=== PATIENT | female | born 1965 | race Caucasian/White ===

== ENCOUNTER 2023-01-30 15:54 | Outpatient (OUT) | payer OTHER, SELFPAY ==
[2023-01-30 17:09] LABS: Thyroid Stimulating Hormone 3.535 uIU/mL (0.358-3.740)
== END 2023-01-30 15:55 | disposition home or self-care (01) ==
PROVIDERS: PCP Family Medicine; Visit Provider Family Medicine
DX: Z00.00 Encounter for general adult medical examination without abnormal findings (principal); R53.82 Chronic fatigue, unspecified
CPT/HCPCS: 36415; 84439; 84443

== ENCOUNTER 2023-03-12 15:55 | Outpatient (OUT) | payer OTHER, SELFPAY ==
--- NOTE | 2023-03-12 15:57 | MM_ITS ---
Patient Name: WILLIAM GAMBINO MR#: [id number] : 1965 Exam Date: 03/12/2023 Ordering Doctor: DR Johanna Gupta M.D. RADIOLOGY REPORT PROCEDURE: MM TOMOSYNTHESIS SCREENING BI COMPARISON: MG MAMM SCREEN 3D AVERY CAD, 02/28/2021. MG MAMM SCREEN 3D AVERY CAD, 03/01/2022. INDICATIONS: Screening Calculator Name NCI Breast Cancer Risk Assessment Tool 5 Year Breast Cancer Risk 1.30% Lifetime Breast Cancer Risk 9.10% Personal Breast Cancer No Personal Ovarian Cancer No Treatments None Family Cancers Mother with liver cancer at age 84; Aunt-maternal with colon cancer at age 67; Grandmother-maternal with colon cancer at age ~50; Grandfather-maternal with colon cancer at age 86. LOCATION: [facility] BREAST COMPOSITION: Scattered areas fibroglandular density. FINDINGS: DIAGNOSTIC CATEGORY 1--NEGATIVE. NO CHANGE FROM COMPARISON ASSESSMENT. Scattered benign-appearing calcifications are present. RIGHT BREAST: No significant suspicious finding. LEFT BREAST: No significant suspicious finding. RECOMMENDATIONS: ROUTINE MAMMOGRAM AND CLINICAL EVALUATION IN 12 MONTHS. PLEASE NOTE: A NORMAL MAMMOGRAM DOES NOT EXCLUDE THE POSSIBILITY OF BREAST CANCER. A CLINICALLY SUSPICIOUS PALPABLE LUMP SHOULD BE BIOPSIED. Dictated by: Nic Vanessa MD on 03/13/2023 at 08:03 Approved by: Nic Vanessa MD on 03/13/2023 at 08:04
== END 2023-03-12 15:56 | disposition home or self-care (01) ==
LOC: MAMMO 15:55
PROVIDERS: PCP Family Medicine; Visit Provider Family Medicine
DX: Z12.31 Encounter for screening mammogram for malignant neoplasm of breast (principal); Z80.8 Family history of malignant neoplasm of other organs or systems; Z80.0 Family history of malignant neoplasm of digestive organs
CPT/HCPCS: 77063; 77067

== ENCOUNTER 2023-06-08 09:00 | Outpatient (OUT) | payer OTHER, SELFPAY ==
--- OUTSIDE RECORDS SUMMARY | 2023-06-08 09:05 | XMS_ITS | CCD ---
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 Name Role Phone Art Chu MD Primary Care Provider [phone] Vj Hernandez Unavailable Torie Lee Unavailable KIMBERLEY, DR ART Alba Admitting Unavailable CHU, DR ART Alba Attending Unavailable CHU, DR ART Alba Primary Care Unavailable CHU, DR ART Alba Consulting Unavailable VJ HERNANDEZ Admitting Unavailable VJ HERNANDEZ Attending Unavailable CHU, DR ART Alba Primary Care Unavailable [facility] [place] DAO Consulting Unavailable CHU, DR ART Alba Admitting Unavailable CHU, DR ART Alba Attending Unavailable CHU, DR ART Alba Primary Care Unavailable LEHIGH, DR MEGHNA Blackmon Consulting Unavailable CHU, DR ART Alba Consulting Unavailable CHU, DR ART Alba Admitting Unavailable CHU, DR ART Alba Attending Unavailable CHU, DR ART Alba Primary Care Unavailable LEHIGH, DR MEGHNA Blackmon Consulting Unavailable CHU, DR ART Alba Consulting Unavailable CHU, DR ART Alba Admitting Unavailable CHU, DR ART Alba Attending Unavailable CHU, DR ART Alba Primary Care Unavailable CHU, DR ART Alba Consulting Unavailable Chu Art CHAMBERS Primary Care Provider [phone] Vj Hernandez Unavailable Vj Hernandez(Historical) Unavailable Unavail able Tr Dalal Unavailable Meghna Butler Unavailable MD Art Chu Primary Care Provider MD Meghna Butler Attending Provider MD Don Boudreaux V Referring Provider SALAM, Zabala Attending Unavailable SALAM, Zabala Referring Unavailable RONY, BILLIE E Attending Unavailable RONY, BILLIE E Attending Unavailable RONY, BILLIE E Attending Unavailable RONY, BILLIE E Attending Unavailable RONY, BILLIE E Attending Unavailable SALAM, Zabala Admitting Unavailable SALAM, Zabala Attending Unavailable RONY, BILLIE E Admitting Unavailable RONY, BILLIE E Attending Unavailable SALAM, Zabala Attending Unavailable SALAM, Zabala Attending Unavailable Chu, Art Unavailable Cindi Pleitez Unavailable MARC Pleitez Attending Provider MD Art Chu Primary Care Provider MD Meghna Butler Attending Provider MD Don Boudreaux V Referring Provider MARC Pleitez Attending Provider HYMAYRA JRMEGHNA L Referring Unavailable CHU, ART E Primary Care Unavailable HYKES JR, MEGHNA L Referring Unavailable CHU, ART E Primary Care Unavailable HYKES JR, MEGHNA L Referring Unavailable CHU, ART E Primary Care Unavailable ABHYANKAR, DON Referring Unavailable ABHYANKAR, DON Attending Unavailable CHU, ART E Primary Care Unavailable CHU, ART E Primary Care Unavailable HYKES JR, MEGHNA L Referring Unavailable CHU, ART E Primary Care Unavailable HYKES JRMEGHNA L Attending Unavailable HYKES JR, MEGHNA L Referring Unavailable CHU, ART E Primary Care Unavailable HYKES JR, MEGHNA L Referring Unavailable CHU, ART E Primary Care Unavailable HYKES JR, MEGHNA L Referring Unavailable CHU, ART E Primary Care Unavailable ABHYANKAR, DON Referring Unavailable ABHYANKAR, DON Attending Unavailable CHU, ART E Primary Care Unavailable CHU, ART E Primary Care Unavailable HYKES JR, MEGHNA L Referring Unavailable CHU, ART E Primary Care Unavailable ABHYANKAR, DON Referring Unavailable ABHYANKAR, DON Attending Unavailable CHU, ART E Primary Care Unavailable Hakan Maguire Unavailable [phone] PATRICK SIMMS Attending Unavailable CUTPATRICK ROTH L Referring Unavailable CUTLER, PATRICK L Referring Unavailable CUTLERRADHAPATRICK L Attending Unavailable RADHA SIMMSOTHY L Referring Unavailable MAGALIE MAGDALENO Attending Unavailable Art Chu Primary Care Unavailable Meghna Butler Admitting Unavailable Meghna Butler Attending Unavailable Art Chu Primary Care Unavailable [facility] Attending Unavailable Art Chu Primary Care Unavailable Don Boudreaux V Referring Unavailable Meghna Butler Admitting Unavailable Meghna Butler Attending Unavailable Art Chu Primary Care Unavailable Cindi Pleitez Admitting Unavailable Cindi Pleitez R Attending Unavailable Patrick Simms DO Primary Care Provider Allergies Allergy Classification Reported Allergen(s) Allergy Type Date of Onset Reaction(s) Facility (8 sources) patient allergy list reviewed by nurse or physicia Propensity to adverse reactions Comment:Done 50 Cubes Other (8 sources) Allergies Reconciled Propensity to adverse reactions Unknown 50 Cubes Other Medications Current Medications Medication Drug Class(es) Dates Sig (Normalized) Sig (Original) [id number] 200 actuat albuterol 0.09 mg/actuat metered dose inhaler (6 sources) beta2-Adrenergic Agonist Start: 07-24-2022 take 2 puff(s) by mouth every four hours as needed for cough albuterol HFA 90 mcg/act inhaler INHALE 2 PUFFS BY MOUTH EVERY 4 HOURS NEEDED FOR COUGH AND SHORTNESS OF BREATH 0 07/24/2022 Active Start: 07-24-2022 take 2 puff(s) by in halation every four hours as needed for cough Albuterol Sulfate HFA 108 (90 Base) MCG/ACT 2 puffs Inhalation every 4 hrs as needed for cough and SOB for 30 days Jun, Active Start: 07-24-2022 take 2 puff(s) by in halation every four hours as needed for cough Albuterol Sulfate HFA 108 (90 Base) MCG/ACT 2 puffs Inhalation every 4 hrs as needed for cough and SOB for 30 days Jun, Not-Taking amLODIPine 5 mg / olmesartan medoxomil 40 mg oral tablet (1 source) Dihydropyridine Calcium Channel Surendra, Angiotensin 2 Receptor Surendra Start: 04-30-2023 End: 04-29-2024 take 1 tablet by mouth in the morning amLODIPine-olmesartan (Lucio) 5-40 MG tablet Indications: Primary hypertension (CMS/HCC) Take 1 tablet by mouth in the morning. 90 tablet 3 04/30/2023 04/29/2024 Active amoxicillin 875 mg / clavulanate 125 mg oral tablet (2 sources) Penicillin-class Antibacterial Start: 02-28-2022 take 1 tablet by mouth every twelve hours Amoxicillin-Pot Clavulanate 875-125 MG 1 tablet Orally every 12 hrs for 10 day(s) Feb, Active azithromycin 250 mg oral tablet (1 source) Macrolide Antimicrobial Start: 07-24-2022 Azithromycin 250 MG as directed Orally daily for 5 days Jun, Active benzonatate 200 mg oral capsule (3 sources) Non-narcotic Antitussive Start: 07-24-2022 take 1 capsule by mouth every eight hours Benzonatate 200 MG 1 capsule Orally Three times a day for 10 days Jun, Active take 1 capsule by mouth every ei ght hours Tessalon Perles 100 MG 1 capsule as needed Orally Three times a day for 10 day(s) Active budesonide 3 mg delayed release oral capsule (3 sources) Corticosteroid Start: 05-29-2022 End: 06-28-2022 take 1 capsule by mouth three times daily budesonide, enteric coated (ENTOCORT EC) 3 mg 24 hr capsule Indications: Ulcerative colitis with rectal bleeding, unspecified location (HCC) Take 1 capsule by mouth three times daily. 90 capsule 2 05/29/2022 06/28/2022 Active Comment on above: Take 1 capsule by cox branson three times daily. ertugliflozin 5 mg oral tablet (1 source) Start: 04-25-2023 take 1 tablet by mouth in the morning ertugliflozin (Steglatro) Indications: Type 2 diabetes mellitus without complication, without long-term current use of insulin (CMS/HCC) Take 1 tablet (5 mg) by mouth in the morning. 30 tablet 3 04/25/2023 Active fluticasone propionate 0.05 mg/actuat metered dose nasal spray (2 sources) Corticosteroid Start: 02-28-2022 take 2 spray(s) nasal route once daily Fluticasone Propionate 50 MCG/ACT 2 sprays Nasally Once a day for 14 day(s) Feb, Active hydrocortisone 10 mg/ml / neomycin 3.5 mg/ml / polymyxin b [id number] unt/ml otic solution (7 sources) Aminoglycoside Antibacterial, Polymyxin-class Antibacterial, Corticosteroid Neomycin-Polymyxin -HC 1 % 4 drops into affected ear Otic Three times a day for 7 days Active Lyumjev (2 sources) Lyumjev Active predniSONE 10 mg oral tablet (15 sources) Start: 03-27-2022 End: 05-16-2022 predniSONE (DELTASONE) 10 mg tablet Indications: Left sided ulcerative colitis with rectal bleeding (HCC) Take by mouth: 40 mg X 7 days; 30 mg X 7 days; 20 mg X 7 days; 10 mg X 7 days 70 tablet 0 04/11/2022 05/16/2022 Active Start: 02-28-2022 take 1 tablet by lexa every twelve hours predniSONE 20 MG 1 tablet Orally 2 times a day for 5 day(s) Feb, Active Comment on above: Take by mouth: 40 mg X 7 days; 30 mg X 7 days; 20 mg X 7 days; 10 mg X 7 days solifenacin succinate 10 mg oral tablet (20 sources) Cholinergic Muscarinic Antagonist take 1 tablet by mouth in the morning solifenacin (VESIcare) 10 MG tablet Take 10 mg by mouth in the morning. Swallow tablet whole; do not crush, chew, or split.. 0 Active Comment on above: Take 10 mg by mouth once daily. vancomycin 125 mg oral capsule (1 source) Glycopeptide Antibacterial Start: take 1 capsule by mouth every twenty-four hours Vancomycin HCl 125 MG 1 capsule Orally Once a day for 5 days Jun, Active Completed/Discontinued Medications Medication Drug Class(es) Dates Sig (Normalized) Sig (Original) Acetaminophen / HYDROcodone (2 sources) Opioid Agonist Start: 10-08-2013 take 1 tablet by mouth every six hours as needed for pain Hudson 5-325 MG 1 tablet as needed Orally every 6 hrs for take as needed for severe pain, avoid driving, alcohol use and machinery use with taking this medication, may cause fatigue, this medication as a potential for addiction and dependence Sep, Not-Taking atenolol 50 mg / chlorthalidone 25 mg oral tablet (2 sources) Thiazide-like Diuretic, beta-Adrenergic Surendra take 1 tablet by mouth every twenty-four hours Atenolol-Chlortha lidone 50-25 MG 1 tablet Orally Once a day for 30 day(s) Not-Taking Augmentin Tablets 875 MG (2 sources) Start: 05-09-2014 take 1 tablet by mouth every twelve hours at mealtime Augmentin Tablets 875 MG 1 by mouth every 12 hours with food and probiotics for 10 days Apr, Not-Taking cephalexin 500 mg oral capsule (2 sources) Cephalosporin Antibacterial Start: 10-08-2013 take 1 capsule by mouth three times daily Cephalexin 500 MG 1 capsule Orally 3 times daily for 10 day(s) Sep, Not-Taking L gasseri/B bifidum/B longum (Close.io ORAL) (16 sources) End: 06-21-2022 L gasseri/B bifidum/B longum (Close.io ORAL) Take by mouth. 0 06/21/2022 Discontinued L gasseri/B bifi dum/B longum (Close.io ORAL) Take by mouth. 0 Active Comment on above: Take by mouth. losartan potassium 25 mg oral tablet (20 sources) Angiotensin 2 Receptor Surendra Start: 12-19-2021 take 1 tablet by mouth once daily losartan (COZAAR) 25 mg tablet Take 25 mg by mouth once daily. 0 12/19/2021 [facility] Comment on above: Take 25 mg by mouth once daily. 24 hr mesalamine 375 mg extended release oral capsule (20 sources) Aminosalicylate Start: 12-26-19 End: 05-09-19 take 4 capsules by mouth once daily in the morning mesalamine ER (APRISO) 0.375 gram capsule TAKE 4 CAPSULES BY MOUTH EVERY MORNING 0 12/25/2021 05/09/2022 Discontinued (Discontinued by Patient) End: 06-21-2022 take 4 g rectal route once daily in the evening MESALAMINE RECTAL 4 g by RECTAL route every evening. 0 06/21/2022 Discontinued (Changing Therapy/Dosage Form) take 4 g rectal rout e once daily in the evening MESALAMINE RECTAL 4 g by RECTAL route every evening. 0 Active MESALAMINE RECTA L by RECTAL route. 0 Active Apriso Active Mesalamine Activ e Comment on above: TAKE 4 CAPSULES BY M OUTH EVERY MORNING by RECTAL route. 4 g by RECTAL route every evening. metFORMIN hydrochloride 500 mg oral tablet (2 sources) Biguanide take 1 tablet by mouth every twelve hours metFORMIN HCl 500 MG 1 tablet with meals Orally Twice a day Not-Taking Oxybutinin XL 5mg (2 sources) Oxybutinin XL 5m g as directed Not-Taking 24 hr tolterodine tartrate 4 mg extended release oral capsule (20 sources) Cholinergic Muscarinic Antagonist End: 11-23-19 take 1 capsule by mouth once daily tolterodine ER (DETROL LA) 4 mg 24 hr capsule Take 4 mg by mouth once daily. 0 11/22/2022 Discontinued Tolterodine Tart rate Active Comment on above: Take 4 mg by mouth o nce daily. Tylenol Arthritis Pain (2 sources) Tylenol Arthriti s Pain Not-Taking vedolizumab 300 mg injection (20 sources) Integrin Receptor Antagonist Start: 03-01-2023 vedolizumab (ENTYVIO) 300 mg injection Inject 300 mg intravenously every 8 weeks. Repeating every 8 weeks 1 Each 5 03/01/2023 Active Start: 10-10-2022 End: 03-01-2023 inject 300 mg intravenously once vedolizumab (ENTYVIO) 300 mg injection Inject 300 mg intravenously one time only for 1 dose. 1 Each 6 10/10/2022 03/01/2023 Discontinued Start: 05-04-2022 Vedolizumab (E NTYVIO IV) Start: 05-04-2022 End: 10-10-2022 vedolizumab (ENTYVIO INTRAVE NOUS) Start: 05-04-2022 vedolizumab (E NTYVIO INTRAVENOUS) Comment on above: Inject 300 mg intrav enously one time only for 1 dose. Inject 300 mg intrav enously every 8 weeks. Repeating every 8 weeks Problems Active Problems Problem Classification Problem Date Documented Da te Episodic/Chronic Abdominal pain (6 sources) Right upper quadrant pain; Translations: [Right upper quadrant pain] Onset: 2 Episodic Acute bronchitis (1 source) Acute bronchitis due to other specified organisms Episodic Anxiety disorders (1 source) Anxiety disorder; Translations: [Other specified anxiety disorders] Onset: 6 Chronic Coma; stupor; and brain damage (3 sources) Daytime somnolence; Translations: [Somnolence] Episodic Deficiency and other anemia (4 sources) Iron deficiency anemia due to blood loss; Translations: [Iron deficiency anemia secondary to blood loss (chronic)] Chronic Deficiency and other anemia (5 sources) Iron deficiency anemia, unspecified; Translations: [IRON DEFICIENCY ANEMIA UNSPECIFIED] Onset: 2 Episodic Diabetes mellitus with complications (9 sources) Hyperglycemia due to type 2 diabetes mellitus; Translations: [Type 2 diabetes mellitus with hyperglycemia] Chronic Diabetes mellitus without complication (2 sources) Type 2 diabetes mellitus without complication; Translations: [Type 2 diabetes mellitus without complications] Onset: 5 Resolved: 3 09-11-2022 Chronic Esophageal disorders (10 sources) Gastroesophageal reflux disease without esophagitis; Translations: [Gastro-esophageal reflux disease without esophagitis] Onset: 3 Chronic Essential hypertension (10 sources) Essential hypertension; Translations: [Essential (primary) hypertension] Onset: 4 Chronic Genitourinary symptoms and ill-defined conditions (2 sources) Mixed urinary incontinence; Translations: [Mixed incontinence] Onset: 8 10-02-2022 Chronic Genitourinary symptoms and ill-defined conditions (1 source) Dysuria; Translations: [Dysuria] Episodic Intestinal infection (1 source) Clostridial gastroenteritis; Translations: [Enterocolitis due to Clostridium difficile, not specified as recurrent] Episodic Malaise and fatigue (7 sources) Fatigue; Translations: [Chronic fatigue, unspecified] Chronic Nausea and vomiting (1 source) Vomiting; Translations: [Vomiting, unspecified] Episodic Noninfectious gastroenteritis (5 sources) Colitis; Translations: [Noninfective gastroenteritis and colitis, unspecified] Onset: 2 Episodic Other circulatory disease (1 source) Elevated blood-pressure reading without diagnosis of hypertension; Translations: [Elevated blood-pressure reading, without diagnosis of hypertension] Episodic Other circulatory disease (2 sources) Nevus, non-neoplastic Episodic Other connective tissue disease (1 source) Acquired trigger finger; Translations: [Trigger finger, unspecified finger] Episodic Other connective tissue disease (1 source) Pain in left leg Episodic Other diseases of bladder and urethra (1 source) Overactive bladder; Translations: [Overactive bladder] Chronic Other diseases of veins and lymphatics (2 sources) Vascular insufficiency; Translations: [Venous insufficiency (chronic) (peripheral)] Episodic Other diseases of veins and lymphatics (1 source) Venous insufficiency (chronic) (peripheral) Episodic Other female genital disorders (1 source) Abnormal uterine bleeding; Translations: [Abnormal uterine and vaginal bleeding, unspecified] Onset: 6 Chronic Other gastrointestinal disorders (4 sources) Diarrhea, unspecified; Translations: [DIARRHEA UNSPECIFIED] Onset: 2 Episodic Other hematologic conditions (3 sources) Secondary polycythemia; Translations: [Secondary polycythemia] Episodic Other hematologic conditions (1 source) Secondary polycythemia Episodic Other infections; including parasitic (1 source) Personal history of other infectious and parasitic diseases Episodic Other liver diseases (1 source) Fatty (change of) liver, not elsewhere classified; Translations: [Other chronic nonalcoholic liver disease] Onset: 3 09-11-2022 Chronic Other lower respiratory disease (1 source) Cough; Translations: [Subacute cough] Episodic Other lower respiratory disease (3 sources) Snoring; Translations: [Snoring] Episodic Other nutritional; endocrine; and metabolic disorders (1 source) Morbid obesity; Translations: [Morbid (severe) obesity due to excess calories] Onset: 7 Chronic Other nutritional; endocrine; and metabolic disorders (3 sources) Obese class II; Translations: [Body mass index 37.0-37.9, adult] Onset: 6 Chronic Other nutritional; endocrine; and metabolic disorders (2 sources) Obese class I; Translations: [Body mass index (BMI) 34.0-34.9, adult] Onset: 6 Chronic Other nutritional; endocrine; and metabolic disorders (8 sources) Body mass index 30+ - obesity; Translations: [Body mass index (BMI) 36.0-36.9, adult] Onset: 6 Chronic Other nutritional; endocrine; and metabolic disorders (1 source) Obesity; Translations: [Obesity, unspecified] Onset: 6 Chronic Other nutritional; endocrine; and metabolic disorders (1 source) Body mass index (BMI) 36.0-36.9, adult Chronic Other nutritional; endocrine; and metabolic disorders (1 source) Severe obesity; Translations: [Morbid (severe) obesity due to excess calories] Onset: 3 04-09-2023 Chronic Other screening for suspected conditions (not mental disorders or infectious disease) (15 sources) Elevated liver enzymes level; Translations: [Other specified abnormal findings of blood chemistry] Onset: 2 Episodic Other upper respiratory infections (1 source) Chronic sinusitis; Translations: [Chronic sinusitis, unspecified] Chronic Regional enteritis and ulcerative colitis (20 sources) Ulcerative colitis; Translations: [Ulcerative colitis, unspecified, without complications] Onset: 3 Chronic Residual codes; unclassified (8 sources) Sleep apnea; Translations: [Sleep apnea, unspecified] Chronic Residual codes; unclassified (2 sources) Sleep apnea, unspecified; Translations: [Sleep apnea, unspecified] Onset: 3 Chronic Residual codes; unclassified (1 source) Obstructive sleep apnea (adult)(pediatric); Translations: [Obstructive sleep apnea (adult) (pediatric)] Onset: 3 Chronic Residual codes; unclassified (1 source) Asymptomatic menopausal state; Translations: [ASYMPTOMATIC MENOPAUSAL STATE] Onset: 2 Episodic Residual codes; unclassified (1 source) Family history of malignant neoplasm of other organs or systems; Translations: [FAM HX MALIG NEOPLASM OTH ORGN/SYS] Onset: 2 Episodic Residual codes; unclassified (1 source) Family history of malignant neoplasm of digestive organs; Translations: [FAM HX MALIG NEOPLASM DIGESTIV ORGN] Onset: 2 Episodic Residual codes; unclassified (2 sources) Postmenopausal state; Translations: [Asymptomatic postmenopausal status] Onset: 9 Episodic Unclassified (20 sources) Type 2 diabetes mellitus without complication; Translations: [Diabetes mellitus type 2, uncontrolled, without complications] Onset: 5 07-08-2014 Unclassified (1 source) Vaccine product containing only acellular Bordetella pertussis and Clostridium tetani and Corynebacterium diphtheriae antigens (medicinal product); Translations: [Rvuiluhjur-zjhhgmf-wm rtussis, combined [DTP] [DtaP]] Onset: 9 Unclassified (1 source) Long-term current use of drug therapy; Translations: [Long-term (current) use of other medications] Onset: 7 Unclassified (1 source) Contact with and (suspected) exposure to potentially hazardous body fluids; Translations: [Contact with and (suspected) exposure to potentially hazardous body fluids] Onset: 4 Unclassified (1 source) Varicose veins of bilateral lower extremities with pain; Translations: [Varicose veins of bilateral lower extremities with pain] Onset: 3 Varicose veins of lower extremity (14 sources) Varicose veins of lower limb co-occurrent with edema; Translations: [Varicose veins of left lower extremity with other complications] Episodic Viral infection (1 source) Herpesviral vesicular dermatitis; Translations: [Herpesviral vesicular dermatitis] Episodic Past or Other Problems Problem Classification Problem Date Documented Da te Episodic/Chronic Deficiency and other anemia (20 sources) Iron deficiency anemia; Translations: [Iron deficiency anemia, unspecified] Onset: 03-04-2022 Episodic Deficiency and other anemia (20 sources) Anemia; Translations: [Anemia, unspecified] Onset: 12-24-2012 02-02-2013 Episodic Diabetes mellitus without complication (1 source) Hyperglycemia; Translations: [Hyperglycemia, unspecified] Onset: 04-24-2014 Episodic Nutritional deficiencies (20 sources) Iron deficiency; Translations: [Iron deficiency] Onset: 05-27-2014 05-27-2014 Episodic Other liver diseases (20 sources) Enzyme level - finding; Translations: [Transaminitis] Onset: 02-02-2013 02-02-2013 Episodic Other skin disorders (1 source) Atrophoderma; Translations: [Unspecified hypertrophic and atrophic condition of skin] Onset: 08-11-2018 Episodic Other upper respiratory infections (2 sources) Acute sinusitis, unspecified; Translations: [Acute sinusitis] Onset: 06-22-2013 Episodic Results Test Name Value Interpretation Reference Range Facil ity XR LUMBAR SPINE 2-3 VIEWSon 06-05-2023 XR LUMBAR SPINE 2-3 VIEWS EXAM: XR LUMBAR SPINE 2-3 VIEWS DATE: 06/05/2023 5:15 PM CLINICAL HISTORY: lumbar radic. COMPARISON: None available. TECHNIQUE: AP, lateral and coned-down AP radiographs of the lumbar spine were obtained. FINDINGS: Mild to moderate disc space narrowing and hypertrophic facet changes are present at L4-5, with approximately 5 to 6 mm of anterolisthesis. Milder changes are present at L3-4, with approximately 1 to 2 mm of anterolisthesis. Mild to moderate hypertrophic facet changes are present of the L5-S1 level, with minimal degenerative changes elsewhere.. There is no compression, fracture, worrisome bone destruction, or other findings of concern identified. The sacroiliac joints are unremarkable. IMPRESSION: LUMBAR SPONDYLOSIS, PREDOMINANTLY OF THE LOWER LEVELS DESCRIBED. ELECTRONICALLY SIGNED BY: Samir Green MD Normal Not Available [facility] 05[facility]-2023 [facility] HNO ID: [id number] Author: TRACI CHANDLER Art Therapist Service: ? Author Type: Art Therapist Type: Allied Health Filed: 05/31/2023 15:11 Note Text: ART THERAPY NOTE SERVICE DATE: 05/31/2023 SERVICE TIME: 1:30 Referred By: self Reason for Referral: Introductory Session Type: Initial Time Spent (minutes): 30 Goals: Coping Through Diversion Interventions: Insight Oriented Response Before After Mood Anxiety Pain Scale: 0 = No pain/anxiety 10 = Worst possible pain/anxiety Response: Patient's Verbal Response: Positive Family Present: No Outcome: Goals: Met Follow Up: Will Follow Up as Able COMMENTS: Patient was introduced to art therapy services and given mandala sheets for mindfulness at home. Patient was finishing treatment but indicated interest at a follow up appointment. SIGNATURE: Konrad Myles Therapist PATIENT NAME: Ludivina Lomas DATE: May 31, 2023 TIME: 3:10 PM PAGER/CONTACT #: Normal [facility] HIV Screen ([facility])on HIV Screen ([facility]) Non-Reactive Normal Nonreactive [facility] Comment on above: Order Comment: Which is this, the Source or the Person with the Exposure?: SOURCE Source Medical Record: [id number] Exposed Result Comment: PERF ORMED BY: [facility] [address] [place] [address] PATHOLOGIST ASSEMBLYMAN OR WOMAN BISHOP BROWN M.D. Performed By: #### H IV12 #### [facility] [address] [place] [address] #### HBSAG, HBSAB, HCV RX PCR #### [facility] , Hep C Ab wRfx to Qnt PCRon 0 05-29-2023 Hepatitis C Virus Antibody Non-Reactive Normal Non Reactive [facility] Comment on above: Order Comment: Which is this, the Source or the Person with the Exposure?: SOURCE Source Medical Record: [id number] Exposed Performed By: #### H IV12 #### [address] #### HBSAG, HBSAB, HCV RX PCR #### [facility] , Interpretation Hepatitis C Normal . [facility] Comment on above: Order Comment: Which is this, the Source or the Person with the Exposure?: SOURCE Source Medical Record: [id number] Exposed Result Comment: Not infected with HCV unless early or acute infection is suspected (which may be delayed in an immunocompromised individual), or other evidence exists to indicate HCV infection. Performed By: #### H IV12 #### [address] #### HBSAG, HBSAB, HCV RX PCR #### [facility] , Hepatitis B Surface Antibody on 05-29-2023 Hepatitis B Surface Antibody Non-Reactive Normal . [facility] Comment on above: Order Comment: Which is this, the Source or the Person with the Exposure?: SOURCE Source Medical Record: [id number] Exposed Result Comment: Non Reactive: Inconsistent with immunity, less than 10 mIU/mL Reactive: Consistent with immunity, greater than 9.9 mIU/mL Performed By: #### H IV12 #### [facility] [address] [place] [address] [place] #### HBSAG, HBSAB, HCV RX PCR #### [facility] , Hepatitis B Surface Antigeno n 05-29-2023 HBsAg Screen Negative Normal Negative [facility] Comment on above: Order Comment: Which is this, the Source or the Person with the Exposure?: SOURCE Source Medical Record: [id number] Exposed Result Comment: Perf ormed at: CB - [facility] [address] [id number] Urban Design Consultant: Ignacio Robles PhD, Phone: [phone] PERFORMED BY: [place] [address] PATHOLOGIST ASSEMBLYMAN OR WOMAN BISHOP BROWN M.D. Performed By: #### H IV12 #### [place] [address] [place] #### HBSAG, HBSAB, HCV RX PCR #### [facility] , US LIVERon 04-30-2023 LIVER US LIVER : 05/13/2023 9:00 AM CLINICAL HISTORY: transaminitis. COMPARISON: None available. TECHNIQUE: ROUTINE FINDINGS: Within the gallbladder hyperechogenic focus is seen that measures 1.6 x 1.5 x 1.3 cm. It moves position with change in position and also exhibits posterior shadowing. The liver is increased in echogenicity. Within the liver in the left lobe an anechoic area is seen that measures 0.7 x 0.6 x 1 cm. An second anicteric area seen left lobe measures 0.9 x 0.9 x 1 cm. No other focal mass is visualized. No pericholecystic edema or gallbladder wall thickening is seen. The visualized portion of the pancreas is unremarkable. The visualized portion of the spleen also is unremarkable The common bile duct measures 1.4 mm.. IMPRESSION: CHOLELITHIASIS WITHOUT EVIDENCE FOR ACUTE CHOLECYSTITIS. Cysts are seen in the liver. Also findings are suggestive of hepatocellular disease which includes hepatic steatosis. ELECTRONICALLY SIGNED BY: Tobias Cooney, DO Normal Not Available CNOVSPon 04-25-2023 CNOVS Visit (SP) Office (HEMASA) LUDIVINA LOMAS ([id number]) 1965 F Date Time Provider Department 04/25/23 9:30 AM DON BOUDREAUX During your visit today, we recorded the following information about you: Temperature Pulse Respiration Blood pressure 97.7 degrees 83/minute 18/minute 174/102 Weight Height 96.7 kg 1.6 m Don Boudreaux MD 04/26/2023 8:31 AM Signed NAME: Ludivina Lomas CLINIC NO.: [id number] DATE OF SERVICE: April 25, 2023 (Sandra) Some elements in this clinic note that are critical to medical decision making have been carefully reviewed and included from a prior clinic note dated: December 14, 2022 (Sandra) Referring Provider: Art Chu Additional Clinicians involved in Ludivina Lomas's care: Art Chu DIAGNOSIS: 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 ASSESSMENT: 57 year old woman with a history of colitis and chronic GI blood loss. Improved after iron replacement. Sweats and alopecia are better. Sleep study was consistent with severe obstructive sleep apnea. PLAN: Get on CPAP therapy as prescribed. Try increasing losartan to 50 mg daily. Follow up with Dr. Chu RTC in 4 months. Labs 1 week ahead. - HPI: CASE HISTORY: Reverse chronological disorder. 06/14/2022 - Hgb 15.2, Ferritin 40, iron sat 14.9% 05/11/2022 - CXR mild bronchial wall thickening ? bronchitis 05/09/2021 - Hgb 12.4, Ferritin 23. 11/2021 - C-Diff colitis. 11/2021 - started Moujarno - stopped due to intolerance 09/2021 persisting colitis following a round of diarrhea and emesis. 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 She has been doing well lately. We reviewed her labs, most everything is satisfactory other than some slightly elevated liver enzymes. Her mildly elevated RBC count is stable. She had her sleep study, dx with CARLOS and plan is to start on CPAP therapy in the new year. Reports experiencing more frequent hypertension, I suggested she increase her losartan dose. She is considering starting either Mounjaro or Ozempic for her DM and weight loss. Updated Visit, December 14, 2022: Sleep eval scheduled for 12/20/2022 - study is not scheduled yet. Otherwise is now polycythemic. Leg pain - left leg worse at night - sitting and standing - off and on since March - does not feel like a clot. Easily reproducible. Updated Visit, June 21, 2022: Mounjaro - caused her to be sick so she is still frustrated with weight gain. Needs sleep study. Significant daytime somnolence. Witnessed snoring. Hgb is much improved but may be concerning for secondary polycytemia associated with possible CARLOS. Updated Visit, May 10, 2022: Anemia improved after getting iron infusion x 5 total since March 14, 2022 Continues to have an irritating bronchial cough with mild phlegm but now is hoarse. Hair is falling out but will monitor. Now is having sweats for unclear etiolgy - again will monitor. Initial Visit, March 02, 2022: Ludivina Elizabeth Lomas presents today Hematology and Oncology evaluation. She is a 56 year old female who has a long history of colitis and GI blood loss. She's not able t tolerate oral iron. Feels exhausted and is very frustrated with the bleeding. Mesalamine is often in the stools. - REVIEW OF SYSTEMS Per HPI and otherwise negative by full review of organ systems. - ECOG PERFORMANCE STATUS: 0 PHYSICAL EXAMINATION: Vitals: BP 174/102 Pulse 83 Temp (Src) 97.7 (Temporal) Resp 18 Ht 5' 2.992 (1.60m) Wt 213 lb 3 oz (96.7kg) SpO2 100% BMI 37.77 kg/(m2). Body surface area is 2.07 meters squared. Exam limited to gross visualization where appropriate. Gen.: This is an age-appropriate patient in no acute distress. Head: Appears atraumatic with no visible lesions. Eyes: Pupils equally round and reactive to light, extraocular muscles are intact. Neck: Supple. Respiratory: Appears to be respiring comfortably. Neurologic: Nonfocal to gross visualization. Alert and oriented ?3. Psychiatric: No evidence of inappropriate anxiety or depression. Skin: Visible areas of skin without rash, lesions, wounds or petechiae. - ALLERGIES: ALLERGIES No Known Allergies MEDICATIONS: vedolizumab (ENTYVIO) 300 mg injection Inject 300 mg intravenously every 8 weeks. Repeating every 8 weeks solifenacin 10 mg tablet Take 10 mg by mouth once daily. losartan (COZAAR) 25 mg tablet Take 25 mg by mouth (more content not included)... [facility] Telephone (JOSE CRUZ) LUDIVINA LOMAS ([id number]) 1965 F Date Time Provider Department 04/23/23 DON BOUDREAUX During your visit today, we recorded the following information about you: Afia Elizabeth 04/23/2023 11:10 AM Signed [facility] paperwork completed and placed in folder to be signed. Summer Montoya Ma 04/25/2023 2:26 PM Signed [facility]ER[facility] SIGNED. FAXED TO TIFFANIE @ [phone]. PLACED IN SCANNING. Summer Richmond Ma Allergies As of Date: 04/23/2023 (No Known Allergies) Date Reviewed: 02/08/2023 Reviewed by: Izabella Henderson RN - Fully Assessed Reason for Visit: [facility] Paperwork [1794] Prescriptions as of 04/25/2023 - vedolizumab (ENTYVIO) 300 mg injection Inject 300 mg intravenously every 8 weeks. Repeating every 8 weeks - solifenacin 10 mg tablet Take 10 mg by mouth once daily. - losartan (COZAAR) 25 mg tablet Take 25 mg by mouth once daily. Problem List As Of Date 04/23/2023 Noted Resolved Anemia [D64.9] 02/02/2013 Transaminitis [R74.01] 02/02/2013 Iron deficiency [E61.1] 05/27/2014 Diabetes mellitus type 2, uncontrolled, without*07/08/2014 Iron deficiency anemia [D50.9] 03/04/2022 Other ulcerative colitis with rectal bleeding (*03/27/2022 Encounter Status:Closed by SUMMER RICHMOND MA on 04/25/23 Normal [facility] CBC W Auto Differential pane l (Bld)on 04-05-2023 Basophils (Bld) [#/Vol] 0.05 10*3/uL Normal <0.11 [facility] Comment on above: Order Comment: Speci men Type: BLOOD SPECIMENOrdering Facility: [facility] Address: [place] [address] Performed By: #### 5 7021-8 ####[facility] LABCLIA [id number] [place] [address] Basophils/100 WBC (Bld) 0.8 % Normal [facility] Comment on above: Order Comment: Speci men Type: BLOOD SPECIMENOrdering Facility: [facility] Address: [address] [place] [address] Performed By: #### 5 7021-8 ####[facility] LABCLIA [id number] [place] [address] Differential cell count method Nom (Bld) Auto Normal [facility] Comment on above: Order Comment: Speci men Type: BLOOD SPECIMENOrdering Facility: [facility] Address: [address] [place] [address] Performed By: #### 5 7021-8 ####[facility] LABCLIA [id number] [place] [address] Eosinophils (Bld) [#/Vol] 0.21 10*3/uL Normal <0.46 [facility] Comment on above: Order Comment: Speci men Type: BLOOD SPECIMENOrdering Facility: [facility] Address: [address] [place] [address] Performed By: #### 5 7021-8 ####[facility] LABCLIA [id number] [place] [address] Eosinophils/100 WBC (Bld) 3.3 % Normal [facility] Comment on above: Order Comment: Speci men Type: BLOOD SPECIMENOrdering Facility: [facility] Address: [address] [place] [address] Performed By: #### 5 7021-8 ####[facility] LABCLIA [id number] [place] [address] Erythrocyte distribution width (RBC) [Ratio] 12.8 % Normal 11.5-15.0 [facility] Comment on above: Order Comment: Speci men Type: BLOOD SPECIMENOrdering Facility: [facility] Address: [address] [place] [address] Performed By: #### 5 7021-8 ####[facility] LABCLIA [id number] [place] [address] Hematocrit (Bld) [Volume fraction] 47.7 % High 36.0-46.0 [facility] Comment on above: Order Comment: Speci men Type: BLOOD SPECIMENOrdering Facility: [facility] Address: [address] [place] [address] Performed By: #### 5 7021-8 ####[facility] LABCLIA [id number] [place] [address] Hemoglobin (Bld) [Mass/Vol] 16.2 g/dL High 11.5-15.5 [facility] Comment on above: Order Comment: Speci men Type: BLOOD SPECIMENOrdering Facility: [facility] Address: [address] [place] [address] Performed By: #### 5 7021-8 ####[facility] LABCLIA [id number] [place] [address] Immature granulocytes (Bld) [#/Vol] 10*3/uL Normal <0.10 [facility] Comment on above: Order Comment: Speci men Type: BLOOD SPECIMENOrdering Facility: [facility] Address: [address] [place] [address] Performed By: #### 5 7021-8 ####[facility] LABCLIA [id number] [place] [address] Immature granulocytes/100 WBC (Bld) 0.3 % Normal [facility] Comment on above: Order Comment: Speci men Type: BLOOD SPECIMENOrdering Facility: [facility] Address: [address] [place] [address] Performed By: #### 5 7021-8 ####[facility] LABCLIA [id number] [place] [address] Lymphocytes (Bld) [#/Vol] 1.80 10*3/uL Normal 1.00-4.00 [facility] Comment on above: Order Comment: Speci men Type: BLOOD SPECIMENOrdering Facility: [facility] Address: [address] [place] [address] Performed By: #### 5 7021-8 ####[facility] LABCLIA [id number] [place] [address] Lymphocytes/100 WBC (Bld) 28.5 % Normal [facility] Comment on above: Order Comment: Speci men Type: BLOOD SPECIMENOrdering Facility: [facility] Address: [address] [place] [address] Performed By: #### 5 7021-8 ####[facility] LABCLIA [id number] [place] [address] MCH (RBC) [Entitic mass] 29.8 pg Normal 26.0-34.0 [facility] Comment on above: Order Comment: Speci men Type: BLOOD SPECIMENOrdering Facility: [facility] Address: [address] [place] [address] Performed By: #### 5 7021-8 ####[facility] LABCLIA [id number] [place] [address] MCHC (RBC) [Mass/Vol] 34.0 g/dL Normal 30.5-36.0 [facility] Comment on above: Order Comment: Speci men Type: BLOOD SPECIMENOrdering Facility: [facility] Address: [address] [place] [address] Performed By: #### 5 7021-8 ####[facility] LABCLIA [id number] [place] [address] MCV (RBC) [Entitic vol] 87.7 fL Normal 80.0-100.0 [facility] Comment on above: Order Comment: Speci men Type: BLOOD SPECIMENOrdering Facility: [facility] Address: [address] [place] [address] Performed By: #### 5 7021-8 ####[facility] LABCLIA [id number] [place] [address] Monocytes (Bld) [#/Vol] 0.70 10*3/uL Normal <0.87 [facility] Comment on above: Order Comment: Speci men Type: BLOOD SPECIMENOrdering Facility: [facility] Address: [address] [place] [address] Performed By: #### 5 7021-8 ####[facility] LABCLIA [id number] [place] [address] Monocytes/100 WBC (Bld) 11.1 % Normal [facility] Comment on above: Order Comment: Speci men Type: BLOOD SPECIMENOrdering Facility: [facility] Address: [address] [place] [address] Performed By: #### 5 7021-8 ####[facility] LABCLIA [id number] [place] [address] Neutrophils (Bld) [#/Vol] 3.54 10*3/uL Normal 1.45-7.50 [facility] Comment on above: Order Comment: Speci men Type: BLOOD SPECIMENOrdering Facility: [facility] Address: [address] [place] [address] Performed By: #### 5 7021-8 ####[facility] LABCLIA [id number] [place] [address] Neutrophils/100 WBC (Bld) 56.0 % Normal [facility] Comment on above: Order Comment: Speci men Type: BLOOD SPECIMENOrdering Facility: [facility] Address: [address] [place] [address] Performed By: #### 5 7021-8 ####[facility] LABCLIA [id number] [place] [address] Nucleated RBC (Bld) [#/Vol] 10*3/uL Normal <0.01 [facility] Comment on above: Order Comment: Speci men Type: BLOOD SPECIMENOrdering Facility: [facility] Address: [address] [place] [address] Performed By: #### 5 7021-8 ####[facility] LABCLIA [id number] [place] [address] Nucleated RBC/100 WBC (Bld) [Ratio] 0.0 /100 WBC Normal [facility] Comment on above: Order Comment: Speci men Type: BLOOD SPECIMENOrdering Facility: [facility] Address: [address] [place] [address] Performed By: #### 5 7021-8 ####[facility] LABCLIA [id number] [place] [address] Platelet mean volume (Bld) [Entitic vol] 9.7 fL Normal 9.0-12.7 [facility] Comment on above: Order Comment: Speci men Type: BLOOD SPECIMENOrdering Facility: [facility] Address: [address] [place] [address] Performed By: #### 5 7021-8 ####[facility] LABCLIA [id number] [place] [address] Platelets (Bld) [#/Vol] 168 10*3/uL Normal 150-400 [facility] Comment on above: Order Comment: Speci men Type: BLOOD SPECIMENOrdering Facility: [facility] Address: [address] [place] [address] Performed By: #### 5 7021-8 ####[facility] LABCLIA [id number] [place] [address] RBC (Bld) [#/Vol] 5.44 10*6/uL High 3.90-5.20 [facility] Comment on above: Order Comment: Speci men Type: BLOOD SPECIMENOrdering Facility: [facility] Address: [address] [place] [address] Performed By: #### 5 7021-8 ####[facility] LABCLIA [id number] [place] [address] WBC (Bld) [#/Vol] 6.32 10*3/uL Normal 3.70-11.00 [facility] Comment on above: Order Comment: Speci men Type: BLOOD SPECIMENOrdering Facility: [facility] Address: [address] [place], [place] [address], [place] [address] Performed By: #### 5 7021-8 ####[facility] LABCLIA [id number] [place] [address] Basophils (Bld) [#/Vol] 0.05 10*3/uL <0.11 k/uL [facility] Basophils/100 WBC (Bld) 0.8 % [facility] Differential cell count method Nom (Bld) Auto [facility] Eosinophils (Bld) [#/Vol] 0.21 10*3/uL <0.46 k/uL [facility] Eosinophils/100 WBC (Bld) 3.3 % [facility] Erythrocyte distribution width (RBC) [Ratio] 12.8 % 11.5 - 15.0 % [facility] Hematocrit (Bld) [Volume fraction] 47.7 % High 36.0 - 46.0 % [facility] Hemoglobin (Bld) [Mass/Vol] 16.2 g/dL High 11.5 - 15.5 g/dL [facility] Immature granulocytes (Bld) [#/Vol] <0.10 k/uL [facility] Immature granulocytes/100 WBC (Bld) 0.3 % [facility] Lymphocytes (Bld) [#/Vol] 1.80 10*3/uL 1.00 - 4.00 k/uL [facility] Lymphocytes/100 WBC (Bld) 28.5 % [facility] MCH (RBC) [Entitic mass] 29.8 pg 26.0 - 34.0 pg [facility] MCHC (RBC) [Mass/Vol] 34.0 g/dL 30.5 - 36.0 g/dL [facility] MCV (RBC) [Entitic vol] 87.7 fL 80.0 - 100.0 fL [facility] Monocytes (Bld) [#/Vol] 0.70 10*3/uL <0.87 k/uL [facility] Monocytes/100 WBC (Bld) 11.1 % [facility] Neutrophils (Bld) [#/Vol] 3.54 10*3/uL 1.45 - 7.50 k/uL [facility] Neutrophils/100 WBC (Bld) 56.0 % [facility] Nucleated RBC (Bld) [#/Vol] <0.01 k/uL [facility] Nucleated RBC/100 WBC (Bld) [Ratio] 0.0 /100 WBC [facility] Platelet mean volume (Bld) [Entitic vol] 9.7 fL 9.0 - 12.7 fL [facility] Platelets (Bld) [#/Vol] 168 10*3/uL 150 - 400 k/uL [facility] RBC (Bld) [#/Vol] 5.44 10*6/uL High 3.90 - 5.20 m/uL [facility] WBC (Bld) [#/Vol] 6.32 10*3/uL 3.70 - 11. 00 k/uL [facility] CNPNon 04-05-2023 CNPN Telephone (HEMTSA) LUDIVINA LOMAS ([id number]) 1965 F Date Time Provider Department 04/05/23 BILLIE KENNEDY During your visit today, we recorded the following information about you: Billie Kennedy RN 04/05/2023 1:11 PM Signed Patient in for treatment of Entyvio at the [facility]. After treatment BP elevated. 181/102 then manually 170/118. Patient asked to call her PCP to notify of elevated BP. Called while in the treatment room and notified nurse who planned to notifiy PCP and call her back. Patient asymptomatic and informed to go straight to ED with any symptoms. Patient verbalized understanding. Billie Kennedy RN Allergies As of Date: 04/05/2023 (No Known Allergies) Date Reviewed: 02/08/2023 Reviewed by: Izabella Henderson RN - Fully Assessed Reason for Visit: FYI-No Action Needed [265] Prescriptions as of 04/05/2023 - vedolizumab (ENTYVIO) 300 mg injection Inject 300 mg intravenously every 8 weeks. Repeating every 8 weeks - solifenacin 10 mg tablet Take 10 mg by mouth once daily. - losartan (COZAAR) 25 mg tablet Take 25 mg by mouth once daily. Facility-Administere d Medications as of 04/05/2023 - acetaminophen 650 mg tab(s) (TYLENOL) - diphenhydrAMINE 25 mg (BENADRYL) - NaCl 0.9% iv infusion - diphenhydrAMINE 50 mg injection (BENADRYL) - EPINEPHrine 1 mg/mL (1 mL) 0.3 mg injection Problem List As Of Date 04/05/2023 Noted Resolved Anemia [D64.9] 02/02/2013 Transaminitis [R74.01] 02/02/2013 Iron deficiency [E61.1] 05/27/2014 Diabetes mellitus type 2, uncontrolled, without*07/08/2014 Iron deficiency anemia [D50.9] 03/04/2022 Other ulcerative colitis with rectal bleeding (*03/27/2022 Encounter Status:Closed by BILLIE KENNEDY on 04/05/23 Normal [facility] Comprehensive metabolic 2000 panelon 04-05-2023 Albumin [Mass/Vol] 4.2 g/dL Normal 3.9-4.9 [facility] Comment on above: Order Comment: Speci men Type: BLOOD SPECIMENOrdering Facility: [facility] Address: [address] [place] [address] Performed By: #### 2 4323-8 ####[facility] LABCLIA [id number] [place] [address] ALP [Catalytic activity/Vol] 97 U/L Normal 34-123 [facility] Comment on above: Order Comment: Speci men Type: BLOOD SPECIMENOrdering Facility: [facility] Address: [address] [place] [address] Performed By: #### 2 4323-8 ####[facility] LABCLIA [id number] [place] [address] ALT [Catalytic activity/Vol] 55 U/L High 7-38 [facility] Comment on above: Order Comment: Speci men Type: BLOOD SPECIMENOrdering Facility: [facility] Address: [address] [place] [address] Performed By: #### 2 4323-8 ####[facility] LABCLIA [id number] [place] [address] Anion gap [Moles/Vol] 11 mmol/L Normal 9-18 [facility] Comment on above: Order Comment: Speci men Type: BLOOD SPECIMENOrdering Facility: [facility] Address: [address] [place] [address] Performed By: #### 2 4323-8 ####[facility] LABCLIA [id number] [place] [address] AST [Catalytic activity/Vol] 37 U/L High 13-35 [facility] Comment on above: Order Comment: Speci men Type: BLOOD SPECIMENOrdering Facility: [facility] Address: [address] [place] [address] Performed By: #### 2 4323-8 ####[facility] LABCLIA [id number] [place] [address] Bilirubin [Mass/Vol] 0.5 mg/dL Normal 0.2-1.3 [facility] Comment on above: Order Comment: Speci men Type: BLOOD SPECIMENOrdering Facility: [facility] Address: [address] [place] [address] Performed By: #### 2 4323-8 ####[facility] LABCLIA [id number] [place] [address] Calcium [Mass/Vol] 9.5 mg/dL Normal 8.5-10.2 [facility] Comment on above: Order Comment: Speci men Type: BLOOD SPECIMENOrdering Facility: [facility] Address: [address] [place] [address] Performed By: #### 2 4323-8 ####[facility] LABCLIA [id number] [place] [address] Chloride [Moles/Vol] 108 mmol/L High 97-105 [facility] Comment on above: Order Comment: Speci men Type: BLOOD SPECIMENOrdering Facility: [facility] Address: [address] [place] [address] Performed By: #### 2 4323-8 ####[facility] LABCLIA [id number] [place] [address] CO2 [Moles/Vol] 25 mmol/L Normal 22-30 [facility] Comment on above: Order Comment: Speci men Type: BLOOD SPECIMENOrdering Facility: [facility] Address: [address] [place] [address] Performed By: #### 2 4323-8 ####[facility] LABCLIA [id number] [place] [address] Creatinine [Mass/Vol] 0.55 mg/dL Low 0.58-0.96 [facility] Comment on above: Order Comment: Speci men Type: BLOOD SPECIMENOrdering Facility: [facility] Address: [address] [place] [address] Performed By: #### 2 4323-8 ####[facility] LABCLIA [id number] [place] [address] Creatinine and Glomerular filtration rate.predicted panel (S/P/Bld) 108 mL/min/1.73m??? Normal >=60 [facility] Comment on above: Order Comment: Speci men Type: BLOOD SPECIMENOrdering Facility: [facility] Address: [address] [place] [address] Result Comment: Ellen mated Glomerular Filtration Rate (eGFR) is calculated using the 2020 CKD-EPI creatinine equation. This equation utilizes serum creatinine, sex, and age as parameters. The creatinine assay has traceable calibration to isotope dilution-mass spectrometry. Refer to KDIGO guidelines for clinical interpretation. In patients with unstable renal function, e.g. those with acute kidney injury, the eGFR may not accurately reflect actual GFR. Performed By: #### 2 4323-8 ####[facility] LABCLIA [id number] [place] [address] Glucose [Mass/Vol] 148 mg/dL High 74-99 [facility] Comment on above: Order Comment: Speci men Type: BLOOD SPECIMENOrdering Facility: [facility] Address: [address] [place], [place] [address] Result Comment: The [place] Diabetes Association (ADA) provides guidance for cutoff values for fasting glucose and random glucose. The ADA defines fasting as no caloric intake for at least 8 hours. Fasting plasma glucose results between 100 to 125 mg/dL indicate increased risk for diabetes (prediabetes). Fasting plasma glucose results greater than or equal to 126 mg/dL meet the criteria for diagnosis of diabetes. In the absence of unequivocal hyperglycemia, results should be confirmed by repeat testing. In a patient with classic symptoms of hyperglycemia or hyperglycemic crisis, random plasma glucose results greater than or equal to 200 mg/dL meet the criteria for diagnosis of diabetes. Reference: Standards of Medical Care in Diabetes 2016, [place] Diabetes Association. Diabetes Care. 2016.39(Suppl 1). Performed By: #### 2 4323-8 ####[facility] LABCLIA [id number] [place] [address] Potassium [Moles/Vol] 4.5 mmol/L Normal 3.7-5.1 [facility] Comment on above: Order Comment: Speci men Type: BLOOD SPECIMENOrdering Facility: [facility] Address: [address] [place] [address] Performed By: #### 2 4323-8 ####[facility] LABCLIA [id number] [place] [address] Protein [Mass/Vol] 6.6 g/dL Normal 6.3-8.0 [facility] Comment on above: Order Comment: Speci men Type: BLOOD SPECIMENOrdering Facility: [facility] Address: [address] [id number] Performed By: #### 2 4323-8 ####[facility] LABCLIA [id number] [place] [address] Sodium [Moles/Vol] 144 mmol/L Normal 136-144 [facility] Comment on above: Order Comment: Speci men Type: BLOOD SPECIMENOrdering Facility: [facility] Address: [address] [place], [place] [address] Performed By: #### 2 4323-8 ####[facility] LABCLIA [id number] [place] [address] Urea nitrogen [Mass/Vol] 15 mg/dL Normal 7-21 [facility] Comment on above: Order Comment: Speci men Type: BLOOD SPECIMENOrdering Facility: [facility] Address: [address] [address] Performed By: #### 2 4323-8 ####[facility] LABCLIA [id number] [place] [address] Albumin [Mass/Vol] 4.2 g/dL 3.9 - 4.9 g/dL [facility] ALP [Catalytic activity/Vol] 97 U/L 34 - 123 U/L [facility] ALT [Catalytic activity/Vol] 55 U/L High 7 - 38 U/L [facility] Anion gap [Moles/Vol] 11 mmol/L 9 - 18 mmol/L [facility] AST [Catalytic activity/Vol] 37 U/L High 13 - 35 U/L [facility] Bilirubin [Mass/Vol] 0.5 mg/dL 0.2 - 1.3 mg/dL [facility] Calcium [Mass/Vol] 9.5 mg/dL 8.5 - 10.2 mg/dL [facility] Chloride [Moles/Vol] 108 mmol/L High 97 - 105 mmol/L [facility] CO2 [Moles/Vol] 25 mmol/L 22 - 30 mmol/L [facility] Creatinine [Mass/Vol] 0.55 mg/dL Low 0.58 - 0.96 mg/dL [facility] Estimated Glomerular Filtration Rate 108 mL/min/1.73m >=60 mL/min/1.73m [facility] Glucose [Mass/Vol] 148 mg/dL High 74 - 99 mg/dL [facility] Potassium [Moles/Vol] 4.5 mmol/L 3.7 - 5.1 mmol/L [facility] Protein [Mass/Vol] 6.6 g/dL 6.3 - 8.0 g/dL [facility] Sodium [Moles/Vol] 144 mmol/L 136 - 144 mmol/L [facility] Urea nitrogen [Mass/Vol] 15 mg/dL 7 - 21 mg/dL [facility] EPO SerPl-aCncon 04-05-2023 Erythropoietin (EPO) Qn 11.2 mIU/mL Normal 2.6-18.5 [facility] Comment on above: Order Comment: Speci men Type: BLOOD SPECIMENOrdering Facility: [facility] Address: [address] [place] [address] Performed By: #### 1 5061-5 ####[facility] LABCLIA [id number] [place] [id number] [place] Ferritin [facility] Ferritin [Mass/Vol] 123.0 ng/mL Normal 14.7-205.1 [facility] Comment on above: Order Comment: Speci men Type: BLOOD SPECIMENOrdering Facility: [facility] Address: [address] [place] [address] Performed By: #### 5 0190-8, 2131-9, 6-4, 2283-8 ####[facility] LABIA [id number] [place] [id number] [place] Folate SerPl-ncon 04-05-20 Folate [Mass/Vol] 11.3 ng/mL Normal >4.7 [facility] Comment on above: Order Comment: Speci men Type: BLOOD SPECIMENOrdering Facility: [facility] Address: [address] [place] [address] Performed By: #### 5 0190-8, 2131-9, 6-4, 2284-8 ####[facility] LABIA [id number] [place] [address] [place] Iron and Iron binding capaci ty panelon 04-05-2023 Iron [Mass/Vol] 109 ug/dL Normal 41-186 [facility] Comment on above: Order Comment: Speci men Type: BLOOD SPECIMENOrdering Facility: [facility] Address: [address] [place] [address] Performed By: #### 5 0190-8, 9, 2275-07, 2283-11 ####[facility] LABCLIA [id number] [place] [address] [place] Iron binding capacity [Mass/Vol] 313 ug/dL Normal 232-386 [facility] Comment on above: Order Comment: Speci men Type: BLOOD SPECIMENOrdering Facility: [facility] Address: [address] [place] [address] Performed By: #### 5 0190-8, 9, 2275-07, 2283-11 ####[facility] LABIA [id number] [place] [address] [place] Iron/TIBC [Molar ratio] 34.8 % Normal 15.0-57.0 [facility] Comment on above: Order Comment: Speci men Type: BLOOD SPECIMENOrdering Facility: [facility] Address: [address] [place] [address] Performed By: #### 5 0190-8, 9, 2275-07, 2283-11 ####[facility] LABIA [id number] [address] [place] Vit [facility] -[facility]-2 023 Cobalamin (Vitamin B12) [Mass/Vol] 465 pg/mL Normal 232-1245 [facility] Comment on above: Order Comment: Speci men Type: BLOOD SPECIMENOrdering Facility: [facility] Address: [address] [place] [address] Performed By: #### 5 0190-8, 9, 2275-07, 8 ####[facility] LABIA [id number] [place] [address] [place] Ana 02-28-2023 MICKN Telephone ([facility]) LUDIVINA LOMAS ([id number]) 1965 F Date Time Provider Department 02/28/23 MEGHNA FARAH JR [facility] During your visit today, we recorded the following information about you: Jing Haque 02/28/2023 4:12 PM Signed Insurance calling. States Entyvio has been authorized. They will be faxing information stating this to [phone]. Insurance states prescription will need to be sent to [facility] to get processed. Their phone is [phone] Their fax is [phone] Shilpi Medeiros MA 03/01/2023 10:43 AM Signed Fax received and scanned into patients chart. AIDA Yan Jennifer RN 03/04/2023 3:16 PM Signed Thank you Billie Andrade RN Allergies As of Date: 02/28/2023 (No Known Allergies) Date Reviewed: 02/08/2023 Reviewed by: Izabella Henderson, RN - Fully Assessed Prescriptions as of 03/04/2023 - vedolizumab (ENTYVIO) 300 mg injection Inject 300 mg intravenously every 8 weeks. Repeating every 8 weeks - solifenacin 10 mg tablet Take 10 mg by mouth once daily. - losartan (COZAAR) 25 mg tablet Take 25 mg by mouth once daily. Problem List As Of Date 02/28/2023 Noted Resolved Anemia [D64.9] 02/02/2013 Transaminitis [R74.01] 02/02/2013 Iron deficiency [E61.1] 05/27/2014 Diabetes mellitus type 2, uncontrolled, without*07/08/2014 Iron deficiency anemia [D50.9] 03/04/2022 Other ulcerative colitis with rectal bleeding (*03/27/2022 Encounter Status:Closed by BILLIE ANDRADE RN on 03/04/23 Normal [facility] US venous duplex LE BIomargie venous duplex LE [facility] [place] [address] Ultrasound Report Signed Patient: Ludivina Lomas MR#: [id number] : 1965 Acct:[id number] Age/Sex: 57 / F ADM Date: 02/26/23 Loc: Room: Type: [facility] Attending Dr: Cindi Pleitez NP-C Ordering Provider: Cindi Pleitez APRN Date of Service: 02/26/23 US/US venous duplex LE BI: I83.813 Copies to: Cindi Pleitez APRN Bilateral lower extremity full functional venous duplex examination Indication for study: Painful varicose veins PROCEDURE: Color-flow duplex scanning is used to interrogate the deep venous and superficial venous system of both lower extremities. There is no evidence for deep vein thrombosis. Bilaterally the common femoral veins, femoral veins, and popliteal veins show good compressibility, color-flow, and augmentation. In the patient's right leg there is reflux for greater than 5 seconds in the greater saphenous vein. This results in massive dilation of the right greater saphenous vein which is 11 mm in largest diameter below the saphenofemoral junction. The greater saphenous vein remains dilated at almost 8 mm down to level of the calf. Extensive varicose veins arise from that saphenous vein in measure 3 to 4 mm in diameter. There is moderate densitometrist incompetence. The right lesser saphenous vein is competent although slightly larger at just under 5 mm in diameter. In the left leg there is no significant venous valvular incompetence with Valsalva at the saphenofemoral junction. The left greater saphenous vein is 6 mm and then is normal size throughout the rest of the thigh. It does however give rise to varicosities that are 3 mm in diameter. No significant densitometrist incompetence is noted. The lesser saphenous vein on the left is competent and normal in size. US/US venous duplex LE BI IMPRESSION: No evidence for deep vein thrombosis in either lower extremity. There is severe venous valvular reflux in the right greater saphenous vein with reflux for greater than 5 seconds which results in massive dilation of the greater saphenous vein at 11 mm. This also gives rise to extensive secondary varicosities. The right leg is moderate densitometrist incompetence. In the left leg no significant venous valvular incompetence was noted although there are scattered varicose veins. Impression dictated by: Guerrero Snell M.D.02/28/2023 11:34 AM Dictation Location: [place] [address] Tech: Afia Temple Transcribed By: PERLA 02/28/23 1134 Dictated By: Guerrero Snell MD 02/28/231131 Signed By: 02/28/23 1134 [facility] Auth for Release of Medical Recordson 01-23-2023 Auth for Release of Medical Records [id number] #1.00CD:127 [facility] Auth for Release of Medical Recordson 12-26-2022 Auth for Release of Medical Records [id number] #1.00CD:127 [facility] CNOVSPon 12-14-2022 CNOVSP Visit (SP) Office ([place]) LUDIVINA LOMAS ([id number]) 1965 F Date Time Provider Department 12/14/22 1:45 PM DON BOUDREAUX During your visit today, we recorded the following information about you: Temperature Pulse Respiration Blood pressure 97.6 degrees 93/minute 16/minute 142/100 Weight Height 95.1 kg 1.6 Don Pearce MD 12/14/2022 2:06 PM Signed NAME: Ludivina Lomas CLINIC NO.: [id number] DATE OF SERVICE: December 14, 2022 (Sandra) Some elements in this clinic note that are critical to medical decision making have been carefully reviewed and included from a prior clinic note dated: June 21, 2022 (Sandra) Referring Provider: Art Chu Additional Clinicians involved in Ludivina Lomas's care: Art Chu DIAGNOSIS: 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 ASSESSMENT: 57 year old woman with a history of colitis and chronic gi blood loss. Improved after iron replacement. Sweats and alopecia are better. Needs sleep evaluation PLAN: RTC in 4 months. Labs 1 week ahead. - HPI: CASE HISTORY: Reverse chronological disorder. 06/14/2022 - Hgb 15.2, Ferritin 40, iron sat 14.9% 05/11/2022 - CXR mild bronchial wall thickening ? bronchitis 05/09/2021 - Hgb 12.4, Ferritin 23. 11/2021 - C-Diff colitis. 11/2021 - started Moujarno - stopped due to intolerance September 2021 persisting colitis following a round of diarrhea and emesis. 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 Otherwise is now polycythemic. Leg pain - left leg worse at night - sitting and standing - off and on since March - does not feel like a clot. Easily reproducible. Updated Visit, June 21, 2022: Mounjaro - caused her to be sick so she is still frustrated with weight gain. Needs sleep study. Significant daytime somnolence. Witnessed snoring. Hgb is much improved but may be concerning for secondary polycytemia associated with possible CARLOS. Updated Visit, May 10, 2022: Anemia improved after getting iron infusion x 5 total since March 14, 2022 Continues to have an irritating bronchial cough with mild phlegm but now is hoarse. Hair is falling out but will monitor. Now is having sweats for unclear etiolgy - again will monitor. Initial Visit, March 02, 2022: Ludivina Lomas presents today Hematology and Oncology evaluation. She is a 56 year old female who has a long history of colitis and GI blood loss. She's not able t tolerate oral iron. Feels exhausted and is very frustrated with the bleeding. Mesalamine is often in the stools. - REVIEW OF SYSTEMS Per HPI and otherwise negative by full review of organ systems. - ECOG PERFORMANCE STATUS: 0 PHYSICAL EXAMINATION: Vitals: BP 142/100 Pulse 93 Temp (Src) 97.6 (Temporal) Resp 16 Ht 5' 3 (1.60m) Wt 209 lb 9.6 oz (95.1kg) SpO2 97% BMI 37.14 kg/(m2). Body surface area is 2.06 meters squared. Exam limited to gross visualization where appropriate. Gen.: This is an age-appropriate patient in no acute distress. Head: Appears atraumatic with no visible lesions. Eyes: Pupils equally round and reactive to light, extraocular muscles are intact. Neck: Supple. Respiratory: Appears to be respiring comfortably. Neurologic: Nonfocal to gross visualization. Alert and oriented ?3. Psychiatric: No evidence of inappropriate anxiety or depression. Skin: Visible areas of skin without rash, lesions, wounds or petechiae. - ALLERGIES: ALLERGIES No Known Allergies MEDICATIONS: solifenacin 10 mg tablet Take 10 mg by mouth once daily. vedolizumab (ENTYVIO) 300 mg injection Inject 300 mg intravenously one time only for 1 dose. losartan (COZAAR) 25 mg tablet Take 25 mg by mouth once daily. - LABORATORY VALUES: WBC (k/uL) Date Value 12/06/2022 5.78 RBC (m/uL) Date Value 12/06/2022 5.33 (H) Hemoglobin (g/dL) Date Value 12/06/2022 16.2 (H) Hematocrit (%) Date Value 12/06/2022 47.7 (H) MCV (fL) Date Value 12/06/2022 89.5 MCH (pg) Date Value 12/06/2022 30.4 MCHC (g/dL) Date Value 12/06/2022 34.0 RDW-CV (%) Date Value 12/06/2022 13.3 Platelet Count (k/uL) Date Value 12/06/2022 182 MPV (fL) Date Value 12/06/2022 8.8 (L) Glucose (mg/dL) Date Value 12/06/2022 161 (H) BUN (mg/dL) Date Value 12/06/2022 1 (more content not included)... Normal [facility] Patient Letter FTon 2022 Patient Letter [facility] December 10, 2022 LUDIVINA LOMAS [address] [place] [phone] : 1965 Dear Ludivina, This is a SECOND ATTEMPT to remind you that you are due for an appointment with [facility]. Please contact our office at [phone] to schedule an appointment at your earliest convenience. Thank you, [facility] [employer] [facility] CBC W Auto Differential pane l (Bld)on 12-06-2022 Basophils (Bld) [#/Vol] 0.05 10*3/uL Normal <0.11 [facility] Comment on above: Order Comment: Speci men Type: BLOOD SPECIMENOrdering Facility: [facility] Address: [address] [address] Performed By: #### 5 7021-8 ####[facility] LABCLIA [id number] [place] [address] Basophils/100 WBC (Bld) 0.9 % Normal [facility] Comment on above: Order Comment: Speci men Type: BLOOD SPECIMENOrdering Facility: [facility] Address: [address] [place] [address] Performed By: #### 5 7021-8 ####[facility] LABCLIA [id number] [place] [address] Differential cell count method Nom (Bld) Auto Normal [facility] Comment on above: Order Comment: Speci men Type: BLOOD SPECIMENOrdering Facility: [facility] Address: [address] [address] Performed By: #### 5 7021-8 ####[facility] LABCLIA [id number] [place] [address] Eosinophils (Bld) [#/Vol] 0.19 10*3/uL Normal <0.46 [facility] Comment on above: Order Comment: Speci men Type: BLOOD SPECIMENOrdering Facility: [facility] Address: [address] [address] Performed By: #### 5 7021-8 ####[facility] LABCLIA [id number] [place] [address] Eosinophils/100 WBC (Bld) 3.3 % Normal [facility] Comment on above: Order Comment: Speci men Type: BLOOD SPECIMENOrdering Facility: [facility] Address: [address] [place] [address] Performed By: #### 5 7021-8 ####[facility] LABCLIA [id number] [place] [address] Erythrocyte distribution width (RBC) [Ratio] 13.3 % Normal 11.5-15.0 [facility] Comment on above: Order Comment: Speci men Type: BLOOD SPECIMENOrdering Facility: [facility] Address: [address] [place] [address] Performed By: #### 5 7021-8 ####[facility] LABCLIA [id number] [place] [address] Hematocrit (Bld) [Volume fraction] 47.7 % High 36.0-46.0 [facility] Comment on above: Order Comment: Speci men Type: BLOOD SPECIMENOrdering Facility: [facility] Address: [address] [place] [address] Performed By: #### 5 7021-8 ####[facility] LABIA [id number] [place] [address] Hemoglobin (Bld) [Mass/Vol] 16.2 g/dL High 11.5-15.5 [facility] Comment on above: Order Comment: Speci men Type: BLOOD SPECIMENOrdering Facility: [facility] Address: [address] [place] [address] Performed By: #### 5 7021-8 ####[facility] LABCLIA [id number] [place] [address] Immature granulocytes (Bld) [#/Vol] 10*3/uL Normal <0.10 [facility] Comment on above: Order Comment: Speci men Type: BLOOD SPECIMENOrdering Facility: [facility] Address: [address] [place] [address] Performed By: #### 5 7021-8 ####[facility] LABIA [id number] [place] [address] Immature granulocytes/100 WBC (Bld) 0.3 % Normal [facility] Comment on above: Order Comment: Speci men Type: BLOOD SPECIMENOrdering Facility: [facility] Address: [address] [address] Performed By: #### 5 7021-8 ####[facility] LABCLIA [id number] [place] [address] Lymphocytes (Bld) [#/Vol] 1.96 10*3/uL Normal 1.00-4.00 [facility] Comment on above: Order Comment: Speci men Type: BLOOD SPECIMENOrdering Facility: [facility] Address: [address] [address] Performed By: #### 5 7021-8 ####[facility] LABCLIA [id number] [place] [address] Lymphocytes/100 WBC (Bld) 33.9 % Normal [facility] Comment on above: Order Comment: Speci men Type: BLOOD SPECIMENOrdering Facility: [facility] Address: [address] [place] [address] Performed By: #### 5 7021-8 ####[facility] LABCLIA [id number] [place] [address] MCH (RBC) [Entitic mass] 30.4 pg Normal 26.0-34.0 [facility] Comment on above: Order Comment: Speci men Type: BLOOD SPECIMENOrdering Facility: [facility] Address: [address] [place] [address] Performed By: #### 5 7021-8 ####[facility] LABCLIA [id number] [place] [address] MCHC (RBC) [Mass/Vol] 34.0 g/dL Normal 30.5-36.0 [facility] Comment on above: Order Comment: Speci men Type: BLOOD SPECIMENOrdering Facility: [facility] Address: [address] [place] [address] Performed By: #### 5 7021-8 ####[facility] LABCLIA [id number] [place] [address] MCV (RBC) [Entitic vol] 89.5 fL Normal 80.0-100.0 [facility] Comment on above: Order Comment: Speci men Type: BLOOD SPECIMENOrdering Facility: [facility] Address: [address] [place] [address] Performed By: #### 5 7021-8 ####[facility] LABCLIA [id number] [place] [address] Monocytes (Bld) [#/Vol] 0.58 10*3/uL Normal <0.87 [facility] Comment on above: Order Comment: Speci men Type: BLOOD SPECIMENOrdering Facility: [facility] Address: [address] [place] [address] Performed By: #### 5 7021-8 ####[facility] LABIA [id number] [place] [address] Monocytes/100 WBC (Bld) 10.0 % Normal [facility] Comment on above: Order Comment: Speci men Type: BLOOD SPECIMENOrdering Facility: [facility] Address: [address] [place] [address] Performed By: #### 5 7021-8 ####[facility] LABCLIA [id number] [place] [address] Neutrophils (Bld) [#/Vol] 2.98 10*3/uL Normal 1.45-7.50 [facility] Comment on above: Order Comment: Speci men Type: BLOOD SPECIMENOrdering Facility: [facility] Address: [address] [place] [address] Performed By: #### 5 7021-8 ####[facility] LABIA [id number] [place] [address] Neutrophils/100 WBC (Bld) 51.6 % Normal [facility] Comment on above: Order Comment: Speci men Type: BLOOD SPECIMENOrdering Facility: [facility] Address: [facility] [place] [address] Performed By: #### 5 7021-8 ####[facility] LABCLIA [id number] [place] [address] Nucleated RBC (Bld) [#/Vol] 10*3/uL Normal <0.01 [facility] Comment on above: Order Comment: Speci men Type: BLOOD SPECIMENOrdering Facility: [facility] Address: [address] [address] Performed By: #### 5 7021-8 ####[facility] LABCLIA [id number] [place] [address] Nucleated RBC/100 WBC (Bld) [Ratio] 0.0 /100 WBC Normal [facility] Comment on above: Order Comment: Speci men Type: BLOOD SPECIMENOrdering Facility: [facility] Address: [address] [place] [address] Performed By: #### 5 7021-8 ####[facility] LABIA [id number] [place] [address] Platelet mean volume (Bld) [Entitic vol] 8.8 fL Low 9.0-12.7 [facility] Comment on above: Order Comment: Speci men Type: BLOOD SPECIMENOrdering Facility: [facility] Address: [address] [address] Performed By: #### 5 7021-8 ####[facility] LABCLIA [id number] [place] [address] Platelets (Bld) [#/Vol] 182 10*3/uL Normal 150-400 [facility] Comment on above: Order Comment: Speci men Type: BLOOD SPECIMENOrdering Facility: [facility] Address: [address] [place] [address] Performed By: #### 5 7021-8 ####[facility] LABCLIA [id number] [place] [address] RBC (Bld) [#/Vol] 5.33 10*6/uL High 3.90-5.20 [facility] Comment on above: Order Comment: Speci men Type: BLOOD SPECIMENOrdering Facility: [facility] Address: [address] [place] [address] Performed By: #### 5 7021-8 ####[facility] LABCLIA [id number] [place] [address] WBC (Bld) [#/Vol] 5.78 10*3/uL Normal 3.70-11.00 [facility] Comment on above: Order Comment: Speci men Type: BLOOD SPECIMENOrdering Facility: [facility] Address: [address] [place] [address] Performed By: #### 5 7021-8 ####[facility] LABCLIA [id number] [place] [address] Comprehensive metabolic 2000 panelon 12-06-2022 Albumin [Mass/Vol] 4.4 g/dL Normal 3.9-4.9 [facility] Comment on above: Order Comment: Speci men Type: BLOOD SPECIMENOrdering Facility: CITY [facility] Address: [address] [place] [address] Performed By: #### 2 4323-8 ####[facility] LABCLIA [id number] [place] [address] ALP [Catalytic activity/Vol] 115 U/L Normal 34-123 [facility] Comment on above: Order Comment: Speci men Type: BLOOD SPECIMENOrdering Facility: [facility] Address: [address] [place] [address] Performed By: #### 2 4323-8 ####[facility] LABCLIA [id number] [place] [address] ALT [Catalytic activity/Vol] 44 U/L High 7-38 [facility] Comment on above: Order Comment: Speci men Type: BLOOD SPECIMENOrdering Facility: [facility] Address: [address] [address] Performed By: #### 2 4323-8 ####[facility] LABCLIA [id number] [place] [address] Anion gap [Moles/Vol] 9 mmol/L Normal 9-18 [facility] Comment on above: Order Comment: Speci men Type: BLOOD SPECIMENOrdering Facility: [facility] Address: [address] [address] Performed By: #### 2 4323-8 ####[facility] LABCLIA [id number] [place] [address] AST [Catalytic activity/Vol] 23 U/L Normal 13-35 [facility] Comment on above: Order Comment: Speci men Type: BLOOD SPECIMENOrdering Facility: [facility] Address: [address] [address] Performed By: #### 2 4323-8 ####[facility] LABCLIA [id number] [place] [address] Bilirubin [Mass/Vol] 0.6 mg/dL Normal 0.2-1.3 [facility] Comment on above: Order Comment: Speci men Type: BLOOD SPECIMENOrdering Facility: [facility] Address: [address] [address] Performed By: #### 2 4323-8 ####[facility] LABCLIA [id number] [place] [address] Calcium [Mass/Vol] 9.9 mg/dL Normal 8.5-10.2 [facility] Comment on above: Order Comment: Speci men Type: BLOOD SPECIMENOrdering Facility: [facility] Address: [address] [place] [address] Performed By: #### 2 4323-8 ####[facility] LABCLIA [id number] [place] [address] Chloride [Moles/Vol] 106 mmol/L High 97-105 [facility] Comment on above: Order Comment: Speci men Type: BLOOD SPECIMENOrdering Facility: [facility] Address: [address] [place] [address] Performed By: #### 2 4323-8 ####[facility] LABCLIA [id number] [place] [address] CO2 [Moles/Vol] 28 mmol/L Normal 22-30 [facility] Comment on above: Order Comment: Speci men Type: BLOOD SPECIMENOrdering Facility: [facility] Address: [address] [place] [address] Performed By: #### 2 4323-8 ####[facility] LABCLIA [id number] [place] [address] Creatinine [Mass/Vol] 0.73 mg/dL Normal 0.58-0.96 [facility] Comment on above: Order Comment: Speci men Type: BLOOD SPECIMENOrdering Facility: [facility] Address: [address] [place] [address] Performed By: #### 2 4323-8 ####[facility] LABCLIA [id number] [place] [address] ESTIMATED GLOMERULAR FILTRATION RATE 97 mL/min/1.73m??? Normal >=60 [facility] Comment on above: Order Comment: Speci men Type: BLOOD SPECIMENOrdering Facility: [facility] Address: [address] [place] [address] Result Comment: Ellen mated Glomerular Filtration Rate (eGFR) is calculated using the 2020 CKD-EPI creatinine equation. This equation utilizes serum creatinine, sex, and age as parameters. The creatinine assay has traceable calibration to isotope dilution-mass spectrometry. Refer to KDIGO guidelines for clinical interpretation. In patients with unstable renal function, e.g. those with acute kidney injury, the eGFR may not accurately reflect actual GFR. Performed By: #### 2 4323-8 ####[facility] LABCLIA [id number] [place] [address] Glucose [Mass/Vol] 161 mg/dL High 74-99 [facility] Comment on above: Order Comment: Speci men Type: BLOOD SPECIMENOrdering Facility: [facility] Address: [address] [place] [address] Result Comment: The [place] Diabetes Association (ADA) provides guidance for cutoff values for fasting glucose and random glucose. The ADA defines fasting as no caloric intake for at least 8 hours. Fasting plasma glucose results between 100 to 125 mg/dL indicate increased risk for diabetes (prediabetes). Fasting plasma glucose results greater than or equal to 126 mg/dL meet the criteria for diagnosis of diabetes. In the absence of unequivocal hyperglycemia, results should be confirmed by repeat testing. In a patient with classic symptoms of hyperglycemia or hyperglycemic crisis, random plasma glucose results greater than or equal to 200 mg/dL meet the criteria for diagnosis of diabetes. Reference: Standards of Medical Care in Diabetes 2016, [place] Diabetes Association. Diabetes Care. 2016.39(Suppl 1). Performed By: #### 2 4323-8 ####[facility] LABCLIA [id number] [place] [address] Potassium [Moles/Vol] 4.7 mmol/L Normal 3.7-5.1 [facility] Comment on above: Order Comment: Speci men Type: BLOOD SPECIMENOrdering Facility: [facility] Address: [address] [place] [address] Performed By: #### 2 4323-8 ####[facility] LABCLIA [id number] [place] [address] Protein [Mass/Vol] 6.7 g/dL Normal 6.3-8.0 [facility] Comment on above: Order Comment: Speci men Type: BLOOD SPECIMENOrdering Facility: [facility] Address: [address] [place] [address] Performed By: #### 2 4323-8 ####[facility] LABCLIA [id number] [place] [address] Sodium [Moles/Vol] 143 mmol/L Normal 136-144 [facility] Comment on above: Order Comment: Speci men Type: BLOOD SPECIMENOrdering Facility: [facility] Address: [address] [place] [address] Performed By: #### 2 4323-8 ####[facility] LABCLIA [id number] [place] [address] Urea nitrogen [Mass/Vol] 11 mg/dL Normal 7-21 [facility] Comment on above: Order Comment: Speci men Type: BLOOD SPECIMENOrdering Facility: [facility] Address: [address] [place] [address] Performed By: #### 2 4323-8 ####[facility] LABIA [id number] [place] [address] EPO SerPl-aCncon 12-06-2022 Erythropoietin (EPO) Qn 10.4 mIU/mL Normal 2.6-18.5 [facility] Comment on above: Order Comment: Speci men Type: BLOOD SPECIMENOrdering Facility: [facility] Address: [address] [place] [address] Performed By: #### 1 5061-5 ####[facility] [id number] [place] [address] [place] Ferritin SerPl-mCncon 2022 Ferritin [Mass/Vol] 61.2 ng/mL Normal 14.7-205.1 [facility] Comment on above: Order Comment: Speci men Type: BLOOD SPECIMENOrdering Facility: [facility] Address: [address] [place] [address] Performed By: #### 5 0190-8, 2132-9, 2276-4, 2284-8 ####[facility] LABIA [id number] [place] [address] [place] Folate SerPl-mCncon 12-07-19 Folate [Mass/Vol] 15.0 ng/mL Normal >4.7 [facility] Comment on above: Order Comment: Speci men Type: BLOOD SPECIMENOrdering Facility: [facility] Address: [address] [place] [address] Performed By: #### 5 0190-8, 2131-12, 2275-07, 2283-11 ####[facility] LABCLIA [id number] [place] [address] [place] Iron and Iron binding capaci ty panelon 12-06-2022 Iron [Mass/Vol] 103 ug/dL Normal 41-186 [facility] Comment on above: Order Comment: Speci men Type: BLOOD SPECIMENOrdering Facility: [facility] Address: [address] [place] [address] Performed By: #### 5 0190-8, 2131-12, 2275-07, 2283-11 ####[facility] LABCLIA [id number] [place] [address] [place] Iron binding capacity [Mass/Vol] 331 ug/dL Normal 232-386 [facility] Comment on above: Order Comment: Speci men Type: BLOOD SPECIMENOrdering Facility: [facility] Address: [address] [place] [address] Performed By: #### 5 0190-8, 2131-12, 2275-07, 2283-11 ####[facility] LABCLIA [id number] [place] [address] [place] Iron/TIBC [Molar ratio] 31.1 % Normal 15.0-57.0 [facility] Comment on above: Order Comment: Speci men Type: BLOOD SPECIMENOrdering Facility: [facility] Address: [address] [place] [address] Performed By: #### 5 0190-8, 2131-12, 2275-07, 2283-11 ####[facility] LABCLIA [id number] [place] [address] [place] Vit B12 SerPl-mCncon 023 Cobalamin (Vitamin B12) [Mass/Vol] 391 pg/mL Normal 232-1245 [facility] Comment on above: Order Comment: Speci men Type: BLOOD SPECIMENOrdering Facility: [facility] Address: [address] [place] [address] Performed By: #### 5 0190-8, 2132-9, 2276-4, 2284-8 ####[facility] LABCLIA [id number] [place] [facility] [address] [address] [place] Patient Letter FTMCon 2022 Patient Letter FT October 31, 2022 LUDIVINA LOMAS [address] [place] [id number] : 1965 Dear Ludivina, This is a reminder that you are due for an appointment with [facility]. Please contact our office at [phone] to schedule an appointment at your earliest convenience. [facility] you, [facility] CNPN Telephone (HEMASA) LUDIVINA LOMAS ([id number]) 1965 F Date Time Provider Department 10/18/22 DON BOUDREAUX During your visit today, we recorded the following information about you: Afia Elizabeth 10/18/2022 10:54 AM Signed [place] paperwork completed and placed in folder to be signed. Afia Mehta 10/29/2022 3:53 PM Signed FMLA PAPERWORK SIGNED. FAXED TO [facility] @ . PLACED IN SCANNING. Surjit Mehta Allergies As of Date: 10/18/2022 (No Known Allergies) Date Reviewed: 08/24/2022 Reviewed by: Izabella Henderson RN - Fully Assessed Reason for Visit: [facility] Paperwork [9098] Prescriptions as of 10/29/2022 - solifenacin 10 mg tablet Take 10 mg by mouth once daily. - vedolizumab (ENTYVIO) 300 mg injection Inject 300 mg intravenously one time only for 1 dose. - losartan (COZAAR) 25 mg tablet Take 25 mg by mouth once daily. - tolterodine ER (DETROL LA) 4 mg 24 hr capsule Take 4 mg by mouth once daily. Problem List As Of Date 10/18/2022 Noted Resolved Anemia [D64.9] 02/02/2013 Transaminitis [R74.01] 02/02/2013 Iron deficiency [E61.1] 05/27/2014 Diabetes mellitus type 2, uncontrolled, without*07/08/2014 Iron deficiency anemia [D50.9] 03/04/2022 Other ulcerative colitis with rectal bleeding (*03/27/2022 Encounter Status:Closed by SURJIT MEHTA on 10/29/22 Normal [facility] CNCOon 10-04-2022 CNCO Letter Text Normal [facility] Patient Educationon 10-04-19 Patient Education Obstetrics and Gynecology Overactive Bladder, Adult Overactive bladder is a condition in which a person has a sudden and frequent need to urinate. A person might also leak urine if he or she cannot get to the bathroom fast enough (urinary incontinence). Sometimes, symptoms can interfere with work or social activities. What are the causes? Overactive bladder is associated with poor nerve signals between your bladder and your brain. Your bladder may get the signal to empty before it is full. You may also have very sensitive muscles that make your bladder squeeze too soon. This condition may also be caused by other factors, such as: ? Medical conditions: ? Urinary tract infection. ? Infection of nearby tissues. ? Prostate enlargement. ? Bladder stones, inflammation, or tumors. ? Diabetes. ? Muscle or nerve weakness, especially from these conditions: ? A spinal cord injury. ? Stroke. ? Multiple sclerosis. ? Parkinson's disease. ? Other causes: ? Surgery on the uterus or urethra. ? Drinking too much caffeine or alcohol. ? Certain medicines, especially those that eliminate extra fluid in the body (diuretics). ? Constipation. What increases the risk? You may be at greater risk for overactive bladder if you: ? Are an older adult. ? Smoke. ? Are going through menopause. ? Have prostate problems. ? Have a neurological disease, such as stroke, dementia, Parkinson's disease, or multiple sclerosis (MS). ? Eat or drink alcohol, spicy food, caffeine, and other things that irritate the bladder. ? Are overweight or obese. What are the signs or symptoms? Symptoms of this condition include a sudden, strong urge to urinate. Other symptoms include: ? Leaking urine. ? Urinating 8 or more times a day. ? Waking up to urinate 2 or more times overnight. How is this diagnosed? This condition may be diagnosed based on: ? Your symptoms and medical history. ? A physical exam. ? Blood or urine tests to check for possible causes, such as infection. You may also need to see a health care provider who specializes in urinary tract problems. This is called a urologist. How is this treated? Treatment for overactive bladder depends on the cause of your condition and whether it is mild or severe. Treatment may include: ? Bladder training, such as: ? Learning to control the urge to urinate by following a schedule to urinate at regular intervals. ? Doing Kegel exercises to strengthen the pelvic floor muscles that support your bladder. ? Special devices, such as: ? Biofeedback. This uses sensors to help you become aware of your body's signals. ? Electrical stimulation. This uses electrodes placed inside the body (implanted) or outside the body. These electrodes send gentle pulses of electricity to strengthen the nerves or muscles that control the bladder. ? Women may use a plastic device, called a pessary, that fits into the vagina and supports the bladder. ? Medicines, such as: ? Antibiotics to treat bladder infection. ? Antispasmodics to stop the bladder from releasing urine at the wrong time. ? Tricyclic antidepressants to relax bladder muscles. ? Injections of botulinum toxin type A directly into the bladder tissue to relax bladder muscles. ? Surgery, such as: ? A device may be implanted to help manage the nerve signals that control urination. ? An electrode may be implanted to stimulate electrical signals in the bladder. ? A procedure may be done to change the shape of the bladder. This is done only in very severe cases. Follow these instructions at home: Eating and drinking ? Make diet or lifestyle changes recommended by your health care provider. These may include: ? Drinking fluids throughout the day and not only with meals. ? Cutting down on caffeine or alcohol. ? Eating a healthy and balanced diet to prevent constipation. This may include: ? Choosing foods that are high in fiber, such as beans, whole grains, and fresh fruits and vegetables. ? Limiting foods that are high in fat and processed sugars, such as fried and sweet foods. Lifestyle ? Lose weight if needed. ? Do not use any products that contain nicotine or tobacco. These include cigarettes, chewing tobacco, and vaping devices, such as e-cigarettes. If you need help quitting, ask your health care provider. General instructions ? Take ikuj-sgw-qvwaoto and prescription medicines only as told by your health care provider. ? If you were prescribed an antibiotic medicine, take it as told by your health care provider. Do not stop taking the antibiotic even if you start to feel better. ? Use any implants or pessary as told by your health care provider. ? If needed, wear pads to absorb urine leakage. ? Keep a log to track how much and when you drink, and when you need to urinate. This will help your health care provider monitor yo (more content not included)... Normal [facility] Urology Office/Clinic Noteon 10-03-2022 Urology Office/Clinic Note Chief Complaint Follow up HPI Staff Former DLS pt here today for 2m follow up to starting VESIcare 10mg QD therapy for TX of Incontinence. Pt was previously taking Tolterodine 4mg QD therapy. Additional DX:Abnormal UA, Urethral Stricture & C Diff diarrhea. Pt states VESIcare is working perfectly for her, pt states she does have dry mouth. PVR 0ml NEG C&S done at time of last encounter. Dysuria: denies pain or burning Incomplete bladder emptying: denies Hematuria: denies visible blood, urine is little darker Frequency: denies Urgency: moderate Nocturia: 2x a night Stream: pt states stream has gotten better, once her stream starts she can't stop stream Leaking: denies Post void dripping: denies Wearing pads/ Depends: yes wears pads daily, changes once or twice a day Urge incontinence: denies Stress incontinence: yes sometimes Incontinence without Sensory Awareness: denies Abdominal pain: denies Flank pain: denies Sexual complaints: denies History of Present Illness staff HPI reviewed and agree. Tests Reviewed: Reviewed UA. Review of Systems PHQ Score Initial Depression Screen Score: 0 no fever, chills, malaise, myalgia. no rash/lesions. no chest pain, palpitations, or SOB. no abdominal pain, nausea, vomiting. no unilateral calf swelling, redness, pain Physical Exam Vitals & Measurements HR: 100(Peripheral) BP: 127/83 HT: 63 in HT: 160 cm WT: 92.6 kg WT: 203.72 lb BMI: 36.17 General: nontoxic, NAD Mouth: moist mucosa Lungs: normal respiratory effort Cardio: regular rate, good distal perfusion Abdomen: nondistended, no suprapubic distention or tenderness, no CVA tenderness Neurologic: Grossly normal Skin: No rashes or suspicious lesions Assessment/Plan No sample provided for UA today. 1. Urge incontinence (N39.41: Urge incontinence) Previously failed Oxybutynin due to dry mouth. Pt switched from Tolterodine 4 mg qd to Vesicare 10 mg qd at prior OV. Incontinence greatly improved. Does have SE of dry mouth. Recommended Biotene mouthwash. Will cont Vesicare since SE tolerable. Follow up already schedule for 02/13 or sooner if needed. Pt understands and agrees with plan. Pt will keep this appt but will cancel if she is doing well. Will also schedule 1 yr. 2. Abnormal urinalysis (R82.90: Unspecified abnormal findings in urine) UA 08/22/22 +blood/leuks, neg nit. Was sent for cx, neg. 3. Other urethral stricture, female (N35.82: Other urethral stricture, female) S/P Cysto/UD 07/10/21. reports good strong/steady stream. Follow-up With When Contact Information BILLIE LAWRENCE PA-C, URL [address] [place] [address] Additional Instructions: Follow up already scheduled for 02/13. pt will cancel it if she's doing well and f/u in 1 yr. if any issues she will come as scheduled in january. Patient Education Overactive Bladder, Adult Documentation recorded by the scribe Darlene Mcguire accurately reflects the services(s) I performed and decisions made by me. Authenticated by Billie Lawrence PA-C on 10/03/2022 16:06:01. I, Darlene Mcguire, personally scribed for JOE Moses on 10/03/2022 15:52:28. . Problem List/Past Medical History Ongoing Abnormal urinalysis Acute diarrhea Acute nausea with nonbilious vomiting Anemia Anemia due to GI blood loss Cholelithiasis Clostridium difficile diarrhea Colitis Diabetes Fatty liver GERD (gastroesophageal reflux disease) Left sided ulcerative colitis Liver cyst Liver lesion Nausea and vomiting Obesity due to excess calories Other urethral stricture, female Proctitis Rectal bleed Stress incontinence Ulcerative colitis Urge incontinence Historical No qualifying data Procedure/Surgical History Colonoscopy (11/29/2021), Cystourethroscopy with dilation of urethral stricture (07/10/2021), Cystourethroscopy with dilation of urethral stricture (04/10/2019), Colonoscopy, Hysterectomy, Oophorectomy. Medications Entyvio 300 mg intravenous injection, IV losartan 25 mg Tab, 25 mg= 1 tab(s), Oral, Daily Vesicare 10 mg Tab, 10 mg= 1 tab(s), Oral, Daily, 3 refills Zofran 4 mg Tab, 4 mg= 1 tab(s), Oral, q8hr, 1 refills Allergies No Known Allergies Social History Alcohol Current, Wine, 1-2 times per month, 03/07/2022 Tobacco Never (less than 100 in lifetime) Tobacco Use:. Never Smokeless Tobacco Use:., 10/03/2022 Family History Cancer: Mother. Diabetes clinic: Mother. Drug dependence: Father. Heart disease: Mother. High cholesterol: Mother. Hypertension: Mother. Immunizations Vaccine Date Status Comments influenza virus vaccine, inactivated - Not Given Postpone due to refusal influenza virus vaccine, inactivated - Not Given Patient Refuses influenza virus vaccine, inactivated - Not Given Patient Refuses SARS-CoV-2 (COVID-19) Ad26 vaccine 04/03/2021 Recorded SARS-CoV-2 (COVID-19) mRNA BNT-162b2 vax 04/01/ (more content not included)... Normal [facility] Comment on above: Result Comment: Elec tronically Signed By: RONY THAKKAR, BILLIE Alba\.br\Date and Time Signed: 10/03/22 16:06 EDT\.br\Electronically Co-Signed By: Darlene Mcguire\.br\Date and Time Co-Signed: 10/03/22 15:53 EDT MICKNon 08-30-2022 CNPN Telephone (GREGORIONO) LUDIVINA LOMAS ([id number]) 1965 F Date Time Provider Department 08/30/22 MEGHNA FARAH JR During your visit today, we recorded the following information about you: Billie Andrade RN 08/30/2022 4:08 PM Signed Spoke to pt's insurance PA dept again, have main multiple attempts to do PA over the phone and the company does not allow for it. Faxed a form I was told would begin the process and even had confirmation of fax going through but am told it's not documented. I spoke to a rep today who gave me the email address and may send all information there. Britany will email to the email address provided. Billie Delcid Ma 09/25/2022 12:59 PM Signed Hetal with [facility] calling requesting provider resubmit for PA for the [employer] Hetal can be reached at [phone] Lynn Shafer 10/01/2022 1:58 PM Signed Hetal calling back again with [facility] calling requesting provider resubmit for PA for the Entivyo She can be reached at [phone] Billie Andrade RN 10/04/2022 1:12 PM Signed Called pt and LVM advising another appeal has been sent with additional appeal letter and all clinical information. Will follow up again on Saturday by calling [employer]. Called and left message for [employer] rep Hetal to update her on this process. Billie Andrade RN Allergies As of Date: 08/30/2022 (No Known Allergies) Date Reviewed: 08/24/2022 Reviewed by: Izabella Henderson RN - Fully Assessed Reason for Visit: Medication Problem [65] Prescriptions as of 10/04/2022 - vedolizumab (ENTYVIO INTRAVENOUS) - losartan (COZAAR) 25 mg tablet Take 25 mg by mouth once daily. - tolterodine ER (DETROL LA) 4 mg 24 hr capsule Take 4 mg by mouth once daily. Problem List As Of Date 08/30/2022 Noted Resolved Anemia [D64.9] 02/02/2013 Transaminitis [R74.01] 02/02/2013 Iron deficiency [E61.1] 05/27/2014 Diabetes mellitus type 2, uncontrolled, without*07/08/2014 Iron deficiency anemia [D50.9] 03/04/2022 Other ulcerative colitis with rectal bleeding (*03/27/2022 Encounter Status:Closed by BILLIE ANDRADE RN on 10/04/22 [facility] CNOVon 08-28-2022 CN Office Visit ([facility]) LUDIVINA LOMAS ([id number]) 1965 F Date Time Provider Department 08/28/22 2:30 PM MEGHNA FARAH JR [facility] During your visit today, we recorded the following information about you: Weight Height 93 kg 1.6 m Meghna Farah Jr., DO 08/28/2022 2:42 PM Signed Patient presents with: F/U 3 Month HPI: Ludivina Lomas, 56 year old female, presents in the office today for follow up of left sided ulcerative colitis. Diagnosed with ulcerative colitis in the . Controlled with mesalamine for a number of years but over the past few years she has recurrent bleeding and diarrhea requiring several courses of prednisone. Her symptoms increased undergoing a colonoscopy in November [address] Hernandez showing severe left sided ulcerative colitis. Despite prednisone and Apriso, she has never become controlled. Entyvio started and symptoms have remain controlled and disease in remission. Some insurance issues but so far Entyvio approved and remains controlled. Family history of colon cancer (grandmother and Aunt). Last CT scan was November 2021. Past GI workup Last Entyvio infusion was 08/24/22 per [facility] covering this infusion. Will need to reach out again to [employer] who handles pt's prior authorizations. An appeal was faxed to the insurance with no noted response. Will call again Saturday for update 03/27/22 Last OV notes as follows: 56 y/o female with severe left sided ulcerative colitis with rectal bleeding. Her symptoms are severe and even develop iron deficiency anemia. She requires more aggressive therapy. Discussed options including biologics and immunomodulators. After discussion we have elected to pursue biologic therapies. Start workup, currently plan Left sided ulcerative colitis with rectal bleeding - CBC + DIFF - COMP METABOLIC PANEL - HEP ACUTE PANEL/RNA - BLOOD TB SCREEN - PREDNISONE 10 MG TABLET 2. Iron deficiency anemia, unspecified iron deficiency anemia type - - Continue followup with hematology for iron infusions 12/18 colonoscopy: severe left sided ulcerative colitis 12/03/14 EGD/colonoscopy were done per Dr. Hernandez for ROSALINDA and h/o UC: Raised antral ulcers were found, duodenal biopsies were taken Random colon bx taken Internal hemorrhoids were found Biopsies as follows: (-) random biopsies of colon (-) stomach and duodenal biopsies also Last labs as follows: Component Latest Ref Rng AND Units 03/02/2022 03/27/2022 03/29/2022 04/13/2022 05/04/2022 06/14/2022 WBC 3.70 - 11.00 k/uL 6.75 6.13 5.47 8.99 7.83 9.10 RBC 3.90 - 5.20 m/uL 4.70 4.90 4.82 4.77 5.18 5.47 (H) Hemoglobin 11.5 - 15.5 g/dL 11.9 12.6 12.3 12.6 14.0 15.2 Hematocrit 36.0 - 46.0 % 38.7 40.5 39.8 40.1 43.9 46.6 (H) MCV 80.0 - 100.0 fL 82.3 82.7 82.6 84.1 84.7 85.2 MCH 26.0 - 34.0 pg 25.3 (L) 25.7 (L) 25.5 (L) 26.4 27.0 27.8 MCHC 30.5 - 36.0 g/dL 30.7 31.1 30.9 31.4 31.9 32.6 RDW-CV 11.5 - 15.0 % 15.5 (H) 16.1 (H) 16.0 (H) 17.5 (H) 18.6 (H) 16.6 (H) Platelet Count 150 - 400 k/uL 311 270 275 214 262 237 MPV 9.0 - 12.7 fL 8.8 (L) 8.7 (L) 8.6 (L) 8.5 (L) 8.6 (L) 8.6 (L) Neut% % 67.9 50.3 79.9 70.7 75.4 68.3 Abs Neut (ANC) 1.45 - 7.50 k/uL 4.58 3.08 4.37 6.35 5.90 6.21 Lymph% % 16.9 31.3 12.1 17.6 13.4 20.3 Abs Lymph 1.00 - 4.00 k/uL 1.14 1.92 0.66 (L) 1.58 1.05 1.85 Edmunds% % 14.2 12.2 6.9 8.9 9.7 8.9 Abs Edmunds <0.87 k/uL 0.96 (H) 0.75 0.38 0.80 0.76 0.81 Eosin% % 0.1 5.1 0.2 2.0 0.1 1.4 Abs Eosin <0.46 k/uL <0.03 0.31 <0.03 0.18 <0.03 0.13 Baso% % 0.6 0.8 0.5 0.4 0.5 0.7 Abs Baso <0.11 k/uL 0.04 0.05 0.03 0.04 0.04 0.06 Immature Gran % % 0.3 0.3 0.4 0.4 0.9 0.4 IMMATURE GRANS (ABS) <0.10 k/uL <0.03 <0.03 <0.03 0.04 0.07 0.04 NRBC /100 WBC 0.0 0.0 0.0 0.0 0.0 0.0 Absolute nRBC <0.01 k/uL <0.01 <0.01 <0.01 <0.01 <0.01 <0.01 DTYPE Auto Auto Auto Auto Auto Auto Protein, Total 6.3 - 8.0 g/dL 7.0 7.1 6.8 6.4 7.0 Albumin 3.9 - 4.9 g/dL 4.2 4.2 4.1 4.2 4.4 Calcium 8.5 - 10.2 mg/dL 9.8 9.8 9.3 9.6 9.8 Bilirubin, Total 0.2 - 1.3 mg/dL 0.3 0.3 0.3 0.2 0.4 Alkaline Phosphatase 34 - 123 U/L 80 90 90 72 99 AST 13 - 35 U/L 23 20 20 20 18 ALT 7 - 38 U/L 30 20 22 43 (H) 26 Glucose 74 - 99 mg/dL 113 (H) 132 (H) 253 (H) 175 (H) 100 (H) BUN 7 - 21 mg/dL 20 17 22 (H) 18 21 Creatinine 0.58 - 0.96 mg/dL 0.61 0.65 0.51 (L) 0.52 (L) 0.63 Sodium 136 - 144 mmol/L 140 141 139 138 140 Potassium 3.7 - 5.1 mmol/L 3.9 4.4 4.1 4.1 4.5 Chloride 97 - 105 mmol/L 103 103 104 106 (H) 104 CO2 22 - 30 mmol/L 28 28 24 26 28 Anion Gap 9 - 18 mmol/L 9 10 11 6 (L) 8 (L) eGFR >=60 mL/min/1.73mA? 106 105 111 111 106 Iron 41 - 186 ug/dL 22 (L) 26 (L) 45 58 TIBC 232 - 386 ug/dL 380 379 299 389 (H) Transferrin Saturation 15.0 - 57.0 % 5.8 (L) 6.9 (L) 15.1 14.9 (L) Ferritin 14.7 - 205.1 ng/mL 24.6 60.2 204.0 40.0 Vitamin B12 232 - 1,245 pg/mL 614 565 581 421 Folate >4.7 ng/mL 15.6 >20.0 15.7 17.7 PAST MED (more content not included)... Normal [facility] Coding Summary.on 08-25-2022 Coding Summary. CD:[id number] Ww+PGhlYWQ+QW4EHOKaP 05hgHRvsP2kM2TEBFaED ywgQVBQTElOSyIgbmFtZ X1krKJqJFXc IC8+TK8rYQKrHkklbGSs t8D9qYU4F49nyv3vQLaq pFL8IZRrWbTvggekk7vh iIi9EQtuXbufMjWo PNMkuJ05CET0pA16Qv34 eALytFJif0psjLd9PyLy VJNyFGM6uZgvESogv9Bl UWEqE99zxXUns3M9 IGNvbGxhcHNlOyBlbXB0 jA8zKKxyuixsu6vfoszh Udi2lv17iZWfs9G2pAG5 O1EogoF5YDIjkFPv VvhklHZTwF1gczoha5rp zmueMiVsNHRvUFo6IHs4 BEDkwFxvYrWuBW28OGK4 SNCklvHbO4QfKSQb eWcdHhQ8b0U6Pz6IO9FR UbkuD8QJRFEMJKubvOZ+ YW29sf46R4XdTuezQst3 YZGyPQP4hPE3yO5l BROsVHhny4X9hVH3O0Kr liUsvq6gy5ilFELwTAer Y53gbOTqj3G8TWOmfSG0 GZArtVukVtVcqN32 Oyc+DTMetIahz5AyRjnv g5uxc8agbEb9TuufDCSo eqJlrDyaPUX4a5DlTv0o QFIqgAT9hHY7fP0q NdUxYqL5CUihG855ZxZo wCIoZlzfK89qL4StpAA+ ROWrHju1KFPpmHhrCD4s I7CbZOVkkqzimOEw sHswUQ9wOMGfdrybAQNw jA4gFIMlD4n0FnPoIdK1 VEsjB9OuRICkqvpmQf91 mQ5pZlYpOmL6LIaj N1YdluM3IGWpqTAnXKkv YGW6G04ii9Y4NUPfZEBu RUT7oSV2mT1hdClupjlv bGVmdDsgdmVydGlj VHkmGSgpF906VBYilDha PkNvZGluZyBEYXRlOiAg MDQvMjkvMjAyMzwvdGQ+ KECtFAN6eElhOGDp sYAlJIthAh0ltOvwhYob SP9xKXCtowayGEMbvW0j PWRiiZShmMulCW0aGCHw wuoqp535JcZmRMI5 ESSubTDvK6DqxF0wGgSn IBJnGJGfG0UcsVEoKAdi S116DEieYiT0UZMbuhQc U4KhNAMqhGerIqR2 v8Z5Su2Ld1NxnuhpL2Zg cHBxYiDmEmqdTQr5K0Fd PjwvdHI+BA34ALCqNC66 BMo4PMF0nFvjZKme ZUSeI2KicN1bEyVsEKOg ZGRkOyc+PHRhYmxlIHdp ZHRoPScxMDAlJyBzdHls GQ1aWh0gSYAhNWYe pGonxMGsZjHhb6myOKZr HHchRE8atCvnH6BonWU8 PEIrx8l0Ps15A77vK4Dj dXA+MISonSV5hMT8 sD2fSoLsWwB0LOveV585 TeFaeYEnGxvac8hvv6bf xLs1RiQ9JLZmrxLntWgz WXB3g0WtEb36L76i IHdpZHRoPSIxNSUiIHZh dQbwvk0vmG8kYt9+PGNv gEU8hIQ8vV7dKiXxWgX2 CCrpH467MkPgtBNz Pjuak0jwu1ibrRv2HlIw YFOigiXkmNeeNIT7i7Sw Ap14R1LujKmol9UyTnu7 ow29eJZch2V2aZW4 S5VvDJXqpgacoSFvgFdq DX4nQWLcugbkPLTkpC1t OTZrR2t4GzSfUsB5HZdq F9TthoG4TCWvgIFb XHMneMEQaB3dxxjdq7vm iitkDuQtYLHcVMg3NQe7 QIPnfNfzCbIpLIS0SgW1 ZTA6lEQgeQ0gtXuj urrkoI3sYgg+LIO5tNEa jJTGEH6kOwtctOQ+PHRk VCP3kRflGKmySTEeoA6y JRIkF0n6HtLzNpH2 JXnqY8DxbnR1TTQymEBq ULWvjSMIdZ5izbuoh3bs qhlfMyDuNZQpUGj6OQb1 LWFsaWduOiBsZWZ0 GgB7HUW7bLWknC8ocFzz bnauyU1mIuk+QmlydGgg THV4YOz4B7ErNkj6WOGg vLzrEJ1qcGSrJJgf Jz9mzZgvgApeMX5xVZTz szxbg073ZoWlb1mpYWWb zEWtHYxzNRW4W53bz6B6 OJPbQMAzJQB0kGF6 tP3vnKfjdidsmPJjkJgq mdNhyEtpZJinXPgxH337 KIRgiBkdEuNsVOn0L6Ba Jhu0CYWhhZnxBJ5f bAPdHKqnSp7uiUjfkOon HX0pIBGxxchmm657GvRb v8xfIPCdnZLoPOmeZBB6 D66fo9B2DTVlEVVe IBH9nMR3rP3tuBrypvpp bGVmdDsgdmVydGljYWwt SUpnK287NBPjuHsqUrRy nQd0R1NhMhr0KJXu uIwxNP1cuCCxPYlxJo2f rVgfqSajCO1vAZCeywgt a324KuUnm7bvMVEaoNWw AGwnMMD5N86lu3K1 OUTfDULkWGM2fWV6mH7v bGlnbjogbGVmdDsgdmVy zGjfCHyrKHaeK913XSSh cDsnPlBhdGllbnQg XEqbOOw4I1RxHypiqDC+ NA38URUiER53lRJxdCPh e9allRp8JuOiHUNoKLL0 jNjhEPnno5MjVUEw P25cuOJep5I9TECeqWrh fWWuYfUrfNT2gJ6tXOnf dqjgm1cnpztePvsgh2eb js49fP23I09zLJmc ZHRoPSIzMCUiIHZhbGln dl8dxP2sJk5+PGNvbCB3 vTD9rO5dCCWlTtC4UTkk M979QcBwnMKaNetu e6vxq7oxgYe9JwC1RLBl fgKdfJliIGW6i9OhWo98 F42dJCoiNIMuCSMiCJBa MEZzmDtxxv9suC6o Ii8+TMMxhXE7gEE3jC9j PtSzClB2UEmeY260YaDw bDSiFskmQ11gL8YazBK+ ZXAjVom2FUSihTfu MG1poWKnTQntVs8qHCM4 RtViVnNbWEhqB2VrCELh gkdjeyyvdEN5MYPeQUGd bS81Kd3idZgaPMWo qGUJdA6sdpfze1otelig DuUuSHWzHLz1SUd2BYLo sQoyFwAwQUQ4WwD7FTF6 eXJrpI9ndLwkguxw cF6uW6CiSEFannxkSr51 wQ1zLwAqSiO2UZwaXho+ UVIFX1FJXikaGIuRAGJq TTwvdGQ+PHRkIHN0 uSeuGXgqOGPckO5iMYBw R2l1WyWzFaZ1WTswN2Tv WYYggdyrWu62zG8dBcRz DzO4WDxmI5HownV3 ZQJwqAEdRIlpICT6H92x i0M2MWPdDLHxAQE4vSA5 rJ4snDylsmgncOKxzPew dmVydGljYWwtYWxp I581XTHzcQfdTfK5AlY2 TqF0Jzt9T1JiAgv3KDFn rYvyCH0fsYUvLBhfRf0z yAugqXzyOS2xYEWy pmngKJFleP5xOVVmeSQu pYpkAI5qLRHckeukr848 GbDrRFS2OEExoKAvE7Ij xY6hToTiPSRyMDEj M5YcwOZtSEemY946MQpr HfJ7XXYhuvIwT1OyIXLn gBnfTzR1g3F2Xe86GIIH ZWFyczwvdGQ+PHRk RSZ6yMveJHesDCWdgC6j EZAgK4x4YvHkBqT3HVpx V6TzBOFpmjzrRb53vA5x ReWaWmH8WMawW0Hw xmC9GMNyePGiPDqzJBC7 A42te3D5YQEyAOVwGWV3 mPD9cM4qkGkqvikkoURi dDsgdmVydGljYWwt BFsqY249HNDopYrqFuAn bWFsZTwvdGQ+PHRkIHN0 yHtcPStaWZWszU2iQWNb Z6n3XsYnHnM9ZJxz R0DsTOUrpitvQg45xA1i GeDaTiA8NXssA2CvjvV4 EUZazBUvJQlmPFC0O83c c0T4QKGqBCBvKUO6 vQC9zP6evJtmeipstCWv dDsgdmVydGljYWwtYWxp E193DDWggXebQxmkEtNQ ul5tZX1sFxpaxLF+ PI82dp69N1QqKdguDir0 ERImMUM1qUM9kM4gDCPg TIevy1D4mJJ3U9MejzAn bl5wl7nkHUEoBMah C72abSIox9I7MIAfuXL7 VPNfqAsbWtVgtT59Ruf+ YKJxlNejt6UvOtidk4uc f8qtdTm6EcYwJMYg zbElbZlvVIL6r1QlVl36 L51yVGlmJJQpAAVtMVRh MTIwwTmbhy7poK2jLv6+ RJYvqMT8xRX3xN2b FdOiBzV6JRhgG637VjZg yUFrAnzes0puk7xoiIr3 IjIwJSIgdmFsaWduPSJ0 z2IgZo71I0PveZkp y1RpHoj1zt22pUEic7L8 xPI9B0WkDHCierzhoYIv lJflNL3jNJDloukmCBZk eB1oATNbP4d9ToZl RhW1XUfjX1XozsK4WEOz yFPgIQHvyQHYhP7yheis f3cmrcpbJjMyGNBwYBl3 LKl4NKXljPxuKdFu PEJ2TwC3MBK8lUOusB9d hImgmcvdgT0kCdy+UGh5 e3cktGJtXA6jvBT2FT24 CS40sFBuk1N9vUD8 B0NrOENaxtcthczmrTO6 URAoDPZnzW51Xw9ksQze Yo5lPWVnFCZ3VKKeoHUh B4IkhQ5lRwThCOKy FMXlC2UcjYVwAKuzW490 FFghCbQ9XCVdysQqN8Gx SOQvrTtoIpK5n1X4Uw3T RH95WW69ZY21iJMq n0U9kJO7U0PbCSZpikyg zxhuxKH0ZHYkHJUtrB68 Bj9raSkzMl7gLMJfNYG8 SADtxNYlT5PpyJ1o FbNbAXBsTXHcB9LaxHBh IRduO100KJflPwG7WZWg lzXmK1TaZDKtkZnnNjD6 g1W9Tz6TLv36OI53 DV06uBYli7S5aGP7V6Fo CEXxxytdqxzrdGM2QQZr LRRdqV61Wv4pkUmzVt4y OVVpQDQ4DZDqlADz V9CjdX2lVfUyQVAsRQVx D9PwzWJgXZwxK999CNrj WvB6NGEowbCgW0OcIYQc mUvmNrY5c9V3De4J ATxlzwp5U1DyAzrurQT+ JG00MKOdNU42cRFgeDHw r7ketDf6BeMoHHHoZXD9 xPpcTVnyq7IfJHJx B77jiTPn (more content not included)... Normal [facility] C Urineon 08-24-2022 Bacteria identified Cx Nom (U) Microbiology PROCEDURE: Urine Culture [R1] SOURCE: U Random BODY SITE: COLLECTED DATE/TIME: 08/22/2022 15:12 EDT RECEIVED DATE/TIME: 08/22/2022 17:53 EDT START DATE/TIME: 08/22/2022 17:53 EDT FREE TEXT SOURCE: BILLIE LAWRENCE PA-C, PA-C, BILLIE Alba FINAL REPORTS Final Report [] Verified Date/Time: 08/24/2022 08:39 EDT 1,000 cfu/ml Mixed skin contaminants Performing Locations R1: This test was performed at: [facility], [address] [place] [address], [facility]- , , [facility] Comment on above: Performed By: #### [id number] ####[facility] [address] [place] [address] Patient Educationon 08-23-19 23 Patient Education Obstetrics and Gynecology Overactive Bladder, Adult Overactive bladder is a condition in which a person has a sudden and frequent need to urinate. A person might also leak urine if he or she cannot get to the bathroom fast enough (urinary incontinence). Sometimes, symptoms can interfere with work or social activities. What are the causes? Overactive bladder is associated with poor nerve signals between your bladder and your brain. Your bladder may get the signal to empty before it is full. You may also have very sensitive muscles that make your bladder squeeze too soon. This condition may also be caused by other factors, such as: ? Medical conditions: ? Urinary tract infection. ? Infection of nearby tissues. ? Prostate enlargement. ? Bladder stones, inflammation, or tumors. ? Diabetes. ? Muscle or nerve weakness, especially from these conditions: ? A spinal cord injury. ? Stroke. ? Multiple sclerosis. ? Parkinson's disease. ? Other causes: ? Surgery on the uterus or urethra. ? Drinking too much caffeine or alcohol. ? Certain medicines, especially those that eliminate extra fluid in the body (diuretics). ? Constipation. What increases the risk? You may be at greater risk for overactive bladder if you: ? Are an older adult. ? Smoke. ? Are going through menopause. ? Have prostate problems. ? Have a neurological disease, such as stroke, dementia, Parkinson's disease, or multiple sclerosis (MS). ? Eat or drink alcohol, spicy food, caffeine, and other things that irritate the bladder. ? Are overweight or obese. What are the signs or symptoms? Symptoms of this condition include a sudden, strong urge to urinate. Other symptoms include: ? Leaking urine. ? Urinating 8 or more times a day. ? Waking up to urinate 2 or more times overnight. How is this diagnosed? This condition may be diagnosed based on: ? Your symptoms and medical history. ? A physical exam. ? Blood or urine tests to check for possible causes, such as infection. You may also need to see a health care provider who specializes in urinary tract problems. This is called a urologist. How is this treated? Treatment for overactive bladder depends on the cause of your condition and whether it is mild or severe. Treatment may include: ? Bladder training, such as: ? Learning to control the urge to urinate by following a schedule to urinate at regular intervals. ? Doing Kegel exercises to strengthen the pelvic floor muscles that support your bladder. ? Special devices, such as: ? Biofeedback. This uses sensors to help you become aware of your body's signals. ? Electrical stimulation. This uses electrodes placed inside the body (implanted) or outside the body. These electrodes send gentle pulses of electricity to strengthen the nerves or muscles that control the bladder. ? Women may use a plastic device, called a pessary, that fits into the vagina and supports the bladder. ? Medicines, such as: ? Antibiotics to treat bladder infection. ? Antispasmodics to stop the bladder from releasing urine at the wrong time. ? Tricyclic antidepressants to relax bladder muscles. ? Injections of botulinum toxin type A directly into the bladder tissue to relax bladder muscles. ? Surgery, such as: ? A device may be implanted to help manage the nerve signals that control urination. ? An electrode may be implanted to stimulate electrical signals in the bladder. ? A procedure may be done to change the shape of the bladder. This is done only in very severe cases. Follow these instructions at home: Eating and drinking ? Make diet or lifestyle changes recommended by your health care provider. These may include: ? Drinking fluids throughout the day and not only with meals. ? Cutting down on caffeine or alcohol. ? Eating a healthy and balanced diet to prevent constipation. This may include: ? Choosing foods that are high in fiber, such as beans, whole grains, and fresh fruits and vegetables. ? Limiting foods that are high in fat and processed sugars, such as fried and sweet foods. Lifestyle ? Lose weight if needed. ? Do not use any products that contain nicotine or tobacco. These include cigarettes, chewing tobacco, and vaping devices, such as e-cigarettes. If you need help quitting, ask your health care provider. General instructions ? Take fhjg-rbk-eoezepa and prescription medicines only as told by your health care provider. ? If you were prescribed an antibiotic medicine, take it as told by your health care provider. Do not stop taking the antibiotic even if you start to feel better. ? Use any implants or pessary as told by your health care provider. ? If needed, wear pads to absorb urine leakage. ? Keep a log to track how much and when you drink, and when you need to urinate. This will help your health care provider monitor yo (more content not included)... Normal [facility] Urology Office/Clinic Noteon 08-22-2022 Urology Office/Clinic Note HPI Staff 1 year follow up to re evaluate bladder medication, incontinence. Previous DX: stress incontinence, urge incontinence. Pt is currently taking Tolterodine 4mg qd. S/P Cysto/UD done 07/10/21. Pt gets iron infusion the last one was March 2022. Dysuria: denies pain or burning Incomplete bladder emptying: denies Hematuria: denies visible blood Frequency: 10x a day Urgency: severe Nocturia: 2-3x a night Stream: denies hesitancy, denies weak stream Leaking: yes Post void dripping: denies Wearing pads/ Depends: yes wears pads daily, changes 3-4x a day, wears depends to bed sometimes Urge incontinence: yes Stress incontinence: yes Incontinence without Sensory Awareness: denies Abdominal pain: denies Flank pain: yes right sided pain sometimes, not all the time Sexual complaints: denies History of Present Illness staff HPI reviewed and agree. Review of Systems PHQ Score Initial Depression Screen Score: 0 no fever, chills, malaise, myalgia. no rash/lesions. no chest pain, palpitations, or SOB. no abdominal pain, nausea, vomiting. no unilateral calf swelling, redness, pain Physical Exam Vitals & Measurements HR: 96(Peripheral) BP: 147/90 HT: 63 in HT: 160 cm WT: 92.6 kg WT: 203.72 lb BMI: 36.17 General: nontoxic, NAD Mouth: moist mucosa Lungs: normal respiratory effort Cardio: regular rate, good distal perfusion Abdomen: nondistended, no suprapubic distention or tenderness, no CVA tenderness Neurologic: Grossly normal Skin: No rashes or suspicious lesions Assessment/Plan 1. Abnormal urinalysis (R82.90: Unspecified abnormal findings in urine) UA +blood/leuks, neg nit. will send for cx. pt had c-diff last fall, if cx+ will want to treat as short of course as possible. already discussed kombucha/yogurt/prob iotics w pt. pt to call 2-3 wks after finishes abx and if urinary sx not back to baseline then will switch her tolterodine to a different anticholinergic. if cx- then switch tolterodine now. Ordered: E&M of Est. Patient Moderate 30-39 Min 80481 2. Urge incontinence (N39.41: Urge incontinence) Pt is currently taking Tolterodine 4mg. Didn't tolerate Oxybutynin previously (dry mouth). Was working well at last f/u 6 mos ago. Over the past few mos sx have drastically worsened - frequency, urgency, mixed incontinence. Actually has had to start wearing Depends. PVR IO Today 0cc if fails a third anticholinergic we could try to see if Myrbetriq is covered/affordable or discuss Botox vs SNM. Ordered: E&M of Est. Patient Moderate 30-39 Min 08233 Urnls Dip Stick Auto w/o Microscopy POC 44371 3. Other urethral stricture, female (N35.82: Other urethral stricture, female) S/P Cysto/UD done on 07/10/21 Ordered: Body Mass Index (BMI) documented 3008F Current tobacco non-user 1036F Depression Screening Negative 3352F E&M of Est. Patient Moderate 30-39 Min 73927 Falls plan of care documented 0518F Influenza immunization status assessed 1030F Measure Post Void residual urine and/or bladder capacity by US- non-imaging 85105 Most recent diastolic blood pressure 80-89 mm Hg 3079F Most recent systolic blood pressure >= 140 mm Hg 3077F Urine Culture Urnls Dip Stick Auto w/o Microscopy POC 06898 4. Clostridium difficile diarrhea (A04.72: Enterocolitis due to Clostridium difficile, not specified as recurrent) last fall following colonoscopy. does have hx colitis so it got very bad. Ordered: E&M of Est. Patient Moderate 30-39 Min 05211 Follow-up With When Contact Information BILLIE LAWRENCE PA-C, URL [address] [place] [address] [phone] Additional Instructions: F/u 6-8 weeks Patient Education Overactive Bladder, Adult Maria Esther David personally scribed for Billie Lawrence PA-C on 08/22/2022 15:20:04. . Documentation recorded by the jailyn Jackson accurately reflects the services(s) I performed and decisions made by me. Authenticated by Billie Lawrence PA-C on 08/22/2022 15:40:18. Problem List/Past Medical History Ongoing Acute diarrhea Acute nausea with nonbilious vomiting Anemia Anemia due to GI blood loss Cholelithiasis Clostridium difficile diarrhea Colitis Diabetes Fatty liver GERD (gastroesophageal reflux disease) Left sided ulcerative colitis Liver cyst Liver lesion Nausea and vomiting Obesity due to excess calories Other urethral stricture, female Proctitis Rectal bleed Stress incontinence Ulcerative colitis Urge incontinence Historical No qualifying data Procedure/Surgical History Colonoscopy (11/29/2021), Cystourethroscopy with dilation of urethral stricture (07/10/2021), Cystourethroscopy with dilation of urethral stricture (04/10/2019), Colonoscopy, Hysterectomy, Oophorectomy. Medications Apriso 0.375 g oral capsule, extended release, 1.5 gm= 4 cap(s), Oral, qAM, 11 refills, Not taking Entyvio 300 mg intravenous inj (more content not included)... Normal [facility] Comment on above: Result Comment: Elec tronically Signed By: BILLIE LAWRENCE PA-C\.br\Date and Time Signed: 08/22/22 15:40 EDT\.br\Electronically Co-Signed By: Maria Esther Jackson MA\.br\Date and Time Co-Signed: 08/22/22 15:22 EDT\.br\Electronically Co-Signed By: Maria Esther Jackson MA\.br\Date and Time Co-Signed: 08/22/22 15:23 EDT\.br\Electronically Co-Signed By: Maria Esther Jackson MA\.br\Date and Time Co-Signed: 08/22/22 15:25 EDT CNPNon 08-08-2022 CNPN Telephone ([facility]) LUDIVINA LOMAS ([id number]) 1965 F Date Time Provider Department 08/08/22 RICKY KOO During your visit today, we recorded the following information about you: Ricky Koo formerly [facility] 08/08/2022 9:55 AM Signed [employer] rep called for the status of the Entyvio appeal. I recommended she call Dr. Farah' office for the status. Billie Andrade RN 08/08/2022 1:22 PM Signed Spoke to [employer] which is the company through pt's insurance carrier who handles specialty med PA's. Requested urgent request turn around time Faxed updated clinicals, labs to [facility] at . I will keep you guys updated but I was told a peer to peer was not needed that a new PA is submitted through this company. I provided updated notes reflecting documented symptom improvement within first several doses and overall great response. I'll be calling the company again tomorrow. Thank you for your help Billie Koo formerly [facility] 08/08/2022 1:29 PM Signed Thanks for the update. Let me know if you get an approval. Her next dose is scheduled 08/24/22. Ricky Koo formerly [facility] Billie Andrade RN 08/15/2022 2:04 PM Signed As an update, I sent a request for peer to peer or appeal yesterday since we ended up getting a denial due to insurance stating pt did not try Remicade for 3 months first. I tried to set up a phone call for Dr. Farah and the company stated we could only send in faxed request. I am at another facility today and back in main office tomorrow. I will see what the next step is but this is more than unacceptable the insurance would not continue a drug pt is doing well on. Hoping we can do a phone appeal or similar. [employer] is aware we're still having issues and will provide next dose for the pt. Dr. Farah, I will keep you updated as to when we can get a peer to peer or appeal Thank you Billie Koo formerly [facility] 08/16/2022 12:13 PM Signed Thank you for the update. Are you able to fax in the appeal letter? Once the appeal is pending, the company will send her next dose due 08/24. Thanks, Ricky Koo formerly [facility] Allergies As of Date: 08/08/2022 (No Known Allergies) Date Reviewed: 06/21/2022 Reviewed by: Summer Richmond Ma - Fully Assessed Reason for Visit: Medication Follow-up [270] Cmt: Entyvio appeal status Prescriptions as of 08/16/2022 - vedolizumab (ENTYVIO INTRAVENOUS) - losartan (COZAAR) 25 mg tablet Take 25 mg by mouth once daily. - tolterodine ER (DETROL LA) 4 mg 24 hr capsule Take 4 mg by mouth once daily. Problem List As Of Date 08/08/2022 Noted Resolved Anemia [D64.9] 02/02/2013 Transaminitis [R74.01] 02/02/2013 Iron deficiency [E61.1] 05/27/2014 Diabetes mellitus type 2, uncontrolled, without*07/08/2014 Iron deficiency anemia [D50.9] 03/04/2022 Other ulcerative colitis with rectal bleeding (*03/27/2022 Encounter Status:Closed by RICKY KOO on 08/10/22 [facility] CNOVSPon 06-21-2022 CNOVSP Visit (SP) Office ([place]) LUDIVINA LOMAS ([id number]) 1965 F Date Time Provider Department 06/21/22 4:00 PM DON BOUDREAUX During your visit today, we recorded the following information about you: Temperature Pulse Respiration Blood pressure 97.6 degrees 76/minute 16/minute 158/95 Weight Height 90.6 kg 1.526 m Don Boudreaux MD 06/21/2022 4:26 PM Signed NAME: Ludivina Lomas CLINIC NO.: [id number] DATE OF SERVICE: June 21, 2022 (Sandra) Some elements in this clinic note that are critical to medical decision making have been carefully reviewed and included from a prior clinic note dated: May 10, 2022 (Sandra) Referring Provider: Art Chu Additional Clinicians involved in Ludivina Lomas's care: Art Chu DIAGNOSIS: 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 ASSESSMENT: 56 year old woman with a history of colitis and chronic gi blood loss. Improved after iron replacement. Sweats and alopecia unlikely to be related to her heme issues. Needs sleep evaluation PLAN: RTC in 6 months. Labs 1 week ahead. Referral for sleep study. - HPI: CASE HISTORY: Reverse chronological disorder. 06/14/2022 - Hgb 15.2, Ferritin 40, iron sat 14.9% 05/11/2022 - CXR mild bronchial wall thickening ? bronchitis 05/09/2021 - Hgb 12.4, Ferritin 23. 11/2021 - C-Diff colitis. 11/2021 - started M[place]o September 2021 persisting colitis following a round of diarrhea and emesis. 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 Needs sleep study. Significant daytime somnolence. Witnessed snoring. Hgb is much improved but may be concerning for secondary polycytemia associated with possible CARLOS. Updated Visit, May 10, 2022: Anemia improved after getting iron infusion x 5 total since March 14, 2022 Continues to have an irritating bronchial cough with mild phlegm but now is hoarse. Hair is falling out but will monitor. Now is having sweats for unclear etiolgy - again will monitor. Initial Visit, March 02, 2022: Ludivina Elizabeth Lomas presents today Hematology and Oncology evaluation. She is a 56 year old female who has a long history of colitis and GI blood loss. She's not able t tolerate oral iron. Feels exhausted and is very frustrated with the bleeding. Mesalamine is often in the stools. - REVIEW OF SYSTEMS Per HPI and otherwise negative by full review of organ systems. - ECOG PERFORMANCE STATUS: 0 PHYSICAL EXAMINATION: Vitals: BP 158/95 Pulse 76 Temp (Src) 97.6 (Temporal) Resp 16 Ht 5' .079 (1.53m) Wt 199 lb 12.8 oz (90.6kg) SpO2 96% BMI 38.92 kg/(m2). Body surface area is 1.96 meters squared. Exam limited to gross visualization where appropriate due to COVID-19. Gen.: This is an age-appropriate patient in no acute distress. Head: Appears atraumatic with no visible lesions. Eyes: Pupils equally round and reactive to light, extraocular muscles are intact. Neck: Supple. Mouth: Masked. Respiratory: Appears to be respiring comfortably. Neurologic: Nonfocal to gross visualization. Alert and oriented ?3. Psychiatric: No evidence of inappropriate anxiety or depression. Skin: Visible areas of skin without rash, lesions, wounds or petechiae. - ALLERGIES: ALLERGIES No Known Allergies MEDICATIONS: vedolizumab (ENTYVIO INTRAVENOUS) budesonide, enteric coated (ENTOCORT EC) 3 mg 24 hr capsule Take 1 capsule by mouth three times daily. losartan (COZAAR) 25 mg tablet Take 25 mg by mouth once daily. tolterodine ER (DETROL LA) 4 mg 24 hr capsule Take 4 mg by mouth once daily. L gasseri/B bifidum/B longum (TILLMAN [employer] ORAL) Take by mouth. - LABORATORY VALUES: WBC (k/uL) Date Value 06/14/2022 9.10 RBC (m/uL) Date Value 06/14/2022 5.47 (H) Hemoglobin (g/dL) Date Value 06/14/2022 15.2 Hematocrit (%) Date Value 06/14/2022 46.6 (H) MCV (fL) Date Value 06/14/2022 85.2 MCH (pg) Date Value 06/14/2022 27.8 MCHC (g/dL) Date Value 06/14/2022 32.6 RDW-CV (%) Date Value 06/14/2022 16.6 (H) Platelet Count (k/uL) Date Value 06/14/2022 237 MPV (fL) Date Value 06/14/2022 8.6 (L) Glucose (mg/dL) Date Value 06/14/2022 100 (H) BUN (mg/dL) Date Value 06/14/2022 21 Creatinine (mg/dL) Date Value 06/14/2022 0.63 Sodium (mmo (more content not included)... Normal [facility] CBC W Auto Differential pane l (Bld)on 06-14-2022 Basophils (Bld) [#/Vol] 0.06 10*3/uL Normal <0.11 [facility] Comment on above: Order Comment: Speci men Type: BLOOD SPECIMENOrdering Facility: [facility] Address: [address] [place], [place] [address] [address] Performed By: #### 5 7021-8 ####[facility] LABCLIA [id number] [place] [address] Basophils/100 WBC (Bld) 0.7 % Normal [facility] Comment on above: Order Comment: Speci men Type: BLOOD SPECIMENOrdering Facility: [facility] Address: [address] [place] [address] Performed By: #### 5 7021-8 ####[facility] LABCLIA [id number] [place] [address] Differential cell count method Nom (Bld) Auto Normal [facility] Comment on above: Order Comment: Speci men Type: BLOOD SPECIMENOrdering Facility: [facility] Address: [address] [place] [address] Performed By: #### 5 7021-8 ####[facility] LABCLIA [id number] [place] [address] Eosinophils (Bld) [#/Vol] 0.13 10*3/uL Normal <0.46 [facility] Comment on above: Order Comment: Speci men Type: BLOOD SPECIMENOrdering Facility: [facility] Address: [address] [place] [address] Performed By: #### 5 7021-8 ####[facility] LABCLIA [id number] [place] [address] Eosinophils/100 WBC (Bld) 1.4 % Normal [facility] Comment on above: Order Comment: Speci men Type: BLOOD SPECIMENOrdering Facility: [facility] Address: [address] [place] [address] Performed By: #### 5 7021-8 ####[facility] LABCLIA [id number] [place] [address] Erythrocyte distribution width (RBC) [Ratio] 16.6 % High 11.5-15.0 [facility] Comment on above: Order Comment: Speci men Type: BLOOD SPECIMENOrdering Facility: [facility] Address: [address] [place] [address] Performed By: #### 5 7021-8 ####[facility] LABCLIA [id number] [place] [address] Hematocrit (Bld) [Volume fraction] 46.6 % High 36.0-46.0 [facility] Comment on above: Order Comment: Speci men Type: BLOOD SPECIMENOrdering Facility: [facility] Address: [address] [place] [address] Performed By: #### 5 7021-8 ####[facility] LABCLIA [id number] [place] [address] Hemoglobin (Bld) [Mass/Vol] 15.2 g/dL Normal 11.5-15.5 [facility] Comment on above: Order Comment: Speci men Type: BLOOD SPECIMENOrdering Facility: [facility] Address: [address] [place] [address] Performed By: #### 5 7021-8 ####[facility] LABCLIA [id number] [place] [address] Immature granulocytes (Bld) [#/Vol] 0.04 10*3/uL Normal <0.10 [facility] Comment on above: Order Comment: Speci men Type: BLOOD SPECIMENOrdering Facility: [facility] Address: [address] [place] [address] Performed By: #### 5 7021-8 ####[facility] LABIA [id number] [place] [address] Immature granulocytes/100 WBC (Bld) 0.4 % Normal [facility] Comment on above: Order Comment: Speci men Type: BLOOD SPECIMENOrdering Facility: [facility] Address: [address] [place] [address] Performed By: #### 5 7021-8 ####[facility] LABIA [id number] [place] [address] Lymphocytes (Bld) [#/Vol] 1.85 10*3/uL Normal 1.00-4.00 [facility] Comment on above: Order Comment: Speci men Type: BLOOD SPECIMENOrdering Facility: [facility] Address: [address] [place] [address] Performed By: #### 5 7021-8 ####[facility] LABCLIA [id number] [place] [address] Lymphocytes/100 WBC (Bld) 20.3 % Normal [facility] Comment on above: Order Comment: Speci men Type: BLOOD SPECIMENOrdering Facility: [facility] Address: [address] [place] [address] Performed By: #### 5 7021-8 ####[facility] LABCLIA [id number] [place] [address] MCH (RBC) [Entitic mass] 27.8 pg Normal 26.0-34.0 [facility] Comment on above: Order Comment: Speci men Type: BLOOD SPECIMENOrdering Facility: [facility] Address: [address] [place] [address] Performed By: #### 5 7021-8 ####[facility] LABIA [id number] [place] [address] MCHC (RBC) [Mass/Vol] 32.6 g/dL Normal 30.5-36.0 [facility] Comment on above: Order Comment: Speci men Type: BLOOD SPECIMENOrdering Facility: [facility] Address: [address] [place] [address] Performed By: #### 5 7021-8 ####[facility] LABCLIA [id number] [place] [address] MCV (RBC) [Entitic vol] 85.2 fL Normal 80.0-100.0 [facility] Comment on above: Order Comment: Speci men Type: BLOOD SPECIMENOrdering Facility: [facility] Address: [address] [place] [address] Performed By: #### 5 7021-8 ####[facility] LABCLIA [id number] [place] [address] Monocytes (Bld) [#/Vol] 0.81 10*3/uL Normal <0.87 [facility] Comment on above: Order Comment: Speci men Type: BLOOD SPECIMENOrdering Facility: [facility] Address: [address] [address] Performed By: #### 5 7021-8 ####[facility] LABCLIA [id number] [place] [address] Monocytes/100 WBC (Bld) 8.9 % Normal [facility] Comment on above: Order Comment: Speci men Type: BLOOD SPECIMENOrdering Facility: [facility] Address: [address] [address] Performed By: #### 5 7021-8 ####[facility] LABCLIA [id number] [place] [address] Neutrophils (Bld) [#/Vol] 6.21 10*3/uL Normal 1.45-7.50 [facility] Comment on above: Order Comment: Speci men Type: BLOOD SPECIMENOrdering Facility: [facility] Address: [address] [address] Performed By: #### 5 7021-8 ####[facility] LABCLIA [id number] [place] [address] Neutrophils/100 WBC (Bld) 68.3 % Normal [facility] Comment on above: Order Comment: Speci men Type: BLOOD SPECIMENOrdering Facility: [facility] Address: [address] Performed By: #### 5 7021-8 ####[facility] LABCLIA [id number] [place] [address] Nucleated RBC (Bld) [#/Vol] 10*3/uL Normal <0.01 [facility] Comment on above: Order Comment: Speci men Type: BLOOD SPECIMENOrdering Facility: [facility] Address: [address] [address] Performed By: #### 5 7021-8 ####[facility] LABCLIA [id number] [place] [address] Nucleated RBC/100 WBC (Bld) [Ratio] 0.0 /100 WBC Normal [facility] Comment on above: Order Comment: Speci men Type: BLOOD SPECIMENOrdering Facility: [facility] Address: [address] [place] [address] Performed By: #### 5 7021-8 ####[facility] LABIA [id number] [place] [address] Platelet mean volume (Bld) [Entitic vol] 8.6 fL Low 9.0-12.7 [facility] Comment on above: Order Comment: Speci men Type: BLOOD SPECIMENOrdering Facility: [facility] Address: [address] [place] [address] Performed By: #### 5 7021-8 ####[facility] LABIA [id number] [place] [address] Platelets (Bld) [#/Vol] 237 10*3/uL Normal 150-400 [facility] Comment on above: Order Comment: Speci men Type: BLOOD SPECIMENOrdering Facility: [facility] Address: [address] [place] [address] Performed By: #### 5 7021-8 ####[facility] LABIA [id number] [place] [address] RBC (Bld) [#/Vol] 5.47 10*6/uL High 3.90-5.20 [facility] Comment on above: Order Comment: Speci men Type: BLOOD SPECIMENOrdering Facility: [facility] Address: [address] [place] [address] Performed By: #### 5 7021-8 ####[facility] LABIA [id number] [place] [address] WBC (Bld) [#/Vol] 9.10 10*3/uL Normal 3.70-11.00 [facility] Comment on above: Order Comment: Speci men Type: BLOOD SPECIMENOrdering Facility: [facility] Address: [address] [place] [address] Performed By: #### 5 7021-8 ####[facility] LABCLIA [id number] [place] [address] Comprehensive metabolic 2000 panelon 06-14-2022 Albumin [Mass/Vol] 4.4 g/dL Normal 3.9-4.9 [facility] Comment on above: Order Comment: Speci men Type: BLOOD SPECIMENOrdering Facility: [facility] Address: [address] [place] [address] Performed By: #### 2 4323-8 ####[facility] LABCLIA [id number] [place] [address] ALP [Catalytic activity/Vol] 99 U/L Normal 34-123 [facility] Comment on above: Order Comment: Speci men Type: BLOOD SPECIMENOrdering Facility: [facility] Address: [address] [address] Performed By: #### 2 4323-8 ####[facility] LABCLIA [id number] [place] [address] ALT [Catalytic activity/Vol] 26 U/L Normal 7-38 [facility] Comment on above: Order Comment: Speci men Type: BLOOD SPECIMENOrdering Facility: [facility] Address: [address] [place] [address] Performed By: #### 2 4323-8 ####[facility] LABCLIA [id number] [place] [address] Anion gap [Moles/Vol] 8 mmol/L Low 9-18 [facility] Comment on above: Order Comment: Speci men Type: BLOOD SPECIMENOrdering Facility: [facility] Address: [address] [place] [address] Performed By: #### 2 4323-8 ####[facility] LABCLIA [id number] [place] [address] AST [Catalytic activity/Vol] 18 U/L Normal 13-35 [facility] Comment on above: Order Comment: Speci men Type: BLOOD SPECIMENOrdering Facility: [facility] Address: [address] [place] [address] Performed By: #### 2 4323-8 ####[facility] LABCLIA [id number] [place] [address] Bilirubin [Mass/Vol] 0.4 mg/dL Normal 0.2-1.3 [facility] Comment on above: Order Comment: Speci men Type: BLOOD SPECIMENOrdering Facility: [facility] Address: [address] [place] [address] Performed By: #### 2 4323-8 ####[facility] LABCLIA [id number] [place] [address] Calcium [Mass/Vol] 9.8 mg/dL Normal 8.5-10.2 [facility] Comment on above: Order Comment: Speci men Type: BLOOD SPECIMENOrdering Facility: [facility] Address: [address] [place] [address] Performed By: #### 2 4323-8 ####[facility] LABCLIA [id number] [place] [address] Chloride [Moles/Vol] 104 mmol/L Normal 97-105 [facility] Comment on above: Order Comment: Speci men Type: BLOOD SPECIMENOrdering Facility: [facility] Address: [address] [place] [address] Performed By: #### 2 4323-8 ####[facility] LABCLIA [id number] [place] [address] CO2 [Moles/Vol] 28 mmol/L Normal 22-30 [facility] Comment on above: Order Comment: Speci men Type: BLOOD SPECIMENOrdering Facility: [facility] Address: [address] [place] [address] Performed By: #### 2 4323-8 ####[facility] LABCLIA [id number] [place] [address] Creatinine [Mass/Vol] 0.63 mg/dL Normal 0.58-0.96 [facility] Comment on above: Order Comment: Speci men Type: BLOOD SPECIMENOrdering Facility: [facility] Address: [address] [address] Performed By: #### 2 4323-8 ####[facility] LABCLIA [id number] [place] [address] ESTIMATED GLOMERULAR FILTRATION RATE 106 mL/min/1.73m??? Normal >=60 [facility] Comment on above: Order Comment: Speci men Type: BLOOD SPECIMENOrdering Facility: [facility] Address: [address] [address] Result Comment: Ellen mated Glomerular Filtration Rate (eGFR) is calculated using the 2020 CKD-EPI creatinine equation. This equation utilizes serum creatinine, sex, and age as parameters. The creatinine assay has traceable calibration to isotope dilution-mass spectrometry. Refer to KDIGO guidelines for clinical interpretation. In patients with unstable renal function, e.g. those with acute kidney injury, the eGFR may not accurately reflect actual GFR. Performed By: #### 2 4323-8 ####[facility] LABCLIA [id number] [place] [address] Glucose [Mass/Vol] 100 mg/dL High 74-99 [facility] Comment on above: Order Comment: Speci men Type: BLOOD SPECIMENOrdering Facility: [facility] Address: [address] [address] Result Comment: The [place] Diabetes Association (ADA) provides guidance for cutoff values for fasting glucose and random glucose. The ADA defines fasting as no caloric intake for at least 8 hours. Fasting plasma glucose results between 100 to 125 mg/dL indicate increased risk for diabetes (prediabetes). Fasting plasma glucose results greater than or equal to 126 mg/dL meet the criteria for diagnosis of diabetes. In the absence of unequivocal hyperglycemia, results should be confirmed by repeat testing. In a patient with classic symptoms of hyperglycemia or hyperglycemic crisis, random plasma glucose results greater than or equal to 200 mg/dL meet the criteria for diagnosis of diabetes. Reference: Standards of Medical Care in Diabetes 2016, [place] Diabetes Association. Diabetes Care. 2016.39(Suppl 1). Performed By: #### 2 4323-8 ####[facility] LABCLIA [id number] [place] [address] Potassium [Moles/Vol] 4.5 mmol/L Normal 3.7-5.1 [facility] Comment on above: Order Comment: Speci men Type: BLOOD SPECIMENOrdering Facility: [facility] Address: [address] [place] [address] Performed By: #### 2 4323-8 ####[facility] LABCLIA [id number] [place] [address] Protein [Mass/Vol] 7.0 g/dL Normal 6.3-8.0 [facility] Comment on above: Order Comment: Speci men Type: BLOOD SPECIMENOrdering Facility: [facility] Address: [address] [address] Performed By: #### 2 4323-8 ####[facility] LABCLIA [id number] [place] [address] Sodium [Moles/Vol] 140 mmol/L Normal 136-144 [facility] Comment on above: Order Comment: Speci men Type: BLOOD SPECIMENOrdering Facility: [facility] Address: [address] [address] Performed By: #### 2 4323-8 ####[facility] LABCLIA [id number] [place] [address] Urea nitrogen [Mass/Vol] 21 mg/dL Normal 7-21 [facility] Comment on above: Order Comment: Speci men Type: BLOOD SPECIMENOrdering Facility: [facility] Address: [address] [address] Performed By: #### 2 4323-8 ####[facility] LABCLIA [id number] [place] [address] Ferritin SerPl-mCncon 2022 Ferritin [Mass/Vol] 40.0 ng/mL Normal 14.7-205.1 [facility] Comment on above: Order Comment: Speci men Type: BLOOD SPECIMENOrdering Facility: [facility] Address: [address] [place], [place] [address] Performed By: #### 5 0190-8, 9, 2275-07, 8 ####[facility] LABCLIA [id number] [place] [address] [place] Folate SerPl-mCncon 06-14-19 Folate [Mass/Vol] 17.7 ng/mL Normal >4.7 [facility] Comment on above: Order Comment: Speci men Type: BLOOD SPECIMENOrdering Facility: [facility] Address: [address] [place], [place] [address] Performed By: #### 5 0190-8, 9, 2275-07, 8 ####[facility] LABCLIA [id number] [place] [address] [place] Iron and Iron binding capaci ty panelon 06-14-2022 Iron [Mass/Vol] 58 ug/dL Normal 41-186 [facility] Comment on above: Order Comment: Speci men Type: BLOOD SPECIMENOrdering Facility: [facility] Address: [address] [place], [place] [address] Performed By: #### 5 0190-8, 9, 2275-07, 2283-11 ####[facility] LABCLIA [id number] [place] [address] [place] Iron binding capacity [Mass/Vol] 389 ug/dL High 232-386 [facility] Comment on above: Order Comment: Speci men Type: BLOOD SPECIMENOrdering Facility: [facility] Address: [place] [address] Performed By: #### 5 0190-8, 2131-12, 2275-07, 2283-11 ####[facility] LABCLIA [id number] [address] [place] [id number] [place] Iron/TIBC [Molar ratio] 14.9 % Low 15.0-57.0 [facility] Comment on above: Order Comment: Speci men Type: BLOOD SPECIMENOrdering Facility: [facility] Address: [address] Performed By: #### 5 0190-8, 2131-12, 2275-07, 2283-11 ####[facility] LABIA [id number] [address] [id number] [place] Vit B12 [facility] 023 Cobalamin (Vitamin B12) [Mass/Vol] 421 pg/mL Normal 232-1245 [facility] Comment on above: Order Comment: Speci men Type: BLOOD SPECIMENOrdering Facility: [facility] Address: [address] [address] Performed By: #### 5 0190-8, 2131-12, 2275-07, 2283-11 ####[facility] LABIA [id number] [place] [address] [place] XR CHEST 2V FRONTAL/LATon [facility] CBC W Auto Differential pane l (Bld)on 05-04-2022 Basophils (Bld) [#/Vol] 0.04 10*3/uL <0.11 k/uL [facility] Basophils/100 WBC (Bld) 0.5 % [facility] Differential cell count method Nom (Bld) Auto [facility] Eosinophils (Bld) [#/Vol] <0.46 k/uL [facility] Eosinophils/100 WBC (Bld) 0.1 % [facility] Erythrocyte distribution width (RBC) [Ratio] 18.6 % High 11.5 - 15.0 % [facility] Hematocrit (Bld) [Volume fraction] 43.9 % 36.0 - 46.0 % [facility] Hemoglobin (Bld) [Mass/Vol] 14.0 g/dL 11.5 - 15.5 g/dL [facility] Immature granulocytes (Bld) [#/Vol] 0.07 10*3/uL <0.10 k/uL [facility] Immature granulocytes/100 WBC (Bld) 0.9 % [facility] Lymphocytes (Bld) [#/Vol] 1.05 10*3/uL 1.00 - 4.00 k/uL [facility] Lymphocytes/100 WBC (Bld) 13.4 % [facility] MCH (RBC) [Entitic mass] 27.0 pg 26.0 - 34.0 pg [facility] MCHC (RBC) [Mass/Vol] 31.9 g/dL 30.5 - 36.0 g/dL [facility] MCV (RBC) [Entitic vol] 84.7 fL 80.0 - 100.0 fL [facility] Monocytes (Bld) [#/Vol] 0.76 10*3/uL <0.87 k/uL [facility] Monocytes/100 WBC (Bld) 9.7 % [facility] Neutrophils (Bld) [#/Vol] 5.90 10*3/uL 1.45 - 7.50 k/uL [facility] Neutrophils/100 WBC (Bld) 75.4 % [facility] Nucleated RBC (Bld) [#/Vol] <0.01 k/uL [facility] Nucleated RBC/100 WBC (Bld) [Ratio] 0.0 /100 WBC [facility] Platelet mean volume (Bld) [Entitic vol] 8.6 fL Low 9.0 - 12.7 fL [facility] Platelets (Bld) [#/Vol] 262 10*3/uL 150 - 400 k/uL [facility] RBC (Bld) [#/Vol] 5.18 10*6/uL 3.90 - 5.20 m/uL [facility] WBC (Bld) [#/Vol] 7.83 10*3/uL 3.70 - 11. 00 k/uL [facility] Comprehensive metabolic 2000 panelon 05-04-2022 Albumin [Mass/Vol] 4.2 g/dL 3.9 - 4.9 g/dL [facility] ALP [Catalytic activity/Vol] 72 U/L 34 - 123 U/L [facility] ALT [Catalytic activity/Vol] 43 U/L High 7 - 38 U/L [facility] Anion gap [Moles/Vol] 6 mmol/L Low 9 - 18 mmol/L [facility] AST [Catalytic activity/Vol] 20 U/L 13 - 35 U/L [facility] Bilirubin [Mass/Vol] 0.2 mg/dL 0.2 - 1.3 mg/dL [facility] Calcium [Mass/Vol] 9.6 mg/dL 8.5 - 10.2 mg/dL [facility] Chloride [Moles/Vol] 106 mmol/L High 97 - 105 mmol/L [facility] CO2 [Moles/Vol] 26 mmol/L 22 - 30 mmol/L [facility] Creatinine [Mass/Vol] 0.52 mg/dL Low 0.58 - 0.96 mg/dL [facility] Estimated Glomerular Filtration Rate 111 mL/min/1.73m >=60 mL/min/1.73m [facility] Glucose [Mass/Vol] 175 mg/dL High 74 - 99 mg/dL [facility] Potassium [Moles/Vol] 4.1 mmol/L 3.7 - 5.1 mmol/L [facility] Protein [Mass/Vol] 6.4 g/dL 6.3 - 8.0 g/dL [facility] Sodium [Moles/Vol] 138 mmol/L 136 - 144 mmol/L [facility] Urea nitrogen [Mass/Vol] 18 mg/dL 7 - 21 mg/dL [facility] CBC W Auto Differential pane l (Bld)on 04-13-2022 Basophils (Bld) [#/Vol] 0.04 10*3/uL <0.11 k/uL [facility] Basophils/100 WBC (Bld) 0.4 % [facility] Differential cell count method Nom (Bld) Auto [facility] Eosinophils (Bld) [#/Vol] 0.18 10*3/uL <0.46 k/uL [facility] Eosinophils/100 WBC (Bld) 2.0 % [facility] Erythrocyte distribution width (RBC) [Ratio] 17.5 % High 11.5 - 15.0 % [facility] Hematocrit (Bld) [Volume fraction] 40.1 % 36.0 - 46.0 % [facility] Hemoglobin (Bld) [Mass/Vol] 12.6 g/dL 11.5 - 15.5 g/dL [facility] Immature granulocytes (Bld) [#/Vol] 0.04 10*3/uL <0.10 k/uL [facility] Immature granulocytes/100 WBC (Bld) 0.4 % [facility] Lymphocytes (Bld) [#/Vol] 1.58 10*3/uL 1.00 - 4.00 k/uL [facility] Lymphocytes/100 WBC (Bld) 17.6 % [facility] MCH (RBC) [Entitic mass] 26.4 pg 26.0 - 34.0 pg [facility] MCHC (RBC) [Mass/Vol] 31.4 g/dL 30.5 - 36.0 g/dL [facility] MCV (RBC) [Entitic vol] 84.1 fL 80.0 - 100.0 fL [facility] Monocytes (Bld) [#/Vol] 0.80 10*3/uL <0.87 k/uL [facility] Monocytes/100 WBC (Bld) 8.9 % [facility] Neutrophils (Bld) [#/Vol] 6.35 10*3/uL 1.45 - 7.50 k/uL [facility] Neutrophils/100 WBC (Bld) 70.7 % [facility] Nucleated RBC (Bld) [#/Vol] <0.01 k/uL [facility] Nucleated RBC/100 WBC (Bld) [Ratio] 0.0 /100 WBC [facility] Platelet mean volume (Bld) [Entitic vol] 8.5 fL Low 9.0 - 12.7 fL [facility] Platelets (Bld) [#/Vol] 214 10*3/uL 150 - 400 k/uL [facility] RBC (Bld) [#/Vol] 4.77 10*6/uL 3.90 - 5.20 m/uL [facility] WBC (Bld) [#/Vol] 8.99 10*3/uL 3.70 - 11. 00 k/uL [facility] CBC W Auto Differential pane l (Bld)on 03-29-2022 Basophils (Bld) [#/Vol] 0.03 10*3/uL <0.11 k/uL [facility] Basophils/100 WBC (Bld) 0.5 % [facility] Differential cell count method Nom (Bld) Auto [facility] Eosinophils (Bld) [#/Vol] <0.46 k/uL [facility] Eosinophils/100 WBC (Bld) 0.2 % [facility] Erythrocyte distribution width (RBC) [Ratio] 16.0 % High 11.5 - 15.0 % [facility] Hematocrit (Bld) [Volume fraction] 39.8 % 36.0 - 46.0 % [facility] Hemoglobin (Bld) [Mass/Vol] 12.3 g/dL 11.5 - 15.5 g/dL [facility] Immature granulocytes (Bld) [#/Vol] <0.10 k/uL [facility] Immature granulocytes/100 WBC (Bld) 0.4 % [facility] Lymphocytes (Bld) [#/Vol] 0.66 10*3/uL Low 1.00 - 4.00 k/uL [facility] Lymphocytes/100 WBC (Bld) 12.1 % [facility] MCH (RBC) [Entitic mass] 25.5 pg Low 26.0 - 34.0 pg [facility] MCHC (RBC) [Mass/Vol] 30.9 g/dL 30.5 - 36.0 g/dL [facility] MCV (RBC) [Entitic vol] 82.6 fL 80.0 - 100.0 fL [facility] Monocytes (Bld) [#/Vol] 0.38 10*3/uL <0.87 k/uL [facility] Monocytes/100 WBC (Bld) 6.9 % [facility] Neutrophils (Bld) [#/Vol] 4.37 10*3/uL 1.45 - 7.50 k/uL [facility] Neutrophils/100 WBC (Bld) 79.9 % [facility] Nucleated RBC (Bld) [#/Vol] <0.01 k/uL [facility] Nucleated RBC/100 WBC (Bld) [Ratio] 0.0 /100 WBC [facility] Platelet mean volume (Bld) [Entitic vol] 8.6 fL Low 9.0 - 12.7 fL [facility] Platelets (Bld) [#/Vol] 275 10*3/uL 150 - 400 k/uL [facility] RBC (Bld) [#/Vol] 4.82 10*6/uL 3.90 - 5.20 m/uL [facility] WBC (Bld) [#/Vol] 5.47 10*3/uL 3.70 - 11. 00 k/uL [facility] Comprehensive metabolic 2000 panelon 03-29-2022 Albumin [Mass/Vol] 4.1 g/dL 3.9 - 4.9 g/dL [facility] ALP [Catalytic activity/Vol] 90 U/L 34 - 123 U/L [facility] ALT [Catalytic activity/Vol] 22 U/L 7 - 38 U/L [facility] Anion gap [Moles/Vol] 11 mmol/L 9 - 18 mmol/L [facility] AST [Catalytic activity/Vol] 20 U/L 13 - 35 U/L [facility] Bilirubin [Mass/Vol] 0.3 mg/dL 0.2 - 1.3 mg/dL [facility] Calcium [Mass/Vol] 9.3 mg/dL 8.5 - 10.2 mg/dL [facility] Chloride [Moles/Vol] 104 mmol/L 97 - 105 mmol/L [facility] CO2 [Moles/Vol] 24 mmol/L 22 - 30 mmol/L [facility] Creatinine [Mass/Vol] 0.51 mg/dL Low 0.58 - 0.96 mg/dL [facility] Estimated Glomerular Filtration Rate 111 mL/min/1.73m >=60 mL/min/1.73m [facility] Glucose [Mass/Vol] 253 mg/dL High 74 - 99 mg/dL [facility] Potassium [Moles/Vol] 4.1 mmol/L 3.7 - 5.1 mmol/L [facility] Protein [Mass/Vol] 6.8 g/dL 6.3 - 8.0 g/dL [facility] Sodium [Moles/Vol] 139 mmol/L 136 - 144 mmol/L [facility] Urea nitrogen [Mass/Vol] 22 mg/dL High 7 - 21 mg/dL [facility] CBC W Auto Differential pane l (Bld)on 03-27-2022 Basophils (Bld) [#/Vol] 0.05 10*3/uL <0.11 k/uL [facility] Basophils/100 WBC (Bld) 0.8 % [facility] Differential cell count method Nom (Bld) Auto [facility] Eosinophils (Bld) [#/Vol] 0.31 10*3/uL <0.46 k/uL [facility] Eosinophils/100 WBC (Bld) 5.1 % [facility] Erythrocyte distribution width (RBC) [Ratio] 16.1 % High 11.5 - 15.0 % [facility] Hematocrit (Bld) [Volume fraction] 40.5 % 36.0 - 46.0 % [facility] Hemoglobin (Bld) [Mass/Vol] 12.6 g/dL 11.5 - 15.5 g/dL [facility] Immature granulocytes (Bld) [#/Vol] <0.10 k/uL [facility] Immature granulocytes/100 WBC (Bld) 0.3 % [facility] Lymphocytes (Bld) [#/Vol] 1.92 10*3/uL 1.00 - 4.00 k/uL [facility] Lymphocytes/100 WBC (Bld) 31.3 % [facility] MCH (RBC) [Entitic mass] 25.7 pg Low 26.0 - 34.0 pg [facility] MCHC (RBC) [Mass/Vol] 31.1 g/dL 30.5 - 36.0 g/dL [facility] MCV (RBC) [Entitic vol] 82.7 fL 80.0 - 100.0 fL [facility] Monocytes (Bld) [#/Vol] 0.75 10*3/uL <0.87 k/uL [facility] Monocytes/100 WBC (Bld) 12.2 % [facility] Neutrophils (Bld) [#/Vol] 3.08 10*3/uL 1.45 - 7.50 k/uL [facility] Neutrophils/100 WBC (Bld) 50.3 % [facility] Nucleated RBC (Bld) [#/Vol] <0.01 k/uL [facility] Nucleated RBC/100 WBC (Bld) [Ratio] 0.0 /100 WBC [facility] Platelet mean volume (Bld) [Entitic vol] 8.7 fL Low 9.0 - 12.7 fL [facility] Platelets (Bld) [#/Vol] 270 10*3/uL 150 - 400 k/uL [facility] RBC (Bld) [#/Vol] 4.90 10*6/uL 3.90 - 5.20 m/uL [facility] WBC (Bld) [#/Vol] 6.13 10*3/uL 3.70 - 11. 00 k/uL [facility] Comprehensive metabolic 2000 panelon 03-27-2022 Albumin [Mass/Vol] 4.2 g/dL 3.9 - 4.9 g/dL [facility] ALP [Catalytic activity/Vol] 90 U/L 34 - 123 U/L [facility] ALT [Catalytic activity/Vol] 20 U/L 7 - 38 U/L [facility] Anion gap [Moles/Vol] 10 mmol/L 9 - 18 mmol/L [facility] AST [Catalytic activity/Vol] 20 U/L 13 - 35 U/L [facility] Bilirubin [Mass/Vol] 0.3 mg/dL 0.2 - 1.3 mg/dL [facility] Calcium [Mass/Vol] 9.8 mg/dL 8.5 - 10.2 mg/dL [facility] Chloride [Moles/Vol] 103 mmol/L 97 - 105 mmol/L [facility] CO2 [Moles/Vol] 28 mmol/L 22 - 30 mmol/L [facility] Creatinine [Mass/Vol] 0.65 mg/dL 0.58 - 0.96 mg/dL [facility] Estimated Glomerular Filtration Rate 105 mL/min/1.73m >=60 mL/min/1.73m [facility] Glucose [Mass/Vol] 132 mg/dL High 74 - 99 mg/dL [facility] Potassium [Moles/Vol] 4.4 mmol/L 3.7 - 5.1 mmol/L [facility] Protein [Mass/Vol] 7.1 g/dL 6.3 - 8.0 g/dL [facility] Sodium [Moles/Vol] 141 mmol/L 136 - 144 mmol/L [facility] Urea nitrogen [Mass/Vol] 17 mg/dL 7 - 21 mg/dL [facility] Auth for Release of Medical Recordson 03-08-2022 [facility] for Release of Medical Records [id number] #[id number]:127 Normal [facility] Gastroenterology Office/Clin ic Noteon 03-08-2022 Gastroenterology Office/Clinic Note Chief Complaint c/o severe rectal bleeding and medication not breaking down correctly HPI Staff This is a 56 year old female who presents today for a sick call for complaints of nausea & vomiting and c. diff. Needs a medication consult for UC medications (Apriso). She feels they are not working and thinks the capsules are not breaking down; causing rectal bleeding (bright red and clotting) and will be doing an iron infusion soon. History of Present Illness Ludivina Lomas is a 56-year-old white female who presents today for a sick visit for nausea, vomiting, and diarrhea. She has a history of left-sided ulcerative colitis for which she is taking aprazo. She also has a history of recurrent C. difficile colitis treated in 11/2021 with a course of vancomycin, then with a course of Dificid. The patient reports that she has not had any diarrhea in approximately 6 weeks because she was taking Mounjaro injection. She believes that she was having a side effect from the injection. She has not taken Mounjaro since the first weekend in 12/2021. She states that her symptoms improved after she stopped taking the Mounjaro. She reports that her stool is formed. She still has a small amount of blood in her stool 4 to 5 times a day. Her last colonoscopy was done in 11/2021 and it did show left-sided ulcerative colitis with severe inflammation. She has been taking mesalamine enema and aprazo. She has noticed improvement regarding the number of bowel movements and the amount of blood she has been experiencing. She was diagnosed with ulcerative colitis in the when she had her first colonoscopy. She was not on any treatment since 2011 until 11/2021. The patient complains of persistent fatigue. She is starting iron infusions next week because her iron is low. In 11/2021, her hemoglobin was 11.7. She had blood work done at [facility] because that is where she will receive the infusion. She denies any history of cancer. Her iron is 20, ferritin is 24, and TIBC is on the higher to normal range. Her recent upper scope was normal and her anemia should gradually improve. Review of Systems PHQ Score Initial Depression Screen Score: 0 Constitutional: no fever, no chills, no sweats, no weakness Skin: no Jaundice, no rash, no lesions, no petechiae ENMT: no ear pain, no sore throat, no congestion, no hoarseness Respiratory: no shortness of breath, no cough, no orthopnea, no wheezing Cardiovascular: no chest pain, no palpitations, no edema Gastrointestinal: no nausea, no vomiting, no diarrhea, no constipation, no GI bleeding, no abdominal pain, no dysphagia, no bloating, no heartburn. Positive for rectal bleeding and diarrhea. Genitourinary: no dysuria, no hematuria, no discharge, no pain Musculoskeletal: no back pain, no trauma Neurologic: no numbness, no sleeping problems Additional ROS info: Except as noted in the above Review of Systems and in the History of Present Illness all other systems have been reviewed and are negative or noncontributory. Physical Exam Vitals & Measurements HR: 87(Peripheral) RR: 16 BP: 138/80 HT: 63 in HT: 160 cm WT: 85.3 kg WT: 187.66 lb BMI: 33.32 Constitutional: Appearance: well developed Skin: Inspection: no rashes, ulcers, icterus, or telangiectasias. Eyes: Conjunctivae/lids: normal conjunctivae and lids. ENMT: Hearing: within normal limits. Lips/Teeth/Gums: normal oral mucosa Neck: Neck: normal motion, central trachea Respiratory: Percussion: thorax normoresonant. Auscultation: normal breath sounds; no rubs, wheezes, rale or ronchi. Cardiovascular: Auscultation: normal rhythm, S1 and S2; no rubs, murmurs or gallop. Peripheral: no edema Gastrointestinal/Abd omen: Abdomen: normal consistency and bowel sounds; no tenderness or masses. Liver/Spleen: normal size and consistency, not palpable. Rectal: deferred Musculoskeletal: Gait/station: normal gait Assessment/Plan 1. Acute diarrhea (R19.7: Diarrhea, unspecified) The patient has a history of ulcerative colitis and recurrent C. difficile. Her diarrhea improved last in 11/2021 when she was treated for C. difficile, but remained and recurred again 2 months ago when she was started on new diabetes medication. Her diarrhea resolved back again when she stopped that diabetes medication. She reports no further diarrhea with solid stool at this point. 2. Rectal bleed (K62.5: Hemorrhage of anus and rectum) The patient continues to report sporadic rectal bleeding. I believe it is likely related to her left-sided ulcerative colitis based on the severity of ulceration noted in 11/2021 on colonoscopy. She was started on mesalamine enema and aprazo. She was advised to continue with both and to reassess for mucosal healing in 6 more months. 3. Nausea and vomiting (R11.2: Nausea with vomiting, unspecified) This resolved after she stopped her new diabetes medication. I believe her symptoms could be related to the medication side effects, especially in the light of her recent norm (more content not included)... Normal [facility] Comment on above: Result Comment: Elec tronically Signed By: Joan Stephenson\.br\Date and Time Signed: 03/07/22 12:14 EST\.br\Electronically Co-Signed By: Vj HERNANDEZ MD\.br\Date and Time Co-Signed: 03/08/22 12:07 EST Ambulatory Visit Summaryon 1 05-07-2021 Ambulatory Visit Summary LUDIVINA LOMAS :1965 Visit Date:03/07/2022 Ambulatory Visit Instructions Your Diagnosis Acute diarrhea Rectal bleed Nausea and vomiting Left sided ulcerative colitis Anemia due to GI blood loss Your Care Team Attending Physician - Vj HERNANDEZ MD Primary Care Physician - ART CHU MD This Is Your Medications List Contact prescribing physician if questions or concerns bifidobacterium-lact obacillus ([employer]) losartan (losartan 25 mg Tab) mesalamine (Apriso 0.375 g oral capsule, extended release) mesalamine (mesalamine 4 g/60 mL rectal enema) ondansetron (Zofran 4 mg Tab) tolterodine (tolterodine 4 mg Cap-ER) Procedures Performed Colonoscopy (11/29/2021), Cystourethroscopy with dilation of urethral stricture (07/10/2021), Cystourethroscopy with dilation of urethral stricture (04/10/2019), Colonoscopy, Hysterectomy, Oophorectomy. Discharge Vitals Heart Rate (Peripheral) 87 Respiratory Rate 16 Blood Pressure 138/80 Height 160 cm Height 63 in Weight 85.3 kg Weight 187.66 lb BMI 33.32 What to do next Scheduled Follow-Up Appointments Jun. 2022 1:15 PM EST With: Vj HERNANDEZ MD Where: [facility] Normal [address] [place] [address]- \.br\ You Need to Schedule the Following Appointments\.br \ Follow Up with MARY CHAMBERS, SALAS Zabala, MED When: Within 6 months\.br\ Where:\.br\ [facility] [address]\.br\ [place] [address]-\.br\ \.br\ Medications\.br\ What How Much When Why Instructions\.br \ Unchanged bifidobacterium- lactobacillus ([employer]) Contact prescribing physician if questions or concerns \.br\ Unchanged losartan (losartan 25 mg Tab) 1 Tablets By Mouth Every day Contact prescribing physician if questions or concerns \.br\ Unchanged mesalamine (Apriso 0.375 g oral capsule, extended release) 4 Capsules By Mouth Once a day (in the morning) Left sided ulcerative colitis Contact prescribing physician if questions or concerns \.br\ Unchanged mesalamine (mesalamine 4 g/ 60 mL rectal enema) 1 Each By rectum Once a day (at bedtime) Left sided ulcerative colitis Contact prescribing physician if questions or concerns \.br\ Unchanged ondansetron (Zofran 4 mg Tab) 1 Tablets By Mouth Every 8 hours Acute nausea with nonbilious vomiting Contact prescribing physician if questions or concerns \.br\ Unchanged tolterodine (tolterodine 4 mg Cap-ER) 1 Capsules By Mouth Every day Contact prescribing physician if questions or concerns \.br\ Medications and Immunizations Administered\.br \ Not Given\.br\ influenza virus vaccine, inactivated, Postpone due to refusal\.br\ Allergies\.br\ No Known Allergies\.br\ Problems\.br\ Ongoing - Any problem that you are currently receiving treatment for.\.br\ Acute diarrhea\.br\ Acute nausea with nonbilious vomiting\.br\ Anemia\.br\ Anemia due to GI blood loss\.br\ Cholelithiasis\. br\ Clostridium difficile diarrhea\.br\ Colitis\.br\ Diabetes\.br\ Fatty liver\.br\ GERD (gastroesophagea l reflux disease)\.br\ Left sided ulcerative colitis\.br\ Liver cyst\.br\ Liver lesion\.br\ Nausea and vomiting\.br\ Obesity due to excess calories\.br\ Other urethral stricture, female\.br\ Proctitis\.br\ Rectal bleed\.br\ Stress incontinence\.br \ Ulcerative colitis\.br\ Urge incontinence\.br \ \.br\ [facility] MG MAMM SCREEN 3D AVERY CADon 03-01-2022 MG MAMM SCREEN 3D AVERY CAD Patient: LUDIVINA LOMAS Exam Date: 03/01/2022 : 1965 Gender:F Ordering : DR ART CHU M.D. Admission #: [id number] Family : Order #: [id number] CLICK HERE TO VIEW EXAM RADIOLOGY REPORT PROCEDURE: MAMMOGRAM SCREENING 3D BILATERAL CAD COMPARISON: MG MAMM SCREEN AVERY W CAD, 01/19/2020. MG MAMM SCREEN 3D AVERY CAD, 02/28/2021. INDICATIONS: Screening mammography Calculator Name NCI Breast Cancer Risk Assessment Tool 5 Year Breast Cancer Risk 1.30% Lifetime Breast Cancer Risk 9.30% Personal Breast Cancer No Personal Ovarian Cancer No Treatments None Family Cancers Mother with liver cancer at age 84; Aunt-maternal with colon cancer at age 67; Grandmother-maternal with colon cancer at age 50; Grandfather-maternal with colon cancer at age 86. LOCATION: [facility] BREAST COMPOSITION: Scattered areas fibroglandular density. FINDINGS: DIAGNOSTIC CATEGORY 1--NEGATIVE. NO CHANGE FROM COMPARISON ASSESSMENT. Scattered benign-appearing nodules are present. Scattered benign-appearing calcifications are present. RIGHT BREAST: No significant suspicious finding. LEFT BREAST: No significant suspicious finding. RECOMMENDATIONS: ROUTINE MAMMOGRAM AND CLINICAL EVALUATION IN 12 MONTHS. PLEASE NOTE: A NORMAL MAMMOGRAM DOES NOT EXCLUDE THE POSSIBILITY OF BREAST CANCER. A CLINICALLY SUSPICIOUS PALPABLE LUMP SHOULD BE BIOPSIED. Dictated by: Meghna Vanessa MD on 03/02/2022 at 07:08 Approved by: Meghna Vanessa MD on 03/02/2022 at 07:10 Normal [facility] XR DEXA BONE DENSITYon 03-01 XR DEXA BONE DENSITY EXAMINATION: XR DEX A BONE DENSITY, 03/01/2022 3:32 PM EDT HISTORY: Menopause present COMPARISON: 2018 TECHNIQUE: Dual-energy X-ray absorptiometry (DEXA) bone density study performed for the axial skeleton. FINDINGS: Bone mineral density lumbar spine L1-L4 measures 1.299 g/sq cm. T score 1.0. 6.5% reduction prior exam. WHO classification: Normal. Lowest bone mineral density right femoral neck measures 1.031 g/sq cm. T score -0.1. WHO classification: Normal IMPRESSION: Physiologic reduction in bone mineral density. Low fracture risk Electronically authenticated by: MEGHNA VANESSA Date: 2022-03-01 18:00 Normal [facility] Ambulatory Visit Summaryon 1 Ambulatory Visit Summary LUDIVINA LOMAS :1965 Visit Date:02/14/2022 Ambulatory Visit Instructions Your Diagnosis Other urethral stricture, female Urge incontinence Renal cyst Tests Performed Urnls Dip Stick Auto w/o Microscopy POC [id number] Your Care Team Attending Physician - BILLIE LAWRENCE PA-C Primary Care Physician - ART CHU MD This Is Your Medications List tolterodine (tolterodine 4 mg Cap-ER) Contact prescribing physician if questions or concerns bifidobacterium-lact obacillus ([employer]) insulin lispro (Lyumjev) losartan (losartan 25 mg Tab) mesalamine (Apriso 0.375 g oral capsule, extended release) mesalamine (mesalamine 4 g/60 mL rectal enema) ondansetron (Zofran 4 mg Tab) predniSONE (predniSONE 10 mg Tab) predniSONE (predniSONE 10 mg Tab) tirzepatide (Mounjaro) Procedures Performed Colonoscopy (11/29/2021), Cystourethroscopy with dilation of urethral stricture (07/10/2021), Cystourethroscopy with dilation of urethral stricture (04/10/2019), Colonoscopy, Hysterectomy, Oophorectomy. Discharge Vitals Height 160 cm Height 63 in Weight 87.2 kg Weight 191.84 lb BMI 34.06 What to do next Scheduled Follow-Up Appointments Saturday 8:00 AM EST With: Vj HERNANDEZ MD Where: [facility] Invalid Interpretation Code [address] [place] [phone]- \.br\ Saturday 3:25 PM EDT \.br\ With: BILLIE LAWRENCE PA-C\.br\ Where: [facility] Operative Reporton 2 Operative Report [id number]:[address] [facility] Patient Educationon 02-15-20 22 Patient Education Obstetrics and Gynecology Overactive Bladder, Adult Overactive bladder refers to a condition in which a person has a sudden need to pass urine. The person may leak urine if he or she cannot get to the bathroom fast enough (urinary incontinence). A person with this condition may also wake up several times in the night to go to the bathroom. Overactive bladder is associated with poor nerve signals between your bladder and your brain. Your bladder may get the signal to empty before it is full. You may also have very sensitive muscles that make your bladder squeeze too soon. These symptoms might interfere with daily work or social activities. What are the causes? This condition may be associated with or caused by: ? Urinary tract infection. ? Infection of nearby tissues, such as the prostate. ? Prostate enlargement. ? Surgery on the uterus or urethra. ? Bladder stones, inflammation, or tumors. ? Drinking too much caffeine or alcohol. ? Certain medicines, especially medicines that get rid of extra fluid in the body (diuretics). ? Muscle or nerve weakness, especially from: ? A spinal cord injury. ? Stroke. ? Multiple sclerosis. ? Parkinson's disease. ? Diabetes. ? Constipation. What increases the risk? You may be at greater risk for overactive bladder if you: ? Are an older adult. ? Smoke. ? Are going through menopause. ? Have prostate problems. ? Have a neurological disease, such as stroke, dementia, Parkinson's disease, or multiple sclerosis (MS). ? Eat or drink things that irritate the bladder. These include alcohol, spicy food, and caffeine. ? Are overweight or obese. What are the signs or symptoms? Symptoms of this condition include: ? Sudden, strong urge to urinate. ? Leaking urine. ? Urinating 8 or more times a day. ? Waking up to urinate 2 or more times a night. How is this diagnosed? Your health care provider may suspect overactive bladder based on your symptoms. He or she will diagnose this condition by: ? A physical exam and medical history. ? Blood or urine tests. You might need bladder or urine tests to help determine what is causing your overactive bladder. You might also need to see a health care provider who specializes in urinary tract problems (urologist). How is this treated? Treatment for overactive bladder depends on the cause of your condition and whether it is mild or severe. You can also make lifestyle changes at home. Options include: ? Bladder training. This may include: ? Learning to control the urge to urinate by following a schedule that directs you to urinate at regular intervals (timed voiding). ? Doing Kegel exercises to strengthen your pelvic floor muscles, which support your bladder. Toning these muscles can help you control urination, even if your bladder muscles are overactive. ? Special devices. This may include: ? Biofeedback, which uses sensors to help you become aware of your body's signals. ? Electrical stimulation, which uses electrodes placed inside the body (implanted) or outside the body. These electrodes send gentle pulses of electricity to strengthen the nerves or muscles that control the bladder. ? Women may use a plastic device that fits into the vagina and supports the bladder (pessary). ? Medicines. ? Antibiotics to treat bladder infection. ? Antispasmodics to stop the bladder from releasing urine at the wrong time. ? Tricyclic antidepressants to relax bladder muscles. ? Injections of botulinum toxin type A directly into the bladder tissue to relax bladder muscles. ? Lifestyle changes. This may include: ? Weight loss. Talk to your health care provider about weight loss methods that would work best for you. ? Diet changes. This may include reducing how much alcohol and caffeine you consume, or drinking fluids at different times of the day. ? Not smoking. Do not use any products that contain nicotine or tobacco, such as cigarettes and e-cigarettes. If you need help quitting, ask your health care provider. ? Surgery. ? A device may be implanted to help manage the nerve signals that control urination. ? An electrode may be implanted to stimulate electrical signals in the bladder. ? A procedure may be done to change the shape of the bladder. This is done only in very severe cases. Follow these instructions at home: Lifestyle ? Make any diet or lifestyle changes that are recommended by your health care provider. These may include: ? Drinking less fluid or drinking fluids at different times of the day. ? Cutting down on caffeine or alcohol. ? Doing Kegel exercises. ? Losing weight if needed. ? Eating a healthy and balanced diet to prevent constipation. This may include: ? Eating foods that are high in fiber, such as fresh fruits and vegetables, whole grains, and beans. ? Limiting foods that are high in fat and processed sugars, such as fried and sweet foods. General instructions ? Take ove (more content not included)... Normal [facility] Urology Office/Clinic Noteon 02-14-2022 Urology Office/Clinic Note Chief Complaint 6 month follow up HPI Staff Ludivina is here today for a 6 month follow up. Previous DX: Other urethral stricture female, urge incontinence. S/P Cysto/UD done on 07/10/21. Pt is currently taking Tolterodine 4mg. Dysuria: _Denies Incomplete bladder emptying: _Denies Hematuria: _Denies Frequency: _Denies Urgency: _moderate Nocturia: _2-3x Stream: _steady Leaking: _Denies Post void dripping: _Denies Wearing pads/ Depends: _yes wear pads Urge incontinence: _yes but only at night Stress incontinence: _yes with a cough Incontinence without Sensory Awareness: _Denies Abdominal pain: _Denies Flank pain: _on occasion right flank pain Sexual complaints: _ History of Present Illness staff HPI reviewed and agree. Review of Systems PHQ Score Initial Depression Screen Score: 0 no fever, chills, malaise, myalgia. no rash/lesions. no chest pain, palpitations, or SOB. no abdominal pain, nausea, vomiting. no unilateral calf swelling, redness, pain Physical Exam Vitals & Measurements HT: 63 in HT: 160 cm WT: 87.2 kg WT: 191.84 lb BMI: 34.06 General: nontoxic, NAD Mouth: moist mucosa Lungs: normal respiratory effort Cardio: regular rate, good distal perfusion Abdomen: nondistended, no suprapubic distention or tenderness, no CVA tenderness Neurologic: Grossly normal Skin: No rashes or suspicious lesions Assessment/Plan UA completed in office today shows no microhematuria or signs of infection. 1. Other urethral stricture, female (N35.82: Other urethral stricture, female) S/P Cysto/UD done on 07/10/21 stream steady. good strong flow. hasn't noticed major change in other sx. 2. Urge incontinence (N39.41: Urge incontinence) Pt is currently taking Tolterodine 4mg. continues to do well and is mostly satisfiedwith overall symptom control. Pt is experiencing noside effects. We discussed current dose and optional changes: decrease Tolterodine, switch to alternative. Pt prefers to continue current regimen with no changes at this time. 3. Renal cyst (N28.1: Cyst of kidney, acquired) CT done 12/17/2021 showed bilateral simple cyst. no additional follow up indicated. Follow-up With When Contact Information RONY THAKKAR, BILLIE Alba, URL In 1 year 02/14/2023 EDT [address] [facility] [place] [id number] Additional Instructions: Patient Education Overactive Bladder, Adult I, Maria Esther Jackson personally scribed for Billie Lawrence PA-C on 02/14/2022 16:18:30. . Documentation recorded by the jailyn Jackson accurately reflects the services(s) I performed and decisions made by me. Authenticated by Billie Lawrence PA-C on 02/14/2022 16:49:59. Problem List/Past Medical History Ongoing Acute diarrhea Acute nausea with nonbilious vomiting Anemia Cholelithiasis Clostridium difficile diarrhea Colitis Diabetes Fatty liver GERD (gastroesophageal reflux disease) Left sided ulcerative colitis Liver cyst Liver lesion Nausea and vomiting Obesity due to excess calories Other urethral stricture, female Proctitis Stress incontinence Ulcerative colitis Urge incontinence Historical No qualifying data Procedure/Surgical History Colonoscopy (11/29/2021), Cystourethroscopy with dilation of urethral stricture (07/10/2021), Cystourethroscopy with dilation of urethral stricture (04/10/2019), Colonoscopy, Hysterectomy, Oophorectomy. Medications Apriso 0.375 g oral capsule, extended release, 1.5 gm= 4 cap(s), Oral, qAM, 11 refills losartan 25 mg Tab, 25 mg= 1 tab(s), Oral, Daily Lyumjev, SubCutaneous, Once mesalamine 4 g/60 mL rectal enema, 1 EA, Rectal, Once a day (at bedtime), 3 refills Mounjaro, SubCutaneous, qWeek, Not taking [employer] predniSONE 10 mg Tab, See Instructions, Not taking predniSONE 10 mg Tab, See Instructions, Not taking tolterodine 4 mg Cap-ER, 4 mg= 1 cap(s), Oral, Daily, 3 refills Zofran 4 mg Tab, 4 mg= 1 tab(s), Oral, q8hr, 1 refills Allergies No Known Allergies Social History Tobacco Never (less than 100 in lifetime) Tobacco Use:. Never Smokeless Tobacco Use:., 02/14/2022 Family History Cancer: Mother. Diabetes clinic: Mother. Drug dependence: Father. Heart disease: Mother. High cholesterol: Mother. Hypertension: Mother. Immunizations Vaccine Date Status Comments influenza virus vaccine, inactivated - Not Given Patient Refuses influenza virus vaccine, inactivated - Not Given Patient Refuses SARS-CoV-2 (COVID-19) Ad26 vaccine 04/03/2021 Recorded SARS-CoV-2 (COVID-19) mRNA BNT-162b2 vax 04/01/2021 Recorded 2021-12-15: TPV50 influenza virus vaccine, inactivated 02/01/2021 Recorded SARS-CoV-2 (COVID-19) mRNA BNT-162b2 vax 08/02/2020 Recorded SARS-CoV-2 (COVID-19) Ad26 vaccine 07/29/2020 Recorded SARS-CoV-2 (COVID-19) Ad26 vaccine 07/11/2020 Recorded zoster vaccine, inactivated 05/21/2019 Recorded zoster vaccine, inactivated 1 (more content not included)... Normal [facility] Comment on above: Result Comment: Elec tronically Signed By: BILLIE LAWRENCE PA-C\.br\Date and Time Signed: 02/14/22 16:50 EDT\.br\Electronically Co-Signed By: Maria Esther Jackson MA\.br\Date and Time Co-Signed: 02/14/22 16:18 EDT Coding Summary.on 02-11-2022 Coding Summary. [id number]+PGhlYWQ+PE1FV TRwC62tlSWxwL5DH5gAA Q2GTHGHXPLQTI6XXC6mu QC5WKhbB1RzwuVa SoghlAMnVX19BXw5QQN0 uLcqXNtukZ9qpWWiH4o5 BzDiUY18zO82NAdfLFHa FtN5VePlyduawXDt M2tpUzOlpZRwAes+PHRh YmxlIHdpZHRoPScxMDAl PdOgmTbqTW7nJb0nGABc LWNvbGxhcHNlOiBj t5hnKFHcNAieRP0rjLex L9SqoIR2FNNhr2n2Zj49 dHI+OPOvVAX9yAgpAMtx o319RuKxw1qwNDQ7 bSJqVFxlVSH5D62lu0N2 THYwUTQuKZQ9lTK1uA2b zFunajvdJ2DcwGTpElD2 AMS3yGDhiV7zsWph fmmugV6dGgj+F08VHZ0N JNYBHT7DXfa7O6LjWlqw dHI+CX44LLLxUJ72pKId mYYob8utsUh6XfRn YCGkSDU3wEfzCXdsd9Uw OJOvH09dwIFql9R6QJAb vQyvpZZcQjTfmHL6fI4w ARjfquelj3dqeykj Apdnk4ceug17mK01Y83m OEzqTRIeARV4PEVxBPNm aUknjq9sbX3qGc3+IDxj i6jcw2vywTs5JoDf HWFjoaTwbVlbTOS3a8Vf Kb52R7PdpDyhp2BiLin8 sz39dBPfa0Q2yKC4PTup RCIpeA4rZBfzXrA6 JEPiLhNyjZ38xRJxNHhb Ab3zuNixiUnbNI6hUUNg blmpCIIgfL8dMSMvdDZe kRxoKQ7qMJEyfuyk q011NbCrJCP9UGPjhDGu T5TbhJ6zClVgFPGqCDZy O4XzfMUvPTfdR522RAkt DuL9ABTxuhTzT7Qh WNRhvUoxQiC5o2Q9Ht6M b1YvjloiCIO6SVlvQAJt ZqC9UrIeYhW1D6MmPpe3 SEJtpXcdOS8xU8Bh TTHajadawcllgGL5GZKk AIUhyT49nCUyHWtmEi4n k6U9f410EZWgDAZwbX28 Wn9vmEvqFVApjFAH fO7pbzjcu1amzyyrJvBm YIJeGYe9CMu0ZVJvqKjd IiHqBLV8PgP1OCD0mZHb qX3frNfxnbyllU0n Oyc+X22acO4zQRV0MIR2 kduuSOUeusGbNV23TR54 Y9JgMlhuiXKviET+PGRp hfOxvGnqOO6uGlHu t3gan2BtZLvaK1PcCAJn MAzzQun0QVSdPOQ2lFD8 kY8jPMBaIYbjf1U2yGT2 F3AdwaUoaa5zw8wb NUXuHQblQ82tiCZuh5F6 ROFvrQU3EAAebXluArBy nC93Kws+KMLwyNoxz6Ta Waito0zsh4kgqXy7 IjMwJSIgdmFsaWduPSJ0 r8HpYg05D37lJRkoZKMl RKYqXGNeQEZpiXcgmd8u hR9qEz9+PGNvbCB3 yIG8dL6gCSVvXjJ5QAvo U753QbCxsBXgBqqzc3ny x6zmwYc6LlYnRPJevkNl lQrfRHO4t6ZbVo57 D66sNKwxEFQhOACoBEFx NYVibAbngu0ymG0zIw6+ IX7gx1toum90mY03fNH+ KWKsZVU5kEihASdl FAJgtD5aFUasHdX8RLKj UmMpxC58tVXoTOozCj0z yCchvUreCX2kTNOwfyro k661PfOtc2nzAWNe iAIjVZjsOFH2Y03ll0X4 JRVbRXHmENA4aBS0xP0n bGlnbjogbGVmdDsgdmVy mXxiEAjfXXndW857 IHRvcDsnPlBhdGllbnQg XaUjXLf6T4IqCbs6BLHp eLlsDD9gmDTtWHwuYr8w dYalmZcxWR9bGMYt unhgc343ByOtg4nsDGXa eWHcSBoaPCL4Z26ny8H1 STFtUJPwXHC8fUK2lN8s bGlnbjogbGVmdDsg yqNajHgeYQffCBxtR856 IHRvcDsnPkJpcnRoIERh qEW5KD48QH34jZQjb6R5 nNW3Z1JfTUBejikd dketiWX3KOIsWJPrqN16 Cw4pyLyqLs4fTQVbOAY4 UREtxFAoK8SscU5zIyJd CQQjTMUkM3OiqLNy RGwtI013EJlgGxA3QYEx mrGgI6MtEGIhnFhoAxH1 y6I1Ox4XH7U5JV96UE18 uOFji6D1wRQ0W9Ff KSAcllunwytgyEM0KXKp JPRvuB75Tz0wnKgtIu4i KYMvCKR1HUNxzAQqH1Rg mS2zPkDdTBYuCFOu M0JlmWKzXEabV513CPic DqC8TQMpwkGkV1CfQSVs qNwnFfZ3a5A6Pl9SJBv5 GX86UG15fBCvc7A5 vFN1A6RuAKYbpzeqsayi wUJ3VFByKRSoeI35Hx5y tBfkQb6hADMlCDU2ZLKi rBXrD5ZrmO1pJvBk ZIDrVGPtG6LlzLJlFThy S327EJlsSxD7UATbtmEm E5TbNDWdmSvrPcW1x0N8 Xu7SAMEjUL66VCM6 jFY6NS05NO33E3UgKaoi dGFibGU+PHRhYmxlIHdp ZHRoPScxMDAlJyBzdHls KR7zWb9zGZTgUBPy sBcmyLWtTuNuy2jhASBq KFilAU2ntJzkS1LkyHN2 SVJrh8c7Rc44S22cZ1Xh dXA+WPNdiKJ0ePU2 oJ5oFaXzLdI2RAfyG296 TaJxhYEsUesjc3dlk5ln nIu1HcG5HAOvnsNfkYsx TKE1j7ToNq15F93d IHdpZHRoPSIxNSUiIHZh kEvmsu5qbA4aJi2+PGNv wLH3oTC4jH2xGyViXhA4 YGzjH314QaEieNSv Obhew6pnf3pheWc0ZlXr TJMakpCyxTmbYGN9t7Ir Oj71W7NpjOptm6GdPoy9 ep18sPYxn8T5aUE0 J8VoASRjfpxkfEIwtAwy UF1jMCTnhaarGDZuhU4i XHNrR7v1YcZbYkP7JKcp C5WwnhZ0YHJiqWQo BUuyCQI0Q83fw5L6TZBq BCMhSIL8xRU4aM8vvAly bjogbGVmdDsgdmVydGlj CPwyOTflS966VPFu aCfkSOMpiW1oGDCgsGLc lWydKM9hEOCivafsKnIN K1UXFRZiQKmQVsKVVG13 D2WxTyb1HFFlsLbv AF4uoAKhGVkcGf9amQgd iYdpRM2dQUUjlppzNIRa zO6lFHRmqUWnwAvgDB7l XXUxwvvhe813HdLw ZFJ4JVHtxQUpJ4VodY8p YkPlTENyMIRbQ3PspZDl AUjuY898IFoaTdR3YBYg svKmQ6LqGZOwsCxu LtO9o1F9Hb0bPU6wYb5y DIK9IW42XS30vMMcn4E7 fMD8O4FdIHJjctpatjve zQY1UJBuLMUogA50 yVCzFZcsTy5xn2M6n817 TWArRHYizZ37Wq8jvRvs IFXgdQEEiL2pkldnf1ed cjogIzAwMDAwMDt0 MXo7KXEtsVgcZiCsJFO8 NzT6XRY4pGKbbZ9alSer tzmwbJ5cUut+NTQgWWVh klR2V3LmSkj9FAPa oBjcAD0ciTJwCAnySd6a nZhpxNyeWB1bGBLwazdt GYLyaH5dPRKggANefIgl KW8tEVVuaspte838 JuOhNZM4WNAvfCObG7Dl uU3gZbKbXUCbDZKxS7Vg rHRpFVebM975TOowPfR0 ZOOejzYqK9WgBMWl rWcpMrQ8w3W4Af9HBK1g wAL1B7BpMaa2CXHctNip ZW1vdWPiLEzhJf0rmKbm mHthXN3vHJTwdxjd WPHyfN8mAVJzgKAdfZmf TB8zAFIbhxrsw122QbOz ITY5QCHqiTIsJ3YkvO7r ZwMtMQBjRFOmX2Kd sIGqKXcnU354IYvdQwE9 UIIavuFwN0UaTAWamRza BbV7e3Y1Te8RJZJnVKFe eRJxJiF3J5KxQkfg dHI+DZ22DISnAI55fNNz gAOkh4cpyEi6YoCwXWPk UCB0yAjcFZkpm9YqKJIk O78bcFRwf1R6SGPl qWmkiMVvLyDqpYC7iK0c YCvyjfknh5rlvelnBmax l5lluk98tM70R41aGWxi ZHRoPSIzMCUiIHZh oSinzb6rdC1lDz0+PGNv oBA0vYP8bS7aGtIwPdJ9 NIhiW530RyVyzCFcYsta x3eeg3gacMw8SsLb RBUajzXokBqnWGJ0g0Vi Sp34J37yGPknZAMxIQVv REEjNTOcvOicqi8pkD3v Ii8+EG0jn4sjys82 nK77vIQ+RDCqVGA7rCir BCdnOXUdaB2aUSxbRmN7 PACnWoGdvS04qZFaYCmq We1tfAgybCfaOL0z YDLmhydom489SwQhp5ln NVBurNNvBDysOEE3Y65i m9X0SKRvIYSbSOG7xTS5 pA6lwNazcsgkiXHn dDsgdmVydGljYWwtYWxp E543AXThdRvtBaZcpBGj G0mhunEJNO0dThdnuBQ+ AJKiRJS7nJtnTWim AOVkdS1kKSImY4v7VyAr AnL6VMssL5SlgbE7NZEf bEIcDKKooPZGbT0dvjtb s9qxduxuSiXxQWYz DFf5KYq9JXSbeNzsWdAq ARE4MvY8FUN7rYHuuP7h dJrbqgtefF8xZaw+RklO OjwvdGQ+PHRkIHN0 qPwbWCfbIRMqvM8pBDVq W2q2YoSwVuK1ILdqJ8Yp dqP3PMYrpYTgWJCpgRYL rT7lneqzt3ssvbsx YuFqLDDyGRr5CDa8OMDu vCxnOqGsMUH1FlG3BBE3 mAQngL5kaTqikinkpC7u Oyc+TVJOOjwvdGQ+ DYXxPFI4qGgcPQaiQOPa oG2xVQCuD9y8PdYwLpD2 NFbmH7JwlcQ2QHHumJSn EEUooEYSvH6fwwra l4svlhpfVoWbXYVdUUx1 FIn8AQXueMwlKfGiJES4 FnQ9HSL5yJXzhY9buAsl fphxcX6iDqr+UGF5 HDM1MV77EP28F9OxSrqy dGFibGU+PHRhYmxlIHdp ZHRoPScxMDAlJyBzdHls EG5fJr9mVMDzSLDr bGxh (more content not included)... [facility] AUTO DIFFon 02-06-2022 BASO # 0.1 103/ul Normal 0.0-0.1 [facility] Comment on above: Performed By: #### C BC #### [facility] [address] [address] [address] Han Roy Basophils/100 WBC (Bld) 1.1 % Normal 0.2-2.0 [facility] Comment on above: Performed By: #### C BC #### [facility] [address] [place] [address] Dr. Han Roy EO # 0.4 103/ul Normal 0.0-0.7 [facility] Comment on above: Performed By: #### C BC #### [facility] [address] [place] [address] Dr. Han Roy Eosinophils/100 WBC (Bld) 6.6 % Normal 0.9-7.0 [facility] Comment on above: Performed By: #### C BC #### [facility] [address] [place] [address] Dr. Han Roy Erythrocyte distribution width (RBC) [Ratio] 16.3 % Critically high 11.0-15.0 [facility] Comment on above: Performed By: #### C BC #### [facility] [address] [place] [address] Dr. Han Roy Hematocrit (Bld) [Volume fraction] 39.8 % Normal 36.0-48.0 [facility] Comment on above: Performed By: #### C BC #### [facility] [address] [place] [address] Dr. Han Roy Hemoglobin (Bld) [Mass/Vol] 12.5 g/dL Normal 12.0-16.0 [facility] Comment on above: Performed By: #### C BC #### [facility] [address] [place] [address] Dr. Han Roy IG # 0.03 10e3/ul Normal 0.00-0.03 [facility] Comment on above: Performed By: #### C BC #### [facility] [address] [place] [address] Dr. Han Roy IG % 0.5 % Normal 0.0-0.5 [facility] Comment on above: Performed By: #### C BC #### [facility] [address] [place] [address] Dr. Han Roy LYMPH # 1.6 103/ul Normal 1.2-3.8 [facility] Comment on above: Performed By: #### C BC #### [facility] [address] [place] [address] Dr. Han Roy Lymphocytes/100 WBC (Bld) 25.3 % Normal 20.5-60.0 [facility] Comment on above: Performed By: #### C BC #### [facility] [address] [place] [address] Dr. Han Roy MANUAL DIFF REQ NO Normal [facility] Comment on above: Performed By: #### C BC #### [facility] [address] [place] [address] Dr. Han Roy MCH (RBC) [Entitic mass] 26.2 pg Critically low 26.7-34.0 [facility] Comment on above: Performed By: #### C BC #### [facility] [address] [place] [address] Dr. Han Roy MCHC (RBC) [Mass/Vol] 31.4 g/dL Normal 29.9-35.2 [facility] Comment on above: Performed By: #### C BC #### [facility] [address] [place] [address] Dr. Han Roy MCV (RBC) [Entitic vol] 83.3 fL Normal 81.0-99.0 [facility] Comment on above: Performed By: #### C BC #### [facility] [address] [place] [address] Dr. Han Roy MONO # 0.7 103/ul Normal 0.3-0.8 [facility] Comment on above: Performed By: #### C BC #### [facility] [address] [place] [address] Dr. Han Roy Monocytes/100 WBC (Bld) 11.5 % Normal 1.7-12.0 [facility] Comment on above: Performed By: #### C BC #### [facility] [address] [place] [address] Dr. Han Roy NEUT # 3.4 103/ul Normal 1.4-6.5 [facility] Comment on above: Performed By: #### C BC #### [facility] [address] [place] [address] Dr. Han Roy Neutrophils/100 WBC (Bld) 55.0 % Normal 43.0-75.0 [facility] Comment on above: Performed By: #### C BC #### [facility] [address] [place] [address] Dr. Han Roy Platelet mean volume (Bld) [Entitic vol] 8.7 fL Critically low 9.5-13.5 [facility] Comment on above: Performed By: #### C BC #### [facility] [address] [place] [address] Dr. Han Roy PLT 263 103/ul Normal 150-450 [facility] Comment on above: Performed By: #### C BC #### [facility] [address] [place] [address] Dr. Han Roy RBC 4.78 106/ul Normal 4.20-5.40 [facility] Comment on above: Performed By: #### C BC #### [facility] [address] [place] [address] Dr. Han Roy WBC 6.2 103/ul Normal 4.0-11.0 [facility] Comment on above: Performed By: #### C BC #### [facility] [address] [place] [address] Dr. Han Roy FERRITINon 02-06-2022 Ferritin [Mass/Vol] 23.0 ng/mL Normal 8.0-252.0 [facility] Comment on above: Performed By: #### F ERR #### [facility] [address] [place] [address] Dr. Han Roy Physician Orderon 02-06-2022 Physician Order [id number] 0#[id number]:127 Normal [facility] NM HEPATOBILIARY SCAN W EFon 01-26-2022 NM HEPATOBILIARY SCAN W EF EXAMINATION: NM HEPATOBILIARY SCAN W EF HISTORY: Right upper quadrant pain COMPARISON: No relevant comparison available. TECHNIQUE: Radionuclide hepatobiliary imaging was performed after intravenous injection of 5 mCi Tc-99m ROSALINDA derivative with sequential acquisitions every 1 minute for one hour. Hepatobiliary imaging with gallbladder ejection fraction analysis was then performed with sequential imaging every 1 minute for 60 minutes. The patient drank 8 ounces of by mouth ensure. FINDINGS: LIVER: Normal, prompt and uniform radiotracer uptake and clearing. BILIARY DUCTS: Normal radioisotopic biliary excretion. GALLBLADDER: Normal with no evidence of cystic duct obstruction. INTESTINE: Normal with no evidence of common biliary ductal obstruction. EJECTION FRACTION: 97 % within 60 minutes. (Normal EF > 38%). OTHER: Negative. IMPRESSION: Normal hepatobiliary scan and pharmacologic ejection fraction Electronically authenticated by: MEGHNA VANESSA Date: 2022-01-26 17:51 Normal [facility] C. DIFF PCRon 01-17-2022 C. DIFFICILE PCR Negative Normal NEGATIVE [facility] Comment on above: Performed By: #### C DIFPOC #### [facility] [address] [place] [address] Dr. Han Roy CBC AUTO DIFFon 10-31-2021 BASO # 0.0 103/ul Normal 0.0-0.1 [facility] Comment on above: Performed By: #### C BC #### [facility] [address] [place] [address] Dr. Han Roy Basophils/100 WBC (Bld) 0.4 % Normal 0.2-2.0 [facility] Comment on above: Performed By: #### C BC #### [facility] [address] [place] [address] Dr. Han Roy EO # 0.4 103/ul Normal 0.0-0.7 [facility] Comment on above: Performed By: #### C BC #### [facility] [address] [place] [address] Dr. Han Roy Eosinophils/100 WBC (Bld) 3.3 % Normal 0.9-7.0 [facility] Comment on above: Performed By: #### C BC #### [facility] [address] [place] [address] Dr. Han Roy Erythrocyte distribution width (RBC) [Ratio] 19.3 % Critically high 11.0-15.0 [facility] Comment on above: Performed By: #### C BC #### [facility] [address] [place] [address] Dr. Han Roy Hematocrit (Bld) [Volume fraction] 47.0 % Normal 36.0-48.0 [facility] Comment on above: Performed By: #### C BC #### [facility] [address] [place] [address] Dr. Han Roy Hemoglobin (Bld) [Mass/Vol] 14.3 g/dL Normal 12.0-16.0 [facility] Comment on above: Performed By: #### C BC #### [facility] [address] [place] [address] Dr. Han Roy IG # 0.04 10e3/ul Critically high 0.00-0.03 [facility] Comment on above: Performed By: #### C BC #### [facility] [address] [place] [address] Dr. Han Roy IG % 0.4 % Normal 0.0-0.5 [facility] Comment on above: Performed By: #### C BC #### [facility] [address] [place] [address] Dr. Han Roy LYMPH # 1.4 103/ul Normal 1.2-3.8 [facility] Comment on above: Performed By: #### C BC #### [facility] [address] [place] [address] Dr. Han Roy Lymphocytes/100 WBC (Bld) 13.0 % Critically low 20.5-60.0 [facility] Comment on above: Performed By: #### C BC #### [facility] [address] [place] [address] Dr. Han Roy MANUAL DIFF REQ NO Normal [facility] Comment on above: Performed By: #### C BC #### [facility] [address] [place] [address] Dr. Han Roy MCH (RBC) [Entitic mass] 23.9 pg Critically low 26.7-34.0 [facility] Comment on above: Performed By: #### C BC #### [facility] [address] [place] [address] Dr. Han Roy MCHC (RBC) [Mass/Vol] 30.4 g/dL Normal 29.9-35.2 [facility] Comment on above: Performed By: #### C BC #### [facility] [address] [place] [address] Dr. Han Roy MCV (RBC) [Entitic vol] 78.6 fL Critically low 81.0-99.0 [facility] Comment on above: Performed By: #### C BC #### [facility] [address] [place] [address] Dr. Han Roy MONO # 1.3 103/ul Critically high 0.3-0.8 [facility] Comment on above: Performed By: #### C BC #### [facility] [address] [place] [address] Dr. Han Roy Monocytes/100 WBC (Bld) 12.4 % Critically high 1.7-12.0 [facility] Comment on above: Performed By: #### C BC #### [facility] [address] [place] [address] Dr. Han Roy NEUT # 7.4 103/ul Critically high 1.4-6.5 [facility] Comment on above: Performed By: #### C BC #### [facility] [address] [place] [address] Dr. Han Roy Neutrophils/100 WBC (Bld) 70.5 % Normal 43.0-75.0 [facility] Comment on above: Performed By: #### C BC #### [facility] [address] [place] [address] Dr. Han Roy Platelet mean volume (Bld) [Entitic vol] 8.8 fL Critically low 9.5-13.5 [facility] Comment on above: Performed By: #### C BC #### [facility] [address] [place] [address] Dr. Han Roy PLT 243 103/ul Normal 150-450 [facility] Comment on above: Performed By: #### C BC #### [facility] [address] [place] [address] Dr. Han Roy RBC 5.98 106/ul Critically high 4.20-5.40 [facility] Comment on above: Performed By: #### C BC #### [facility] [address] [place] [address] Dr. Han Roy WBC 10.6 103/ul Normal 4.0-11.0 [facility] Comment on above: Performed By: #### C BC #### [facility] [address] [place] [address] Dr. Han Roy FERRITINon 10-31-2021 Ferritin [Mass/Vol] 23.0 ng/mL Normal 8.0-252.0 [facility] Comment on above: Performed By: #### F ERR #### [facility] [address] [place] [address] Dr. Han Roy PROF 14(COMP METB)on 022 Albumin [Mass/Vol] 3.4 g/dL Normal 3.4-5.0 [facility] Comment on above: Performed By: #### C MP #### [facility] [address] [place] [address] Dr. Han Roy Albumin/Globulin [Mass ratio] 0.9 {ratio} Normal [facility] Comment on above: Performed By: #### C MP #### [facility] [address] [place] [address] Dr. Han Roy ALP [Catalytic activity/Vol] 84 U/L Normal 46-116 [facility] Comment on above: Performed By: #### C MP #### [facility] [address] [place] [address] Dr. Han Roy ALT [Catalytic activity/Vol] 61 U/L Critically high 14-59 [facility] Comment on above: Performed By: #### C MP #### [facility] [address] [place] [address] Dr. Han Roy Anion gap [Moles/Vol] 14.1 mmol/L Normal [facility] Comment on above: Performed By: #### C MP #### [facility] [address] [address] [address] Han Roy AST [Catalytic activity/Vol] 20 U/L Normal 15-37 [facility] Comment on above: Performed By: #### C MP #### [facility] [address] [address] [address] Han Roy Bilirubin [Mass/Vol] 0.8 mg/dL Normal 0.2-1.0 [facility] Comment on above: Performed By: #### C MP #### [facility] [address] [place] [address] Dr. Han Ryo Calcium [Mass/Vol] 9.4 mg/dL Normal 8.5-10.1 [facility] Comment on above: Performed By: #### C MP #### [facility] [address] [place] [address] Dr. Han Roy Chloride [Moles/Vol] 106 mmol/L Normal 98-107 [facility] Comment on above: Performed By: #### C MP #### [facility] [address] [address] [address] Han Roy CO2 [Moles/Vol] 26.0 mmol/L Normal 21.0-32.0 [facility] Comment on above: Performed By: #### C MP #### [facility] [address] [address] [address] Han Roy Creatinine [Mass/Vol] 0.88 mg/dL Normal 0.55-1.02 [facility] Comment on above: Performed By: #### C MP #### [facility] [address] [address] [address] Han Roy EGFR-AF NIGERIAN >60 Normal >=60 [facility] Comment on above: Performed By: #### C MP #### [facility] [address] [address] [address] Han Roy EGFR-NON AF NIGERIAN >60 Normal >=60 [facility] Comment on above: Performed By: #### C MP #### [facility] [address] [address] [address] Han Roy Globulin (S) [Mass/Vol] 3.9 g/dL Normal [facility] Comment on above: Performed By: #### C MP #### [facility] [address] [address] [address] Han Roy Glucose [Mass/Vol] 129 mg/dL Critically high 74-106 [facility] Comment on above: Performed By: #### C MP #### [facility] [address] [address] [address] Han Roy Potassium [Moles/Vol] 4.1 mmol/L Normal 3.5-5.1 [facility] Comment on above: Performed By: #### C MP #### [facility] [address] [address] [address] Han Roy Protein [Mass/Vol] 7.3 g/dL Normal 6.4-8.2 [facility] Comment on above: Performed By: #### C MP #### [facility] [address] [address] [address] Han Roy Sodium [Moles/Vol] 142 mmol/L Normal 136-145 [facility] Comment on above: Performed By: #### C MP #### [facility] [address] [address] [address] Han Roy Urea nitrogen [Mass/Vol] 17.0 mg/dL Normal 7.0-18.0 [facility] Comment on above: Performed By: #### C MP #### [facility] [address] [address] [address] Han Roy Urea nitrogen/Creatinine [Mass ratio] 19.3 mg/mg Normal [facility] Comment on above: Performed By: #### C MP #### [facility] [address] [place] [address] Dr. Han Roy Vital Signs Date Time Vital Sign Value Performing Clinician Facility 05-31-2023 14:00-0500 Body temperature 98.1 [degF] Chair Jung Work Phone: [facility] 05-31-2023 14:00-0500 Diastolic blood pressure 73 mm[Hg] Chair Jung Work Phone: [facility] 05-31-2023 14:00-0500 Heart rate 83 /min Chair Vancouver Work Phone: [facility] 05-31-2023 14:00-0500 Respiratory rate 16 /min Chair Vancouver Work Phone: [facility] 05-31-2023 14:00-0500 SaO2% (BldA) [Mass fraction] 96 % Chair Jung Work Phone: [facility] 05-31-2023 14:00-0500 Systolic blood pressure 105 mm[Hg] Chair Vancouver Work Phone: [facility] 04-05-2023 11:43-0500 Diastolic blood pressure 118 mm[Hg] Chair Jung Work Phone: [facility] 04-05-2023 11:43-0500 Systolic blood pressure 170 mm[Hg] Chair Vancouver Work Phone: [facility] 04-05-2023 11:40-0500 Body temperature 97.39 [degF] Chair Vancouver Work Phone: [facility] 04-05-2023 11:40-0500 Heart rate 65 /min Chair Vancouver Work Phone: [facility] 04-05-2023 11:40-0500 Respiratory rate 18 /min Chair Vancouver Work Phone: [facility] 04-05-2023 11:40-0500 SaO2% (BldA) [Mass fraction] 97 % Chair Vancouver Work Phone: [facility] 03-07-2023 09:15-0500 Body height 160.02 cm Cindi Bailonparish Other [facility] Other 03-07-2023 09:15-0500 Body mass index (BMI) [Ratio] 37.2 kg/m2 Cindi Bailonpepitoo Other [facility] Other 03-07-2023 09:15-0500 Body temperature 97.8 [degF] Cindi Bailonpepitoo Other [facility] Other 03-07-2023 09:15-0500 Body weight 95.26 kg Cindi Bailonparish Other [facility] Other 03-07-2023 09:15-0500 Diastolic blood pressure 86 mm[Hg] Cindi Pleitez Other [facility] Other 03-07-2023 09:15-0500 SaO2% (BldA) [Mass fraction] 93 % Cindi Bailonparish Other [facility] Other 03-07-2023 09:15-0500 Systolic blood pressure 132 mm[Hg] Cindi Bailonparish Other [facility] Other 02-14-2023 08:30-0400 Body height 160.02 cm Cindi Bailonparish Other [facility] Other 02-14-2023 08:30-0400 Body mass index (BMI) [Ratio] 37.2 kg/m2 Cindi Bailonpepitoo Other [facility] Other 02-14-2023 08:30-0400 Body temperature 97.3 [degF] Cindi Adityao Other [facility] Other 02-14-2023 08:30-0400 Body weight 95.26 kg Cindi Pleitez Other [facility] Other 02-14-2023 08:30-0400 Diastolic blood pressure 72 mm[Hg] Cindi Pleitez Other [facility] Other 02-14-2023 08:30-0400 SaO2% (BldA) [Mass fraction] 97 % Cindi Pleitez Other [facility] Other 02-14-2023 08:30-0400 Systolic blood pressure 118 mm[Hg] Cindi Pleitez Other [facility] Other 02-08-2023 13:59-0400 Body temperature 98.29 [degF] Chair Jung Work Phone: [facility] 02-08-2023 13:59-0400 Diastolic blood pressure 93 mm[Hg] Chair Vancouver Work Phone: [facility] 02-08-2023 13:59-0400 Heart rate 89 /min Chair Vancouver Work Phone: [facility] 02-08-2023 13:59-0400 Respiratory rate 18 /min Chair Vancouver Work Phone: [facility] 02-08-2023 13:59-0400 SaO2% (BldA) [Mass fraction] 97 % Chair Vancouver Work Phone: [facility] 02-08-2023 13:59-0400 Systolic blood pressure 160 mm[Hg] Chair Vancouver Work Phone: [facility] 01-14-2023 10:00-0400 Body height 160.02 cm Meghna Butler Other [facility] Other 01-14-2023 10:00-0400 Body mass index (BMI) [Ratio] 36.84 kg/m2 Meghna Butler Other [facility] Other 01-14-2023 10:00-0400 Body weight 94.35 kg Meghna Luke Other [facility] Other 01-14-2023 10:00-0400 Diastolic blood pressure 95 mm[Hg] Meghna Luke Other [facility] Other 01-14-2023 10:00-0400 SaO2% (BldA) [Mass fraction] 94 % Meghna Butler Other [facility] Other 01-14-2023 10:00-0400 Systolic blood pressure 159 mm[Hg] Meghna Butler Other [facility] Other 12-14-2022 13:37-0400 Body height 160 cm Don Boudreaux MD Work Phone: [facility] 12-14-2022 13:37-0400 Body temperature 97.59 [degF] Don Boudreaux MD Work Phone: [facility] 12-14-2022 13:37-0400 Body weight 95.07 kg Don Boudreaux MD Work Phone: [facility] 12-14-2022 13:37-0400 Diastolic blood pressure 100 mm[Hg] Don Boudreaux MD Work Phone: [facility] 12-14-2022 13:37-0400 Heart rate 93 /min Don Boudreaux MD Work Phone: [facility] 12-14-2022 13:37-0400 Respiratory rate 16 /min Don Boudreaux MD Work Phone: [facility] 12-14-2022 13:37-0400 SaO2% (BldA) [Mass fraction] 97 % Don Boudreaux MD Work Phone: [facility] 12-14-2022 13:37-0400 Systolic blood pressure 142 mm[Hg] Don Boudreaux MD Work Phone: [facility] 10-19-2022 14:32-0400 Body temperature 98.29 [degF] Chair Vancouver Work Phone: [facility] 10-19-2022 14:32-0400 Diastolic blood pressure 90 mm[Hg] Chair Jung Work Phone: [facility] 10-19-2022 14:32-0400 Heart rate 79 /min Chair Jung Work Phone: [facility] 10-19-2022 14:32-0400 Respiratory rate 16 /min Chair Jung Work Phone: [facility] 10-19-2022 14:32-0400 SaO2% (BldA) [Mass fraction] 95 % Chair Jung Work Phone: [facility] 10-19-2022 14:32-0400 Systolic blood pressure 133 mm[Hg] Chair Jung Work Phone: [facility] 08-28-2022 14:15-0400 Body height 160 cm Meghna Farah Jr., DO Work Phone: [facility] 08-28-2022 14:15-0400 Body weight 92.99 kg Meghna Farah Jr., DO Work Phone: [facility] 08-24-2022 14:01-0400 Body temperature 98.1 [degF] Chair Vancouver Work Phone: [facility] 08-24-2022 14:01-0400 Diastolic blood pressure 92 mm[Hg] Chair Vancouver Work Phone: [facility] 08-24-2022 14:01-0400 Heart rate 87 /min Chair Vancouver Work Phone: [facility] 08-24-2022 14:01-0400 Respiratory rate 18 /min Chair Vancouver Work Phone: [facility] 08-24-2022 14:01-0400 SaO2% (BldA) [Mass fraction] 96 % Chair Jung Work Phone: [facility] 08-24-2022 14:01-0400 Systolic blood pressure 129 mm[Hg] Chair Vancouver Work Phone: [facility] 06-29-2022 13:55-0500 Body temperature 98.2 [degF] Chair Vancouver Work Phone: [facility] 06-29-2022 13:55-0500 Diastolic blood pressure 94 mm[Hg] Chair Jung Work Phone: [facility] 06-29-2022 13:55-0500 Heart rate 89 /min Chair Vancouver Work Phone: [facility] 06-29-2022 13:55-0500 Respiratory rate 16 /min Chair Vancouver Work Phone: [facility] 06-29-2022 13:55-0500 SaO2% (BldA) [Mass fraction] 98 % Chair Jung Work Phone: [facility] 06-29-2022 13:55-0500 Systolic blood pressure 142 mm[Hg] Chair Jung Work Phone: [facility] 06-21-2022 15:46-0500 Body height 152.6 cm Don Boudreaux MD Work Phone: [facility] 06-21-2022 15:46-0500 Body temperature 97.59 [degF] Don Boudreaux MD Work Phone: [facility] 06-21-2022 15:46-0500 Body weight 90.63 kg Don Boudreaux MD Work Phone: [facility] 06-21-2022 15:46-0500 Diastolic blood pressure 95 mm[Hg] Don Boudreaux MD Work Phone: [facility] 06-21-2022 15:46-0500 Heart rate 76 /min Don Boudreaux MD Work Phone: [facility] 06-21-2022 15:46-0500 Respiratory rate 16 /min Don Boudreaux MD Work Phone: [facility] 06-21-2022 15:46-0500 SaO2% (BldA) [Mass fraction] 96 % Don Boudreaux MD Work Phone: [facility] 06-21-2022 15:46-0500 Systolic blood pressure 158 mm[Hg] Don Boudreaux MD Work Phone: [facility] 05-29-2022 13:49-0500 Body height 152.6 cm Meghna Farah Jr., DO Work Phone: [facility] 05-29-2022 13:49-0500 Body weight 88 kg Meghna Farah Jr., DO Work Phone: [facility] 05-18-2022 14:05-0500 Diastolic blood pressure 85 mm[Hg] Chair Jung Work Phone: [facility] 05-18-2022 14:05-0500 Heart rate 85 /min Chair Vancouver Work Phone: [facility] 05-18-2022 14:05-0500 Respiratory rate 18 /min Chair Vancouver Work Phone: [facility] 05-18-2022 14:05-0500 SaO2% (BldA) [Mass fraction] 96 % Chair Vancouver Work Phone: [facility] 05-18-2022 14:05-0500 Systolic blood pressure 127 mm[Hg] Chair Vancouver Work Phone: [facility] 05-10-2022 15:31-0500 Body height 154.9 cm Don Boudreaux MD Work Phone: [facility] 05-10-2022 15:31-0500 Body temperature 97.59 [degF] Don Boudreaux MD Work Phone: [facility] 05-10-2022 15:31-0500 Body weight 88.27 kg Don Boudreaux MD Work Phone: [facility] 05-10-2022 15:31-0500 Diastolic blood pressure 98 mm[Hg] Don Boudreaux MD Work Phone: [facility] 05-10-2022 15:31-0500 Heart rate 105 /min Don Boudreaux MD Work Phone: [facility] 05-10-2022 15:31-0500 Respiratory rate 16 /min Don Boudreaux MD Work Phone: [facility] 05-10-2022 15:31-0500 SaO2% (BldA) [Mass fraction] 97 % Don Boudreaux MD Work Phone: [facility] 05-10-2022 15:31-0500 Systolic blood pressure 167 mm[Hg] Don Boudreaux MD Work Phone: [facility] 05-04-2022 15:10-0500 Body temperature 97.9 [degF] Chair Jung Work Phone: [facility] 05-04-2022 15:10-0500 Diastolic blood pressure 100 mm[Hg] Chair Vancouver Work Phone: [facility] 05-04-2022 15:10-0500 Heart rate 83 /min Chair Jung Work Phone: [facility] 05-04-2022 15:10-0500 Respiratory rate 18 /min Chair Vancouver Work Phone: [facility] 05-04-2022 15:10-0500 SaO2% (BldA) [Mass fraction] 96 % Chair Jung Work Phone: [facility] 05-04-2022 15:10-0500 Systolic blood pressure 144 mm[Hg] Chair Jung Work Phone: [facility] 04-13-2022 10:00-0500 Diastolic blood pressure 90 mm[Hg] Chair Vancouver Work Phone: [facility] 04-13-2022 10:00-0500 Heart rate 91 /min Chair Vancouver Work Phone: [facility] 04-13-2022 10:00-0500 Respiratory rate 18 /min Chair Vancouver Work Phone: [facility] 04-13-2022 10:00-0500 SaO2% (BldA) [Mass fraction] 98 % Chair Vancouver Work Phone: [facility] 04-13-2022 10:00-0500 Systolic blood pressure 133 mm[Hg] Chair Jung Work Phone: [facility] 03-29-2022 16:03-0500 Body temperature 97.59 [degF] Chair Jung Work Phone: [facility] 03-29-2022 16:03-0500 Diastolic blood pressure 82 mm[Hg] Chair Vancouver Work Phone: [facility] 03-29-2022 16:03-0500 Heart rate 82 /min Chair Vancouver Work Phone: [facility] 03-29-2022 16:03-0500 Respiratory rate 16 /min Chair Vancouver Work Phone: [facility] 03-29-2022 16:03-0500 SaO2% (BldA) [Mass fraction] 98 % Chair Vancouver Work Phone: [facility] 03-29-2022 16:03-0500 Systolic blood pressure 138 mm[Hg] Chair Jung Work Phone: [facility] 03-27-2022 14:45-0500 Body height 154.9 cm Meghna Farah Jr., DO Work Phone: [facility] 03-27-2022 14:45-0500 Body weight 86.18 kg Meghna Benmayra Davila, DO Work Phone: [facility] 03-14-2022 14:50-0500 SaO2% (BldA) [Mass fraction] 97 % Chair Vancouver Work Phone: [facility] 03-14-2022 13:20-0500 Body temperature 98.1 [degF] Chair Vancouver Work Phone: [facility] 03-14-2022 13:20-0500 Diastolic blood pressure 78 mm[Hg] Chair Jung Work Phone: [facility] 03-14-2022 13:20-0500 Heart rate 90 /min Chair Vancouver Work Phone: [facility] 03-14-2022 13:20-0500 Respiratory rate 18 /min Chair Vancouver Work Phone: [facility] 03-14-2022 13:20-0500 Systolic blood pressure 123 mm[Hg] Chair Vancouver Work Phone: [facility] 03-02-2022 15:36-0400 Body height 156.6 cm Don Boudreaux MD Work Phone: [facility] 03-02-2022 15:36-0400 Body temperature 97.59 [degF] Don Boudreaux MD Work Phone: [facility] 03-02-2022 15:36-0400 Body weight 89.81 kg Don Boudreaux MD Work Phone: [facility] 03-02-2022 15:36-0400 Diastolic blood pressure 93 mm[Hg] Don Boudreaux MD Work Phone: [facility] 03-02-2022 15:36-0400 Heart rate 99 /min Don Boudreaux MD Work Phone: [facility] 03-02-2022 15:36-0400 Respiratory rate 16 /min Don Boudreaux MD Work Phone: [facility] 03-02-2022 15:36-0400 SaO2% (BldA) [Mass fraction] 97 % Don Boudreaux MD Work Phone: [facility] 03-02-2022 15:36-0400 Systolic blood pressure 149 mm[Hg] Don Boudreaux MD Work Phone: [facility] 02-28-2022 16:15-0400 Body height 160.02 cm Torie Simmond Other [facility] Other 02-28-2022 16:15-0400 Body mass index (BMI) [Ratio] 33.65 kg/m2 Torie Simmond Other [facility] Other 02-28-2022 16:15-0400 Body temperature 97.5 [degF] Torie Simmond Other [facility] Other 02-28-2022 16:15-0400 Body weight 86.18 kg Torie Lee Other [facility] Other 02-28-2022 16:15-0400 Respiratory rate 18 /min Torie Lee Other [facility] Other 02-28-2022 16:15-0400 SaO2% (BldA) [Mass fraction] 97 % Torie Lee Other [facility] Other Encounters Encounter Date Encounter Type Care Provider Facility Start: 10-08-2023 ambulatory BILLIE Mckinney ty:ARTURO Javier Start: 06-05-2023 ambulatory PATRICK L CUTLER Not Av ailable Start: 06-05-2023 End: 06-05-2023 ambulatory PATRICK L CUTLER Not Available Start: 06-05-2023 Bamboo flowsheet Patrick L Cut ler DO Work Phone: [facility] [address] Start: 06-05-2023 Bamboo flowsheet Patrick L Cut ler DO Work Phone: [facility] [address] Start: 05-31-2023 End: 05-31-2023 ambulatory Traci Chandler [facility] [employer] [facility] Comment on above: Art Therapy 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) Start: 05-29-2023 (RFA1) Radiofrequenc y ablation Hakan Maguire [facility] Vascular Surgery Start: 05-29-2023 End: 05-29-2023 ambulatory Art Chu [facility] [employer] Other Start: 05-13-2023 End: 05-14-2023 ambulatory PATRICK L CUTLER Not Available Start: 04-30-2023 End: 04-30-2023 ambulatory PATRICK L CUTLER Not Available Start: 04-25-2023 End: 04-25-2023 ambulatory DON BOUDREAUX Facility:[facility] Start: 04-10-2023 End: 04-10-2023 ambulatory Art Chu Facility:[facility] Start: 04-10-2023 End: 04-10-2023 ambulatory MD Art Chu Work Phone: [facility] Work Phone: Start: 04-10-2023 End: 04-10-2023 Patient encounter procedure MD Art Chu Work Phone: [facility]-Sleep Lab Work Phone: Start: 04-09-2023 End: 04-09-2023 ambulatory MAGALIE MAGDALENO Not Available Start: 04-05-2023 Telephone encounter Billie Kennedy RN Hematology/Oncology Comment on above: FYI-No Action Needed Start: 04-05-2023 End: 04-05-2023 ambulatory Chair Tran Feng Work Phone: Hematology/Oncology Comment on above: Secondary polycythem ia (Primary Dx); Iron deficiency anemia, unspecified iron deficiency anemia type; Other ulcerative colitis with rectal bleeding (HCC); Daytime somnolence; Snoring Start: 03-07-2023 End: 03-07-2023 ambulatory Cindi Pleitez Other [facility] Other Start: 03-07-2023 Patient encounter procedure Cindi Pleitez [facility] Start: 03-01-2023 Refill Michaela SterlingChris k formerly [facility] Work Phone: Hematology/Oncology Comment on above: Refill Request; Refi ll Request Start: 02-28-2023 Telephone encounter Meghna nunez DO Work Phone: Gastgroenterology Start: 02-26-2023 End: 02-26-2023 ambulatory Art Chu Facility:[facility] Start: 02-26-2023 End: 02-26-2023 ambulatory MD Art Chu Work Phone: [facility] Work Phone: Start: 02-26-2023 End: 02-26-2023 Patient encounter procedure MD Art Chu Work Phone: [facility]-Ultrasound [facility] [place] Work Phone: Start: 02-14-2023 End: 02-14-2023 ambulatory Cindi Burgesscas Other [employer] [facility] Other Start: 02-14-2023 [facility] visit new patient Cindi cardozo [facility] Vascular Surgery Start: 02-14-2023 Telephone encounter Cindi Gastelum [facility] [place] Start: 02-13-2023 ambulatory BILLIE Mckinney ty:ARTURO Javier Start: 02-08-2023 End: 02-08-2023 ambulatory Chair Tran Feng Work Phone: Hematology/Oncology Comment on above: 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) Start: 02-06-2023 End: 02-06-2023 ambulatory Art Chu Other [facility] Other Start: 02-06-2023 Telephone encounter Art Chu [facility] Start: 02-05-2023 End: 02-05-2023 ambulatory Art Chu Other [facility] Other Start: 02-05-2023 Telephone encounter Art Chu [facility] Start: 01-14-2023 End: 01-14-2023 ambulatory Meghna Farah DO Work Phone: [employer] [facility] Other Comment on above: Entyvio Start: 01-14-2023 Office outpatient ne w 60 minutes Meghna Butler [facility] Start: 01-14-2023 End: 01-14-2023 Patient encounter procedure MD Art Chu Work Phone: [facility]-Sleep Lab Work Phone: Start: 12-14-2022 End: 12-17-2022 ambulatory MEGHNA FARAH JR Facility:[facility] Start: 12-14-2022 End: 12-14-2022 Office outpatient visit 25 minutes Don Boudreaux MD Work Phone: Hematology/Oncology Comment on above: Secondary polycythem ia (Primary Dx); Iron deficiency anemia, unspecified iron deficiency anemia type; Other ulcerative colitis with rectal bleeding (HCC); Daytime somnolence; Snoring Start: 12-06-2022 End: 12-06-2022 ambulatory ART CHU Facility:[facility] Start: 11-22-2022 Telephone encounter Michaela Nobles formerly [facility] Work Phone: [facility] Comment on above: Erroneous encounter- disregard Start: 10-19-2022 End: 10-19-2022 ambulatory Chair Tran Feng Work Phone: Hematology/Oncology Comment on above: 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) Start: 10-18-2022 Telephone encounter Don rowland MD Work Phone: Hematology/Oncology Comment on above: FMLA Paperwork Start: 10-10-2022 Refill Claire Sky formerly [facility] Work Phone: [facility] Comment on above: Refill Request Start: 10-03-2022 End: 10-04-2022 ambulatory BILLIEROBIN LAWRENCE Facility:[facility] Start: 08-28-2022 End: 08-28-2022 ambulatory MEGHNA FARAH JR Facility:[facility] Start: 08-28-2022 End: 08-28-2022 Patient encounter procedure Meghna Farah DO Work Phone: Gastgroenterology Comment on above: 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) Start: 08-24-2022 End: 08-24-2022 ambulatory Chair [address] [place] Work Phone: Hematology/Oncology Comment on above: 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) Start: 08-22-2022 End: 08-23-2022 ambulatory BILLIE GUSMANRY Facility[place] Start: 08-08-2022 ambulatory Meghna Farah DO Work Phone: Gastgroenterology Comment on above: Entyvio returning in formation to Billie Start: 08-08-2022 Telephone encounter Ricky hernandez formerly [facility] Work Phone: HOSPITAL PHARMACY HB-3 Comment on above: Medication Follow-up (Entyvio appeal status) Start: 07-24-2022 End: 07-24-2022 ambulatory Tr Dalal Other [address] Other Start: 07-24-2022 Office outpatient vi sit 15 minutes Tr [facility] Start: 07-02-2022 Telephone encounter Michaela Nobles formerly [facility] Work Phone: HOSPITAL PHARMACY HB-3 Comment on above: Erroneous encounter- disregard Start: 06-29-2022 End: 06-29-2022 ambulatory Chair [address] [place] Work Phone: Hematology/Oncology Comment on above: 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) Start: 06-28-2022 End: 06-29-2022 ambulatory V[facility]DE[facility] Start: 06-21-2022 End: 06-21-2022 ambulatory DON BOUDREAUX Facility:[facility] Start: 06-21-2022 End: 06-21-2022 Office outpatient visit 25 minutes Don Boudreaux MD Work Phone: Hematology/Oncology Comment on above: Iron deficiency anem ia, unspecified iron deficiency anemia type (Primary Dx); Snoring; Daytime somnolence; Secondary polycythemia; Other ulcerative colitis with rectal bleeding (HCC) Start: 06-14-2022 End: 06-14-2022 ambulatory ART CHU Facility:[facility] Start: 06-01-2022 Patient encounter procedure Michaela Mendoza formerly [facility] Work Phone: Hematology/Oncology Comment on above: 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) Start: 05-29-2022 End: 05-29-2022 Patient encounter procedure Meghna Farah DO Work Phone: Gastgroenterology Comment on above: Ulcerative colitis w ith rectal bleeding, unspecified location (HCC) (Primary Dx) Start: 05-18-2022 End: 05-18-2022 ambulatory Chair [address] [place] Work Phone: Hematology/Oncology Comment on above: 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) Start: 05-10-2022 End: 05-10-2022 Office outpatient visit 15 minutes Don Boudreaux MD Work Phone: Hematology/Oncology Comment on above: Iron deficiency anem ia, unspecified iron deficiency anemia type (Primary Dx); Subacute cough; Colitis Start: 05-08-2022 Telephone encounter Don rowland MD Work Phone: Hematology/Oncology Comment on above: FMLA Paperwork Start: 05-04-2022 End: 05-04-2022 ambulatory Chair [address] [place] Work Phone: Hematology/Oncology Comment on above: 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); Iron deficiency anemia, unspecified iron deficiency anemia type Start: 04-24-2022 Telephone encounter Lynnette Pizarro Hematology/Oncology Comment on above: Appointment Start: 04-18-2022 Telephone encounter Don rowland MD Work Phone: Laboratory Medicine Comment on above: Lab Orders Start: 04-13-2022 End: 04-13-2022 ambulatory Chair [address] [place] Work Phone: Hematology/Oncology Comment on above: Left sided ulcerativ e colitis with rectal bleeding (HCC) (Primary Dx); Iron deficiency anemia, unspecified iron deficiency anemia type; Iron deficiency anemia due to chronic blood loss Start: 04-11-2022 Telephone encounter Meghna nunez DO Work Phone: Gastroenterology Comment on above: Patient Update Start: 04-06-2022 End: 04-06-2022 ambulatory Chair [address] [place] Work Phone: Hematology/Oncology Comment on above: Iron deficiency anem ia, unspecified iron deficiency anemia type (Primary Dx); Iron deficiency anemia due to chronic blood loss Start: 03-29-2022 End: 03-29-2022 ambulatory Chair [address] [place] Work Phone: Hematology/Oncology Comment on above: Iron deficiency anem ia, unspecified iron deficiency anemia type (Primary Dx); Colitis; Iron deficiency anemia due to chronic blood loss Start: 03-27-2022 End: 03-27-2022 Patient encounter procedure Meghna Farah DO Work Phone: Gastgroenterology Comment on above: Left sided ulcerativ e colitis with rectal bleeding (HCC) (Primary Dx); Iron deficiency anemia, unspecified iron deficiency anemia type Start: 03-27-2022 Telephone encounter Meghna nunez DO Work Phone: Gastroenterology Comment on above: Patient Update (Need s Enytvio started) Start: 03-21-2022 Social Work Ilene CHATTERJEE Hematolo gy/Oncology Start: 03-14-2022 End: 03-14-2022 ambulatory Chair [address] [place] Work Phone: Hematology/Oncology Comment on above: Iron deficiency anem ia, unspecified iron deficiency anemia type (Primary Dx); Iron deficiency anemia due to chronic blood loss Start: 03-07-2022 End: 03-08-[address] [facility] Facility:[facility] Start: 03-02-2022 End: 03-02-2022 ambulatory Don Boudreaux MD Work Phone: Hematology/Oncology Comment on above: Iron deficiency anem ia, unspecified iron deficiency anemia type (Primary Dx); Colitis Start: 03-02-2022 End: 03-02-2022 Patient encounter procedure Don Boudreaux MD Work Phone: [place] Start: 03-02-2022 Telephone encounter Billie Kennedy RN Hematology/Oncology Comment on above: Results Start: 03-01-2022 End: 03-02-[address] ART CHU Facility: Start: 03-01-2022 Chart abstracting Don hernandez MD Work Phone: Hematology/Oncology Start: 02-28-2022 End: 02-28-2022 ambulatory Torie Lee Other [address] Other Start: 02-28-2022 Office outpatient vi sit 15 minutes Torie Lee [facility] Start: 02-27-2022 Telephone encounter Don rowland MD Work Phone: Hematology/Oncology Comment on above: Lab Orders Start: 02-22-2022 Adult health examination Meghna Luke Other [address] Other Start: 02-22-2022 Gynecological examination normal Meghna Butler Other [address] Other Start: 02-14-2022 End: 02-15-2022 ambulatory BILLIE LAWRENCE Facility: [facility] Start: 02-06-2022 End: 02-07-[address] [facility] Facility:[facility] Start: 02-06-2022 End: 02-07-[address] ART CHU Facility: Start: 01-26-2022 End: 01-27-[address] ART CHU Facility: Start: 01-17-2022 End: 01-17-2022 ambulatory ZABALA MARY Facility:[facility] Start: 10-31-2021 End: 11-01-[address] ART CHU Facility: Procedures Date Procedure Procedure Detail Performing Clinician Start: 04-05-2023 Blood count complete auto&auto difrntl wbc Don Boudreaux MD Work Phone: Start: 03-01-2023 Mammography Patrick Steinberg tleteresa DO Work Phone: Start: 02-26-2023 Duplex scan of lower limb veins MD Art Chu Work Phone: Start: 05-04-2022 Blood count complete auto&auto difrntl wbc Don Boudreaux MD Work Phone: Start: 04-13-2022 Blood count complete auto&auto difrntl wbc Meghna Melisa Farah DO Work Phone: Start: 03-29-2022 Blood count complete auto&auto difrntl wbc Don Boudreaux MD Work Phone: Start: 02-21-2016 Screening mammography D amita Butler Other Start: 10-10-2015 Pre-surgery evaluation Meghna Butler Other Start: 01-26-2013 Laboratory test resu lt abnormal Meghna Butler Other Start: 12-24-2012 General examination of patient Meghna Butler Other Screening for malign ant neoplasm of breast Meghna Butler Other Plan of Treatment Date Care Activity Detail Author Start: 07-08-2028 Urine microalbumin profile [facility] Start: 2027 HEPATITIS B (1 of 3 - Risk 3-dose series) HEPATITIS B (1 of 3 - Risk 3-dose series) [facility] Start: 2027 Hepatitis B Vaccine (1 of 3 - Risk 3-dose series) Hepatitis B Vaccine (1 of 3 - Risk 3-dose series) [facility] Start: 08-04-2027 Screening for malign ant neoplasm of cervix [facility] Start: 03-01-2024 Screening for malign ant neoplasm of breast Mammogram [facility] Start: 11-08-2023 Glaucoma screening Diabetes: R etinopathy Screening [facility] Start: 10-09-2023 Hemoglobin A1c measurement HbA1C [facility] Start: 09-12-2023 End: 09-12-2023 Patient encounter procedure 09/12/2023 4:00 PM EDT Office Visit [facility] [address] [place] [id number] Lazara Fitzgerald, DO [address] [place] [address] [facility] Start: 08-28-2023 Colonoscopy COLONOSCOPY [facility] Start: 08-28-2023 COLORECTAL CANCER SCREENING COLORECTAL CANCER SCREENING [facility] Start: 08-28-2023 Screening for malign ant neoplasm of colon [facility] Start: 07-30-2023 End: 07-30-2023 Patient encounter procedure 07/30/2023 3:45 PM EDT Office Visit [facility] [address] [place] [address] Magalie Magdaleno, DO [address] [place] [address] [facility] Start: 07-09-2023 Hemoglobin A1c measurement Diabetes: Hemoglobin A1C [facility] Start: 06-05-2023 End: 06-05-2023 Patient encounter procedure 06/05/2023 4:00 PM EST Office Visit [facility] [address] [place] [address] Patrick Simms, DO [address] [place] [address] Arrived [facility] Comment on above: Arrived Start: 04-29-2023 Depression Assessment Depression Ass essment [facility] Start: 04-15-2023 End: 12-15-2023 CBC W Auto Differential panel - Blood CBC + DIFF Lab Routine Secondary polycythemia Iron deficiency anemia, unspecified iron deficiency anemia type Other ulcerative colitis with rectal bleeding (HCC) Daytime somnolence Snoring Expected: 04/15/2023 (Approximate), Expires: 12/15/2023 [facility] Work Phone: Comment on above: Expected: 04/15/2023 (Approximate), Expires: 12/15/2023 Start: 04-15-2023 End: 12-15-2023 Cobalamin (Vitamin B12) [Mass/volume] in Serum or Plasma VITAMIN B12 BLOOD Lab Routine Secondary polycythemia Iron deficiency anemia, unspecified iron deficiency anemia type Other ulcerative colitis with rectal bleeding (HCC) Daytime somnolence Snoring Expected: 04/15/2023 (Approximate), Expires: 12/15/2023 [facility] Work Phone: Comment on above: Expected: 04/15/2023 (Approximate), Expires: 12/15/2023 Start: 04-15-2023 End: 12-15-2023 Comprehensive metabolic 2000 panel - Serum or Plasma COMP METABOLIC PANEL Lab Routine Secondary polycythemia Iron deficiency anemia, unspecified iron deficiency anemia type Other ulcerative colitis with rectal bleeding (HCC) Daytime somnolence Snoring Expected: 04/15/2023 (Approximate), Expires: 12/15/2023 [facility] Work Phone: Comment on above: Expected: 04/15/2023 (Approximate), Expires: 12/15/2023 Start: 04-15-2023 End: 06-15-2023 Erythropoietin (EPO) [Units/volume] in Serum or Plasma ERYTHROPOIETIN/EPO Lab Routine Secondary polycythemia Expected: 04/15/2023 (Approximate), Expires: 06/15/2023 [facility] Work Phone: Comment on above: Expected: 04/15/2023 (Approximate), Expires: 06/15/2023 Start: 04-15-2023 End: 12-15-2023 Ferritin [Mass/volume] in Serum or Plasma FERRITIN BLD Lab Routine Secondary polycythemia Iron deficiency anemia, unspecified iron deficiency anemia type Other ulcerative colitis with rectal bleeding (HCC) Daytime somnolence Snoring Expected: 04/15/2023 (Approximate), Expires: 12/15/2023 [facility] Work Phone: Comment on above: Expected: 04/15/2023 (Approximate), Expires: 12/15/2023 Start: 04-15-2023 End: 12-15-2023 Folate [Mass/volume] in Serum or Plasma FOLATE SERUM Lab Routine Secondary polycythemia Iron deficiency anemia, unspecified iron deficiency anemia type Other ulcerative colitis with rectal bleeding (HCC) Daytime somnolence Snoring Expected: 04/15/2023 (Approximate), Expires: 12/15/2023 [facility] Work Phone: Comment on above: Expected: 04/15/2023 (Approximate), Expires: 12/15/2023 Start: 04-15-2023 End: 12-15-2023 Iron and Iron binding capacity panel - Serum or Plasma IRON + TIBC Lab Routine Secondary polycythemia Iron deficiency anemia, unspecified iron deficiency anemia type Other ulcerative colitis with rectal bleeding (HCC) Daytime somnolence Snoring Expected: 04/15/2023 (Approximate), Expires: 12/15/2023 [facility] Work Phone: Comment on above: Expected: 04/15/2023 (Approximate), Expires: 12/15/2023 Start: 04-03-2023 Hemoglobin A1c/Hemoglobin.total in Blood HBA1C [facility] Start: 02-26-2023 Duplex scan of lower limb veins US venous duplex LE BI [facility] Start: 02-26-2023 US Lower extremity v ein - bilateral [facility] Start: 12-28-2022 Covid-19 Vaccine ( season) Covid-19 Vaccine () [facility] Start: 12-28-2022 Influenza vaccination C [facility] Start: 12-19-2022 End: 06-21-2023 CBC W Auto Differential panel - Blood CBC + DIFF Lab Routine Secondary polycythemia Iron deficiency anemia, unspecified iron deficiency anemia type Other ulcerative colitis with rectal bleeding (HCC) Expected: 12/19/2022 (Approximate), Expires: 06/21/2023 [facility] Work Phone: Comment on above: Expected: 12/19/2022 (Approximate), Expires: 06/21/2023 Start: 12-19-2022 End: 06-21-2023 Cobalamin (Vitamin B12) [Mass/volume] in Serum or Plasma VITAMIN B12 BLOOD Lab Routine Iron deficiency anemia, unspecified iron deficiency anemia type Other ulcerative colitis with rectal bleeding (HCC) Expected: 12/19/2022 (Approximate), Expires: 06/21/2023 [facility] Work Phone: Comment on above: Expected: 12/19/2022 (Approximate), Expires: 06/21/2023 Start: 12-19-2022 End: 06-21-2023 Comprehensive metabolic 2000 panel - Serum or Plasma COMP METABOLIC PANEL Lab Routine Iron deficiency anemia, unspecified iron deficiency anemia type Other ulcerative colitis with rectal bleeding (HCC) Expected: 12/19/2022 (Approximate), Expires: 06/21/2023 [facility] Work Phone: Comment on above: Expected: 12/19/2022 (Approximate), Expires: 06/21/2023 Start: 12-19-2022 End: 02-18-2023 Erythropoietin (EPO) [Units/volume] in Serum or Plasma ERYTHROPOIETIN/EPO Lab Routine Secondary polycythemia Expected: 12/19/2022 (Approximate), Expires: 02/18/2023 [facility] Work Phone: Comment on above: Expected: 12/19/2022 (Approximate), Expires: 02/18/2023 Start: 12-19-2022 End: 06-21-2023 Ferritin [Mass/volume] in Serum or Plasma FERRITIN BLD Lab Routine Iron deficiency anemia, unspecified iron deficiency anemia type Other ulcerative colitis with rectal bleeding (HCC) Expected: 12/19/2022 (Approximate), Expires: 06/21/2023 [facility] Work Phone: Comment on above: Expected: 12/19/2022 (Approximate), Expires: 06/21/2023 Start: 12-19-2022 End: 06-21-2023 Folate [Mass/volume] in Serum or Plasma FOLATE SERUM Lab Routine Iron deficiency anemia, unspecified iron deficiency anemia type Other ulcerative colitis with rectal bleeding (HCC) Expected: 12/19/2022 (Approximate), Expires: 06/21/2023 [facility] Work Phone: Comment on above: Expected: 12/19/2022 (Approximate), Expires: 06/21/2023 Start: 12-19-2022 End: 06-21-2023 Iron and Iron binding capacity panel - Serum or Plasma IRON + TIBC Lab Routine Iron deficiency anemia, unspecified iron deficiency anemia type Other ulcerative colitis with rectal bleeding (HCC) Expected: 12/19/2022 (Approximate), Expires: 06/21/2023 [facility] Work Phone: Comment on above: Expected: 12/19/2022 (Approximate), Expires: 06/21/2023 Start: 06-14-2022 End: 05-10-2023 CBC W Auto Differential panel - Blood CBC + DIFF Lab Routine Iron deficiency anemia, unspecified iron deficiency anemia type Expected: 06/14/2022 (Approximate), Expires: 05/10/2023 [facility] Work Phone: Comment on above: Expected: 06/14/2022 (Approximate), Expires: 05/10/2023 Start: 06-14-2022 End: 05-10-2023 Cobalamin (Vitamin B12) [Mass/volume] in Serum or Plasma VITAMIN B12 BLOOD Lab Routine Iron deficiency anemia, unspecified iron deficiency anemia type Expected: 06/14/2022 (Approximate), Expires: 05/10/2023 [facility] Work Phone: Comment on above: Expected: 06/14/2022 (Approximate), Expires: 05/10/2023 Start: 06-14-2022 End: 05-10-2023 Comprehensive metabolic 2000 panel - Serum or Plasma COMP METABOLIC PANEL Lab Routine Iron deficiency anemia, unspecified iron deficiency anemia type Expected: 06/14/2022 (Approximate), Expires: 05/10/2023 [facility] Work Phone: Comment on above: Expected: 06/14/2022 (Approximate), Expires: 05/10/2023 Start: 06-14-2022 End: 05-10-2023 Ferritin [Mass/volume] in Serum or Plasma FERRITIN BLD Lab Routine Iron deficiency anemia, unspecified iron deficiency anemia type Expected: 06/14/2022 (Approximate), Expires: 05/10/2023 [facility] Work Phone: Comment on above: Expected: 06/14/2022 (Approximate), Expires: 05/10/2023 Start: 06-14-2022 End: 05-10-2023 Folate [Mass/volume] in Serum or Plasma FOLATE SERUM Lab Routine Iron deficiency anemia, unspecified iron deficiency anemia type Expected: 06/14/2022 (Approximate), Expires: 05/10/2023 [facility] Work Phone: Comment on above: Expected: 06/14/2022 (Approximate), Expires: 05/10/2023 Start: 06-14-2022 End: 05-10-2023 Iron and Iron binding capacity panel - Serum or Plasma IRON + TIBC Lab Routine Iron deficiency anemia, unspecified iron deficiency anemia type Expected: 06/14/2022 (Approximate), Expires: 05/10/2023 [facility] Work Phone: Comment on above: Expected: 06/14/2022 (Approximate), Expires: 05/10/2023 Start: 04-29-2022 DEPRESSION ASSESSMENT DEPRESSION ASS ESSMENT [facility] Start: 04-11-2022 End: 06-11-2022 CBC W Auto Differential panel - Blood CBC + DIFF Lab Routine Left sided ulcerative colitis with rectal bleeding (HCC) Expected: 04/11/2022, Expires: 06/11/2022 [facility] Work Phone: Comment on above: Expected: 04/11/2022 , Expires: 06/11/2022 Start: 03-30-2022 End: 03-02-2023 CBC W Auto Differential panel - Blood CBC + DIFF Lab Routine Iron deficiency anemia, unspecified iron deficiency anemia type Colitis Expected: 03/30/2022 (Approximate), Expires: 03/02/2023 [facility] Work Phone: Comment on above: Expected: 03/30/2022 (Approximate), Expires: 03/02/2023 Start: 03-30-2022 End: 03-02-2023 Cobalamin (Vitamin B12) [Mass/volume] in Serum or Plasma VITAMIN B12 BLOOD Lab Routine Iron deficiency anemia, unspecified iron deficiency anemia type Colitis Expected: 03/30/2022 (Approximate), Expires: 03/02/2023 [facility] Work Phone: Comment on above: Expected: 03/30/2022 (Approximate), Expires: 03/02/2023 Start: 03-30-2022 End: 03-02-2023 Comprehensive metabolic 2000 panel - Serum or Plasma COMP METABOLIC PANEL Lab Routine Iron deficiency anemia, unspecified iron deficiency anemia type Colitis Expected: 03/30/2022 (Approximate), Expires: 03/02/2023 [facility] Work Phone: Comment on above: Expected: 03/30/2022 (Approximate), Expires: 03/02/2023 Start: 03-30-2022 End: 03-02-2023 Ferritin [Mass/volume] in Serum or Plasma FERRITIN BLD Lab Routine Iron deficiency anemia, unspecified iron deficiency anemia type Colitis Expected: 03/30/2022 (Approximate), Expires: 03/02/2023 [facility] Work Phone: Comment on above: Expected: 03/30/2022 (Approximate), Expires: 03/02/2023 Start: 03-30-2022 End: 03-02-2023 Folate [Mass/volume] in Serum or Plasma FOLATE SERUM Lab Routine Iron deficiency anemia, unspecified iron deficiency anemia type Colitis Expected: 03/30/2022 (Approximate), Expires: 03/02/2023 [facility] Work Phone: Comment on above: Expected: 03/30/2022 (Approximate), Expires: 03/02/2023 Start: 03-30-2022 End: 03-02-2023 Iron and Iron binding capacity panel - Serum or Plasma IRON + TIBC Lab Routine Iron deficiency anemia, unspecified iron deficiency anemia type Colitis Expected: 03/30/2022 (Approximate), Expires: 03/02/2023 [facility] Work Phone: Comment on above: Expected: 03/30/2022 (Approximate), Expires: 03/02/2023 Start: 03-27-2022 End: 05-27-2022 BLOOD TB SCREEN [facility] Work Phone: Comment on above: Expected: 03/27/2022 , Expires: 05/27/2022 Start: 03-27-2022 End: 05-27-2022 HEP ACUTE PANEL/RNA [facility] Work Phone: Comment on above: Expected: 03/27/2022 , Expires: 05/27/2022 Start: 02-27-2022 End: 02-27-2023 CBC W Auto Differential panel - Blood CBC + DIFF Lab Routine Iron deficiency anemia, unspecified iron deficiency anemia type Expected: 02/27/2022, Expires: 02/27/2023 [facility] Work Phone: Comment on above: Expected: 02/27/2022 , Expires: 02/27/2023 Start: 02-27-2022 End: 02-27-2023 Cobalamin (Vitamin B12) [Mass/volume] in Serum or Plasma VITAMIN B12 BLOOD Lab Routine Iron deficiency anemia, unspecified iron deficiency anemia type Expected: 02/27/2022, Expires: 02/27/2023 [facility] Work Phone: Comment on above: Expected: 02/27/2022 , Expires: 02/27/2023 Start: 02-27-2022 End: 02-27-2023 Comprehensive metabolic 2000 panel - Serum or Plasma COMP METABOLIC PANEL Lab Routine Iron deficiency anemia, unspecified iron deficiency anemia type Expected: 02/27/2022, Expires: 02/27/2023 [facility] Work Phone: Comment on above: Expected: 02/27/2022 , Expires: 02/27/2023 Start: 02-27-2022 End: 02-27-2023 Ferritin [Mass/volume] in Serum or Plasma FERRITIN BLD Lab Routine Iron deficiency anemia, unspecified iron deficiency anemia type Expected: 02/27/2022, Expires: 02/27/2023 [facility] Work Phone: Comment on above: Expected: 02/27/2022 , Expires: 02/27/2023 Start: 02-27-2022 End: 02-27-2023 Folate [Mass/volume] in Serum or Plasma FOLATE SERUM Lab Routine Iron deficiency anemia, unspecified iron deficiency anemia type Expected: 02/27/2022, Expires: 02/27/2023 [facility] Work Phone: Comment on above: Expected: 02/27/2022 , Expires: 02/27/2023 Start: 02-27-2022 End: 02-27-2023 Iron and Iron binding capacity panel - Serum or Plasma IRON + TIBC Lab Routine Iron deficiency anemia, unspecified iron deficiency anemia type Expected: 02/27/2022, Expires: 02/27/2023 [facility] Work Phone: Comment on above: Expected: 02/27/2022 , Expires: 02/27/2023 Start: 12-28-2021 Influenza vaccination INFLUENZA (#1) [facility] Start: 05-27-2021 COVID-19 VACCINE (4 - Booster for Pfizer series) COVID-19 VACCINE (4 - Booster for Pfizer series) [facility] Start: 05-27-2021 COVID-19 VACCINE (4 - Pfizer series) COVID-19 VACCINE (4 - Pfizer series) [facility] Start: 04-29-2021 DEPRESSION ASSESSMENT DEPRESSION ASS ESSMENT [facility] Start: 09-01-2017 SHINGRIX VACCINE (1 of 2) SHINGRIX VACCINE (1 of 2) [facility] Start: 01-08-2015 Hemoglobin A1c/Hemoglobin.total in Blood HBA1C [facility] Start: 09-01-2012 COLOGUARD (FIT-DNA) COLOGUARD (FIT-D NA) [facility] Start: 09-01-2012 Colonoscopy COLONOSCOPY [facility] Start: 09-01-2012 COLORECTAL CANCER SCREENING COLORECTAL CANCER SCREENING [facility] Start: 09-01-[address] COLONOGRAPHY [facility] Start: 09-01-2012 FECAL OCCULT BLOOD FECAL OCCULT BLOO D [facility] Start: 09-01-2012 Screening for malign ant neoplasm of colon [facility] Start: 09-01-2012 SIGMOIDOSCOPY SIGMOIDOSCOPY [facility] Start: 2007 Mammography [facility] Start: 2007 Screening for malign ant neoplasm of breast Mammogram Screening [facility] Start: 09-01-1997 HPV TESTING HPV TESTING [facility] Start: 09-01-1997 Screening for malign ant neoplasm of cervix HPV Testing [facility] Start: 09-01-1988 PAP TESTING PAP TESTING [facility] Start: 09-01-1988 Screening for malign ant neoplasm of cervix [facility] Start: 09-01-1986 HEPATITIS A (1 of 2 - Risk 2-dose series) HEPATITIS A (1 of 2 - Risk 2-dose series) [facility] Start: 09-01-1986 Hepatitis A Vaccine (1 of 2 - Risk 2-dose series) Hepatitis A Vaccine (1 of 2 - Risk 2-dose series) [facility] Start: 09-01-1986 Urine microalbumin profile DTAP,TDAP,TD (1 - Tdap) [facility] Start: 09-01-1986 Urine screening for protein Diabetes: Urine Protein Screening [facility] Start: 09-01-1985 ANNUAL PCP TEAM RN BSN TEJAS DISEASE VISIT ANNUAL PCP TEAM CHRONIC DISEASE VISIT [facility] Start: 09-01-1985 Hepatitis B surface antibody level LDL CHOLESTEROL [facility] Start: 09-01-1985 HEPATITIS C SCREENING HEPATITIS C SC REENING [facility] Start: 09-01-1985 HIV SCREENING HIV SCREENING [facility] Start: 09-01-1985 HIV screening HIV Screening [facility] Start: 09-01-1985 MMR (1 of 2 - Risk 2-dose series) MMR (1 of 2 - Risk 2-dose series) [facility] Start: 09-01-1985 MMR Vaccine (1 of 2 - Risk 2-dose series) MMR Vaccine (1 of 2 - Risk 2-dose series) [facility] Start: 09-01-1977 3 comp foot exam completed DIABETIC FOOT EXAM [facility] Start: 09-01-1977 Diabetic foot examination Diabetic Foot Exam [facility] Start: 09-01-1977 Glaucoma screening Dilated Retinal E xam [facility] Start: 09-01-1977 Hepatitis B screening URINE ALBUMIN:CREATININE RATIO [facility] Start: 09-01-1977 Hepatitis C antibody , confirmatory test DILATED RETINAL EXAM [facility] Start: 09-01-1977 Meningococcal B Vacc ine: Consider Based On Risk (1 of 4 - Increased Risk) Meningococcal B Vaccine: Consider Based On Risk (1 of 4 - Increased Risk) [facility] Start: 09-01-1977 MENINGOCOCCAL B: Consider based on risk (1 of 4 - Increased Risk Bexsero 2-dose series) MENINGOCOCCAL B: Consider based on risk (1 of 4 - Increased Risk Bexsero 2-dose series) [facility] Start: 09-01-1977 MENINGOCOCCAL B: Consider based on risk (1 of 4 - Increased Risk) MENINGOCOCCAL B: Consider based on risk (1 of 4 - Increased Risk) [facility] Start: 09-01-1973 PNEUMOCOCCAL (1 - PCV) PNEUMOCOCCAL (1 - PCV) [facility] Start: 09-01-1973 Pneumococcal vaccination [facility] Start: 09-01-1968 HEPATITIS A (1 of 2 - Risk 2-dose series) HEPATITIS A (1 of 2 - Risk 2-dose series) [facility] Start: 1967 HEPATITIS B (1 of 3 - 3-dose series) HEPATITIS B (1 of 3 - 3-dose series) [facility] Start: 1967 Screening for malign ant neoplasm of colon [facility] Cobalamin (Vitamin B 12) [Mass/volume] in Serum or Plasma VITAMIN B12 BLOOD Lab Routine Iron deficiency anemia, unspecified iron deficiency anemia type Colitis 03/29/2022 1:33 PM [facility] Work Phone: Cobalamin (Vitamin B 12) [Mass/volume] in Serum or Plasma VITAMIN B12 BLOOD Lab Routine Iron deficiency anemia, unspecified iron deficiency anemia type 05/04/2022 3:21 PM [facility] Work Phone: Cobalamin (Vitamin B 12) [Mass/volume] in Serum or Plasma VITAMIN B12 BLOOD Lab Routine Secondary polycythemia Iron deficiency anemia, unspecified iron deficiency anemia type Other ulcerative colitis with rectal bleeding (HCC) Daytime somnolence Snoring 04/05/2023 11:02 AM [facility] Work Phone: Erythropoietin (EPO) [Units/volume] in Serum or Plasma ERYTHROPOIETIN/EPO Lab Routine Secondary polycythemia 04/05/2023 11:02 AM [facility] Work Phone: Ferritin [Mass/volum e] in Serum or Plasma FERRITIN BLD Lab Routine Iron deficiency anemia, unspecified iron deficiency anemia type Colitis 03/29/2022 1:33 PM [facility] Work Phone: Ferritin [Mass/volum e] in Serum or Plasma FERRITIN BLD Lab Routine Iron deficiency anemia, unspecified iron deficiency anemia type 05/04/2022 3:21 PM [facility] Work Phone: Ferritin [Mass/volum e] in Serum or Plasma FERRITIN BLD Lab Routine Secondary polycythemia Iron deficiency anemia, unspecified iron deficiency anemia type Other ulcerative colitis with rectal bleeding (HCC) Daytime somnolence Snoring 04/05/2023 11:02 AM [facility] Work Phone: Folate [Mass/volume] in Serum or Plasma FOLATE SERUM Lab Routine Iron deficiency anemia, unspecified iron deficiency anemia type Colitis 03/29/2022 1:33 PM [facility] Work Phone: Folate [Mass/volume] in Serum or Plasma FOLATE SERUM Lab Routine Iron deficiency anemia, unspecified iron deficiency anemia type 05/04/2022 3:21 PM [facility] Work Phone: Folate [Mass/volume] in Serum or Plasma FOLATE SERUM Lab Routine Secondary polycythemia Iron deficiency anemia, unspecified iron deficiency anemia type Other ulcerative colitis with rectal bleeding (HCC) Daytime somnolence Snoring 04/05/2023 11:02 AM [facility] Work Phone: Iron and Iron bindin g capacity panel - Serum or Plasma IRON + TIBC Lab Routine Iron deficiency anemia, unspecified iron deficiency anemia type Colitis 03/29/2022 1:33 PM [facility] Work Phone: Iron and Iron bindin g capacity panel - Serum or Plasma IRON + TIBC Lab Routine Iron deficiency anemia, unspecified iron deficiency anemia type 05/04/2022 3:21 PM [facility] Work Phone: Iron and Iron bindin g capacity panel - Serum or Plasma IRON + TIBC Lab Routine Secondary polycythemia Iron deficiency anemia, unspecified iron deficiency anemia type Other ulcerative colitis with rectal bleeding (HCC) Daytime somnolence Snoring 04/05/2023 11:02 AM EST [facility] Work Phone: [facility] Immunizations Immunization Date Immunization Notes Care Provider [facility] 02-01-2021 influenza, seasonal, injectable Don Boudreaux MD Work Phone: [facility] 02-01-2021 influenza virus vaccine, unspecified formulation Meghna Farah Jr., DO Work Phone: [facility] 02-06-2020 influenza virus vaccine, split virus (incl. purified surface antigen) Meghna Butler Other [employer] [facility] [employer] Other 05-21-2019 zoster vaccine recombinant Don Boudreaux MD Work Phone: [facility] 03-10-2019 zoster vaccine recombinant Don Boudreaux MD Work Phone: [facility] 07-08-2018 diphtheria, tetanus toxoids and acellular pertussis vaccine, unspecified formulation Meghna Butler Other [employer] Other 07-08-2018 tetanus toxoid, reduced diphtheria toxoid, and acellular pertussis vaccine, adsorbed Don Boudreaux MD Work Phone: [facility] 02-27-2018 influenza, injectabl e, quadrivalent, preservative free Don Boudreaux MD Work Phone: [facility] Payers Date Payer Category Payer Unknown [id number] 2022 Self-pay [id number] 2022 Unknown [employer] [id number] 2022-Present [phone] [address] [address] [place] [address] [id number]. [id number] 2021 Unknown [id number] 2.16.840.1.460377.19 2020 Private Health Insurance [id number] .[id number]. 2.7.3.415059.315 1967 Unknown [id number] 2.16.840.1.545570.3.579. 2.593 1967 Unknown [id number] 2.16.840.1.029090.3.579. 2.593 1967 Unknown [id number] 2.16.840.1.491620.3.579. 2.593 1967 Unknown [id number] 2.16.840.1.459780.3.579. 2.593 1967 Unknown [id number] 2.16.840.1.065625.3.579. 2.593 1967 Unknown [id number] 2.16.840.1.037085.3.579. 2.727 1967 Unknown [id number] 2.16.840.1.132196.3.579. 2.727 1967 Unknown [id number] 2.16.840.1.902038.3.579. 2.727 1967 Unknown [id number] 2.16.840.1.836542.3.579. 2.727 1967 Unknown [id number] 2.16.840.1.248497.3.579. 2. 1967 Unknown [id number] 2.16.840.1.207448.3.579. 2. 1967 Unknown [id number] 2.16.840.1.595291.3.579. 2. 1967 Unknown [id number] 2.16.840.1.943626.3.579. 2. 1967 Unknown [id number] 2.16.840.1.011298.3.579. 2. 1967 Unknown [id number] 2.16.840.1.283025.3.579. 2. 1967 Unknown [id number] 2.16.840.1.031211.3.579. 2.1258 1967 Unknown [id number] 2.16.840.1.232604.3.579. 2.1258 1967 Unknown [id number] 2.16.840.1.831384.3.579. 2.1258 1967 Unknown [id number] 2.16.840.1.534445.3.579. 2.1258 1967 Unknown [id number] 2.16.840.1.238180.3.579. 2.1259 1959 Unknown [id number] 2..840.1.440070.19 Unknown [place]/ [id number] Unknown [id number] 2.16.840.1.851762.19 Unknown [id number] 2.16.840.1.565711.3.579. 2.531 Unknown [id number] 2.16.840.1.638484.3.579. 2.531 Unknown [id number] 2.16.840.1.799786.3.579. 2.531 Unknown [id number] 2.16.840.1.924024.3.579. 2.531 Social History Date Type Detail Facility Start: 02-02-2013 End: 10-02-2022 Tobacco smoking status NHIS Never smoked tobacco [facility] Start: 02-02-2013 End: 10-02-2022 Tobacco use and exposure Smokeless tobacco non-user [facility] Start: 07-04-2017 End: 04-30-2023 Alcohol intake Current drinker of alcohol (finding) [facility] Start: 02-02-2013 Alcohol Comment rarely [facility] Start: 1965 Sex Assigned At Not on file [facility] Start: 05-29-2022 End: 09-25-2022 Sex Assigned At [facility] Start: 03-01-2022 End: 04-23-2023 Alcohol intake Ex-drinker (finding) [facility] Start: 02-20-2022 End: 03-27-2022 Exposure to SARS-CoV-2 (event) Not sure [facility] Start: 05-29-2022 End: 09-25-2022 History of Social function [facility] Adult Depression Screening Assessment 0 [facility] Start: 1965 Sex Assigned At Female F [facility] Within the last year , have you been afraid of your partner or ex-partner? No [facility] Are you now , , , , never or living with a partner? [facility] How often to you hav e a drink containing alcohol? Never [facility] Do you feel stress - tense, restless, nervous, or anxious, or unable to sleep at night because your mind is troubled all the time - these days [OSQ] Only a little [facility] (I/We) worried wheth er (my/our) food would run out before (I/we) got money to buy more. Never true [facility] Start: 04-30-2023 Alcohol Comment Drinks socially. [facility] Start: 09-25-2022 Gender identity Identifies as female gender (finding) [facility] Medical Equipment Procedure Code Equipment Code Equipment Origin al Text Equipment Identifier Dates Fsbs daily [id number] Start: 04-09-2023 Clinical Notes 02-27-2022 to 05-31-2023 [facility] - Traci Chandler, Art Therapist - 05/31/2023 3:10 PM ESTTelephone Encounter - Billie Kennedy RN - 04/05/2023 12:22 PM EST Note Date & Type Note Facility 05-31-2023 Miscellaneous Notes Formattin g of this note is different from the original. ART THERAPY NOTE SERVICE DATE: 05/31/2023 SERVICE TIME: 1:30 Referred By: self Reason for Referral: Introductory Session Type: Initial Time Spent (minutes): 30 Goals: Coping Through Diversion Interventions: Insight Oriented Response Before After Mood Anxiety Pain Scale: 0 = No pain/anxiety 10 = Worst possible pain/anxiety Response: Patient's Verbal Response: Positive Family Present: No Outcome: Goals: Met Follow Up: Will Follow Up as Able COMMENTS: Patient was introduced to art therapy services and given mandala sheets for mindfulness at home. Patient was finishing treatment but indicated interest at a follow up appointment. SIGNATURE: Traci Chandler Art Therapist PATIENT NAME: Ludivina Lomas DATE: May 31, 2023 TIME: 3:10 PM PAGER/CONTACT #: documented in this encounter [facility] 04-25-2023 Note HNO ID: [id number] Author: Don Boudreaux MD Service: ? Author Type: Physician Type: Progress Notes Filed: 04/26/2023 8:31 AM Note Text: NAME: Ludivina Lomas [facility] NO.: [id number] DATE OF SERVICE: April 25, 2023 (Sandra) Some elements in this clinic note that are critical to medical decision making have been carefully reviewed and included from a prior clinic note dated: December 14, 2022 (Sandra) Referring Provider: Art Chu Additional Clinicians involved in Ludivina Lomas's care: Art Chu DIAGNOSIS: 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 ASSESSMENT: 57 year old woman with a history of colitis and chronic GI blood loss. Improved after iron replacement. Sweats and alopecia are better. Sleep study was consistent with severe obstructive sleep apnea. PLAN: Get on CPAP therapy as prescribed. Try increasing losartan to 50 mg daily. Follow up with Dr. Chu RTC in 4 months. Labs 1 week ahead. HPI: CASE HISTORY: Reverse chronological disorder. 06/14/2022 - Hgb 15.2, Ferritin 40, iron sat 14.9% 05/11/2022 - CXR mild bronchial wall thickening ? bronchitis 05/09/2021 - Hgb 12.4, Ferritin 23. 11/2021 - C-Diff colitis. 11/2021 - started Moujarno - stopped due to intolerance 09/2021 persisting colitis following a round of diarrhea and emesis. 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 She has been doing well lately. We reviewed her labs, most everything is satisfactory other than some slightly elevated liver enzymes. Her mildly elevated RBC count is stable. She had her sleep study, dx with CARLOS and plan is to start on CPAP therapy in the new year. Reports experiencing more frequent hypertension, I suggested she increase her losartan dose. She is considering starting either Mounjaro or Ozempic for her DM and weight loss. Updated Visit, December 14, 2022: Sleep eval scheduled for 12/20/2022 - study is not scheduled yet. Otherwise is now polycythemic. Leg pain - left leg worse at night - sitting and standing - off and on since March - does not feel like a clot. Easily reproducible. Updated Visit, June 21, 2022: Mounjaro - caused her to be sick so she is still frustrated with weight gain. Needs sleep study. Significant daytime somnolence. Witnessed snoring. Hgb is much improved but may be concerning for secondary polycytemia associated with possible CARLOS. Updated Visit, May 10, 2022: Anemia improved after getting iron infusion x 5 total since March 14, 2022 Continues to have an irritating bronchial cough with mild phlegm but now is hoarse. Hair is falling out but will monitor. Now is having sweats for unclear etiolgy - again will monitor. Initial Visit, March 02, 2022: Ludivina Lomas presents today Hematology and Oncology evaluation. She is a 56 year old female who has a long history of colitis and GI blood loss. She's not able t tolerate oral iron. Feels exhausted and is very frustrated with the bleeding. Mesalamine is often in the stools. REVIEW OF SYSTEMS Per HPI and otherwise negative by full review of organ systems. ECOG PERFORMANCE STATUS: 0 PHYSICAL EXAMINATION: Vitals: BP 174/102 Pulse 83 Temp (Src) 97.7 (Temporal) Resp 18 Ht 5' 2.992 (1.60m) Wt 213 lb 3 oz (96.7kg) SpO2 100% BMI 37.77 kg/(m2). Body surface area is 2.07 meters squared. Exam limited to gross visualization where appropriate. Gen.: This is an age-appropriate patient in no acute distress. Head: Appears atraumatic with no visible lesions. Eyes: Pupils equally round and reactive to light, extraocular muscles are intact. Neck: Supple. Respiratory: Appears to be respiring comfortably. Neurologic: Nonfocal to gross visualization. Alert and oriented ?3. Psychiatric: No evidence of inappropriate anxiety or depression. Skin: Visible areas of skin without rash, lesions, wounds or petechiae. ALLERGIES: ALLERGIES No Known Allergies MEDICATIONS: vedolizumab (ENTYVIO) 300 mg injection Inject 300 mg intravenously every 8 weeks. Repeating every 8 weeks solifenacin 10 mg tablet Take 10 mg by mouth once daily. losartan (COZAAR) 25 mg tablet Take 25 mg by mouth once daily. LABORATORY VALUES: WBC (k/uL) Date Value 04/05/2023 6.32 RBC (m/uL) Date Value 04/05/2023 5.44 (H) Hemoglobin (g/dL) Date Value 04/05/2023 16.2 (H) Hematocrit (%) Date Value 04/05/2023 (more content not included)... [facility] 04-05-2023 Miscellaneous Notes Formattin g of this note might be different from the original. Patient in for treatment of Entyvio at the [facility]. After treatment BP elevated. 181/102 then manually 170/118. Patient asked to call her PCP to notify of elevated BP. Called while in the treatment room and notified nurse who planned to notifiy PCP and call her back. Patient asymptomatic and informed to go straight to ED with any symptoms. Patient verbalized understanding. Billie Kennedy RN documented in this encounter [facility] 03-07-2023 Evaluation note Encounter Date Diagnosis Assessment Notes Feb, Venous insufficiency (ICD-10 - I87.2) Patient's bilateral full functional venous duplex results showed severe venous valvular reflux in the right greater saphenous vein of greater than 5 seconds which resulted in massive dilation of the greater saphenous vein to 11 mm. This also gives rise to extensive secondary varicosities. There is no venous valvular incompetence noted on the left although there are presence of scattered secondary varicosities and telangiectasia which are symptomatic with achiness, burning and itching. For this patient I would recommend VenaSeal closure of the right greater saphenous vein followed by sclerotherapy for the secondary varicosities and symptomatic telangiectasia. This should be done in a staged fashion starting with the right greater saphenous VenaSeal procedure. Procedure, risk, benefits were discussed with her at length and all questions were addressed. She understands the chronic and progressive nature of venous disease and the ongoing importance of her conservative therapy efforts with use of graded compression stockings, leg elevation, good skin care moisturizer therapy, weight management, and frequent activity. We will submit for insurance approval of the right greater saphenous vein closure and get her on the schedule in the near future. Feb, Symptomatic varicose veins of both lower extremities (ICD-10 - I83.893) Feb, Telangiectasia (ICD-10 - I78.1) [employer] Other [id number] Miscellaneous Notes* Telephone Encounter - Billie Andrade RN - 03/04/2023 3:13 PM EST Thank you Billie Andrade RN * Telephone Encounter - Shilpi Medeiros MA - 03/01/2023 10:42 AM EDT Fax received and scanned into patients chart. Shilpi Medeiros MA * Telephone Encounter - Jing Haque - 02/28/2023 4:10 PM EDT Insurance calling. [facility] has been authorized. They will be faxing information stating this to [phone]. Insurance states prescription will need to be sent to [facility] to get processed. Their phone is [phone] Their fax is [phone] [facility] Miscellaneous Notes* Telephone Encounter - Michaela Mendoza RPh - 03/01/2023 10:24 AM EDT Ludivina's Entyvio must now come from [facility]. Script pending for your review. Thank you Timothy Mendoza, PharmD, BCOP [facility] Evaluation note* Encounter Date Diagnosis Assessment Notes Treatment Notes Treatment Clinical Notes Jan, Symptomatic varicose veins of both lower extremities (ICD-10 - I83.893) This patient suffers from symptomatic varicose veins. She reports pain and achiness mostly to the left lateral calf region and an area of bulging varicosities and telangiectasia. She has struggled with the symptoms for over 6 months now. She has tried use of graded compression stockings and elevates her legs with mild relief in symptoms. We discussed venous disease at length and all of her questions were addressed. We will start by obtaining a full functional venous duplex to evaluate for any venous valvular incompetence and bring her back to discuss those results as well as any treatment recommendations based on those studies. She understands the chronic and progressive nature of venous disease and the ongoing importance of conservative therapy efforts with use of graded compression stockings, leg elevation, good skin care moisturizer therapy, weight management, and frequent activity. Jan, Pain in lateral left lower extremity (ICD-10 - M79.605) Jan, Telangiectasia (ICD-10 - I78.1) [employer] [facility] 10-10-2023 Evaluation note* Encounter Date Diagnosis Assessment Notes Treatment Notes Treatment Clinical Notes Jan, Varicose veins of left leg with edema (ICD-10 - I83.892) [employer] [facility] [facility] 09-22-2023 Miscellaneous Notes* Telephone Encounter - Britany Ham LPN - 01/18/2023 12:36 PM EDT I did fax over documentation, office note, lab results, pathology results and procedure notes to [employer] at [phone]. I did receive confirmation that the fax did go through. Britany Ham LPN * Telephone Encounter - Billie Andrade RN - 01/18/2023 11:[address] Farah, Jacklyn, 's insurance provider is requesting updated colonoscopy results or Martinez scoring. Last colonoscopy was 2014. Would you be agreeable to doing the updated procedure? Please review and advise. Thank you Billie Andrade RN * Telephone Encounter - Billie Andrade RN - 01/18/2023 11:33 AM EDT 10/09/22 letter in Epic under scanned documents 08/23/22 scanned documents 05/15/22 scanned document 08/28/22 office visit notes Britany, can you please print the above documents and fax to Member number [id number] is the insurance company. Please keep [facility] contact info on the cover sheet so there is no mix up going to Dr. Farah's old office. Thank you. Billie Andrade RN documented [facility] Evaluation note* Encounter Date Diagnosis Assessment Notes Treatment Notes Treatment Clinical Notes Dec, Sleep apnea (ICD-10 - G47.30) She does have very loud snoring, elevated BMI, family history of sleep apnea, and thick neck; these all do suggest the diagnosis of sleep apnea. Her elevated hemoglobin level could be caused by nocturnal hypoxia associated with apneas. I reviewed the diagnosis and its implications and she does express good understanding. We also extensively discussed treatment options. As she is concerned about her ability to tolerate positive airway pressure treatment, her questions about [facility] were answered. (However she would need to bring her body weight down to qualify for that and would at least need a trial on CPAP.) She reports that her support analyst did want her to have polysomnography, and we will try to get that unless her insurance requires HST. Anticipate return for 31 to 90-day visit Dec, BMI 36.0-36.9,adult (ICD-10 - Z68.36) Weight reduction would be broadly beneficial for overall health, but would also have direct benefits on apnea severity and sleep quality. Even moderate weight reduction can affect CARLOS and snoring, and in some patients weight reduction can completely resolve sleep apnea Dec, Polycythemia (ICD-10 - D75.1) Nocturnal hypoxia is a common side effect of sleep apnea particularly if obesity hypoventilation complicates the picture. Patient with chronic nocturnal hypoxia may develop polycythemia Dec, Essential (primary) hypertension (ICD-10 - I10) Control of sleep apnea will frequently have a positive effect on blood pressure control, and may additionally reduce blood pressure lability. Dec, Gastro-esophageal reflux disease without esophagitis (ICD-10 - K21.9) Nocturnal reflux is common with sleep apnea, as negative intrathoracic pressures during apnea can result in inadvertant esophageal reflux. Many times these issues will improve substantially once apneas are controlled Dec, Type 2 diabetes mellitus with hyperglycemia (ICD-10 - E11.65) Dec, Ulcerative colitis without complications, unspecified location (ICD-10 - K51.90) This does not actively interfere with her sleepiness or sleep quality Dec, Iron deficiency anemia, unspecified (ICD-10 - D50.9) She does not present with restless leg symptoms. Her most recent laboratories show the iron deficiency had resolved Dec, Other The diagnosis o f Sleep Apnea was reviewed in detail, and handout materials were provided. The patient expresses good understanding, We also reviewed the medical and accident risks associated with sleep apnea and excessive fatigue. The patient is advised to adhere to a proper sleep hygiene schedule and to assure adequate total sleep time; The patient was advised to continue efforts at progressive weight loss, including decreased overall caloric intake quantity and better food choices.The patient was advised to call or return any difficulties arise, including changes in symptoms and/or problems with treatment [employer] Other 08-18-2023 NoteHNO ID: [id number] Author: Don Boudreaux MD Service: ? Author Type: Physician Type: Progress Notes Filed: 12/14/2022 2:06 PM Note Text: NAME: Ludivina Lomas CLINIC NO.: [id number] DATE OF SERVICE: December 14, 2022 (Sandra) Some elements in this clinic note that are critical to medical decision making have been carefully reviewed and included from a prior clinic note dated: June 21, 2022 (Sandra) Referring Provider: Art Chu Additional Clinicians involved in Ludivina Lomas's care: Art Chu DIAGNOSIS: 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 ASSESSMENT: 57 year old woman with a history of colitis and chronic gi blood loss. Improved after iron replacement. Sweats and alopecia are better. Needs sleep evaluation PLAN: RTC in 4 months. Labs 1 week ahead. HPI: CASE HISTORY: Reverse chronological disorder. 06/14/2022 - Hgb 15.2, Ferritin 40, iron sat 14.9% 05/11/2022 - CXR mild bronchial wall thickening ? bronchitis 05/09/2021 - Hgb 12.4, Ferritin 23. 11/2021 - C-Diff colitis. 11/2021 - started Moujarno - stopped due to intolerance September 2021 persisting colitis following a round of diarrhea and emesis. 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 Otherwise is now polycythemic. Leg pain - left leg worse at night - sitting and standing - off and on since March - does not feel like a clot. Easily reproducible. Updated Visit, June 21, 2022: Mounjaro - caused her to be sick so she is still frustrated with weight gain. Needs sleep study. Significant daytime somnolence. Witnessed snoring. Hgb is much improved but may be concerning for secondary polycytemia associated with possible CARLOS. Updated Visit, May 10, 2022: Anemia improved after getting iron infusion x 5 total since March 14, 2022 Continues to have an irritating bronchial cough with mild phlegm but now is hoarse. Hair is falling out but will monitor. Now is having sweats for unclear etiolgy - again will monitor. Initial Visit, March 02, 2022: Ludivina Lomas presents today Hematology and Oncology evaluation. She is a 56 year old female who has a long history of colitis and GI blood loss. She's not able t tolerate oral iron. Feels exhausted and is very frustrated with the bleeding. Mesalamine is often in the stools. REVIEW OF SYSTEMS Per HPI and otherwise negative by full review of organ systems. ECOG PERFORMANCE STATUS: 0 PHYSICAL EXAMINATION: Vitals: BP 142/100 Pulse 93 Temp (Src) 97.6 (Temporal) Resp 16 Ht 5' 3 (1.60m) Wt 209 lb 9.6 oz (95.1kg) SpO2 97% BMI 37.14 kg/(m2). Body surface area is 2.06 meters squared. Exam limited to gross visualization where appropriate. Gen.: This is an age-appropriate patient in no acute distress. Head: Appears atraumatic with no visible lesions. Eyes: Pupils equally round and reactive to light, extraocular muscles are intact. Neck: Supple. Respiratory: Appears to be respiring comfortably. Neurologic: Nonfocal to gross visualization. Alert and oriented ?3. Psychiatric: No evidence of inappropriate anxiety or depression. Skin: Visible areas of skin without rash, lesions, wounds or petechiae. ALLERGIES: ALLERGIES No Known Allergies MEDICATIONS: solifenacin 10 mg tablet Take 10 mg by mouth once daily. vedolizumab (ENTYVIO) 300 mg injection Inject 300 mg intravenously one time only for 1 dose. losartan (COZAAR) 25 mg tablet Take 25 mg by mouth once daily. LABORATORY VALUES: WBC (k/uL) Date Value 12/06/2022 5.78 RBC (m/uL) Date Value 12/06/2022 5.33 (H) Hemoglobin (g/dL) Date Value 12/06/2022 16.2 (H) Hematocrit (%) Date Value 12/06/2022 47.7 (H) MCV (fL) Date Value 12/06/2022 89.5 MCH (pg) Date Value 12/06/2022 30.4 MCHC (g/dL) Date Value 12/06/2022 34.0 RDW-CV (%) Date Value 12/06/2022 13.3 Platelet Count (k/uL) Date Value 12/06/2022 182 MPV (fL) Date Value 12/06/2022 8.8 (L) Glucose (mg/dL) Date Value 12/06/2022 161 (H) BUN (mg/dL) Date Value 12/06/2022 11 Creatinine (mg/dL) Date Value 12/06/2022 0.73 Sodium (mmol/L) Date Value 12/06/2022 143 Potassium (mmol/L) Date Value 12/06/2022 4.7 Chloride (mmol/L) Date Value 12/06/2022 106 (H) CO2 (mmol/L) Date Value 12/06/2022 28 Protein, Total (g/dL) Date Value 12/06/2022 6.7 Albumin (g/dL) (more content not included)...[facility] 12-14-2022 Instructions* Patient Instructions* Don Boudreaux MD - 12/14/2022 2:05 PM EDT RTC in 4 months. Labs 1 week ahead. documented in [facility] encounterC[facility] History of Present illness Narrative* Don Boudreaux MD - 12/14/2022 1:45 PM EDT Images from the original note were not included. NAME: Ludivina Lomas [facility] NO.: [id number] DATE OF SERVICE: December 14, 2022 (Sandra) Some elements in this clinic note that are critical to medical decision making have been carefully reviewed and included from a prior clinic note dated: June 21, 2022 (Sandra) Referring Provider: Art Chu Additional Clinicians involved in Ludivina Lomas's care: Art Chu DIAGNOSIS: 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 ASSESSMENT: 57 year old woman with a history of colitis and chronic gi blood loss. Improved after iron replacement. Sweats and alopecia are better. Needs sleep evaluation PLAN: RTC in 4 months. Labs 1 week ahead. HPI: CASE HISTORY: Reverse chronological disorder. 06/14/2022 - Hgb 15.2, Ferritin 40, iron sat 14.9% 05/11/2022 - CXR mild bronchial wall thickening ? bronchitis 05/09/2021 - Hgb 12.4, Ferritin 23. 11/2021 - C-Diff colitis. 11/2021 - started Moujarno - stopped due to intolerance September 2021 persisting colitis following a round of diarrhea and emesis. 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 Otherwise is now polycythemic. Leg pain - left leg worse at night - sitting and standing - off and on since March - does not feel like a clot. Easily reproducible. Updated Visit, June 21, 2022: Mounjaro - caused her to be sick so she is still frustrated with weight gain. Needs sleep study. Significant daytime somnolence. Witnessed snoring. Hgb is much improved but may be concerning for secondary polycytemia associated with possible CARLOS. Updated Visit, May 10, 2022: Anemia improved after getting iron infusion x 5 total since March 14, 2022 Continues to have an irritating bronchial cough with mild phlegm but now is hoarse. Hair is falling out but will monitor. Now is having sweats for unclear etiolgy - again will monitor. Initial Visit, March 02, 2022: Ludivina Lomas presents today Hematology and Oncology evaluation. She is a 56 year old female who has a long history of colitis and GI blood loss. She's not able t tolerate oral iron. Feels exhausted and is very frustrated with the bleeding. Mesalamine is often in the stools. REVIEW OF SYSTEMS Per HPI and otherwise negative by full review of organ systems. ECOG PERFORMANCE STATUS: 0 PHYSICAL EXAMINATION: Vitals: BP 142/100 Pulse 93 Temp (Src) 97.6 (Temporal) Resp 16 Ht 5' 3 (1.60m) Wt 209 lb9.6 oz (95.1kg) SpO2 97% BMI 37.14 kg/(m^2). Body surface area is 2.06 meters squared. Exam limited to gross visualization where appropriate. Gen.: This is an age-appropriate patient in no acute distress. Head: Appears atraumatic with no visible lesions. Eyes: Pupils equally round and reactive to light, extraocular muscles are intact. Neck: Supple. Respiratory: Appears to be respiring comfortably. Neurologic: Nonfocal to gross visualization. Alert and oriented 3. Psychiatric: No evidence of inappropriate anxiety or depression. Skin: Visible areas of skin without rash, lesions, wounds or petechiae. ALLERGIES: ALLERGIES No Known Allergies MEDICATIONS: solifenacin 10 mg tablet Take 10 mg by mouth once daily. vedolizumab (ENTYVIO) 300 mg injection Inject 300 mg intravenously one time only for 1 dose. losartan (COZAAR) 25 mg tablet Take 25 mg by mouth once daily. LABORATORY VALUES: WBC (k/uL) Date Value 12/06/2022 5.78 RBC (m/uL) Date Value 12/06/2022 5.33 (H) Hemoglobin (g/dL) Date Value 12/06/2022 16.2 (H) Hematocrit (%) Date Value 12/06/2022 47.7 (H) MCV (fL) Date Value 12/06/2022 89.5 MCH (pg) Date Value 12/06/2022 30.4 MCHC (g/dL) Date Value 12/06/2022 34.0 RDW-CV (%) Date Value 12/06/2022 13.3 Platelet Count (k/uL) Date Value 12/06/2022 182 MPV (fL) Date Value 12/06/2022 8.8 (L) Glucose (mg/dL) Date Value 12/06/2022 161 (H) BUN (mg/dL) Date Value 12/06/2022 11 Creatinine (mg/dL) Date Value 12/06/2022 0.73 Sodium (mmol/L) Date Value 12/06/2022 143 Potassium (mmol/L) Date Value 12/06/2022 4.7 Chloride (mmol/L) Date Value 12/06/2022 106 (H) CO2 (mmol/L) Date Value 12/06/2022 28 Protein, Total (g/dL) Date Value 12/06/2022 6.7 Albumin (g/dL) Date Value 12/06/2022 4.4 Calcium, Total (mg/dL) Date Value 12/06/2022 9.9 Alkaline Phosphatase (U/L) Date Value 12/06/2022 115 Bilirubin, Total (mg/dL) Date Value 12/06/2022 0.6 AST (U/L) Date Value 12/06/2022 23 ALT (U/L) Date Value 12/06/2022 44 (H) DIAGNOSIS: (D75.1) Secondary polycythemia (primary encounter diagnosis) Plan: CBC + DIFF, COMP METABOLIC PANEL, IRON + TIBC, FERRITIN BLD, VITAMIN B12 BLOOD, FOLATE SERUM, ERYTHROPOIETIN/EPO (D50.9) Iron deficiency anemia, unspecified iron deficiency anemia type Plan: CBC + DIFF, COMP METABOLIC PANEL, IRON + TIBC, FERRITIN BLD, VITAMIN B12 BLOOD, FOLATE SERUM (K51.811) Other ulcerative colitis with rectal bleeding (HCC) Plan: CBC + DIFF, COMP METABOLIC PANEL, IRON + TIBC, FERRITIN BLD, VITAMIN B12 BLOOD, FOLATE SERUM (R40.0) Daytime somnolence Plan: CBC + DIFF, COMP METABOLIC PANEL, IRON + TIBC, FERRITIN BLD, VITAMIN B12 BLOOD, FOLATE SERUM (R06.83) Snoring Plan: CBC + DIFF, COMP METABOLIC PANEL, IRON + TIBC, FERRITIN BLD, VITAMIN B12 BLOOD, FOLATE SERUM PAST MEDICAL HISTORY Diagnosis Date Anemia Diarrheal disease Elevated LFTs GERD (gastroesophageal reflux disease) Hyperglycemia Hypertension Iron deficiency anemia 03/04/2022 Overactive bladder Skin tags, multiple acquired Ulcerative colitis (HCC) PAST SURGICAL HISTORY Procedure Laterality Date PAST SURGICAL HISTORY OF right ovary removed TUBAL LIGATION, VAGINAL HYSTERECTOMY 2015 Social History Tobacco Use Smoking status: Never Smokeless tobacco: Never Vaping Use Vaping Use: Never used Substance Use Topics Alcohol use: Not Currently Comment: rarely Drug use: Never FAMILY HISTORY Problem Relation Age of Onset Diabetes Mother Heart disease Mother Hypertension Mother Liver Cancer Mother Coronary Artery Disease Father Diabetes Maternal Grandmother Diabetes Maternal Grandfather Colon Cancer Maternal Grandfather Colon Cancer Maternal Aunt I spent a total of 30 minutes on the date of the service which included preparing to see the patient, [id number] patient care, completing clinical documentation, performing a medically appropriate examination, ordering medications, tests, or procedures, and independently interpreting results (not separately reported). Don Boudreaux MD, CPE Hematology and Oncology Services Provided at: [place], [place] CC: Art Chu MD [address] [place] [id number] documented in this encounterC[facility]07-03-2023 Miscellaneous Notes* Telephone Encounter - Surjit Whites - 10/29/2022 3:52 PM EDT [facility] PAPERWORK SIGNED. FAXED TO [facility] @ . PLACED IN SCANNING. Surjit Mehta * Telephone Encounter - Afia Elizabeth - 10/18/2022 10:53 AM EDT [facility] paperwork completed and placed in folder to be signed. Afai Elizabeth documented in this encounterC[facility]06-14-2023 Miscellaneous Notes* Telephone Encounter - Claire Sky RPh - 10/10/2022 2:52 PM EDT Entyvio rx clarified: 300 mg IV every 8 weeks. Claire Sky RPh * Telephone Encounter - Gege Madsen - 10/10/2022 2:19 PM EDT Tala Degroot requesting frequency and additional refills once frequency is clarified. [phone] Patient has been identified by name and birthdate. Duration of symptoms: N/A Was an appointment scheduled: No Closing statement: Results or non-symptom based questions: Thank you for calling [facility], your call will be returned within the next business day. Thanks, Gege Madsen *Note: Please do not re-route phone encounters back to this agent, please send to appropriate office pool. Agent works in operations center and cannot complete patient specific tasks documented in this encounterCleveland Clinic [facility]05-02-2023 NoteHNO ID: [id number] Author: Meghna Farah Jr., DO Service: ? Author Type: Physician Type: Progress Notes Filed: 08/28/2022 2:42 PM Note Text: Patient presents with: F/U 3 Month HPI: Ludivina Lomas, 56 year old female, presents in the office today for follow up of left sided ulcerative colitis. Diagnosed with ulcerative colitis in the . Controlled with mesalamine for a number of years but over the past few years she has recurrent bleeding and diarrhea requiring several courses of prednisone. Her symptoms increased undergoing a colonoscopy in November [address] Hernandez showing severe left sided ulcerative colitis. Despite prednisone and Apriso, she has never become controlled. Entyvio started and symptoms have remain controlled and disease in remission. Some insurance issues but so far Entyvio approved and remains controlled. Family history of colon cancer (grandmother and Aunt). Last CT scan was November 2021. Past GI workup Last Entyvio infusion was 08/24/22 per [facility] covering this infusion. Will need to reach out again to [employer] who handles pt's prior authorizations. An appeal was faxed to the insurance with no noted response. Will call again Saturday for update 03/27/22 Last OV notes as follows: 56 y/o female with severe left sided ulcerative colitis with rectal bleeding. Her symptoms are severe and even develop iron deficiency anemia. She requires more aggressive therapy. Discussed options including biologics and immunomodulators. After discussion we have elected to pursue biologic therapies. Start workup, currently plan Left sided ulcerative colitis with rectal bleeding - CBC + DIFF - COMP METABOLIC PANEL - HEP ACUTE PANEL/RNA - BLOOD TB SCREEN - PREDNISONE 10 MG TABLET 2. Iron deficiency anemia, unspecified iron deficiency anemia type - - Continue followup with hematology for iron infusions 12/18 colonoscopy: severe left sided ulcerative colitis 12/03/14 EGD/colonoscopy were done per Dr. Hernandez for ROSALINDA and h/o UC: Raised antral ulcers were found, duodenal biopsies were taken Random colon bx taken Internal hemorrhoids were found Biopsies as follows: (-) random biopsies of colon (-) stomach and duodenal biopsies also Last labs as follows: Component Latest Ref Rng AND Units 03/02/2022 03/27/2022 03/29/2022 04/13/2022 05/04/2022 06/14/2022 WBC 3.70 - 11.00 k/uL 6.75 6.13 5.47 8.99 7.83 9.10 RBC 3.90 - 5.20 m/uL 4.70 4.90 4.82 4.77 5.18 5.47 (H) Hemoglobin 11.5 - 15.5 g/dL 11.9 12.6 12.3 12.6 14.0 15.2 Hematocrit 36.0 - 46.0 % 38.7 40.5 39.8 40.1 43.9 46.6 (H) MCV 80.0 - 100.0 fL 82.3 82.7 82.6 84.1 84.7 85.2 MCH 26.0 - 34.0 pg 25.3 (L) 25.7 (L) 25.5 (L) 26.4 27.0 27.8 MCHC 30.5 - 36.0 g/dL 30.7 31.1 30.9 31.4 31.9 32.6 RDW-CV 11.5 - 15.0 % 15.5 (H) 16.1 (H) 16.0 (H) 17.5 (H) 18.6 (H) 16.6 (H) Platelet Count 150 - 400 k/uL 311 270 275 214 262 237 MPV 9.0 - 12.7 fL 8.8 (L) 8.7 (L) 8.6 (L) 8.5 (L) 8.6 (L) 8.6 (L) Neut% % 67.9 50.3 79.9 70.7 75.4 68.3 Abs Neut (ANC) 1.45 - 7.50 k/uL 4.58 3.08 4.37 6.35 5.90 6.21 Lymph% % 16.9 31.3 12.1 17.6 13.4 20.3 Abs Lymph 1.00 - 4.00 k/uL 1.14 1.92 0.66 (L) 1.58 1.05 1.85 Edmunds% % 14.2 12.2 6.9 8.9 9.7 8.9 Abs Edmunds <0.87 k/uL 0.96 (H) 0.75 0.38 0.80 0.76 0.81 Eosin% % 0.1 5.1 0.2 2.0 0.1 1.4 Abs Eosin <0.46 k/uL <0.03 0.31 <0.03 0.18 <0.03 0.13 Baso% % 0.6 0.8 0.5 0.4 0.5 0.7 Abs Baso <0.11 k/uL 0.04 0.05 0.03 0.04 0.04 0.06 Immature Gran % % 0.3 0.3 0.4 0.4 0.9 0.4 IMMATURE GRANS (ABS) <0.10 k/uL <0.03 <0.03 <0.03 0.04 0.07 0.04 NRBC /100 WBC 0.0 0.0 0.0 0.0 0.0 0.0 Absolute nRBC <0.01 k/uL <0.01 <0.01 <0.01 <0.01 <0.01 <0.01 DTYPE Auto Auto Auto Auto Auto Auto Protein, Total 6.3 - 8.0 g/dL 7.0 7.1 6.8 6.4 7.0 Albumin 3.9 - 4.9 g/dL 4.2 4.2 4.1 4.2 4.4 Calcium 8.5 - 10.2 mg/dL 9.8 9.8 9.3 9.6 9.8 Bilirubin, Total 0.2 - 1.3 mg/dL 0.3 0.3 0.3 0.2 0.4 Alkaline Phosphatase 34 - 123 U/L 80 90 90 72 99 AST 13 - 35 U/L 23 20 20 20 18 ALT 7 - 38 U/L 30 20 22 43 (H) 26 Glucose 74 - 99 mg/dL 113 (H) 132 (H) 253 (H) 175 (H) 100 (H) BUN 7 - 21 mg/dL 20 17 22 (H) 18 21 Creatinine 0.58 - 0.96 mg/dL 0.61 0.65 0.51 (L) 0.52 (L) 0.63 Sodium 136 - 144 mmol/L 140 141 139 138 140 Potassium 3.7 - 5.1 mmol/L 3.9 4.4 4.1 4.1 4.5 Chloride 97 - 105 mmol/L 103 103 104 106 (H) 104 CO2 22 - 30 mmol/L 28 28 24 26 28 Anion Gap 9 - 18 mmol/L 9 10 11 6 (L) 8 (L) eGFR >=60 mL/min/1.73mA? 106 105 111 111 106 Iron 41 - 186 ug/dL 22 (L) 26 (L) 45 58 TIBC 232 - 386 ug/dL 380 379 299 389 (H) Transferrin Saturation 15.0 - 57.0 % 5.8 (L) 6.9 (L) 15.1 14.9 (L) Ferritin 14.7 - 205.1 ng/mL 24.6 60.2 204.0 40.0 Vitamin B12 232 - 1,245 pg/mL 614 565 581 421 Folate >4.7 ng/mL 15.6 >20.0 15.7 17.7 PAST MEDICAL HISTORY Diagnosis Date Anemia Diarrheal disease Elevated LFTs GERD (gastroesophageal reflux disease) Hyperglycemia Hypertension Iron deficiency anemia 03/04/2022 Overactive bladder Skin tags, multi (more content not included)...[facility] 08-28-[facility] Instructions* Patient Instructions* Meghna Farah Jr., DO - 08/28/2022 2:33 PM EDT Maintain Entyvio documented in this encounterC[facility]05-02-2023 History of Present illness Narrative* Meghna Farah Jr., DO - 08/28/2022 2:30 PM EDT Patient presents with: F/U 3 Month HPI: Ludivina Lomas, 56 year old female, presents in the office today for follow up of left sided ulcerative colitis. Diagnosed with ulcerative colitis in the . Controlled with mesalamine for anumber of years but over the past few years she has recurrent bleeding and diarrhea requiring several courses of prednisone. Her symptoms increased undergoing a colonoscopy in [place] [address] Hernandez showing severe left sided ulcerative colitis. Despite prednisone and Apriso, she has never become controlled. Entyvio started and symptoms have remain controlled and disease in remission. Some insurance issues but so far Entyvio approved and remains controlled. Family history of colon cancer (grand mother and Aunt). Last CT scan was November 2021. Past GI workup Last Entyvio infusion was 08/24/22 per [facility] covering this infusion. Will need to reach out again to [employer] who handles pt's prior authorizations. An appeal was faxed to the insurance with no noted response. Will call again Saturday for update 03/27/22 Last OV notes as follows: 56 y/o female with severe left sided ulcerative colitis with rectal bleeding. Her symptoms are severe and even develop iron deficiency anemia. She requires more aggressive therapy. Discussed options including biologics and immunomodulators. After discussion we have elected to pursue biologic therapies. Start workup, currently plan Left sided ulcerative colitis with rectal bleeding - CBC + DIFF - COMP METABOLIC PANEL - HEP ACUTE PANEL/RNA - BLOOD TB SCREEN - PREDNISONE 10 MG TABLET 2. Iron deficiency anemia, unspecified iron deficiency anemia type - - Continue followup with hematology for iron infusions 12/18 colonoscopy: severe left sided ulcerative colitis 12/03/14 EGD/colonoscopy were done per Dr. Hernandez for ROSALINDA and h/o UC: Raised antral ulcers were found, duodenal biopsies were taken Random colon bx taken Internal hemorrhoids were found Biopsies as follows: (-) random biopsies of colon (-) stomach and duodenal biopsies also Last labs as follows: Component Latest Ref Rng & Units 03/02/2022 03/27/2022 03/29/2022 04/13/2022 05/04/2022 06/14/2022 WBC 3.70 - 11.00 k/uL 6.75 6.13 5.47 8.99 7.83 9.10 RBC 3.90 - 5.20 m/uL 4.70 4.90 4.82 4.77 5.18 5.47 (H) Hemoglobin 11.5 - 15.5 g/dL 11.9 12.6 12.3 12.6 14.0 15.2 Hematocrit 36.0 - 46.0 % 38.7 40.5 39.8 40.1 43.9 46.6 (H) MCV 80.0 - 100.0 fL 82.3 82.7 82.6 84.1 84.7 85.2 MCH 26.0 - 34.0 pg 25.3 (L) 25.7 (L) 25.5 (L) 26.4 27.0 27.8 MCHC 30.5 - 36.0 g/dL 30.7 31.1 30.9 31.4 31.9 32.6 RDW-CV 11.5 - 15.0 % 15.5 (H) 16.1 (H) 16.0 (H) 17.5 (H) 18.6 (H) 16.6 (H) Platelet Count 150 - 400 k/uL 311 270 275 214 262 237 MPV 9.0 - 12.7 fL 8.8 (L) 8.7 (L) 8.6 (L) 8.5 (L) 8.6 (L) 8.6 (L) Neut% % 67.9 50.3 79.9 70.7 75.4 68.3 Abs Neut (ANC) 1.45 - 7.50 k/uL 4.58 3.08 4.37 6.35 5.90 6.21 Lymph% % 16.9 31.3 12.1 17.6 13.4 20.3 Abs Lymph 1.00 - 4.00 k/uL 1.14 1.92 0.66 (L) 1.58 1.05 1.85 Edmunds% % 14.2 12.2 6.9 8.9 9.7 8.9 Abs Edmunds <0.87 k/uL 0.96 (H) 0.75 0.38 0.80 0.76 0.81 Eosin% % 0.1 5.1 0.2 2.0 0.1 1.4 Abs Eosin <0.46 k/uL <0.03 0.31 <0.03 0.18 <0.03 0.13 Baso% % 0.6 0.8 0.5 0.4 0.5 0.7 Abs Baso <0.11 k/uL 0.04 0.05 0.03 0.04 0.04 0.06 Immature Gran % % 0.3 0.3 0.4 0.4 0.9 0.4 IMMATURE GRANS (ABS) <0.10 k/uL <0.03 <0.03 <0.03 0.04 0.07 0.04 NRBC /100 WBC 0.0 0.0 0.0 0.0 0.0 0.0 Absolute nRBC <0.01 k/uL <0.01 <0.01 <0.01 <0.01 <0.01 <0.01 DTYPE Auto Auto Auto Auto Auto Auto Protein, Total 6.3 - 8.0 g/dL 7.0 7.1 6.8 6.4 7.0 Albumin 3.9 - 4.9 g/dL 4.2 4.2 4.1 4.2 4.4 Calcium 8.5 - 10.2 mg/dL 9.8 9.8 9.3 9.6 9.8 Bilirubin, Total 0.2 - 1.3 mg/dL 0.3 0.3 0.3 0.2 0.4 Alkaline Phosphatase 34 - 123 U/L 80 90 90 72 99 AST 13 - 35 U/L 23 20 20 20 18 ALT 7 - 38 U/L 30 20 22 43 (H) 26 Glucose 74 - 99 mg/dL 113 (H) 132 (H) 253 (H) 175 (H) 100 (H) BUN 7 - 21 mg/dL 20 17 22 (H) 18 21 Creatinine 0.58 - 0.96 mg/dL 0.61 0.65 0.51 (L) 0.52 (L) 0.63 Sodium 136 - 144 mmol/L 140 141 139 138 140 Potassium 3.7 - 5.1 mmol/L 3.9 4.4 4.1 4.1 4.5 Chloride 97 - 105 mmol/L 103 103 104 106 (H) 104 CO2 22 - 30 mmol/L 28 28 24 26 28 Anion Gap 9 - 18 mmol/L 9 10 11 6 (L) 8 (L) eGFR >=60 mL/min/1.73m 106 105 111 111 106 Iron 41 - 186 ug/dL 22 (L) 26 (L) 45 58 TIBC 232 - 386 ug/dL 380 379 299 389 (H) Transferrin Saturation 15.0 - 57.0 % 5.8 (L) 6.9 (L) 15.1 14.9 (L) Ferritin 14.7 - 205.1 ng/mL 24.6 60.2 204.0 40.0 Vitamin B12 232 - 1,245 pg/mL 614 565 581 421 Folate >4.7 ng/mL 15.6 >20.0 15.7 17.7 PAST MEDICAL HISTORY Diagnosis Date Anemia Diarrheal disease Elevated LFTs GERD (gastroesophageal reflux disease) Hyperglycemia Hypertension Iron deficiency anemia 03/04/2022 Overactive bladder Skin tags, multiple acquired Ulcerative colitis (HCC) PAST SURGICAL HISTORY Procedure Laterality Date PAST SURGICAL HISTORY OF right ovary removed TUBAL LIGATION, VAGINAL HYSTERECTOMY 2015 Current Outpatient Medications on File Prior to Visit Medication Sig vedolizumab (ENTYVIO INTRAVENOUS) losartan (COZAAR) 25 mg tablet Take 25 mg by mouth once daily. tolterodine ER (DETROL LA) 4 mg 24 hr capsule Take 4 mg by mouth once daily. No current facility-administered medications on file prior to visit. Allergies: No Known Allergies Review of Systems Constitutional: Negative for chills, fatigue and fever. HENT: Negative for hearing loss, nosebleeds, tinnitus and trouble swallowing. Eyes: Negative for visual disturbance. Respiratory: Negative for cough, shortness of breath and wheezing. Cardiovascular: Negative for chest pain and palpitations. Gastrointestinal: Negative for abdominal distention, abdominal pain, blood in stool, constipation, diarrhea, nausea and vomiting. Endocrine: Negative for polyphagia. Genitourinary: Negative for dysuria, frequency and hematuria. Musculoskeletal: Negative for arthralgias and joint swelling. Skin: Negative for pallor and rash. Neurological: Negative for dizziness, tremors, seizures, syncope and headaches. Hematological: Does not bruise/bleed easily. Ht 160 cm (5' 3 ) Wt 93 kg (205 lb) BMI 36.31 kg/m Physical Exam Constitutional: General: She is not in acute distress. HENT: Mouth/Throat: Pharynx: Oropharynx is clear. Eyes: Conjunctiva/sclera: Conjunctivae normal. Cardiovascular: Rate and Rhythm: Normal rate and regular rhythm. Pulmonary: Effort: Pulmonary effort is normal. Breath sounds: Normal breath sounds. Abdominal: General: Bowel sounds are normal. There is no distension. Palpations: Abdomen is soft. Tenderness: There is no abdominal tenderness. There is no guarding or rebound. Musculoskeletal: General: No swelling. Skin: General: Skin is warm and dry. Coloration: Skin is not jaundiced. Neurological: Mental Status: She is alert. Mental status is at baseline. ASSESSMENT/PLAN: 56 y/o female with severe left sided ulcerative colitis. In remission with Entyvio. Maintain Entyvio. Followup in one year. Consider colonoscopy next year. 1. Other ulcerative colitis with rectal bleeding (HCC) - ICD9: 556.8, ICD10: K51.811 - maintain colonoscopy - colonoscopy recommended next year Meghna Farah Jr. documented in this encounterC[facility]23 Miscellaneous Notes* Telephone Encounter - Britanysharath Ham LPN - 08/09/2022 9:01 AM EDT Late Entry from 08/08/22 Patient left a message on the nurse line stating she has a few questions regarding Entyvio. She will send a Seratis message. documented in this encounterCleveland Clinic [facility]04-12-2023 Miscellaneous Notes* Telephone Encounter - Ricky Koo RPh - 08/08/2022 1:29 PM EDT Thanks for the update. Let me know if you get an approval. Her next dose is scheduled 08/24/22. Ricky Koo RPh * Telephone Encounter - Billie Andrade RN - 08/08/2022 1:09 PM EDT Spoke to [employer] which is the company through 's insurance carrier who handles specialty med PA's. Requested urgent request turn around time Faxed updated clinicals, labs to Re[facility] at . I will keep you guys updated but I was told a peer to peer was not needed that a new PA is submitted through this [employer]. I provided updated notes reflecting documented symptom improvement within first several doses and overall great response. I'll be calling the company again tomorrow. Thank you for your help Billie Andrade RN * Telephone Encounter - Ricky Koo RPh - 08/08/2022 9:39 AM EDT [employer] rep called for the status of the Entyvio appeal. I recommended she call Dr. Farah' office for the status. documented in this encounterC[facility]03-28-2023 Evaluation note* Encounter Date Diagnosis Assessment Notes Treatment Notes Treatment Clinical Notes Jun, Acute bronchitis due to other specified organisms (ICD-10 - J20.8) Instructed to use Robitussin or Mucinex for cough, saline or Flonase NS for congestion, Tylenol for pain and fever. Jun, Ulcerative colitis without complications, unspecified location (ICD-10 - K51.90) Immunosuppressed, continue present treatment, increases risk of severe infection Jun, History of Clostridium difficile colitis (ICD-10 - Z86.19) Due to underlying increase risk for recurrence, would use low dose Vancomycin to prevent recurrence while on antibiotics 50 Cubes Other 02-23-2023 NoteHNO ID: [id number] Author: Don Boudreaux MD Service: ? Author Type: Physician Type: Progress Notes Filed: 06/21/2022 4:26 PM Note Text: NAME: Ludivina Lomas CLINIC NO.: [id number] DATE OF SERVICE: June 21, 2022 (Sandra) Some elements in this clinic note that are critical to medical decision making have been carefully reviewed and included from a prior clinic note dated: May 10, 2022 (Sandra) Referring Provider: Art Chu Additional Clinicians involved in Ludivina Lomsa's care: Art Chu DIAGNOSIS: 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 ASSESSMENT: 56 year old woman with a history of colitis and chronic gi blood loss. Improved after iron replacement. Sweats and alopecia unlikely to be related to her heme issues. Needs sleep evaluation PLAN: RTC in 6 months. Labs 1 week ahead. Referral for sleep study. HPI: CASE HISTORY: Reverse chronological disorder. 06/14/2022 - Hgb 15.2, Ferritin 40, iron sat 14.9% 05/11/2022 - CXR mild bronchial wall thickening ? bronchitis 05/09/2021 - Hgb 12.4, Ferritin 23. 11/2021 - C-Diff colitis. 11/2021 - started Moumukundrnik September 2021 persisting colitis following a round of diarrhea and emesis. 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 Needs sleep study. Significant daytime somnolence. Witnessed snoring. Hgb is much improved but may be concerning for secondary polycytemia associated with possible CARLOS. Updated Visit, May 10, 2022: Anemia improved after getting iron infusion x 5 total since March 14, 2022 Continues to have an irritating bronchial cough with mild phlegm but now is hoarse. Hair is falling out but will monitor. Now is having sweats for unclear etiolgy - again will monitor. Initial Visit, March 02, 2022: Ludivina Lomas presents today Hematology and Oncology evaluation. She is a 56 year old female who has a long history of colitis and GI blood loss. She's not able t tolerate oral iron. Feels exhausted and is very frustrated with the bleeding. Mesalamine is often in the stools. REVIEW OF SYSTEMS Per HPI and otherwise negative by full review of organ systems. ECOG PERFORMANCE STATUS: 0 PHYSICAL EXAMINATION: Vitals: BP 158/95 Pulse 76 Temp (Src) 97.6 (Temporal) Resp 16 Ht 5' .079 (1.53m) Wt 199 lb 12.8 oz (90.6kg) SpO2 96% BMI 38.92 kg/(m2). Body surface area is 1.96 meters squared. Exam limited to gross visualization where appropriate due to COVID-19. Gen.: This is an age-appropriate patient in no acute distress. Head: Appears atraumatic with no visible lesions. Eyes: Pupils equally round and reactive to light, extraocular muscles are intact. Neck: Supple. Mouth: Masked. Respiratory: Appears to be respiring comfortably. Neurologic: Nonfocal to gross visualization. Alert and oriented ?3. Psychiatric: No evidence of inappropriate anxiety or depression. Skin: Visible areas of skin without rash, lesions, wounds or petechiae. ALLERGIES: ALLERGIES No Known Allergies MEDICATIONS: vedolizumab (ENTYVIO INTRAVENOUS) budesonide, enteric coated (ENTOCORT EC) 3 mg 24 hr capsule Take 1 capsule by mouth three times daily. losartan (COZAAR) 25 mg tablet Take 25 mg by mouth once daily. tolterodine ER (DETROL LA) 4 mg 24 hr capsule Take 4 mg by mouth once daily. L gasseri/B bifidum/B longum ([facility] ORAL) Take by mouth. LABORATORY VALUES: WBC (k/uL) Date Value 06/14/2022 9.10 RBC (m/uL) Date Value 06/14/2022 5.47 (H) Hemoglobin (g/dL) Date Value 06/14/2022 15.2 Hematocrit (%) Date Value 06/14/2022 46.6 (H) MCV (fL) Date Value 06/14/2022 85.2 MCH (pg) Date Value 06/14/2022 27.8 MCHC (g/dL) Date Value 06/14/2022 32.6 RDW-CV (%) Date Value 06/14/2022 16.6 (H) Platelet Count (k/uL) Date Value 06/14/2022 237 MPV (fL) Date Value 06/14/2022 8.6 (L) Glucose (mg/dL) Date Value 06/14/2022 100 (H) BUN (mg/dL) Date Value 06/14/2022 21 Creatinine (mg/dL) Date Value 06/14/2022 0.63 Sodium (mmol/L) Date Value 06/14/2022 140 Potassium (mmol/L) Date Value 06/14/2022 4.5 Chloride (mmol/L) Date Value 06/14/2022 104 CO2 (mmol/L) Date Value 06/14/2022 28 Protein, Total (g/dL) Date Value 06/14/2022 7.0 Albumin (g/dL) Date Value 06/14/2022 4.4 Calcium, Total (mg/dL) Date Value (more content not included)...[facility]02-23-2023 Instructions* Patient Instructions* Don Boudreaux MD - 06/21/2022 4:20 PM EST RTC in 6 months. Labs 1 week ahead. Referral for sleep study. Check out Dr. Mejias diet - reversing diabetes on [employer] documented in this encounterC[facility]02-23-2023 History of Present illness Narrative* Don Boudreaux MD - 06/21/2022 3:57 PM EST Images from the original note were not included. NAME: Ludivina Lomas CLINIC NO.: [id number] DATE OF SERVICE: June 21, 2022 (Sandra) Some elements in this clinic note that are critical to medical decision making have been carefully reviewed and included from a prior clinic note dated: May 10, 2022 (Sandra) Referring Provider: Art Chu Additional Clinicians involved in Ludivina Lomas's care: Art Chu DIAGNOSIS: 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 ASSESSMENT: 56 year old woman with a history of colitis and chronic gi blood loss. Improved after iron replacement. Sweats and alopecia unlikely to be related to her heme issues. Needs sleep evaluation PLAN: RTC in 6 months. Labs 1 week ahead. Referral for sleep study. HPI: CASE HISTORY: Reverse chronological disorder. 06/14/2022 - Hgb 15.2, Ferritin 40, iron sat 14.9% 05/11/2022 - CXR mild bronchial wall thickening ? bronchitis 05/09/2021 - Hgb 12.4, Ferritin 23. 11/2021 - C-Diff colitis. 11/2021 - started Moujarno September 2021 persisting colitis following a round of diarrhea and emesis. 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 Needs sleep study. Significant daytime somnolence. Witnessed snoring. Hgb is much improved but may be concerning for secondary polycytemia associated with possible CARLOS. Updated Visit, May 10, 2022: Anemia improved after getting iron infusion x 5 total since March 14, 2022 Continues to have an irritating bronchial cough with mild phlegm but now is hoarse. Hair is falling out but will monitor. Now is having sweats for unclear etiolgy - again will monitor. Initial Visit, March 02, 2022: Ludivina Lomas presents today Hematology and Oncology evaluation. She is a 56 year old female who has a long history of colitis and GI blood loss. She's not able t tolerate oral iron. Feels exhausted and is very frustrated with the bleeding. Mesalamine is often in the stools. REVIEW OF SYSTEMS Per HPI and otherwise negative by full review of organ systems. ECOG PERFORMANCE STATUS: 0 PHYSICAL EXAMINATION: Vitals: BP 158/95 Pulse 76 Temp (Src) 97.6 (Temporal) Resp 16 Ht 5' .079 (1.53m) Wt 199 lb 12.8 oz (90.6kg) SpO2 96% BMI 38.92 kg/(m^2). Body surface area is 1.96 meters squared. Exam limited to gross visualization where appropriate due to COVID-19. Gen.: This is an age-appropriate patient in no acute distress. Head: Appears atraumatic with no visible lesions. Eyes: Pupils equally round and reactive to light, extraocular muscles are intact. Neck: Supple. Mouth: Masked. Respiratory: Appears to be respiring comfortably. Neurologic: Nonfocal to gross visualization. Alert and oriented 3. Psychiatric: No evidence of inappropriate anxiety or depression. Skin: Visible areas of skin without rash, lesions, wounds or petechiae. ALLERGIES: ALLERGIES No Known Allergies MEDICATIONS: vedolizumab (ENTYVIO INTRAVENOUS) budesonide, enteric coated (ENTOCORT EC) 3 mg 24 hr capsule Take 1 capsule by mouth three times daily. losartan (COZAAR) 25 mg tablet Take 25 mg by mouth once daily. tolterodine ER (DETROL LA) 4 mg 24 hr capsule Take 4 mg by mouth once daily. L gasseri/B bifidum/B longum ([facility] [employer] ORAL) Take by mouth. LABORATORY VALUES: WBC (k/uL) Date Value 06/14/2022 9.10 RBC (m/uL) Date Value 06/14/2022 5.47 (H) Hemoglobin (g/dL) Date Value 06/14/2022 15.2 Hematocrit (%) Date Value 06/14/2022 46.6 (H) MCV (fL) Date Value 06/14/2022 85.2 MCH (pg) Date Value 06/14/2022 27.8 MCHC (g/dL) Date Value 06/14/2022 32.6 RDW-CV (%) Date Value 06/14/2022 16.6 (H) Platelet Count (k/uL) Date Value 06/14/2022 237 MPV (fL) Date Value 06/14/2022 8.6 (L) Glucose (mg/dL) Date Value 06/14/2022 100 (H) BUN (mg/dL) Date Value 06/14/2022 21 Creatinine (mg/dL) Date Value 06/14/2022 0.63 Sodium (mmol/L) Date Value 06/14/2022 140 Potassium (mmol/L) Date Value 06/14/2022 4.5 Chloride (mmol/L) Date Value 06/14/2022 104 CO2 (mmol/L) Date Value 06/14/2022 28 Protein, Total (g/dL) Date Value 06/14/2022 7.0 Albumin (g/dL) Date Value 06/14/2022 4.4 Calcium, Total (mg/dL) Date Value 06/14/2022 9.8 Alkaline Phosphatase (U/L) Date Value 06/14/2022 99 Bilirubin, Total (mg/dL) Date Value 06/14/2022 0.4 AST (U/L) Date Value 06/14/2022 18 ALT (U/L) Date Value 06/14/2022 26 DIAGNOSIS: (D50.9) Iron deficiency anemia, unspecified iron deficiency anemia type (primary encounter diagnosis) Plan: CBC + DIFF, COMP METABOLIC PANEL, IRON + TIBC, FERRITIN BLD, VITAMIN B12 BLOOD, FOLATE SERUM (R06.83) Snoring Plan: CONSULT TO SLEEP MEDICINE - ADULT (R40.0) Daytime somnolence Plan: CONSULT TO SLEEP MEDICINE - ADULT (D75.1) Secondary polycythemia Plan: CONSULT TO SLEEP MEDICINE - ADULT, CBC + DIFF, ERYTHROPOIETIN/EPO (K51.811) Other ulcerative colitis with rectal bleeding (HCC) Plan: CBC + DIFF, COMP METABOLIC PANEL, IRON + TIBC, FERRITIN BLD, VITAMIN B12 BLOOD, FOLATE SERUM PAST MEDICAL HISTORY Diagnosis Date Anemia Diarrheal disease Elevated LFTs GERD (gastroesophageal reflux disease) Hyperglycemia Hypertension Iron deficiency anemia 03/04/2022 Overactive bladder Skin tags, multiple acquired Ulcerative colitis (HCC) PAST SURGICAL HISTORY Procedure Laterality Date PAST SURGICAL HISTORY OF right ovary removed TUBAL LIGATION, VAGINAL HYSTERECTOMY 2016 Social History Tobacco Use Smoking status: Never Smokeless tobacco: Never Vaping Use Vaping Use: Never used Substance Use Topics Alcohol use: Not Currently Comment: rarely Drug use: Never FAMILY HISTORY Problem Relation Age of Onset Diabetes Mother Heart disease Mother Hypertension Mother Liver Cancer Mother Coronary Artery Disease Father Diabetes Maternal Grandmother Diabetes Maternal Grandfather Colon Cancer Maternal Grandfather Colon Cancer Maternal Aunt I spent a total of 30 minutes on the date of the service which included preparing to see the patient, [id number] patient care, completing clinical documentation, performing a medically appropriate examination, ordering medications, tests, or procedures, and independently interpreting results (not separately reported). Don Boudreaux MD, CPE Hematology and Oncology Services Provided at: [place], [place] CC: Art Chu MD [address] [place] [id number] documented in this encounterC[facility]01-31-2023 Instructions* Patient Instructions* Meghna Farah Jr., - 05/29/2022 2:16 PM EST Start budesonide 3 mg three tabs daily Maintain Entyvio Followup in 3 months documented in this encounterC[facility]01-31-2023 History of Present illness Narrative* Meghna Farah Jr., - 05/29/2022 2:00 PM EST Patient presents with: Follow Up HPI: Ludivina Lomas, 56 year old female, presents in the office today for ulcerative colitis. Diagnosed with ulcerative colitis in the . Controlled with mesalamine for a number of years but over the past few years she has recurrent bleeding and diarrhea requiring several courses of prednisone. Her symptoms increased undergoing a colonoscopy in November [address] Hernandez showing severe left sided ulcerative colitis. Despite prednisone and Apriso, she has never become controlled. Finally Entyvio was approved and improvement noted. She still has some rectal bleeding but diarrhea significantly less (now only 5 times daily). Abd pain resolved. Iron deficiency anemia now improved as well. Family history of colon cancer (grandmother and Aunt). Last CT scan was November 2021. Past GI workup Treatment: [facility] 05/04/22 and 05/18/22 received first 2 doses of Entyvio, received through wire splicer x 6 months. Will need to re-evaluate before the 6 months is up, to obtain PA 03/27/22 Last OV notes as follows: 56 y/o female with severe left sided ulcerative colitis with rectal bleeding. Her symptoms are severe and even develop iron deficiency anemia. She requires more aggressive therapy. Discussed options including biologics and immunomodulators. After discussion we have elected to pursue biologic therapies. Start workup, currently plan Left sided ulcerative colitis with rectal bleeding - CBC + DIFF - COMP METABOLIC PANEL - HEP ACUTE PANEL/RNA - BLOOD TB SCREEN - PREDNISONE 10 MG TABLET 2. Iron deficiency anemia, unspecified iron deficiency anemia type - ICD9: 280.9, ICD10: D50.9 - Continue followup with hematology for iron infusions 11/2021 colonoscopy: severe left sided ulcerative colitis 12/03/14 EGD/colonoscopy were done per Dr. Hernandez for ROSALINDA and h/o UC: Raised antral ulcers were found, duodenal biopsies were taken Random colon bx taken Internal hemorrhoids were found Biopsies as follows: (-) random biopsies of colon (-) stomach and duodenal biopsies also Component Latest Ref Rng & Units 03/29/2022 04/13/2022 05/04/2022 WBC 3.70 - 11.00 k/uL 5.47 8.99 7.83 RBC 3.90 - 5.20 m/uL 4.82 4.77 5.18 Hemoglobin 11.5 - 15.5 g/dL 12.3 12.6 14.0 Hematocrit 36.0 - 46.0 % 39.8 40.1 43.9 MCV 80.0 - 100.0 fL 82.6 84.1 84.7 MCH 26.0 - 34.0 pg 25.5 (L) 26.4 27.0 MCHC 30.5 - 36.0 g/dL 30.9 31.4 31.9 RDW-CV 11.5 - 15.0 % 16.0 (H) 17.5 (H) 18.6 (H) Platelet Count 150 - 400 k/uL 275 214 262 MPV 9.0 - 12.7 fL 8.6 (L) 8.5 (L) 8.6 (L) Neut% % 79.9 70.7 75.4 Abs Neut (ANC) 1.45 - 7.50 k/uL 4.37 6.35 5.90 Lymph% % 12.1 17.6 13.4 Abs Lymph 1.00 - 4.00 k/uL 0.66 (L) 1.58 1.05 Edmunds% % 6.9 8.9 9.7 Abs Edmunds <0.87 k/uL 0.38 0.80 0.76 Eosin% % 0.2 2.0 0.1 Abs Eosin <0.46 k/uL <0.03 0.18 <0.03 Baso% % 0.5 0.4 0.5 Abs Baso <0.11 k/uL 0.03 0.04 0.04 Immature Gran % % 0.4 0.4 0.9 IMMATURE GRANS (ABS) <0.10 k/uL <0.03 0.04 0.07 NRBC /100 WBC 0.0 0.0 0.0 Absolute nRBC <0.01 k/uL <0.01 <0.01 <0.01 DTYPE Auto Auto Auto Protein, Total 6.3 - 8.0 g/dL 6.8 6.4 Albumin 3.9 - 4.9 g/dL 4.1 4.2 Calcium 8.5 - 10.2 mg/dL 9.3 9.6 Bilirubin, Total 0.2 - 1.3 mg/dL 0.3 0.2 Alkaline Phosphatase 34 - 123 U/L 90 72 AST 13 - 35 U/L 20 20 ALT 7 - 38 U/L 22 43 (H) Glucose 74 - 99 mg/dL 253 (H) 175 (H) BUN 7 - 21 mg/dL 22 (H) 18 Creatinine 0.58 - 0.96 mg/dL 0.51 (L) 0.52 (L) Sodium 136 - 144 mmol/L 139 138 Potassium 3.7 - 5.1 mmol/L 4.1 4.1 Chloride 97 - 105 mmol/L 104 106 (H) CO2 22 - 30 mmol/L 24 26 Anion Gap 9 - 18 mmol/L 11 6 (L) eGFR >=60 mL/min/1.73m 111 111 Iron 41 - 186 ug/dL 26 (L) 45 TIBC 232 - 386 ug/dL 379 299 Transferrin Saturation 15.0 - 57.0 % 6.9 (L) 15.1 Ferritin 14.7 - 205.1 ng/mL 60.2 204.0 Vitamin B12 232 - 1,245 pg/mL 565 581 Folate >4.7 ng/mL >20.0 15.7 PAST MEDICAL HISTORY Diagnosis Date Anemia Diarrheal disease Elevated LFTs GERD (gastroesophageal reflux disease) Hyperglycemia Hypertension Iron deficiency anemia 03/04/2022 Overactive bladder Skin tags, multiple acquired Ulcerative colitis (HCC) PAST SURGICAL HISTORY Procedure Laterality Date PAST SURGICAL HISTORY OF right ovary removed TUBAL LIGATION, VAGINAL HYSTERECTOMY 2015 Current Outpatient Medications on File Prior to Visit Medication Sig L gasseri/B bifidum/B longum ([employer] ORAL) Take by mouth. losartan (COZAAR) 25 mg tablet Take 25 mg by mouth once daily. tolterodine ER (DETROL LA) 4 mg 24 hr capsule Take 4 mg by mouth once daily. MESALAMINE RECTAL 4 g by RECTAL route every evening. No current facility-administered medications on file prior to visit. Allergies: No Known Allergies Review of Systems Constitutional: Negative for chills, fatigue and fever. HENT: Negative for hearing loss, nosebleeds, tinnitus and trouble swallowing. Eyes: Negative for visual disturbance. Respiratory: Negative for cough, shortness of breath and wheezing. Cardiovascular: Negative for chest pain and palpitations. Gastrointestinal: Positive for blood in stool and diarrhea. Negative for abdominal distention, abdominal pain, constipation, nausea and vomiting. Endocrine: Negative for polyphagia. Genitourinary: Negative for dysuria, frequency and hematuria. Musculoskeletal: Negative for arthralgias and joint swelling. Skin: Negative for pallor and rash. Neurological: Negative for dizziness, tremors, seizures, syncope and headaches. Hematological: Does not bruise/bleed easily. Ht 152.6 cm (5' 0.09 ) Wt 88 kg (194 lb) BMI 37.77 kg/m Physical Exam Constitutional: General: She is not in acute distress. HENT: Mouth/Throat: Pharynx: Oropharynx is clear. Eyes: Conjunctiva/sclera: Conjunctivae normal. Cardiovascular: Rate and Rhythm: Normal rate and regular rhythm. Pulmonary: Effort: Pulmonary effort is normal. Breath sounds: Normal breath sounds. Abdominal: General: Bowel sounds are normal. There is no distension. Palpations: Abdomen is soft. Tenderness: There is no abdominal tenderness. There is no guarding or rebound. Musculoskeletal: General: No swelling. Skin: General: Skin is warm and dry. Coloration: Skin is not jaundiced. Neurological: Mental Status: She is alert. Mental status is at baseline. ASSESSMENT/PLAN: 56 y/o female with severe left sided ulcerative colitis, improving with Entyvio. Will maintain Entyvio, start budesonide for 8 wks until Entyvio reaches full effect. Followup in 3 months. 1. Ulcerative colitis with rectal bleeding, unspecified location (HCC) - ICD9: 556.9, ICD10: K51.911 - BUDESONIDE DR - ER 3 MG CAPSULE,DELAYED,EXTENDED RELEASE Meghna Farah Jr. documented in this encounterCleveland Clinic [facility]01-20-2023 History of Present illness Narrative* Gege Rosado RN - 05/18/2022 2:24 PM EST Pt reports right calf pain. No swelling, redness, or warmth to site. Instructed patient she should call her PCP for evaluation. Pt verbalizes understanding and is agreeable to this. Also instructed patient to report to ER if pain worsens, becomes swollen or red. Gege Rosado RN documented in this encounterCleveland Clinic [facility]01-12-2023 Instructions* Patient Instructions* Don Boudreaux MD - 05/10/2022 4:04 PM EST CXR today Triage Please call results tomorrow RTC in 6 weeks - will decide additional iron infusions. Labs 1 week before documented in this encounterCleveland Clinic [facility]01-12-2023 History of Present illness Narrative* Don Boudreaux MD - 05/10/2022 3:30 PM EST Images from the original note were not included. NAME: Ludivina Lomas CLINIC NO.: [id number] DATE OF SERVICE: May 10, 2022 ([facility]) Some elements in this clinic note that are critical to medical decision making have been carefully reviewed and included from a prior clinic note dated: March 02, 2022 (Sandra) Referring Provider: Art Chu Additional Clinicians involved in Ludivina Lomas's care: Art Chu DIAGNOSIS: 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 ASSESSMENT: 56 year old woman with a history of colitis and chronic gi blood loss. Improved after iron replacement. Sweats and alopecia unlikely to be related to her hem issues. PLAN: CXR today Triage Please call results tomorrow RTC in 6 weeks - will decide additional iron infusions. Labs 1 week before HPI: CASE HISTORY: Reverse chronological disorder. 05/09/2021 - Hgb 12.4, Ferritin 23. 11/2021 - C-Diff colitis. 11/2021 - started Moujarno September 2021 persisting colitis following a round of diarrhea and emesis. 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 Hair is falling out but will monitor. Now is having sweats for unclear etiolgy - again will monitor. Initial Visit, March 02, 2022: Ludivina Lomas presents today Hematology and Oncology evaluation. She is a 56 year old female who has a long history of colitis and GI blood loss. She's not able t tolerate oral iron. Feels exhausted and is very frustrated with the bleeding. Mesalamine is often in the stools. REVIEW OF SYSTEMS Per HPI and otherwise negative by full review of organ systems. ECOG PERFORMANCE STATUS: 0 PHYSICAL EXAMINATION: Vitals: BP 167/98 Pulse 105 Temp (Src) 97.6 (Temporal) Resp 16 Ht 5' .984 (1.55m) Wt 194lb 9.6 oz (88.3kg) SpO2 97% BMI 36.79 kg/(m^2). Body surface area is 1.95 meters squared. Exam limited to gross visualization where appropriate due to COVID-19. Gen.: This is an age-appropriate patient in no acute distress. Head: Appears atraumatic with no visible lesions. Eyes: Pupils equally round and reactive to light, extraocular muscles are intact. Neck: Supple. Mouth: Masked. Respiratory: Appears to be respiring comfortably. Neurologic: Nonfocal to gross visualization. Alert and oriented 3. Psychiatric: No evidence of inappropriate anxiety or depression. Skin: Visible areas of skin without rash, lesions, wounds or petechiae. ALLERGIES: ALLERGIES No Known Allergies MEDICATIONS: predniSONE (DELTASONE) 10 mg tablet Take by mouth: 40 mg X 7 days; 30 mg X 7 days; 20 mg X 7 days; 10 mg X 7 days L gasseri/B bifidum/B longum (Close.io ORAL) Take by mouth. losartan (COZAAR) 25 mg tablet Take 25 mg by mouth once daily. tolterodine ER (DETROL LA) 4 mg 24 hr capsule Take 4 mg by mouth once daily. MESALAMINE RECTAL 4 g by RECTAL route every evening. LABORATORY VALUES: WBC (k/uL) Date Value 05/04/2022 7.83 RBC (m/uL) Date Value 05/04/2022 5.18 Hemoglobin (g/dL) Date Value 05/04/2022 14.0 Hematocrit (%) Date Value 05/04/2022 43.9 MCV (fL) Date Value 05/04/2022 84.7 MCH (pg) Date Value 05/04/2022 27.0 MCHC (g/dL) Date Value 05/04/2022 31.9 RDW-CV (%) Date Value 05/04/2022 18.6 (H) Platelet Count (k/uL) Date Value 05/04/2022 262 MPV (fL) Date Value 05/04/2022 8.6 (L) Glucose (mg/dL) Date Value 05/04/2022 175 (H) BUN (mg/dL) Date Value 05/04/2022 18 Creatinine (mg/dL) Date Value 05/04/2022 0.52 (L) Sodium (mmol/L) Date Value 05/04/2022 138 Potassium (mmol/L) Date Value 05/04/2022 4.1 Chloride (mmol/L) Date Value 05/04/2022 106 (H) CO2 (mmol/L) Date Value 05/04/2022 26 Protein, Total (g/dL) Date Value 05/04/2022 6.4 Albumin (g/dL) Date Value 05/04/2022 4.2 Calcium, Total (mg/dL) Date Value 05/04/2022 9.6 Alkaline Phosphatase (U/L) Date Value 05/04/2022 72 Bilirubin, Total (mg/dL) Date Value 05/04/2022 0.2 AST (U/L) Date Value 05/04/2022 20 ALT (U/L) Date Value 05/04/2022 43 (H) DIAGNOSIS: (D50.9) Iron deficiency anemia, unspecified iron deficiency anemia type (primary encounter diagnosis) Plan: CBC + DIFF, COMP METABOLIC PANEL, IRON + TIBC, FERRITIN BLD, VITAMIN B12 BLOOD, FOLATE SERUM (R05.2) Subacute cough Plan: XR CHEST 2V FRONTAL/LAT (K52.9) Colitis PAST MEDICAL HISTORY Diagnosis Date Anemia Diarrheal disease Elevated LFTs GERD (gastroesophageal reflux disease) Hyperglycemia Hypertension Iron deficiency anemia 03/04/2022 Overactive bladder Skin tags, multiple acquired Ulcerative colitis (HCC) PAST SURGICAL HISTORY Procedure Laterality Date PAST SURGICAL HISTORY OF right ovary removed TUBAL LIGATION, VAGINAL HYSTERECTOMY 2015 Social History Tobacco Use Smoking status: Never Smokeless tobacco: Never Vaping Use Vaping Use: Never used Substance Use Topics Alcohol use: Not Currently Comment: rarely Drug use: Never FAMILY HISTORY Problem Relation Age of Onset Diabetes Mother Heart disease Mother Hypertension Mother Liver Cancer Mother Coronary Artery Disease Father Diabetes Maternal Grandmother Diabetes Maternal Grandfather Colon Cancer Maternal Grandfather Colon Cancer Maternal Aunt I spent a total of 25 minutes on the date of the service which included preparing to see the patient, [id number] patient care, completing clinical documentation, performing a medically appropriate examination, ordering medications, tests, or procedures, and independently interpreting results (not separately reported). Don Boudreaux MD, [facility] [place] Hematology and Oncology Services Provided at: [place], [place] CC: Art Chu MD [address] [place] [phone] [facility]01-11-2023 Miscellaneous Notes* Telephone Encounter - Afia Elizabeth - 05/09/2022 2:46 PM EST [facility] paperwork faxed to Lb @ [phone]. Afia Elizabeth * Telephone Encounter - Afia Elizabeth - 05/08/2022 3:43 PM EST [facility] paperwork completed and placed in folder to be signed. Afia Elizabeth documented in this [facility]12-28-2022 Miscellaneous Notes* Telephone Encounter - Krystal Hernandez - 04/25/2022 9:02 AM EST Spoke to patient & rescheduled her lab on 05/07/2022@3:45pm and CYNTHIA on 05/10/2022@3:30pm. Krystal Hernandez * Telephone Encounter - Lynnette Healy RN - 04/24/2022 3:34 PM EST Pt called to inform of + Covid test this morning. Pt continues with cough, cold, congestion for 9 days. She will be calling her PCP as well for those symptoms. She needs to cancel her lab/follow up for 04/26 and reschedule to next week if possible. She is returning to work and any appt after 330 isbest if available. She also would like to discuss FMLA paperwork if Dr Win feels she will continue infusions. She will discuss further at her next appt with him. PSS: please call pt to reschedule. Thank you, Lynnette Healy RN [facility] Miscellaneous Notes* Telephone Encounter - Taj Zapata - 04/18/2022 8:48 AM EST Patient coming in for lab only 04/25/22 with no orders. Please review and place needed labs. Thank you, Alejandra Zapata MLT documented in this encounterC[facility]12-[facility]-20[facility] Miscellaneous Notes* Telephone Encounter - Billie Andrade RN - 04/12/2022 11:27 AM EST Appears should be approved with the next week. Await approval. Continue prednisone taper. Meghna Farah Jr., DO Will await approval. Billie Andrade RN * Telephone Encounter - Billie Andrade RN - 04/12/2022 10:33 AM EST Sent you a few emails regarding updates in the Entyvio. Please advise once reviewed. Thank you. Billie Andrade RN * Telephone Encounter - Billie Andrade RN - 04/11/2022 4:41 PM EST Spoke to pt again as she sent another [employer] message. Dr. Farah pt is frustrated due to the length of time for this PA for Evtyvio, which is understandable. As per our discussion, may end up using different company altogether to get this approved or switch to another drug. Pt is having 3-6 bloody stools daily with leakage in between. She is not having SOB, lightheadedness but does feel weak overall. When down to 20 mg of Prednisone, the above symptoms are worse. Advised pt to go back up to the 40 mg for now and will restart taper as discussed. Will also get updated CBC, please review and and sign orders. Also, will advise pt she may use her Mesalamine enemas she has at home as well. Thank you Billie Andrade RN documented in this encounterC[facility]12-[facility]-2022 History of Present illness Narrative* Sandhya Metcalf RN - 04/06/2022 9:53 AM EST Sandhya Metcalf RN documented in this encounterC[facility]11-29-2022 Miscellaneous Notes* Telephone Encounter - Billie Andrade RN - 03/27/2022 3:29 PM EST Therapy plan for Entyvio initiated as per discussion. [facility] Thank you Billie Andrade RN documented in this encounterC[facility]11-29-2022 Instructions* Patient Instructions* Meghna Farah Jr., - 03/27/2022 3:20 PM EST - start prednisone taper - obtain labs for medication - start process for Entyvio approval - consider probiotics when on antibiotics (Florastor) documented in this encounterC[facility]11-29-2022 History of Present illness Narrative* Meghna Farah Jr., - 03/27/2022 3:00 PM EST Consultation requested by Don Boudreaux for an opinion regarding colitis. My final recommendations will be communicated back to the requesting physician by way of shared Medical record or letter torequesting physician via US mail. Patient presents with: Colitis HPI: Ludivina Lomas, 56 year old female, presents in the office today for ulcerative colitis. She has diagnosed with ulcerative colitis in the . She was controlled with mesalamine for a number of years but over the past few years she has recurrent bleeding and diarrhea requiring several courses of prednisone. Her symptoms increased undergoing a colonoscopy in November [address] Hernandez showing severe left sided ulcerative colitis. Despite prednisone and Apriso, she has never become controlled. She is frustrated given severity of symptoms and has developed iron deficiency anemia secondary chronic rectal bleeding. Family history of colon cancer (grandmother and Aunt). Past GI workup 03/08/22 OV notes per GI Dr Hernandez c/o severe rectal bleeding and medication not breaking down correctly HPI Staff This is a 56 year old female who presents today for a sick call for complaints of nausea & vomiting and c. diff. Needs a medication consult for UC medications (Apriso). She feels they are not working and thinks the capsules are not breaking down; causing rectal bleeding (bright red and clotting) and will be doing an iron infusion soon. History of Present Illness Ludivina Lomas is a 56-year-old white female who presents today for a sick visit for nausea, vomiting, and diarrhea. She has a history of left-sided ulcerative colitis for which she is taking aprazo. She also has a history of recurrent C. difficile colitis treated in 11/2021 with a course of vancomycin, then with a course of Dificid. The patient reports that she has not had any diarrhea in approximately 6 weeks because she was taking Mounjaro injection. She believes that she was having a side effect from the injection. She has not taken Mounjaro since the first weekend in 12/2021. She states that her symptoms improved after shestopped taking the Mounjaro. She reports that her stool is formed. She still has a small amount of blood in her stool 4 to 5 times a day. Her last colonoscopy was done in 11/2021 and it did show left-sided ulcerative colitis with severe inflammation. She has been taking mesalamine enema and aprazo.She has noticed improvement regarding the number of bowel movements and the amount of blood she hasbeen experiencing. She was diagnosed with ulcerative colitis in the when she had her first colonoscopy. She was not on any treatment since 2011 until 11/2021. The patient complains of persistent fatigue. She is starting iron infusions next week because her iron is low. In 11/2021, her hemoglobin was 11.7. She had blood work done at [facility] because that is where she will receive the infusion. She denies any history of cancer. Her iron is 20, ferritin is 24, and TIBC is on the higher to normal range. Her recent upper scope was normal and her anemia should gradually improve. Assessment/Plan 1. Acute diarrhea (Diarrhea, unspecified) The patient has a history of ulcerative colitis and recurrent C. difficile. Her diarrhea improved last in 11/2021 when she was treated for C. difficile, but remained and recurred again 2 months ago when she was started on new diabetes medication. Her diarrhea resolved back again when she stopped that diabetes medication. She reports no further diarrhea with solid stool at this point. 2. Rectal bleed Hemorrhage of anus and rectum) The patient continues to report sporadic rectal bleeding. I believe it is likely related to her left-sided ulcerative colitis based on the severity of ulceration noted in 11/2021 on colonoscopy. She was started on mesalamine enema and aprazo. She was advised to continue with both and to reassess for mucosal healing in 6 more months. 3. Nausea and vomiting: Nausea with vomiting, unspecified) This resolved after she stopped her new diabetes medication. I believe her symptoms could be related to the medication side effects, especially in the light of her recent norm (more content not 03/02/22 consult placed for Iron deficiency anemia, unspecified iron deficiency anemia type, per Don Boudreaux MD DIAGNOSIS: 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 ASSESSMENT: 56 year old woman with a history of colitis and chronic gi blood loss. PLAN: Second opinion GI for Colitis - Dr. Farah please Call results of iron studies on Saturday - to decide on iron infusion 05/09/2021 - Hgb 12.4, Ferritin 23. 11/2021 - C-Diff colitis. 11/2021 - started Moujarno September 2021 persisting colitis following a round of diarrhea and emesis. Chronic colitis - mild and under control for many years 1989 - Dx'd Kaur-colitis 12/03/14 EGD/colonoscopy were done per Dr. Hernandez for ROSALINDA and h/o UC: Raised antral ulcers were found, duodenal biopsies were taken Random colon bx taken Internal hemorrhoids were found Biopsies as follows: (-) random biopsies of colon (-) stomach and duodenal biopsies also Last labs as follows; CBC AUTO DIFF on 02-06-2022 BASO # 0.1 103/ul Eosinophils/100 WBC (Bld) 6.6 % Hematocrit (Bld) [Volume fraction] 39.8 % Normal 36.0-48.0 [facility] Hemoglobin (Bld) [Mass/Vol] 12.5 g/dL Platelet mean volume (Bld) [Entitic vol] 8.7 fL FERRITIN on 02-06-2022 Ferritin [Mass/Vol] 23.0 ng/mL Component Latest Ref Rng & Units 07/05/2016 07/04/2017 03/02/2022 WBC 3.70 - 11.00 k/uL 6.82 6.75 RBC 3.90 - 5.20 m/uL 5.01 4.70 Hemoglobin 11.5 - 15.5 g/dL 14.7 11.9 Hematocrit 36.0 - 46.0 % 44.0 38.7 MCV 80.0 - 100.0 fL 87.8 82.3 MCH 26.0 - 34.0 pg 29.3 25.3 (L) MCHC 30.5 - 36.0 g/dL 33.4 30.7 RDW-CV 11.5 - 15.0 % 13.3 15.5 (H) Platelet Count 150 - 400 k/uL 205 311 MPV 9.0 - 12.7 fL 9.1 8.8 (L) Neut% % 59.7 67.9 Abs Neut (ANC) 1.45 - 7.50 k/uL 4.07 4.58 Lymph% % 27.6 16.9 Abs Lymph 1.00 - 4.00 k/uL 1.88 1.14 Edmunds% % 11.1 14.2 Abs Edmunds <0.87 k/uL 0.76 0.96 (H) Eosin% % 1.3 0.1 Abs Eosin <0.46 k/uL 0.09 <0.03 Baso% % 0.3 0.6 Abs Baso <0.11 k/uL 0.02 0.04 Immature Gran % % 0.3 IMMATURE GRANS (ABS) <0.10 k/uL <0.03 NRBC /100 WBC 0.0 Absolute nRBC <0.01 k/uL <0.01 DTYPE Auto Protein, Total 6.3 - 8.0 g/dL 7.0 Albumin 3.9 - 4.9 g/dL 4.2 Calcium 8.5 - 10.2 mg/dL 9.8 Bilirubin, Total 0.2 - 1.3 mg/dL 0.3 Alkaline Phosphatase 34 - 123 U/L 80 AST 13 - 35 U/L 23 ALT 7 - 38 U/L 30 Glucose 74 - 99 mg/dL 113 (H) BUN 7 - 21 mg/dL 20 Creatinine 0.58 - 0.96 mg/dL 0.61 Sodium 136 - 144 mmol/L 140 Potassium 3.7 - 5.1 mmol/L 3.9 Chloride 97 - 105 mmol/L 103 CO2 22 - 30 mmol/L 28 Anion Gap 9 - 18 mmol/L 9 eGFR >=60 mL/min/1.73m 106 Iron 41 - 186 ug/dL 58 58 22 (L) TIBC 232 - 386 ug/dL 334 338 380 Transferrin Saturation 15.0 - 57.0 % 17 17 5.8 (L) Ferritin 14.7 - 205.1 ng/mL 48.7 73.7 24.6 Vitamin B12 232 - 1,245 pg/mL 614 Folate >4.7 ng/mL 15.6 PAST MEDICAL HISTORY Diagnosis Date Anemia Diarrheal disease Elevated LFTs GERD (gastroesophageal reflux disease) Hyperglycemia Hypertension Iron deficiency anemia 03/04/2022 Overactive bladder Skin tags, multiple acquired Ulcerative colitis (HCC) PAST SURGICAL HISTORY Procedure Laterality Date PAST SURGICAL HISTORY OF right ovary removed TUBAL LIGATION, VAGINAL HYSTERECTOMY 2016 Current Outpatient Medications on File Prior to Visit Medication Sig losartan (COZAAR) 25 mg tablet Take 25 mg by mouth once daily. mesalamine ER (APRISO) 0.375 gram capsule TAKE 4 CAPSULES BY MOUTH EVERY MORNING tolterodine ER (DETROL LA) 4 mg 24 hr capsule Take 4 mg by mouth once daily. MESALAMINE RECTAL by RECTAL route. No current facility-administered medications on file prior to visit. Allergies: No Known Allergies Review of Systems Constitutional: Positive for fatigue. Negative for chills and fever. HENT: Negative for hearing loss, nosebleeds, tinnitus and trouble swallowing. Eyes: Negative for visual disturbance. Respiratory: Negative for cough, shortness of breath and wheezing. Cardiovascular: Negative for chest pain and palpitations. Gastrointestinal: Positive for abdominal pain, blood in stool and diarrhea. Negative for abdominal distention, constipation, nausea and vomiting. Endocrine: Negative for polyphagia. Genitourinary: Negative for dysuria, frequency and hematuria. Musculoskeletal: Negative for arthralgias and joint swelling. Skin: Negative for pallor and rash. Neurological: Negative for dizziness, tremors, seizures, syncope and headaches. Hematological: Does not bruise/bleed easily. Ht 154.9 cm (5' 1 ) Wt 86.2 kg (190 lb) BMI 35.90 kg/m Physical Exam Constitutional: General: She is not in acute distress. HENT: Mouth/Throat: Pharynx: Oropharynx is clear. Eyes: Conjunctiva/sclera: Conjunctivae normal. Cardiovascular: Rate and Rhythm: Normal rate and regular rhythm. Pulmonary: Effort: Pulmonary effort is normal. Breath sounds: Normal breath sounds. Abdominal: General: Bowel sounds are normal. There is no distension. Palpations: Abdomen is soft. There is no mass. Tenderness: There is no abdominal tenderness. There is no guarding or rebound. Hernia: No hernia is present. Musculoskeletal: General: No swelling. Skin: General: Skin is warm and dry. Coloration: Skin is not jaundiced. Neurological: Mental Status: She is alert. Mental status is at baseline. ASSESSMENT/PLAN: 56 y/o female with severe left sided ulcerative colitis with rectal bleeding. Her symptoms are severe and even develop iron deficiency anemia. She requires more aggressive therapy. Discussed options including biologics and immunomodulators. After discussion we have elected to pursue biologic therapies. Start workup, currently plan for Entyvio. Start prednisone taper while awaiting approval. Followup in 8 wks. 1. Left sided ulcerative colitis with rectal bleeding (HCC) - ICD9: 556.5, 569.3, ICD10: K51.511 (primary diagnosis) - CBC + DIFF - COMP METABOLIC PANEL - HEP ACUTE PANEL/RNA - BLOOD TB SCREEN - PREDNISONE 10 MG TABLET 2. Iron deficiency anemia, unspecified iron deficiency anemia type - ICD9: 280.9, ICD10: D50.9 - Continue followup with hematology for iron infusions Meghna Farah Jr. documented in this encounterC[facility]11-[facility]22 History of Present illness Narrative* SEN Harrington - 03/21/2022 3:20 PM EST Patient appears on the First Time Treatment List for a non-oncology treatment. No psychosocial assessment is indicated. STEVEN Harrington documented in this encounterC[facility]11-16-2022 History of Present illness Narrative* Elsie Ji RN - 03/14/2022 2:59 PM EST Patient does not want to come in next week due to thanksgiving, refer to phone encounter for details Elsie Ji RN documented in this encounterC[facility]11-07-2022 Miscellaneous Notes* Telephone Encounter - Summer Dixon - 03/05/2022 9:53 AM EST Pt scheduled Saturday (02/11) @ 1pm. Confirmed with pt. * Telephone Encounter - Summer Dixon - 03/05/2022 9:24 AM EST Called pt, no answer, LMOV. * Telephone Encounter - Lynnette Healy RN - 03/05/2022 9:21 AM EST PSS: please set pt up for Iron infusions per HM note. Thank you, Lynnette Healy RN * Telephone Encounter - Aggie Gamble APRN.CNP - 03/05/2022 8:55 AM EST Iron levels are low. Please set patient up for IV iron. Aggie Gamble APRN.APPRAISER PERSONAL PROPERTY * Telephone Encounter - Lynnette Healy RN - 03/05/2022 8:10 AM EST CYNTHIA: please review iron studies and advise Lynnette Healy RN * Telephone Encounter - Billie Kennedy RN - 03/02/2022 4:35 PM EDT Per PSS-Dr. Win visit disposition on 03/02/22, triage to call patient with iron study results. Billie Kennedy RN documented in this encounterC[facility]11-04-2022 Instructions* Patient Instructions* Don Boudreaux MD - 03/02/2022 4:02 PM EDT Second opinion GI for Colitis - Dr. Farah please Call results of iron studies on Saturday - to decide on iron infusion Triage to call please RTC in 4-5 weeks Labs a few days preceding. documented in this encounterC[facility]11-04-2022 History of Present illness Narrative* Don Boudreaux MD - 03/02/2022 3:59 PM EDT Images from the original note were not included. NAME: Ludivina Lomas CLINIC NO.: [id number] DATE OF SERVICE: March 02, 2022 Referring Provider: Art Chu Consultation requested by Dr. Chu for an opinion regarding Ms. Ludivina Lomas, and my final recommendations will be communicated back to the requesting physician by way of shared medical record orletter via US mail. Additional Clinicians involved in Ludivina Lomas's care: DIAGNOSIS: 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 ASSESSMENT: 56 year old woman with a history of colitis and chronic gi blood loss. PLAN: Second opinion GI for Colitis - Dr. Farah please Call results of iron studies on Saturday - to decide on iron infusion Triage to call please RTC in 4-5 weeks Labs a few days preceding. HPI: CASE HISTORY: Revers chronologic disorder. 05/09/2021 - Hgb 12.4, Ferritin . 11/2021 - C-Diff colitis. 11/2021 - started Moujarno September 2021 persisting colitis following a round of diarrhea and emesis. Chronic colitis - mild and under control for many years 1989 - Dx'd Kaur-colitis Initial Visit, March 02, 2022: Ludivina Lomas presents today Hematology and Oncology evaluation. She is a 56 year old female who has a long history of colitis and GI blood loss. She's not able t tolerate oral iron. Feels exhausted and is very frustrated with the bleeding. Mesalamine is often in the stools. REVIEW OF SYSTEMS Per HPI and otherwise negative by full review of organ systems. ECOG PERFORMANCE STATUS: 0 PHYSICAL EXAMINATION: Vitals: BP 149/93 Pulse 99 Temp (Src) 97.6 (Temporal) Resp 16 Ht 5' 1.654 [Verified no shoes[ (1.57m) Wt 198 lb (89.8kg) SpO2 97% BMI 36.62 kg/(m^2). Body surface area is 1.98 meters squared. Exam limited to gross visualization where appropriate due to COVID-19. Gen.: This is an age-appropriate patient in no acute distress. Head: Appears atraumatic with no visible lesions. Eyes: Pupils equally round and reactive to light, extraocular muscles are intact. Neck: Supple. Mouth: Masked. Respiratory: Appears to be respiring comfortably. Neurologic: Nonfocal to gross visualization. Alert and oriented 3. Psychiatric: No evidence of inappropriate anxiety or depression. Skin: Visible areas of skin without rash, lesions, wounds or petechiae. ALLERGIES: ALLERGIES No Known Allergies MEDICATIONS: losartan (COZAAR) 25 mg tablet Take 25 mg by mouth once daily. mesalamine ER (APRISO) 0.375 gram capsule TAKE 4 CAPSULES BY MOUTH EVERY MORNING tolterodine ER (DETROL LA) 4 mg 24 hr capsule Take 4 mg by mouth once daily. MESALAMINE RECTAL by RECTAL route. LABORATORY VALUES: WBC (k/uL) Date Value 03/02/2022 6.75 RBC (m/uL) Date Value 03/02/2022 4.70 Hemoglobin (g/dL) Date Value 03/02/2022 11.9 Hematocrit (%) Date Value 03/02/2022 38.7 MCV (fL) Date Value 03/02/2022 82.3 MCH (pg) Date Value 03/02/2022 25.3 (L) MCHC (g/dL) Date Value 03/02/2022 30.7 RDW-CV (%) Date Value 03/02/2022 15.5 (H) Platelet Count (k/uL) Date Value 03/02/2022 311 MPV (fL) Date Value 03/02/2022 8.8 (L) Glucose (mg/dL) Date Value 03/02/2022 113 (H) BUN (mg/dL) Date Value 03/02/2022 20 Creatinine (mg/dL) Date Value 03/02/2022 0.61 Sodium (mmol/L) Date Value 03/02/2022 140 Potassium (mmol/L) Date Value 03/02/2022 3.9 Chloride (mmol/L) Date Value 03/02/2022 103 CO2 (mmol/L) Date Value 03/02/2022 28 Protein, Total (g/dL) Date Value 03/02/2022 7.0 Albumin (g/dL) Date Value 03/02/2022 4.2 Calcium, Total (mg/dL) Date Value 03/02/2022 9.8 Alkaline Phosphatase (U/L) Date Value 03/02/2022 80 Bilirubin, Total (mg/dL) Date Value 03/02/2022 0.3 AST (U/L) Date Value 03/02/2022 23 ALT (U/L) Date Value 03/02/2022 30 DIAGNOSIS: (D50.9) Iron deficiency anemia, unspecified iron deficiency anemia type (primary encounter diagnosis) Plan: CBC + DIFF, COMP METABOLIC PANEL, IRON + TIBC, FERRITIN BLD, VITAMIN B12 BLOOD, FOLATE SERUM, CONSULT TO GASTROENTEROLOGY (K52.9) Colitis Plan: CBC + DIFF, COMP METABOLIC PANEL, IRON + TIBC, FERRITIN BLD, VITAMIN B12 BLOOD, FOLATE SERUM, CONSULT TO GASTROENTEROLOGY PAST MEDICAL HISTORY Diagnosis Date Anemia Diarrheal disease Elevated LFTs GERD (gastroesophageal reflux disease) Hyperglycemia Hypertension Overactive bladder Skin tags, multiple acquired Ulcerative colitis (HCC) PAST SURGICAL HISTORY Procedure Laterality Date PAST SURGICAL HISTORY OF right ovary removed TUBAL LIGATION, VAGINAL HYSTERECTOMY 2015 Social History Tobacco Use Smoking status: Never Smokeless tobacco: Never Vaping Use Vaping Use: Never used Substance Use Topics Alcohol use: Not Currently Comment: rarely Drug use: Never FAMILY HISTORY Problem Relation Age of Onset Diabetes Mother Heart disease Mother Hypertension Mother Liver Cancer Mother Coronary Artery Disease Father Diabetes Maternal Grandmother Diabetes Maternal Grandfather Colon Cancer Maternal Grandfather Colon Cancer Maternal Aunt I spent a total of 40 minutes on the date of the service which included preparing to see the patient, [id number] patient care, completing clinical documentation, obtaining and/or reviewing separately obtained history, performing a medically appropriate examination, counseling and educating the pat ient/family/caregiver, ordering medications, tests, or procedures, and independently interpreting results (not separately reported). Don Boudreaux MD, CPE Hematology and Oncology Services Provided at: [place], [place] CC: SELF Art Chu MD [address] [place] [phone] [facility]* Encounter Date Diagnosis Assessment Notes Treatment Notes Treatment Clinical Notes Feb, Acute sinusitis, recurrence not specified, unspecified location (ICD-10 - J01.90) Sinusitis home care material was printed Drink plenty fluids, get plenty of rest. Take the amoxicillin with clavulanate and prednisone as prescribed until gone. Use the Flonase inhaler as prescribed until your symptoms improve. Take the Tessalon Perles as prescribed as needed for cough. Follow-up with your family physician if no improvement in 2 to 3 days. [facility] Other 11-01-2022 Miscellaneous Notes* Telephone Encounter - Don Boudreaux MD - 02/27/2022 4:54 PM EDT Yes would be helpful to have them. * Telephone Encounter - Surjit Mehta - 02/27/2022 10:57 AM EDT Patient coming in on 03/02 for a new patient anemia. Would you like labs prior to seeing them? [facility] Diagnosis Iron deficiency anemia, unspecified iron deficiency anemia type- Primary [facility] Diagnosis Iron deficiency anemia, unspecified iron deficiency anemia type- Primary Colitis Other and unspecified noninfectious gastroenteritis and colitis [facility] Diagnosis Iron deficiency anemia, unspecified iron deficiency anemia type- Primary Iron deficiency anemia due to chronic blood loss Iron deficiency anemia secondary to blood loss (chronic) [facility] Diagnosis Left sided ulcerative colitis with rectal bleeding (HCC)- Primary Iron deficiency anemia, unspecified iron deficiency anemia type [facility] Other ulcerative colitis with rectal bleeding (HCC) [facility] Diagnosis Iron deficiency anemia, unspecified iron deficiency anemia type- Primary Colitis Other and unspecified noninfectious gastroenteritis and colitis Iron deficiency anemia due to chronic blood loss Iron deficiency anemia secondary to blood loss (chronic) [facility] Diagnosis Iron deficiency anemia, unspecified iron deficiency anemia type- Primary Iron deficiency anemia due to chronic blood loss Iron deficiency anemia secondary to blood loss (chronic) documented in this encounter [facility] note* Diagnosis Left sided ulcerative colitis with rectal bleeding (HCC) documented in this encounter [facility] note* Diagnosis Left sided ulcerative colitis with rectal bleeding (HCC)- Primary Iron deficiency anemia, unspecified iron deficiency anemia type Iron deficiency anemia due to chronic blood loss Iron deficiency anemia secondary to blood loss (chronic) documented in this encounter [facility] note* Diagnosis Other ulcerative colitis with rectal bleeding (HCC)- Primary Iron deficiency anemia, unspecified iron deficiency anemia type documented in this encounter [facility] note* Diagnosis Iron deficiency anemia, unspecified iron deficiency anemia type- Primary Subacute cough Cough Colitis Other and unspecified noninfectious gastroenteritis and colitis documented in this encounter [facility] note* Diagnosis Other ulcerative colitis with rectal bleeding (HCC)- Primary documented in this encounter [facility] note* Diagnosis Ulcerative colitis with rectal bleeding, unspecified location (HCC)- Primary documented in this encounter [facility] note* Diagnosis Other ulcerative colitis with rectal bleeding (HCC)- Primary documented in this encounter [facility] note* Diagnosis Iron deficiency anemia, unspecified iron deficiency anemia type- Primary Snoring Other dyspnea and respiratory abnormality Daytime somnolence Hypersomnia, unspecified Secondary polycythemia Polycythemia, secondary Other ulcerative colitis with rectal bleeding (HCC) documented in this encounter [facility] note* Diagnosis Other ulcerative colitis with rectal bleeding (HCC)- Primary documented in this encounter [facility] note* Diagnosis Other ulcerative colitis with rectal bleeding (HCC)- Primary documented in this encounter [facility] note* Diagnosis Other ulcerative colitis with rectal bleeding (HCC)- Primary documented in this encounter [facility] note* Diagnosis Secondary polycythemia- Primary Polycythemia, secondary Iron deficiency anemia, unspecified iron deficiency anemia type Other ulcerative colitis with rectal bleeding (HCC) Daytime somnolence Hypersomnia, unspecified Snoring Other dyspnea and respiratory abnormality documented in this encounter [facility] note* Diagnosis Ulcerative colitis without complications, unspecified location (HCC)- Primary documented in this encounter [facility] noteNo assessment information availableBlanchard [facility] Work Phone: [facility] noteNo InformationNort [employer] Other Evaluation note* Diagnosis Other ulcerative colitis with rectal bleeding (HCC)- Primary documented in this encounter [facility] note* Diagnosis Secondary polycythemia- Primary Polycythemia, secondary Iron deficiency anemia, unspecified iron deficiency anemia type Other ulcerative colitis with rectal bleeding (HCC) Daytime somnolence Hypersomnia, unspecified Snoring Other dyspnea and respiratory abnormality documented in this encounter [facility] note* Diagnosis Other ulcerative colitis with rectal bleeding (HCC)- Primary documented in this encounter [facility] general Narrative - Reported* Type Description Date Medical History colitis Medical History ovarian cysts Medical History diabetic Medical History Fatty liver disease Medical History Hypertension Surgical History tubal ligation Surgical History oophorectomy Surgical History hysterectomy Hospitalization History see above Hospitalization History V-mprk-wsfleq hetal 11/28 2 [facility] N[facility]ative - Reported* Type Description Date Medical History colitis Medical History ovarian cysts Medical History diabetic Medical History Fatty liver disease Medical History Hypertension Surgical History Problem Title : acti ve, current, or last procedure performed, Problem Description : active, current, or last procedure performed, Problem Comment : Shave Removal, Problem Status : Active, Surgical History Problem Title : Blad shaw Scan, Problem Comment : 2017, Problem Status : Active, Surgical History Problem Title : Ooph orectomy; Unilateral, Problem Status : Active, Attribute Title : Right, Surgical History Problem Title : past surgical history reviewed, Problem Description : past surgical history reviewed, Problem Comment : reviewed - no changes required, Problem Status : Active, Surgical History Problem Title : surg ical procedures, hx of, Problem Description : surgical procedures, hx of, Problem Comment : R oophorectomy and fallopain tube 2000 WILFRIDO/BSO 09/2015 - laparoscopic, Problem Status : Active, Surgical History Problem Title : surg ical procedures, hx of, Problem Description : surgical procedures, hx of, Problem Comment : R oophorectomy and fallopain tube 2000, Problem Status : Active, Surgical History Problem Title : surg ical procedures, hx of, Problem Description : surgical procedures, hx of, Problem Comment : R oophorectomy and fallopain tube 2000 WILFRIDO/BSO 09/2015, Problem Status : Active, Surgical History Problem Title : Tuba l Ligation, Problem Status : Active, Surgical History 1: Problem Title : H ysterectomy (not due to cancer) - Complete, Problem Comment : 10/17/15 Robotic Hysterectomy, Left Salpingectomy, Adhesolysis, Cystography, Internal [place] Culdoplasty and Uterosacral Bjzrcevbqs-Cycf-tuwdkp Uterus, Cervix, Left Surgical History 2: Fallopian Tube; I ndication-AUB, Fibroids, Pelvic Pain, Problem Status : Active, Hospitalization History see above Hospitalization History V-mjxm-fkxusx hetal 11/28 2 50 [facility] Other Reason for Referral Reason *Waiting for appt L lateral calf tenderness. 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) Referral Organization [facility] Referring Provider First Name Art Referring Provider Last Name Kimberley Referring Provider Specialty Family [facility] cine Referred Organization [facility] Vascular Surge ons [facility] Referred Provider Guerrero Snell Referred Address [address],[id number] Referred Provider Specialty Vascular Trista courtney Referral Priority Routine General Notes Sumaya Horn 04:30:56 PM received today, sent P2P Specialty Diagnoses / Procedures Referred By Lori desir Referred To Contact Diagnoses Snoring Daytime somnolence Secondary polycythemia Procedures CONSULT TO SLEEP MEDICINE - ADULT OFFICE/OUTPATIENT [facility] 60-74 MINUTES Don Boudreaux MD [address] [place] [address] [place] [address] Referral ID Status Reason Start Date Expiration Date Visits Requested Visits Authorized [id number] Pending Review PCP Requested Referral 06/21/2022 06/21/2023 1 1 Specialty Diagnoses / Procedures Referred By Lori desir Referred To Contact Gastroenterology Diagnoses Iron deficiency anemia, unspecified iron deficiency anemia type Colitis Procedures CONSULT TO GASTROENTEROLOGY OFFICE/OUTPATIENT [facility] 60-74 MINUTES Don Boudreaux MD [address] [place] [address] [place] [address] Referral ID Status Reason Start Date Expiration Date Visits Requested Visits Authorized [id number] Authorized PCP Requested Referral 03/02/2022 03/02/2023 1 1 Summary Purpose Family History No Family History Records FoundNo Family History Records FoundNo Family History Records FoundNo Family History Records FoundNo Family History Records Found Advance Directives Advance Directive Response Recorded Date/ Time Advance Directives No February 17, 2020 1:43pm Advance Directive Response Recorded Date/ Time Advance Directives No February 17, 2020 12:43pm Medications Administered Section Inactive Administered Medications - up to 3 most recent administrations Medication Order MAR Action Action Date Dose Rate Site iron sucrose 300 mg in NaCl 0.9% 250 mL (VENOFER) 300 mg, INTRAVENOUS, at 166.67 mL/hr, Administer over 90 Minutes, ONCE, 1 dose, On Sat03/14/22 at 1330, Please conduct a 30 minute post dose observation. New Bag/Syringe/Bottle 03/14/2022 1:20 PM EST 300 mg 166.67 mL/hr Inactive Administered Medications - up to 3 most recent administrations Medication Order MAR Action Action Date Dose Rate Site iron sucrose 300 mg in NaCl 0.9% 250 mL (VENOFER) 300 mg, INTRAVENOUS, at 166.67 mL/hr, Administer over 90 Minutes, ONCE, 1 dose, On Sat03/29/22 at 1400, Please conduct a 30 minute post dose observation. New Bag/Syringe/Bottle 03/29/2022 1:48 PM EST 300 mg 166.67 mL/hr Inactive Administered Medications - up to 3 most recent administrations Medication Order MAR Action Action Date Dose Rate Site iron sucrose 300 mg in NaCl 0.9% 250 mL (VENOFER) 300 mg, INTRAVENOUS, at 166.67 mL/hr, Administer over 90 Minutes, ONCE, 1 dose, On Sat04/06/22 at 0930, Please conduct a 30 minute post dose observation. New Bag/Syringe/Bottle 04/06/2022 9:50 AM EST 300 mg 166.67 mL/hr Inactive Administered Medications - up to 3 most recent administrations Medication Order MAR Action Action Date Dose Rate Site iron sucrose 300 mg in NaCl 0.9% 250 mL (VENOFER) 300 mg, INTRAVENOUS, at 166.67 mL/hr, Administer over 90 Minutes, ONCE, 1 dose, On Sat04/13/22 at 1030, Please conduct a 30 minute post dose observation. New Bag/Syringe/Bottle 04/13/2022 10:13 AM EST 300 mg 166.67 mL/hr Inactive Administered Medications - up to 3 most recent administrations Medication Order MAR Action Action Date Dose Rate Site acetaminophen 650 mg tab(s) (TYLENOL) 650 mg, ORAL, ONCE, 1 dose, On Sat05/04/22 at 1530, If ordered PRN for pain, patient/guardian may elect to receive this medication for higher pain levels INSTEAD of the opioid, if preferred: N/A Given 05/04/2022 3:28 PM EST 650 mg diphenhydrAMINE 25 mg (BENADRYL) 25 mg, ORAL, ONCE, 1 dose, On Sat05/04/22 at 1530 Given 05/04/2022 3:28 PM EST 25 mg vedolizumab 300 mg in NaCl 0.9% 250 mL (ENTYVIO) 300 mg, INTRAVENOUS, Administer over 30 Minutes, ONCE, 1 dose, On Sat05/04/22 at 1530, Approx Total Volume: 280 mL After the infusion is complete flush with 30 mL of sterile 0.9% Sodium Chloride Injection. EXP: 05/05/22 0330 RT Refrigerate. EXP: (24 HR) New Bag/Syringe/Bottle 05/04/2022 3:36 PM EST 300 mg Inactive Administered Medications - up to 3 most recent administrations Medication Order MAR Action Action Date Dose Rate Site acetaminophen 650 mg tab(s) (TYLENOL) 650 mg, ORAL, ONCE, 1 dose, On Sat05/18/22 at 1400, If ordered PRN for pain, patient/guardian may elect to receive this medication for higher pain levels INSTEAD of the opioid, if preferred: N/A Given 05/18/2022 2:04 PM EST 650 mg diphenhydrAMINE 25 mg (BENADRYL) 25 mg, ORAL, ONCE, 1 dose, On Sat05/18/22 at 1400 Given 05/18/2022 2:04 PM EST 25 mg vedolizumab 300 mg in NaCl 0.9% 250 mL (ENTYVIO) 300 mg, INTRAVENOUS, Administer over 30 Minutes, ONCE, 1 dose, On Sat05/18/22 at 1400, Approx Total Volume: 0200 05/19/22 After the infusion is complete flush with 30 mL of sterile 0.9% Sodium Chloride Injection. Refrigerate. EXP: (24 HR) New Bag/Syringe/Bottle 05/18/2022 2:15 PM EST 300 mg Inactive Administered Medications - up to 3 most recent administrations Medication Order MAR Action Action Date Dose Rate Site acetaminophen 650 mg tab(s) (TYLENOL) 650 mg, ORAL, ONCE, 1 dose, On Sat06/29/22 at 1400, If ordered PRN for pain, patient/guardian may elect to receive this medication for higher pain levels INSTEAD of the opioid, if preferred: N/A Given 06/29/2022 2:09 PM EST 650 mg diphenhydrAMINE 25 mg (BENADRYL) 25 mg, ORAL, ONCE, 1 dose, On Sat06/29/22 at 1400 Given 06/29/2022 2:09 PM EST 25 mg vedolizumab 300 mg in NaCl 0.9% 250 mL (ENTYVIO) 300 mg, INTRAVENOUS, Administer over 30 Minutes, ONCE, 1 dose, On Sat06/29/22 at 1400, Approx Total Volume: 280 mL After the infusion is complete flush with 30 mL of sterile 0.9% Sodium Chloride Injection. EXP 1400 06/30/22 Refrigerate. EXP: (24 HR) New Bag/Syringe/Bottle 06/29/2022 2:28 PM EST 300 mg Inactive Administered Medications - up to 3 most recent administrations Medication Order MAR Action Action Date Dose Rate Site vedolizumab 300 mg in NaCl 0.9% 250 mL (ENTYVIO) 300 mg, INTRAVENOUS, Administer over 30 Minutes, ONCE, 1 dose, On Sat08/24/22 at 1400, Approx Total Volume: 280 mL After the infusion is complete flush with 30 mL of sterile 0.9% Sodium Chloride Injection. EXP: 0200 08/25/22 Refrigerate. EXP: (24 HR) New Bag/Syringe/Bottle 08/24/2022 2:15 PM EDT 300 mg Inactive Administered Medications - up to 3 most recent administrations Medication Order MAR Action Action Date Dose Rate Site vedolizumab 300 mg in NaCl 0.9% 250 mL (ENTYVIO) 300 mg, INTRAVENOUS, Administer over 30 Minutes, ONCE, 1 dose, On Sat10/19/22 at 1430, Approx Total Volume: 280 mL After the infusion is complete flush with 30 mL of sterile 0.9% Sodium Chloride Injection. EXP: 10/20/22 1400 Refrigerate. EXP: (24 HR) New Bag/Syringe/Bottle 10/19/2022 2:21 PM EDT 300 mg Inactive Administered Medications - up to 3 most recent administrations Medication Order MAR Action Action Date Dose Rate Site vedolizumab 300 mg in NaCl 0.9% 250 mL (ENTYVIO) 300 mg, INTRAVENOUS, Administer over 30 Minutes, ONCE, 1 dose, On Sat02/08/23 at 1400, Approx Total Volume: 280 mL After the infusion is complete flush with 30 mL of sterile 0.9% Sodium Chloride Injection. Refrigerate. EXP: (24 HR) New Bag/Syringe/Bottle 02/08/2023 2:11 PM EDT 300 mg Inactive Administered Medications - up to 3 most recent administrations Medication Order MAR Action Action Date Dose Rate Site vedolizumab 300 mg in NaCl 0.9% 250 mL (ENTYVIO) 300 mg, INTRAVENOUS, Administer over 30 Minutes, ONCE, 1 dose, On Sat04/05/23 at 1100, Approx Total Volume: 280 mL After the infusion is complete flush with 30 mL of sterile 0.9% Sodium Chloride Injection. EXP 1100 04/06/23 Refrigerate. EXP: (24 HR) New Bag/Syringe/Bottle 04/05/2023 11:16 AM EST 300 mg Chief Complaint and Reason for Visit Chief Complaint r40.0 r06.83 d75.1 Chief Complaint r40.0 r06.83 d75.1 I83.813 Chief Complaint r40.0 r06.83 d75.1 I83.813 psg-poss split Additional Source Comments Source Comments (unrecognize d section and content) In the event this informatio n is protected by the Federal Confidentiality of Alcohol and Drug Abuse Patient Records regulations: The Federal rules restrict any use of the information to criminally investigate or prosecute any alcohol or drug abuse patient.[facility] the event this information is protected by the Federal Confidentiality of Alcohol and Drug Abuse Patient Records regulations: The Federal rules restrict any use of the information to criminally investigate or prosecute any alcohol or drug abuse patient.[facility] GeneralIn the event this information is protected by the Federal Confidentiality of Alcohol and Drug Abuse Patient Records regulations: The Federal rules restrict any use of the information to criminally investigate or prosecute any alcohol or drug abuse patient.[facility] the event this information is protected by the Federal Confidentiality of Alcohol and Drug Abuse Patient Records regulations: The Federal rules restrict any use of the information to criminally investigate or prosecute any alcohol or drug abuse patient.[facility] the event this information is protected by the Federal Confidentiality of Alcohol and Drug Abuse Patient Records regulations: The Federal rules restrict any use of the information to criminally investigate or prosecute any alcohol or drug abuse patient.[facility] the event this information is protected by the Federal Confidentiality of Alcohol and Drug Abuse Patient Records regulations: The Federal rules restrict any use of the information to criminally investigate or prosecute any alcohol or drug abuse patient.[facility] General[facility] the event this information is protected by the Federal Confidentiality of Alcohol and Drug Abuse Patient Records regulations: The Federal rules restrict any use of the information to criminally investigate or prosecute any alcohol or drug abuse patient.[facility] GeneralIn the event this information is protected by the Federal Confidentiality of Alcohol and Drug Abuse Patient Records regulations: The Federal rules restrict any use of the information to criminally investigate or prosecute any alcohol or drug abuse patient.[facility] GeneralIn the event this information is protected by the Federal Confidentiality of Alcohol and Drug Abuse Patient Records regulations: The Federal rules restrict any use of the information to criminally investigate or prosecute any alcohol or drug abuse patient.[facility] General[facility] the event this information is protected by the Federal Confidentiality of Alcohol and Drug Abuse Patient Records regulations: The Federal rules restrict any use of the information to criminally investigate or prosecute any alcohol or drug abuse patient.[facility] GeneralIn the event this information is protected by the Federal Confidentiality of Alcohol and Drug Abuse Patient Records regulations: The Federal rules restrict any use of the information to criminally investigate or prosecute any alcohol or drug abuse patient.[facility] GeneralIn the event this information is protected by the Federal Confidentiality of Alcohol and Drug Abuse Patient Records regulations: The Federal rules restrict any use of the information to criminally investigate or prosecute any alcohol or drug abuse patient.[facility] GeneralIn the event this information is protected by the Federal Confidentiality of Alcohol and Drug Abuse Patient Records regulations: The Federal rules restrict any use of the information to criminally investigate or prosecute any alcohol or drug abuse patient.[facility] GeneralIn the event this information is protected by the Federal Confidentiality of Alcohol and Drug Abuse Patient Records regulations: The Federal rules restrict any use of the information to criminally investigate or prosecute any alcohol or drug abuse patient.[facility] GeneralIn the event this information is protected by the Federal Confidentiality of Alcohol and Drug Abuse Patient Records regulations: The Federal rules restrict any use of the information to criminally investigate or prosecute any alcohol or drug abuse patient.[facility] GeneralIn the event this information is protected by the Federal Confidentiality of Alcohol and Drug Abuse Patient Records regulations: The Federal rules restrict any use of the information to criminally investigate or prosecute any alcohol or drug abuse patient.[facility] GeneralIn the event this information is protected by the Federal Confidentiality of Alcohol and Drug Abuse Patient Records regulations: The Federal rules restrict any use of the information to criminally investigate or prosecute any alcohol or drug abuse patient.[facility] GeneralIn the event this information is protected by the Federal Confidentiality of Alcohol and Drug Abuse Patient Records regulations: The Federal rules restrict any use of the information to criminally investigate or prosecute any alcohol or drug abuse patient.[facility] GeneralIn the event this information is protected by the Federal Confidentiality of Alcohol and Drug Abuse Patient Records regulations: The Federal rules restrict any use of the information to criminally investigate or prosecute any alcohol or drug abuse patient.[facility] GeneralIn the event this information is protected by the Federal Confidentiality of Alcohol and Drug Abuse Patient Records regulations: The Federal rules restrict any use of the information to criminally investigate or prosecute any alcohol or drug abuse patient.[facility] GeneralIn the event this information is protected by the Federal Confidentiality of Alcohol and Drug Abuse Patient Records regulations: The Federal rules restrict any use of the information to criminally investigate or prosecute any alcohol or drug abuse patient.[facility] General[facility] the event this information is protected by the Federal Confidentiality of Alcohol and Drug Abuse Patient Records regulations: The Federal rules restrict any use of the information to criminally investigate or prosecute any alcohol or drug abuse patient.[facility] General[facility] the event this information is protected by the Federal Confidentiality of Alcohol and Drug Abuse Patient Records regulations: The Federal rules restrict any use of the information to criminally investigate or prosecute any alcohol or drug abuse patient.[facility] GeneralIn the event this information is protected by the Federal Confidentiality of Alcohol and Drug Abuse Patient Records regulations: The Federal rules restrict any use of the information to criminally investigate or prosecute any alcohol or drug abuse patient.[facility] GeneralIn the event this information is protected by the Federal Confidentiality of Alcohol and Drug Abuse Patient Records regulations: The Federal rules restrict any use of the information to criminally investigate or prosecute any alcohol or drug abuse patient.[facility] GeneralIn the event this information is protected by the Federal Confidentiality of Alcohol and Drug Abuse Patient Records regulations: The Federal rules restrict any use of the information to criminally investigate or prosecute any alcohol or drug abuse patient.[facility] GeneralIn the event this information is protected by the Federal Confidentiality of Alcohol and Drug Abuse Patient Records regulations: The Federal rules restrict any use of the information to criminally investigate or prosecute any alcohol or drug abuse patient.[facility] GeneralIn the event this information is protected by the Federal Confidentiality of Alcohol and Drug Abuse Patient Records regulations: The Federal rules restrict any use of the information to criminally investigate or prosecute any alcohol or drug abuse patient.[facility] GeneralIn the event this information is protected by the Federal Confidentiality of Alcohol and Drug Abuse Patient Records regulations: The Federal rules restrict any use of the information to criminally investigate or prosecute any alcohol or drug abuse patient.[facility] GeneralIn the event this information is protected by the Federal Confidentiality of Alcohol and Drug Abuse Patient Records regulations: The Federal rules restrict any use of the information to criminally investigate or prosecute any alcohol or drug abuse patient.[facility] GeneralIn the event this information is protected by the Federal Confidentiality of Alcohol and Drug Abuse Patient Records regulations: The Federal rules restrict any use of the information to criminally investigate or prosecute any alcohol or drug abuse patient.[facility] GeneralIn the event this information is protected by the Federal Confidentiality of Alcohol and Drug Abuse Patient Records regulations: The Federal rules restrict any use of the information to criminally investigate or prosecute any alcohol or drug abuse patient.[facility] GeneralIn the event this information is protected by the Federal Confidentiality of Alcohol and Drug Abuse Patient Records regulations: The Federal rules restrict any use of the information to criminally investigate or prosecute any alcohol or drug abuse patient.[facility] GeneralIn the event this information is protected by the Federal Confidentiality of Alcohol and Drug Abuse Patient Records regulations: The Federal rules restrict any use of the information to criminally investigate or prosecute any alcohol or drug abuse patient.[facility] GeneralIn the event this information is protected by the Federal Confidentiality of Alcohol and Drug Abuse Patient Records regulations: The Federal rules restrict any use of the information to criminally investigate or prosecute any alcohol or drug abuse patient.[facility] GeneralIn the event this information is protected by the Federal Confidentiality of Alcohol and Drug Abuse Patient Records regulations: The Federal rules restrict any use of the information to criminally investigate or prosecute any alcohol or drug abuse patient.[facility] GeneralIn the event this information is protected by the Federal Confidentiality of Alcohol and Drug Abuse Patient Records regulations: The Federal rules restrict any use of the information to criminally investigate or prosecute any alcohol or drug abuse patient.[facility] GeneralIn the event this information is protected by the Federal Confidentiality of Alcohol and Drug Abuse Patient Records regulations: The Federal rules restrict any use of the information to criminally investigate or prosecute any alcohol or drug abuse patient.[facility] GeneralIn the event this information is protected by the Federal Confidentiality of Alcohol and Drug Abuse Patient Records regulations: The Federal rules restrict any use of the information to criminally investigate or prosecute any alcohol or drug abuse patient.[facility] GeneralIn the event this information is protected by the Federal Confidentiality of Alcohol and Drug Abuse Patient Records regulations: The Federal rules restrict any use of the information to criminally investigate or prosecute any alcohol or drug abuse patient.[facility] GeneralIn the event this information is protected by the Federal Confidentiality of Alcohol and Drug Abuse Patient Records regulations: The Federal rules restrict any use of the information to criminally investigate or prosecute any alcohol or drug abuse patient.[facility] Reason for Visit (unrecogniz ed section and content) Reason Comments Anemia Specialty Diagnoses / Procedures Referred By Contac t Referred To Contact Diagnoses Iron deficiency anemia due to chronic blood loss Iron deficiency anemia, unspecified iron deficiency anemia type Procedures IRON SUCROSE INJECTION PER 1 MG Don Boudreaux MD [facility] [place] [address] [address] Treat [place] [place] [address] Referral ID Status Reason Start Date Expiration Date V isits Requested Visits Authorized [id number] Closed Patient Cleared - Qualified 100% FAS 05/18/2022 08/16/2022 99 99 Reason Comments Lab Orders Specialty Diagnoses / Procedures Referred By Contac t Referred To Contact Hematology/Oncology / HEMATOLOGY/ONCOLOGY Diagnoses Encounter for follow-up examination after completed treatment for conditions other than malignant neoplasm Referred by Dr Art Chu DX: anemia-iron deficiency Procedures OFFICE/OUTPATIENT NEW MODERATE MDM 45-59 MINUTES NEW PATIENT MED ONC Self Don Boudreaux MD [address] [place] [address] Referral ID Status Reason Start Date Expiration Date Visits Re quested Visits Authorized [id number] Closed 03/02/2022 04/28/2022 1 1 Reason Comments Results Referral ID Status Reason Start Date Expiration Date V isits Requested Visits Authorized [id number] Authorized 03/04/2022 04/28/2022 99 99 Reason Comments Colitis Specialty Diagnoses / Procedures Referred By Contac t Referred To Contact Gastroenterology Diagnoses Iron deficiency anemia, unspecified iron deficiency anemia type Colitis Procedures CONSULT TO GASTROENTEROLOGY OFFICE/OUTPATIENT [facility] MDM 60-74 MINUTES Don Boudreaux MD [address] [place] [address] [place] [address] Referral ID Status Reason Start Date Expiration Date V isits Requested Visits Authorized [id number] Closed PCP Requested Referral 03/02/2022 03/02/2023 1 1 Reason Comments Patient Update Needs Enytvio starte d Reason Comments Patient Update Reason Onset Date Comments Lab Orders 04/18/2022 Reason Comments Appointment Specialty Diagnoses / Procedures Referred By Contac t Referred To Contact Diagnoses Other ulcerative colitis with rectal bleeding (HCC) Procedures INJECTION, VEDOLIZUMAB Meghna Farah Jr., DO [address] [place] [address] Glenn Treat [place] [address] [place] [address] Referral ID Status Reason Start Date Expiration Date V isits Requested Visits Authorized [id number] Pending Peer to Peer Review 03/27/2022 06/25/2022 1 1 Reason Comments FMLA Paperwork Reason Comments Anemia Specialty Diagnoses / Procedures Referred By Contac t Referred To Contact Hematology/Oncology / HEMATOLOGY/ONCOLOGY Diagnoses Follow-up examination 4-5 week follow up lab-patient needs late appt due to work schedule Procedures OFFICE/OUTPATIENT ESTABLISHED MOD MDM 30-39 MIN EST PATIENT Don Boudreaux MD [address] [place] [address] [place] [address] Don Boudreaux MD [address] [place] [address] [place] [address] Referral ID Status Reason Start Date Expiration Date Visits Re quested Visits Authorized [id number] Closed 05/10/2022 04/28/2023 1 1 Reason Comments Follow Up Specialty Diagnoses / Procedures Referred By Contact Referred To Contact Gastroenterology / GASTROENTEROLOGY Diagnoses Follow-up examination 8 week follow up Procedures OFFICE/OUTPATIENT ESTABLISHED MOD MDM 30-39 MIN EST DDI PATIENT Meghna Farah Jr., [address] [address] BenMeghna nunez Jr., [address] [address] Referral ID Status Reason Start Date Expiration Date Visits Re quested Visits Authorized [id number] Closed 05/29/2022 08/27/2022 1 0 Reason Comments Erroneous encounter-disregard Reason Comments Medication Follow-up Entyvio appeal stat Referral ID Status Reason Start Date Expiration Date V isits Requested Visits Authorized [id number] Authorized 03/27/2022 10/26/2022 99 99 Reason Comments F/U 3 Month Reason Onset Date Comments Refill Request 10/10/2022 Referral ID Status Reason Start Date Expiration Date Visits Re quested Visits Authorized [id number] Denied 03/27/2022 10/26/2022 99 0 Specialty Diagnoses / Procedures Referred By Contac t Referred To Contact Hematology/Oncology / HEMATOLOGY/ONCOLOGY Diagnoses 6 month follow up lab 1 weeek prior Entiviyo infusion after Procedures OFFICE/OUTPATIENT ESTABLISHED MOD MDM 30-39 MIN EST PATIENT Don Boudreaux MD [address] [place] [address] Don Boudreaux MD [address] [place] [address] [place] [address] Referral ID Status Reason Start Date Expiration Date Visits Re quested Visits Authorized [id number] Closed 12/14/2022 04/28/2023 1 1 Referral ID Status Reason Start Date Expiration Date V isits Requested Visits Authorized [id number] Appeal Pending 03/27/2022 10/26/2022 99 0 Reason Onset Date Comments Refill Request 03/01/2023 Refill Request 03/05/2023 Reason Comments FYI-No Action Needed Referral ID Status Reason Start Date Expiration Date V isits Requested Visits Authorized [id number] Authorized-R X 03/27/2022 04/28/2023 0 99 Reason Comments Art Therapy Referral ID Status Reason Start Date Expiration Date V isits Requested Visits Authorized [id number] Authorized-R X 05/04/2022 02/12/2024 99 99 Care Teams (unrecognized sec tion and content) Mine Car Repairer Relationship Specialty Start Date End Date Art Chu MD [address] [place] [facility] [place] [phone] PCP - General Family Medicine 02/02/13 [facility] [place] [address] [facility] [address] [place] [address] Referring 01/15/22 Mine Car Repairer Relationship Specialty Start Date End Date Art Chu MD [address] [place] [facility] [place] [phone] PCP - General Family Medicine 02/02/13 [facility] [address] [place] [address] [place] [address] Referring 01/15/22 Mine Car Repairer Relationship Specialty Start Date End Date Art Chu MD [address] [place] [facility] [place] [address] PCP - General Family Medicine 02/02/13 [facility] [address] [place] [address] Referring 01/15/22 Mine Car Repairer Relationship Specialty Start Date End Date Art Chu MD [address] [place] [facility] [place] [address] PCP - General Family Medicine 02/02/13 Mary, Zabala [address] [place] [address] Referring 01/15/22 Mine Car Repairer Relationship Specialty Start Date End Date Art Chu MD [address] [place] [facility] [place] [address] PCP - General Family Medicine 02/02/13 Greysondereck Zabala [address] [facility] [address] [place] [address] Referring 01/15/22 Mine Car Repairer Relationship Specialty Start Date End Date Art Chu MD [address] [place] [facility] [place] [address] PCP - General Family Medicine 02/02/13 Greyson Banner [address] [facility] [address] [place] [address] Referring 01/15/22 Mine Car Repairer Relationship Specialty Start Date End Date Art Chu MD [address] [place] [facility] [place] [address] PCP - General Family Medicine 02/02/13 Greyson Zabala [address] [place] [address] Referring 01/15/22 Mine Car Repairer Relationship Specialty Start Date End Date Art Chu MD [address] [place] [facility] [place] [address] PCP - General Family Medicine 02/02/13 Greyson Zabala [address] [place] [address] Referring 01/15/22 Mine Car Repairer Relationship Specialty Start Date End Date Art Chu MD [address] [place] [address] PCP - General Family Medicine 02/02/13 Vj Hernandez [address] [facility] [place] [address] Referring 01/15/22 Mine Car Repairer Relationship Specialty Start Date End Date Art Chu MD [address] [place] [address] PCP - General Family Medicine 02/02/13 Vj Hernandez [address] [place] [address] Referring 01/15/22 Mine Car Repairer Relationship Specialty Start Date End Date Art Chu MD [address] [place] [address] PCP - General Family Medicine 02/02/13 Vj Hernandez(Historical) [address] [place] [address] Referring 01/15/22 Mine Car Repairer Relationship Specialty Start Date End Date Art Chu MD [address] [place] [address] PCP - General Family Medicine 02/02/13 Vj Hernandez(Historical) [address] [place] [address] Referring 01/15/22 Mine Car Repairer Relationship Specialty Start Date End Date Art Chu MD [address] [place] [address] PCP - General Family Medicine 02/02/13 Vj Hernandez(Historical) [address] [place] [address] Referring 01/15/22 Mine Car Repairer Relationship Specialty Start Date End Date Art Chu MD [address] [place] [address] PCP - General Family Medicine 02/02/13 Vj Hernandez(Historical) [address] [place] [address] Referring 01/15/22 Mine Car Repairer Relationship Specialty Start Date End Date Art Chu MD [address] [place] [address] PCP - General Family Medicine 02/02/13 Vj Hernandez(Historical) [address] [place] [address] Referring 01/15/22 Mine Car Repairer Relationship Specialty Start Date End Date Art Chu MD [address] [place] [address] PCP - General Family Medicine 02/02/13 Vj Hernandez(Historical) [address] [place] [address] Referring 01/15/22 Mine Car Repairer Relationship Specialty Start Date End Date Art hCu MD [address] [place] [address] PCP - General Family Medicine 02/02/13 Vj Hernandez(Historical) [address] [place] [address] Referring 01/15/22 Mine Car Repairer Relationship Specialty Start Date End Date Art Chu MD [address] [place] [address] PCP - General Family Medicine 02/02/13 Vj Hernandez(Historical) [address] [place] [address] Referring 01/15/22 Mine Car Repairer Relationship Specialty Start Date End Date Art Chu MD [address] [place] [address] PCP - General Family Medicine 02/02/13 Vj Hernandez(Historical) [address] [place] [address] Referring 01/15/22 Mine Car Repairer Relationship Specialty Start Date End Date Art Chu MD [address] [place] [address] PCP - General Family Medicine 02/02/13 Vj Hernandez(Historical) [address] [place] [address] Referring 01/15/22 Mine Car Repairer Relationship Specialty Start Date End Date Art Chu MD [address] [place] [address] PCP - General Family Medicine 02/02/13 Vj Hernandez(Historical) [address] [place] [address] Referring 01/15/22 Mine Car Repairer Relationship Specialty Start Date End Date Art Chu MD [address] [place] [address] PCP - General Family Medicine 02/02/13 Vj Hernandez(Historical) [address] [place] [address] Referring 01/15/22 Mine Car Repairer Relationship Specialty Start Date End Date Art Chu MD [address] [place] [address] PCP - General Family Medicine 02/02/13 Vj Hernandez(Historical) [address] [place] [address] Referring 01/15/22 Mine Car Repairer Relationship Specialty Start Date End Date Art Chu MD [address] [place] [address] PCP - General Family Medicine 02/02/13 Vj Hernandez(Historical) [address] [facility] [place] [address] Referring 01/15/22 Mine Car Repairer Relationship Specialty Start Date End Date Art Chu MD [address] [facility] [address] PCP - General Family Medicine 02/02/13 Vj Hernandez(Historical) [address] [facility] [address] Referring 01/15/22 Mine Car Repairer Relationship Specialty Start Date End Date Art Chu MD [address] [facility] [address] PCP - General Family Medicine 02/02/13 Vj Hernandez(Historical) [address] [facility] [place] [address] Referring 01/15/22 Mine Car Repairer Relationship Specialty Start Date End Date Art Chu MD [address] [facility] [place] [address] PCP - General Family Medicine 02/02/13 Vj Hernandez(Historical) [address] [facility] [place] [address] Referring 01/15/22 Mine Car Repairer Relationship Specialty Start Date End Date Art Chu MD [address] [facility] [place] [address] PCP - General Family Medicine 02/02/13 Vj Hernandez(Historical) [address] [facility] [place] [address] Referring 01/15/22 Team Status: Active Member Role Status Dates Art Chu MD Primary Care Provider Active Team Status: Inactive Member Role Status Dates Art Chu MD Primary Care Provider Active Meghna Butler MD Attending Provider Active Dno Boudreaux MD Referring Provider Active Mine Car Repairer Relationship Specialty Start Date End Date Art Chu MD [address] [facility] [address] PCP - General Family Medicine 02/02/13 Vj Hernandez(Historical) [address] [place] [place] [address] Referring 01/15/22 Team Status: Inactive Member Role Status Dates Art Chu MD Primary Care Provider Active Cindi Pleitez [employer] DEVELOP[employer] MANAGERHerberthC Attending Provider Active Mine Car Repairer Relationship Specialty Start Date End Date Art Chu MD [address] [place] [place] [address] PCP - General Family Medicine 02/02/13 Vj Hernandez(Historical) [address] [place] [place] [address] Referring 01/15/22 Mine Car Repairer Relationship Specialty Start Date End Date Art Chu MD [address] [place] [facility] [place] [address] PCP - General Family Medicine 02/02/13 Vj Hernandez(Historical) [address] [place] [place] [address] Referring 01/15/22 Team Status: Inactive Member Role Status Dates Art Chu MD Primary Care Provider Active Meghna Butler MD Attending Provider Active Mine Car Repairer Relationship Specialty Start Date End Date Art Chu MD [address] [place] [place] [address] PCP - General Family Medicine 02/02/13 Vj Hernandez(Historical) [address] [place] [place] [address] Referring 01/15/22 Mine Car Repairer Relationship Specialty Start Date End Date Art Chu MD [address] [place] [place] [address] PCP - General Family Medicine 02/02/13 Vj Hernandez(Historical) [address] [place] [place] [address] Referring 01/15/22 Mine Car Repairer Relationship Specialty Start Date End Date Patrick Simms [address] [place] [address] PCP - General Family Medicine 05/13/23 INFORMATION SOURCE (unrecogn ized section and content) DATE CREATED AUTHOR 03/05/2022 [facility] DATE CREATED AUTHOR AUTHOR'S ORGANIZ ATION 01/31/2023 [facility] DATE CREATED AUTHOR AUTHOR'S ORGANIZ ATION 06/02/2023 [facility] DATE CREATED AUTHOR AUTHOR'S ORGANIZ ATION 06/06/2023 [facility] DATE CREATED AUTHOR AUTHOR'S ORGANIZ ATION 06/07/2023 [facility] Goals (unrecognized section and content) Goals may be documented in a n alternate section Inactive Administered Medications - up to 3 most recent administrations Administered Medications (un recognized section and content) Medication Order MAR Action Action Date Dose Rate Site vedolizumab 300 mg in NaCl 0.9% 250 mL (ENTYVIO) 300 mg, INTRAVENOUS, Administer over 30 Minutes, ONCE, 1 dose, On Sat05/31/23 at 1400, Approx Total Volume: 280 mL After the infusion is complete flush with 30 mL of sterile 0.9% Sodium Chloride Injection. EXP 1400 06/01/23 Refrigerate. EXP: (24 HR) New Bag/Syringe/Bottle 05/31/2023 2:15 PM EST 300 mg FOR RECORDS PERTAINING TO PATIENTS WHO ARE OR HAVE BEEN ENROLLED IN A CHEMICAL DEPENDENCY/SUBSTANCEABUSE PROGRAM, SOME INFORMATION MAY BE OMITTED. This clinical summary was aggregated from multiple sources. Caution should be exercised in using it in the provision of clinical care. This summary normalizes information from multiple sources, and as a consequence, information in this document may materially change the coding, format and clinical context of patient data. In addition, data may be omitted in some cases. CLINICAL DECISIONS SHOULD BE BASED ON THE PRIMARY CLINICAL RECORDS. [employer] provides no warranty or guarantee of the accuracy or completeness of information in this document.
[2023-06-08 09:52] LABS: Chol HDL Ratio 3.2; Cholesterol 200 mg/dL (<=200); HDL Cholesterol 63 mg/dL (40-60); Triglycerides 87 mg/dL (<=150); VLDL CHOLESTEROL 17.4 mg/dL
== END 2023-06-08 09:01 | disposition home or self-care (01) ==
LOC: LAB 09:02
DX: E11.9 Type 2 diabetes mellitus without complications (principal)
CPT/HCPCS: 36415; 80061

== ENCOUNTER 2023-07-31 15:28 | Outpatient (RCR) | payer OTHER, SELFPAY | END 2023-09-06 16:46 | disposition home or self-care (01) | LOC: PT 15:28 | DX: M54.16 Radiculopathy, lumbar region (principal); M79.662 Pain in left lower leg | CPT/HCPCS: 97012; 97110; 97140; 97162 ==

== ENCOUNTER 2023-10-01 16:46 | Emergency (ER) | payer OTHER, SELFPAY ==
[2023-10-01 16:59] VITALS: BP 117/75; PULSE 91; TEMP 36.9; O2SAT 96; BMI 35.1
[2023-10-01 18:25] VITALS: O2SAT 97
--- NOTE | 2023-10-01 18:28 | CT_ITS ---
The [address] [address] Patient Name: WILLIAM GAMBINO MRN: [id number] date: 1965 Sex: F Assigned Patient Location: ER Current Patient Location: ER Accession/Order Number: [id number] Exam Date: 10/01/2023 19:54 Report Date: 10/01/2023 20:23 At the request of: CHIP EPSTEIN Procedure: CT abdomen pelvis wo con EXAM: CT abdomen pelvis wo con CLINICAL INDICATION: right flank pain COMPARISON: None. TECHNIQUE: Axial CT of the abdomen, and pelvis was performed from the top of the hemidiaphragms to the inferior osseous pelvis without intravenous contrast. 2-D reformats were obtained. Automatic exposure control radiation dose reduction technology was utilized. FINDINGS: Evaluation is limited by lack of intravenous contrast. Visualized portion of the lung bases are unremarkable. Granulomatous change of the liver and spleen. Small simple lower pole left renal cyst. The right kidney, adrenal glands and pancreas are unremarkable. Gallbladder contains a stone. No abdominal aortic aneurysm. No enlarged lymph nodes, free fluid, or free air. The bowel is without evidence of obstruction or adjacent inflammatory changes. No evidence for acute appendicitis. Bladder unremarkable. No suspicious osseous lesions. CT/CT abdomen pelvis wo con IMPRESSION: 1. No significant acute abnormality identified in the abdomen or pelvis, within the limits of unenhanced CT, as described above. 2. Cholelithiasis. Electronically authenticated by: DIMITRIS ESCOBAR Date: 10/01/2023 20:23
--- NOTE | 2023-10-01 18:29 | ED_ITS ---
HPI HPI - General Adult General Chief complaint: Nausea/Vomiting/Diarrhea Stated complaint: Nausea/Vomiting/Diarrhea BACK PAIN Time Seen by Provider: 10/01/23 18:24 Source: patient Mode of arrival: walk-in History of Present Illness HPI narrative: Patient is a 58-year-old female with a history of colitis who presents to the emergency department for 2-day history of diarrhea which has progressed to nausea and vomiting and she is concerned she may be dehydrated. In the last day she has developed right low back pain. She has had decreased urination and states that her urine may be associated with minimal burning but she has not had any significant urinary symptoms. She has not had any fevers, upper respiratory symptoms or blood in her stool. She denies any previous abdominal surgeries. No medications prior to arrival. Related Data Home Medications ?Medication ?Instructions ?Recorded ?Confirmed amlodipine 5 mg-olmesartan 40 mg 1 tab PO QAM 10/01/23 10/01/23 tablet mirabegron 50 mg tablet,extended 50 mg PO Q24H 10/01/23 10/01/23 release 24 hr (Myrbetriq) rosuvastatin 10 mg tablet 10 mg PO QPM 10/01/23 10/01/23 semaglutide 0.25 mg or 0.5 mg (2 0.25 mg subcut QWEEK 10/01/23 10/01/23 mg/3 mL) subcutaneous pen injector (Ozempic) Previous Rx's ?Medication ?Instructions ?Recorded famotidine 20 mg tablet (Pepcid) 20 mg PO BID #10 tabs 10/01/23 hyoscyamine sulfate 0.125 mg 0.125 mg PO Q6H PRN abdominal pain 10/01/23 tablet (Levsin) #12 tabs ondansetron 4 mg disintegrating 4 mg PO Q6H PRN nausea and 10/01/23 tablet vomiting #12 tabs Allergies Allergy/AdvReac Type Severity Reaction Status Date / Time No Known Drug Allergies Allergy Verified 10/01/23 17:02 Opioid HPI Opioid Management Most Recent Opioid Data: No Data to Display Review of Systems ROS Constitutional Denies: fever or chills Ears, nose, mouth, and throat Denies: throat pain or nasal congestion Cardiovascular Denies: chest pain Respiratory Denies: shortness of breath Gastrointestinal Reports: nausea, vomiting, heartburn and diarrhea; Denies: abdominal pain Genitourinary Reports: painful urination Musculoskeletal Reports: back pain; Denies: neck pain Integumentary/Breast Denies: rash Neurological Denies: headache Hematologic/Lymphatic Denies: easy bruising or easy bleeding Exam Narrative Exam Narrative: Gen.: Awake, alert, in no distress Head: Normocephalic, atraumatic ENT: Moist mucous membranes Respiratory: No respiratory distress, lungs clear bilaterally Cardio: Regular rate and rhythm Gastrointestinal: Abdomen is soft, nondistended and nontender to palpation Back: No CVA tenderness Extremities: Moves extremities equally Psych: Normal mood and affect Neuro: No focal neuro deficit Skin: Warm, dry, intact Constitutional Vital Signs, click to edit/add: Last Vital Signs Temp 99.1 F 10/01/23 20:51 Pulse 76 10/01/23 20:51 Resp 18 10/01/23 20:51 BP 115/79 10/01/23 20:51 Pulse Ox 96 10/01/23 20:51 O2 Del Method Room Air 10/01/23 20:51 Course Vital Signs Vital signs: Vital Signs Temperature 98.5 F 10/01/23 16:59 Pulse Rate 91 H 10/01/23 16:59 Blood Pressure 117/75 10/01/23 16:59 Pulse Oximetry 96 10/01/23 16:59 Oxygen Delivery Method Room Air 10/01/23 16:59 Temperature 99.1 F 10/01/23 20:51 Pulse Rate 76 10/01/23 20:51 Respiratory Rate 18 10/01/23 20:51 Blood Pressure 115/79 10/01/23 20:51 Pulse Oximetry 96 10/01/23 20:51 Oxygen Delivery Method Room Air 10/01/23 20:51 Medical Decision Making MDM Narrative Medical decision making narrative: Patient treated with IV fluids, Toradol, Protonix, Zofran. No episodes of emesis in the ER. Laboratory studies reviewed and noted within normal limits, urine specimen is contaminated. Patient reports a history of C. difficile and does not wish to be placed on antibiotics if not totally necessary so we will wait for urine culture before treatment. CT shows no evidence of acute abnormalities and the patient is discharged home to follow-up with PCP. Medical Records Medical records reviewed: Yes I reviewed the patient's medical records Lab Data Lab results reviewed: Yes I reviewed the patient's lab results Labs: Lab Results 10/01/23 10/01/23 Range/Units 18:40 20:28 WBC 8.7 (4.0-11.0) 10^3/uL RBC 5.44 H (4.20-5.40) 10^6/uL Hgb 16.4 H (12.0-16.0) g/dL Hct 49.3 H (36.0-48.0) % MCV 90.6 (81.0-99.0) fL MCH 30.1 (26.7-34.0) pg MCHC 33.3 (29.9-35.2) g/dL RDW 13.3 (11.0-15.0) % Plt Count 197 (150-450) 10^3/uL MPV 9.1 L (9.5-13.5) fL Neut % (Auto) 70.2 (43.0-75.0) % Lymph % (Auto) 14.4 L (20.5-60.0) % Tompkins % (Auto) 12.0 (1.7-12.0) % Eos % (Auto) 2.7 (0.9-7.0) % Baso % (Auto) 0.5 (0.2-2.0) % Neut # (Auto) 6.1 (1.4-6.5) 10^3/uL Lymph # (Auto) 1.3 (1.2-3.8) 10^3/uL Tompkins # (Auto) 1.1 H (0.3-0.8) 10^3/uL Eos # (Auto) 0.2 (0.0-0.7) 10^3/uL Baso # (Auto) 0.0 (0.0-0.1) 10^3/uL Abs Immat Gran (auto) 0.02 (0.00-0.03) 10^3/uL Imm/Tot Granulo (auto) 0.2 (0.0-0.5) % Sodium 140 (136-145) mmol/L Potassium 4.3 (3.5-5.1) mmol/L Chloride 105 (98-107) mmol/L Carbon Dioxide 21.5 (21.0-32.0) mmol/L Anion Gap 17.8 BUN 29.0 H (7.0-18.0) mg/dL Creatinine 1.63 H (0.55-1.02) mg/dL Est GFR ( Amer) 40 L (>=60) Est GFR (Non-Af Amer) 33 L (>=60) BUN/Creatinine Ratio 17.8 Glucose 120 H (74-106) mg/dL Lactate 1.5 (0.4-2.0) mmol/L Calcium 9.4 (8.5-10.1) mg/dL Total Bilirubin 0.8 (0.2-1.0) mg/dL AST 17 (15-37) U/L ALT 49 (14-59) U/L Alkaline Phosphatase 105 (46-116) U/L Total Protein 7.7 (6.4-8.2) g/dL Albumin 4.2 (3.4-5.0) g/dL Globulin 3.5 g/dL Albumin/Globulin Ratio 1.2 Lipase 30.0 (16.0-77.0) U/L Urine Color Dk. yellow (YELLOW) Urine Clarity Clear (CLEAR) Urine pH 5.5 (5.0-9.0) Ur Specific [place] >=1.030 A (1.005-1.025) Urine Protein 100 A (NEG/TRACE) mg/dL Urine Glucose (UA) Negative (NEGATIVE) mg/dL Urine Ketones Negative (NEGATIVE) mg/dL Urine Occult Blood Negative (NEGATIVE) Urine Nitrite Negative (NEGATIVE) Urine Bilirubin Small A (NEGATIVE) Urine Urobilinogen 1.0 (0.2-1.0) EU/dL Ur Leukocyte Esterase Trace A (NEGATIVE) Urine RBC None seen (0-2) #/HPF Urine WBC 10-20 A (NONE SEEN) #/HPF Ur Squamous Epith Cells Many A (NONE/RARE) #/LPF Urine Crystals Seen A (None Seen) #/HPF Calcium Oxalate Crystal Many Amorphous Sediment Moderate Urine Bacteria Small A (NONE SEEN) #/HPF Urine Casts Seen A (NONE SEEN) #/LPF Hyaline Casts Many Fine Granular Casts Moderate WBC Casts Few Urine Mucus Small A (NONE SEEN) Ur Culture Indicated? Yes Imaging Data CT scan - abdomen: Radiologist's impression: ITS Impressions Abdomen/Pelvis CT 10/01/23 18:28 IMPRESSION: 1. No significant acute abnormality identified in the abdomen or pelvis, within the limits of unenhanced CT, as described above. 2. Cholelithiasis. Electronically authenticated by: DIMITRIS ESCOBAR Date: 10/01/2023 20:23 Discharge Plan Discharge Stand Alone Forms: Portal Instructions Chief Complaint: Nausea/Vomiting/Diarrhea Clinical Impression: Rt flank pain Patient Disposition: Home, Self-Care Time of Disposition Decision: 21:17 Condition: Good Prescriptions / Home Meds: New ondansetron 4 mg tablet,disintegrating 4 mg PO Q6H PRN (Reason: nausea and vomiting) Qty: 12 0RF famotidine [Pepcid] 20 mg tablet 20 mg PO BID Qty: 10 0RF hyoscyamine sulfate [Levsin] 0.125 mg tablet 0.125 mg PO Q6H PRN (Reason: abdominal pain) Qty: 12 0RF No Action amlodipine-olmesartan 5-40 mg tablet 1 tab PO QAM mirabegron [Myrbetriq] 50 mg tablet extended release 24 hr 50 mg PO Q24H rosuvastatin 10 mg tablet 10 mg PO QPM Ozempic 0.25 mg or 0.5 mg (2 mg/3 mL) pen injector 0.25 mg subcut QWEEK Rx Instructions: for 4 weeks Print Language: Barbadian Instructions: Flank Pain (ED) Referrals: Physician,Non-Staff, MD [Primary Care Provider] - 1 week
[2023-10-01 18:47] LABS: Basophils Percent Auto 0.5 % (0.2-2.0); Eosinophils Absolute Auto 0.2 10^3/uL (0.0-0.7); Eosinophils Percent Auto 2.7 % (0.9-7.0); Hematocrit 49.3 % (36.0-48.0); Hemoglobin 16.4 g/dL (12.0-16.0); Immature Granulocytes Abs Auto 0.02 10^3/uL (0.00-0.03); Immature Granulocytes Pct Auto 0.2 % (0.0-0.5); Lymphocytes Absolute Auto 1.3 10^3/uL (1.2-3.8); Lymphocytes Percent Auto 14.4 % (20.5-60.0); Mean Corpuscular HGB Conc 33.3 g/dL (29.9-35.2); Mean Corpuscular Hemoglobin 30.1 pg (26.7-34.0); Mean Corpuscular Volume 90.6 fL (81.0-99.0); Mean Platelet Volume 9.1 fL (9.5-13.5); Monocytes Absolute Auto 1.1 10^3/uL (0.3-0.8); Neutrophils Absolute Auto 6.1 10^3/uL (1.4-6.5); Neutrophils Percent Auto 70.2 % (43.0-75.0); Platelet Count 197 10^3/uL (150-450); Red Blood Count 5.44 10^6/uL (4.20-5.40); Red Cell Distribution Width 13.3 % (11.0-15.0); White Blood Count 8.7 10^3/uL (4.0-11.0)
[2023-10-01] MEDS: ONDANSETRON PF 4 MG/2 ML VIAL IV (18:52)
[2023-10-01] MEDS: KETOROLAC TROMETHAMINE 30 MG/ML VIAL IVP (18:52)
[2023-10-01] MEDS: 0.9 % SODIUM CHLORIDE 1,000 ML 999 ML IV (18:52)
[2023-10-01] MEDS: PANTOPRAZOLE SODIUM 40 MG VIAL IV (18:53)
[2023-10-01 19:09] LABS: Lactate/Lactic Acid 1.5 mmol/L (0.4-2.0)
[2023-10-01 19:16] LABS: Alanine Aminotransferase 49 U/L (14-59); Albumin Globulin Ratio 1.2; Albumin Level 4.2 g/dL (3.4-5.0); Alkaline Phosphatase 105 U/L (46-116); Anion Gap 17.8; Aspartate Amino Transferase 17 U/L (15-37); BUN Creatinine Ratio 17.8; Bilirubin Total 0.8 mg/dL (0.2-1.0); Calcium 9.4 mg/dL (8.5-10.1); Carbon Dioxide 21.5 mmol/L (21.0-32.0); Chloride 105 mmol/L (98-107); Estimated GFR (African America 40 (>=60); Estimated GFR (Non-African Ame 33 (>=60); Globulin 3.5 g/dL; Glucose 120 mg/dL (74-106); Potassium 4.3 mmol/L (3.5-5.1); Sodium 140 mmol/L (136-145); Total Protein 7.7 g/dL (6.4-8.2)
[2023-10-01 19:33] VITALS: BP 124/83; PULSE 80; O2SAT 95
[2023-10-01 20:36] LABS: Bilirubin Urine SMALL (NEGATIVE); Blood Urine NEGATIVE (NEGATIVE); Clarity Urine CLEAR (CLEAR); Color Urine DK. YELLOW (YELLOW); Glucose Urine UA NEGATIVE (NEGATIVE); Ketones Urine NEGATIVE (NEGATIVE); Leukocyte Esterase Urine TRACE (NEGATIVE); Nitrite Urine NEGATIVE (NEGATIVE); Protein Urine 100 mg/dL (NEG/TRACE); Specific Gravity Urine >=1.030 (1.005-1.025); pH Urine 5.5 (5.0-9.0)
[2023-10-01 20:39] LABS: Urine Microscopic Indicated YES
[2023-10-01 20:48] LABS: Bacteria Urine SMALL #/HPF (NONE SEEN); Mucus Urine SMALL (NONE SEEN); RBC Urine NONE SEEN #/HPF (0-2)
[2023-10-01 20:49] LABS: Amorphous Sediment Urine MODERATE; Calcium Oxalate Crystals Urine MANY; Cast Seen? SEEN #/LPF (NONE SEEN); Crystals Seen? Seen #/HPF (None Seen); Fine Granular Casts Urine MODERATE; Hyaline Casts Urine MANY; Squamous Epithelial Cell Urine MANY #/LPF (NONE/RARE); White Blood Cell Casts Urine FEW
[2023-10-01 20:50] LABS: Urine Culture Indicated YES
[2023-10-01 20:51] VITALS: BP 115/79; PULSE 76; TEMP 37.3; O2SAT 96
== END 2023-10-01 21:26 | disposition home or self-care (01) ==
PROVIDERS: Physician Assistant; Emergency Provider Emergency Medicine
DX: R10.9 Unspecified abdominal pain (principal)
CPT/HCPCS: 36415; 74176; 80053; 81001; 83605; 83690; 85025; 87086; 96361; 96374; 96375; 99285

== ENCOUNTER 2024-05-05 16:32 | Outpatient (OUT) | payer OTHER, SELFPAY ==
--- NOTE | 2024-05-05 | MM_ITS ---
Patient Name: WILLIAM GAMBINO MR#: [id number] : 1965 Exam Date: 05/05/2024 Ordering Doctor: DR JOSE M [facility]BR[facility] RADIOLOGY REPORT PROCEDURE: MM TOMOSYNTHESIS SCREENING BI COMPARISON: MG MAMM SCREEN 3D AVERY CAD, 03/01/2022. MM TOMOSYNTHESIS SCREENING BI, 03/12/2023. INDICATIONS: Screening mammogram Calculator Name NCI Breast Cancer Risk Assessment Tool 5 Year Breast Cancer Risk 1.40% Lifetime Breast Cancer Risk 8.90% Personal Breast Cancer No Personal Ovarian Cancer No Treatments None Family Cancers Mother with liver cancer at age 84; Aunt-maternal with colon cancer at age 67; Grandmother-maternal with colon cancer at age ~50; Grandfather-maternal with colon cancer at age 86. LOCATION: [facility] BREAST COMPOSITION: There are scattered areas of fibroglandular density. FINDINGS: DIAGNOSTIC CATEGORY 1--NEGATIVE. NO CHANGE FROM COMPARISON ASSESSMENT. Scattered benign-appearing calcifications are present. RIGHT BREAST: No significant suspicious finding. LEFT BREAST: No significant suspicious finding. RECOMMENDATIONS: ROUTINE MAMMOGRAM AND CLINICAL EVALUATION IN 12 MONTHS. PLEASE NOTE: A NORMAL MAMMOGRAM DOES NOT EXCLUDE THE POSSIBILITY OF BREAST CANCER. A CLINICALLY SUSPICIOUS PALPABLE LUMP SHOULD BE BIOPSIED. Dictated by: Nic Vanessa MD on 05/06/2024 at 09:21 Approved by: Nic Vanessa MD on 05/06/2024 at 09:23
--- NOTE | 2024-05-05 | XR_ITS ---
[address] [address] Patient Name: WILLIAM GAMBINO MRN: [id number] date: 1965 Sex: F Assigned Patient Location: [facility] Current Patient Location: Accession/Order Number: [id number] Exam Date: 05/05/2024 16:58 Report Date: 05/06/2024 06:03 At the request of: JOSE M WESTBROOK Procedure: XR DEXA axial skeleton EXAMINATION: XR DEXA axial skeleton HISTORY: Osteoporosis screening COMPARISON: DEXA bone densitometry 03/01/2022 TECHNIQUE: Dual-energy X-ray absorptiometry (DXA) was performed. FINDINGS: FOREARM ANALYSIS: Average bone mineral density is 0.444 g/cm2. T-score (standard deviation relative to young adult mean): 2.4 . HIP ANALYSIS: Lowest bone mineral density is within the right femoral neck, 0.916 g/cm2. T-score (standard deviation relative to young adult mean): -0.9 . -9.6% change since prior study. XR/XR DEXA axial skeleton IMPRESSION: World Health Organization Classification: Normal - Low Fracture Risk FRAX: Cannot calculate. Pharmacologic treatment recommendations * No uniform recommendation applies to all patients. Management plans must be individualized. * Consider initiating pharmacologic treatment in postmenopausal women and men >= 50 years of age who have the following: Primary fracture prevention: * T-score <= - 2.5 at the femoral neck, total hip, lumbar spine, 33% radius (some uncertainty with existing data) by DXA. * Low bone mass (osteopenia: T-score between - 1.0 and - 2.5) at the femoral neck or total hip by DXA with a 10-year hip fracture risk >= 3% or a 10-year major osteoporosis-related fracture risk >= 20% (i.e., clinical vertebral, hip, forearm, or proximal humerus) based on the [place]-adapted FRAXregistered model. Secondary fracture prevention: * Fracture of the hip or vertebra regardless of BMD [4, 5]. * Fracture of proximal humerus, pelvis, or distal forearm in persons with low bone mass (osteopenia: T-score between - 1.0 and - 2.5). The decision to treat should be individualized in persons with a fracture of the proximal humerus, pelvis, or distal forearm who do not have osteopenia or low BMD [12, 13]. Memo MS, Kristy SL, Sahil KL, Yobani EM, Leo KG, AJ, Celi ES. The clinician's guide to prevention and treatment of osteoporosis. Osteoporos Int. 2021;33(10):6229-0599. doi: 10.1007/e69017-374-45397-u. Epub 2021Aug 24. Erratum in: Osteoporos Int. 2021Nov 23;: PMID: [id number]; PMCID: [id number]. Electronically authenticated by: RAEANN CORDERO Date: 05/06/2024 06:03
== END 2024-05-05 16:33 | disposition home or self-care (01) ==
LOC: MAMMO 16:33
PROVIDERS: Visit Provider Specialist
DX: Z12.31 Encounter for screening mammogram for malignant neoplasm of breast (principal); Z80.0 Family history of malignant neoplasm of digestive organs; Z80.9 Family history of malignant neoplasm, unspecified; Z80.8 Family history of malignant neoplasm of other organs or systems; M81.0 Age-related osteoporosis without current pathological fracture
CPT/HCPCS: 77063; 77067; 77080